=== PATIENT | male | born 1955 | race Caucasian/White ===

== ENCOUNTER 2025-06-18 17:44 | Inpatient (IN) | payer MEDICARE, SELFPAY ==
--- OUTSIDE RECORDS SUMMARY | 2021-10-01 10:25 | XMS_ITS | Continuity of Care Document ---
Author Organization [facility] Address [address] [place] [address] Phone Care Team Providers Care Delinquent Tax Collector Name Role Phone Jeremy Garcia MD Unavailable [...] Diagnoses Date Provider Providers Copied on Encounter [facility], [facility] [address] [place] [address], [facility], tel: [phone] [facility] No Information 2 Radha Luna. [facility] [address], [id number], . tel:[phone] [facility], [facility] [address] [place] [address], [facility], tel: [phone] [facility] No Information 2 Radha Luna. [facility] [address], [id number], . tel:[phone] Referring Provider: Jeremy Ortega, [facility] [address], [address] . tel:[phone] [facility], [facility] [address], [address], [facility] No Information 2 No Information Referring Provider: Jeremy Ortega, [facility] [address], [address] . tel:[phone] [facility], [facility] [address], [address], [facility] No Information 2 No Information Referring Provider: Jeremy Ortega, [facility] [address], [address] . tel:[phone] [facility], [address] [place] [address], [address], [place] tel: [phone] [facility] No Information 2 Radha Luna. [address] [place] [address], [id number], [place]. tel:[phone] Referring Provider: Nirmal Fonseca, [address] [place], [address]. tel:[phone] OFFICE/OUTPA TIENT VISIT, [facility], [address] [place] [address], [address], [place] tel: [phone] [facility] Cataract Evaluation (chief complaint) Age-related nuclear cataract, left eyeOpen angle w/ borderline finding of eye, low riskOther secondary cataract, right eye 1 Radha Luna. [address], [id number], [place]. tel:[phone] Referring Provider: Jeremy Ortega, [address] [place] [address], [address] . tel:[phone] [facility], , [address] [place] [address], [id number] , [place] tel:[phone] [facility] Cataract, Nuclear ScleroticSeconda ry Membrane Apr- 0 5 Drew Carmen. [address] [place], [place], [id number]. tel:[phone] [facility], , [address] [place] [address], [id number] , [place] tel:[phone] [facility] No Information Oct-2 3-201 2 Drew Kermit. [address] [place], [place], [id number]. tel:[phone] [facility], , [address] [place] [address], [id number] , [place] tel:[phone] [facility] No Information Oct-2 3-201 2 Center [facility]. [address], [place], [place], [id number], . tel:[phone] [facility], , [address], [place], [id number] , tel:[phone] [facility] No Information Oct-0 2 Drew Carmen. [address], [id number]. tel:[phone] [facility], , [address] [place] [address], [id number] , [place] tel:[phone] [facility] Cataract, Nuclear Sclerotic Apr-3 0 2 Drew Kermit. [address], [id number]. tel:[phone] [facility], , [facility], [place], [id number] , tel:[phone] [facility] No Information Apr-3 2 Drew Carmen. [address], [place], [place], [id number]. tel:[phone] Family History Family Member Type Diagnosis Age At Onset Problem (finding) No family hist ory of Macular degeneration Problem (finding) No family history of Gl aucoma Father Problem (finding) Diabetes mellitus Problem (finding) No family history of Ca taracts Payers Payer name Insurance type Covered republican ID Authoriza tion(s) [place] [id number] Social History Type Description Quantity Date Captured [...]
[2025-06-18] VITALS (21 sets, daily range): BP systolic 120–172; BP diastolic 85–128; PULSE 69–85; RESP 14–22; TEMP 36.9; O2SAT 93–98
--- NOTE | 2025-06-18 17:45 | CTR_ITS ---
PROCEDURE INFORMATION: Exam: CT Head Without Contrast Exam date and time: 06/18/2025 5:46 PM Age: 70 years old Clinical indication: Stroke-like symptoms; Altered mental status/memory loss; Additional info: Symptoms of acute stroke TECHNIQUE: Imaging protocol: Computed tomography of the head without contrast. Radiation optimization: All CT scans at this facility use at least one of these dose optimization techniques: automated exposure control; mA and/or kV adjustment per patient size (includes targeted exams where dose is matched to clinical indication); or iterative reconstruction. Other technique: STROKE PROTOCOL was implemented. COMPARISON: No relevant prior studies available. RADIATION DOSE METRICS: Total DLP (mGy-cm): 1182.38 FINDINGS: Brain: Sequela of moderate chronic microvascular ischemic changes with periventricular and deep white matter hypoattenuation. Voss-white differentiation is otherwise grossly maintained. Hypoattenuation in the region of the left temporal lobe is favored to be artifactual. No evidence of intra-axial or extra-axial hemorrhage. No mass effect or midline shift. Basilar cisterns are patent. Cerebral ventricles: No hydrocephalus. Paranasal sinuses: The visualized paranasal sinuses are well aerated. Mastoid air cells: The visualized mastoids and middle ears are clear. Bones: Calvarium is intact. No evidence of acute fracture. Soft tissues: No gross soft tissue abnormality. CT/CT head thrombolytic [id number] IMPRESSION: 1. No acute intracranial abnormality. If there is clinical concern for acute-subacute ischemia beyond the window for neuro intervention, consider correlation with MRI. ASSESSMENT: ASPECTS ([place] Stroke Program Early CT Score) is 10.
--- NOTE | 2025-06-18 17:45 | ECG_ITS ---
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 Measurements Intervals Bath Rate: 84 P: 76 [place]: 180 QRS: 16 QRSD: 106 T: 77 QT: 378 QTc: 448 Interpretive Statements SINUS RHYTHM No previous ECG available for comparison Electronically Signed On 06-19-2025 20:24:28 CDT by Gerri Griffith M.D. [email or web address]
--- NOTE | 2025-06-18 17:45 | CTR_ITS ---
PROCEDURE INFORMATION: Exam: CTA Head With Contrast, Arteriography Exam date and time: 06/18/2025 5:50 PM Age: 70 years old Clinical indication: Cognitive deficit; Altered mental status; Additional info: CVA TECHNIQUE: Imaging protocol: Computed tomographic angiography of the head with contrast. Exam focused on the arteries. 3D rendering (Not supervised by radiologist): MIP and/or 3D reconstructed images were created by the technologist. Radiation optimization: All CT scans at this facility use at least one of these dose optimization techniques: automated exposure control; mA and/or kV adjustment per patient size (includes targeted exams where dose is matched to clinical indication); or iterative reconstruction. Contrast material: OMNIPAQUE 350; Contrast volume: 100 ml; Contrast route: INTRAVENOUS (IV); COMPARISON: CT head thrombolytic [id number] 06/18/2025 5:46 PM RADIATION DOSE METRICS: Total DLP (mGy-cm): 530.29 FINDINGS: ANTERIOR CIRCULATION: Right internal carotid artery: Patent. Right middle cerebral artery: Patent. Right anterior cerebral artery: Patent. Left internal carotid artery: Patent. Left middle cerebral artery: Patent. Left anterior cerebral artery: Patent. POSTERIOR CIRCULATION: Right vertebral artery: Patent. Left vertebral artery: Patent. The left vertebral artery terminates as an AICA-PICA trunk. Basilar artery: Patent. Right posterior cerebral artery: Patent. Left posterior cerebral artery: Patent. PROCEDURE INFORMATION: Exam: CTA Neck With Contrast Exam date and time: 06/18/2025 5:50 PM Age: 70 years old Clinical indication: Cognitive deficit; Altered mental status; Additional info: CVA TECHNIQUE: Imaging protocol: Computed tomographic angiography of the neck with contrast. Exam focused on the cervical segments of the vasculature. 3D rendering (Not supervised by radiologist): MIP and/or 3D reconstructed images were created by the technologist. Radiation optimization: All CT scans at this facility use at least one of these dose optimization techniques: automated exposure control; mA and/or kV adjustment per patient size (includes targeted exams where dose is matched to clinical indication); or iterative reconstruction. Contrast material: OMNIPAQUE 350; Contrast volume: 100 ml; Contrast route: INTRAVENOUS (IV); COMPARISON: CT head thrombolytic [id number] 06/18/2025 5:46 PM RADIATION DOSE METRICS: Total DLP (mGy-cm): 530.29 FINDINGS: Right common carotid artery: Patent. No evidence of hemodynamically significant stenosis. Right internal carotid artery: Patent. No evidence of hemodynamically significant stenosis. Right external carotid artery: Patent. Left common carotid artery: Patent. No evidence of hemodynamically significant stenosis. Left internal carotid artery: Patent. No evidence of hemodynamically significant stenosis. Left external carotid artery: Patent. Right vertebral artery: Patent. Left vertebral artery: Patent. Developmentally hypoplastic. Soft tissues: No gross soft tissue abnormality. No evidence of fluid collection or hematoma. Bones/joints: No evidence of acute fracture or subluxation of the cervical spine. Chronic C6 spinous process fracture. Severe foraminal stenosis on the left at C4-C5, C5-C6 and C6-C7. Consider correlation with follow-up MRI to evaluate for neural impingement. CT/CT angio headneck* [id number] IMPRESSION: 1. No evidence of large vessel occlusion or acute thrombosis in the head. IMPRESSION: 1. No evidence of acute thrombosis or hemodynamically significant stenosis in the neck. 2. Severe foraminal stenosis on the left at C4-C5, C5-C6 and C6-C7. Consider correlation with follow-up MRI to evaluate for neural impingement. REFERENCES: NASCET CRITERIA. The degree of stenosis in the cervical segment of the internal carotid artery is based on NASCET criteria. Normal is no stenosis. Mild is less than 50% stenosis. Moderate is 50-69% stenosis. Severe is 70% to 99% stenosis. Total occlusion is no detectable patent lumen.
--- OUTSIDE RECORDS SUMMARY | 2025-06-18 17:52 | XMS_ITS | Encounter Summary ---
Author Organization [facility] Address [address] [place] [address] Care Team Providers Care Channel Lip Wetter Name Role Phone Unavailable Primary Care Provider Unavailabl e Encounter Details Date Type Department Care Team (Latest Contact Info) Description 06/03/2007 Outpatient Historical 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
--- OUTSIDE RECORDS SUMMARY | 2025-06-18 17:52 | XMS_ITS | Encounter Summary ---
Author Organization [facility] Address [address] [place] [address] Care Team Providers Care Tombstone Erector Helper Name Role Phone Unavailable Primary Care Provider Unavailabl e Encounter Details Date Type Department Care Team (Latest Contact Info) Description 05/09/2005 Outpatient Historical [facility] [address] [place] [address] AMBULANCE, [facility] OTHER INJURY OF ABDOMEN (Primary Dx) Social History Tobacco Use Types Packs/Day Years Used Date Smoking Tobacco: Never Assessed Sex and Gender Information Value Date Recorded Sex Assigned at Not on file 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
--- OUTSIDE RECORDS SUMMARY | 2025-06-18 17:52 | XMS_ITS | Encounter Summary ---
Author Organization [facility] Address 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
--- OUTSIDE RECORDS SUMMARY | 2025-06-18 17:52 | XMS_ITS | Encounter Summary ---
Author Organization [facility] Address [address] [place] [address] Care Team Providers Care Orthotic Fitter Name Role Phone Unavailable Primary Care Provider Unavailabl e Encounter Details Date Type Department Care Team (Late st Contact Info) Description 05/09/2005 Emergency [facility] [address] 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 Gender Identity Not on file Sexual Orientation Not on file documented as of this encounter Plan of Treatment Not on file documented as of this encounter Procedures Procedure Name Priority Date/Time Associated Diagnosis Comments CBC WITH DIFFERENTIAL Routine 05/10/2005 12:38 AM CDT ETHANOL LEVEL Routine 05/10/2005 12:38 AM CDT documented in this encounter Results * (ABNORMAL) ETHANOL LEVEL (05/10/2005 12:38 AM CDT) ETHANOL 283(H) <=10 mg/dL INTERFACE SYSTEM 05/10/2005 12:3 8 AM CDT Henry Bearden MD CHEMISTRY ORDERABLES Sparkle gordon Result INTERFACE SYSTEM Refer to clinic/hospital department * (ABNORMAL) CBC WITH DIFFERENTIAL (05/10/2005 12:38 AM CDT) WBC 8.8 4.5 - 11.0 K/ul INTERFACE SYSTEM RBC 5.79 4.60 - 6.20 Mil/ul INTERFACE SYSTEM HEMOGLOBIN 16.4 14.0 - 18.0 g/dL INTERFACE SYSTEM HEMATOCRIT 47.6 41.0 - 53.0 % INTERFACE SYSTEM MCV 82.2(L) 84.0 - 103.0 Fl INTERFACE SYSTEM MCH 28.3 27.0 - 34.0 pg INTERFACE SYSTEM MCHC 34.5 30.0 - 35.0 g/dL INTERFACE SYSTEM RDW 14.6(H) 11.0 - 14.5 % INTERFACE SYSTEM PLATELETS 313 140 - 440 K/ul INTERFACE SYSTEM MPV 9.5 8.9 - 12.8 Fl INTERFACE SYSTEM NEUTROPHILS 46.7 42.2 - 75.2 % INTERFACE SYSTEM LYMPHOCYTES 41.2 24.0 - 44.0 % INTERFACE SYSTEM MONOCYTES 8.1 2.0 - 10.0 % INTERFACE SYSTEM EOSINOPHILS 3.1 0.0 - 7.0 % INTERFACE SYSTEM BASOPHILS 0.9 0.0 - 1.0 % INTERFACE SYSTEM NEUTROPHIL ABSOLUTE 4.1 2.0 - 8.0 K/uL INTERFACE SYSTEM LYMPHOCYTE ABSOLUTE 3.6 1.2 - 4.0 K/ul INTERFACE SYSTEM MONOCYTE ABSOLUTE 0.7(H) 0.1 - 0.6 K/ul INTERFACE SYSTEM EOSINOPHIL ABSOLUTE 0.3 0.0 - 0.7 K/ul INTERFACE SYSTEM BASOPHILS ABSOLUTE 0.1 0.0 - 0.2 K/ul INTERFACE SYSTEM 05/10/2005 12:3 8 AM CDT us Henry Bearden MD HEMATOLOGY ORDERABLES Fin al Result INTERFACE SYSTEM Refer to clinic/hospital department documented in this encounter Visit Diagnoses Diagnosis Sprain of neck- Primary documented in this encounter
--- OUTSIDE RECORDS SUMMARY | 2025-06-18 17:52 | XMS_ITS | Clinical Summary ---
Author Organization [facility] Address [address] 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
--- OUTSIDE RECORDS SUMMARY | 2025-06-18 17:52 | XMS_ITS | Encounter Summary ---
Author Organization [facility] Address [address] [place] [address] Care Team Providers Care Cleaning Associate Name Role Phone Unavailable Primary Care Provider Unavailabl e Encounter Details Date Type Department Care Team (Late st Contact Info) Description 08/03/2007 Emergency [facility] Emergency Department [address] 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
--- OUTSIDE RECORDS SUMMARY | 2025-06-18 17:52 | XMS_ITS | Encounter Summary ---
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 Name Role Phone Unavailable Primary Care Provider Unavailabl e Encounter Details Date Type Department Care Team (Late st Contact Info) Description 08/02/2007 Emergency [facility] Emergency Department [address] [place] [id number] Julius Anderson MD [address] [place], [place] [id number] Obstructive Chronic Bronchitis with Exacerbation (CMS/HCC) (Primary Dx) Social History Tobacco Use Types Packs/Day Years Used Date Smoking Tobacco: Never Assessed Sex and Gender Information Value Date Recorded Sex Assigned at Not on file 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 Gender Identity Not on file Sexual Orientation Not on file documented as of this encounter Plan of Treatment Not on file documented as of this encounter Procedures Procedure Name Priority Date/Time Associated Diagnosis Comments POC BLOOD GAS, LYTES AND H+H Routine 08/02/2007 7:54 PM BOTTLE CARRIER PT AND APTT Routine 08/02/2007 7:54 PM BOTTLE CARRIER CARDIAC ENZYMES Routine 08/02/2007 7:54 PM BOTTLE CARRIER CBC WITH DIFFERENTIAL Routine 08/02/2007 7:54 PM BOTTLE CARRIER BRAIN NATRIURETIC PEPTIDE, BNP OR PROBNP Routine 08/02/2007 7:54 PM BOTTLE CARRIER BASIC METABOLIC PANEL Routine 08/02/2007 7:54 PM BOTTLE CARRIER CTA CHEST W WO CONTRAST Routine 08/02/2007 7:27 PM BOTTLE CARRIER XR CHEST PA OR AP 1 VW Routine 08/02/2007 7:27 PM BOTTLE CARRIER documented in this encounter Results * (ABNORMAL) POC ISTAT EG 7+ (08/02/2007 7:54 PM BOTTLE CARRIER) SPECIMEN TYPE Arterial INTERF BETHANY SYSTEM Comment: Test Performed By [id number] Pulse OX: 99 Hemoglobin calculated from Hematocrit result FIO2 8 INTERFACE SYSTEM PH 7.51(H) 7.35 - 7.45 Unit INTERFACE SYSTEM PH TEMP CORRECT 7.51(H) 7.35 - 7.45 Unit INTERFACE SYSTEM PCO2 POC 22(L) 35 - 45 mmHg INTERFACE SYSTEM PCO2 TEMP CORRECT 22(L) 35 - 45 mmHg INTERFACE SYSTEM PO2 148(H) 80 - 105 mmHg INTERFACE SYSTEM PO2 TEMP CORRECT 148(H) 80 - 105 mmHg INTERFACE SYSTEM HCO3 (CALC) POC 17.5(L) 22.0 - 26.0 mmol/l INTERFACE SYSTEM BASE EXCESS -5(L) -2 - 3 mmol/l INTERFACE SYSTEM HEMOGLOBIN POC 15.6 3 g/dL 13.5 - 18.0 g/dL INTERFACE SYSTEM HEMATOCRIT ABG 46 38 - 51 % INTER FACE SYSTEM O2 SATURATION 100(H) 95 - 98 % INTERF [facility]ANY SYSTEM TCO2 (CALC) POC 18(L) 23 - 27 mmol/l INTERFACE SYSTEM SODIUM 139 138 - 146 mEq/L INTERFACE SYSTEM POTASSIUM 3.6 3.5 - 4.9 mEq/L INTERFACE SYSTEM CALCIUM IONIZED 1.13 1.12 - 1.32 mmol/l INTERFACE SYSTEM 08/02/2007 7:54 PM BOTTLE CARRIER us Physician Sj Ed POINT OF CARE TESTING COM Edited INTERFACE SYSTEM Refer to clinic/hospital department * BRAIN NATRIURETIC PEPTIDE, BNP OR PROBNP (08/02/2007 7:54 PM BOTTLE CARRIER) BRAIN NATRIURETIC PEPTIDE 44 0 - 125 pg/mL INTERFACE SYSTEM 08/02/2007 7:54 PM BOTTLE CARRIER Julius Anderson MD CHEMISTRY ORDERABLES Edited Performing Organization Address [facility] de Phone Number INTERFACE SYSTEM Refer to clinic/hospital department * PT AND APTT (08/02/2007 7:54 PM BOTTLE CARRIER) PROTIME 13.7 13.0 - 15.7 Secs INTERFACE SYSTEM Comment: As of 06 note change in normal range. INR 0.9 INTERFACE SYSTEM Comment: Expected Values for INR: DVT/PE Goal INR 2.5; range 2.0 - 3.0 Valve Replacement Tissue Goal INR 2.5; range 2.0 - 3.0 Mechanical Goal INR 3.0; range 2.5 - 3.5 POST-IN Goal INR 2.5; range 2.0 - 3.0 or Goal 3.0; range 2.5 - 3.5 Atrial Fibrillation Goal INR 2.5; range 2.0 - 3.0 Ischemic Stroke Goal INR 2.5; range 2.0 - 3.0 For additional information see Guidelines for Anticoagulation available from the pharmacy Kori Macias PTT 24.7 21.6 - 35.6 Secs INTERFACE SYSTEM Comment: Therapeutic Range: Hi-level PE/DVT heparin protocol 80.1 -95.0 sec Lo-level PE/DVT heparin protocol 67.1 - 80.0 sec Cardiac Heparin Protocol 67.1 - 85.0 sec Neuro Heparin Protocol 67.1 - 80.0 sec As of 09/03/2006 note change in APTT Normal Range. 08/02/2007 7:54 PM BOTTLE CARRIER Julius Anderson MD HEMATOLOGY ORDERABLES Edited Performing Organization Address [facility] de Phone Number INTERFACE SYSTEM Refer to clinic/hospital department * CARDIAC ENZYMES (08/02/2007 7:54 PM BOTTLE CARRIER) TROPONIN I <0.1 0.0 - 1.3 ng/mL INTERFACE SYSTEM Comment: As of 07 the Troponin Reference Range has changed from 0.0-1.5 ng/ml to 0.0- 1.3 ng/ml due to a change in testing methodology. CKMB 3.4 0.0 - 5.0 ng/mL INTERFACE SYSTEM 08/02/2007 7:54 PM BOTTLE CARRIER us Juilus Anderson MD CHEMISTRY ORDERABLES Edited Performing Organization Address [facility] Phone Number INTERFACE SYSTEM Refer to clinic/hospital department * (ABNORMAL) BASIC METABOLIC PANEL (08/02/2007 7:54 PM BOTTLE CARRIER) GLUCOSE 106 70 - 110 mg/dL INTERFACE SYSTEM BUN 14 9 - 20 mg/dL INTERFACE SYSTEM CREATININE 0.9 0.7 - 1.5 mg/dL INTERFACE SYSTEM SODIUM 141 136 - 145 mEq/L INTERFACE SYSTEM POTASSIUM 3.7 3.5 - 5.0 mEq/L INTERFACE SYSTEM CHLORIDE 108 95 - 110 mEq/L INTERFACE SYSTEM CO2 19(L) 22 - 32 mmol/l INTERFACE SYSTEM CALCIUM 9.4 8.4 - 10.5 mg/dL INTERFACE SYSTEM ANION GAP 18 9 - 20 mEq/L INTERFACE SYSTEM OSMOLALITY, CALCULATED 290 275 - 295 mOsm/Kg INTERFACE SYSTEM 08/02/2007 7:54 PM BOTTLE CARRIER us Julius Anderson MD CHEMISTRY ORDERABLES Edited Performing Organization Address [facility] Phone Number INTERFACE SYSTEM Refer to clinic/hospital department * (ABNORMAL) CBC WITH DIFFERENTIAL (08/02/2007 7:54 PM BOTTLE CARRIER) WBC 12.0(H) 4.8 - 10.8 K/ul INTERFACE SYSTEM RBC 5.38 4.60 - 6.20 Mil/ul INTERFACE SYSTEM HEMOGLOBIN 14.7 14.0 - 18.0 g/dL INTERFACE SYSTEM HEMATOCRIT 43.3 41.0 - 53.0 % INTERFACE SYSTEM MCV 80.5(L) 84.0 - 103.0 Fl INTERFACE SYSTEM MCH 27.3 27.0 - 34.0 pg INTERFACE SYSTEM MCHC 33.9 30.0 - 35.0 g/dL INTERFACE SYSTEM RDW 14.3 11.0 - 14.5 % INTERFACE SYSTEM PLATELETS 294 140 - 440 K/ul INTERFACE SYSTEM MPV 9.5 8.9 - 12.8 Fl INTERFACE SYSTEM NEUTROPHILS 47.7 42.2 - 75.2 % INTERFACE SYSTEM LYMPHOCYTES 41.1 24.0 - 44.0 % INTERFACE SYSTEM MONOCYTES 8.4 2.0 - 10.0 % INTERFA CE SYSTEM EOSINOPHILS 2.0 0.0 - 7.0 % INTERF BETHANY SYSTEM BASOPHILS 0.8 0.0 - 1.0 % INTERFAC E SYSTEM NEUTROPHIL ABSOLUTE 5.7 2.0 - 8.0 K/ul INTERFACE SYSTEM LYMPHOCYTE ABSOLUTE 4.9(H) 1.2 - 4.0 K/ul INTERFACE SYSTEM MONOCYTE ABSOLUTE 1.0(H) 0.1 - 0.6 K/ul INTERFACE SYSTEM EOSINOPHIL ABSOLUTE 0.2 0.0 - 0.7 K/ul INTERFACE SYSTEM BASOPHILS ABSOLUTE 0.1 0.0 - 0.2 K/ul INTERFACE SYSTEM HEM COMMENT Automated Diff Automated Diff INTERFACE SYSTEM 08/02/2007 7:54 PM BOTTLE CARRIER us Julius Anderson MD HEMATOLOGY ORDERABLES Edited INTERFACE SYSTEM Refer to clinic/hospital department * XR CHEST PA OR AP (08/02/2007 7:27 PM BOTTLE CARRIER) Anatomical Region Laterality Modality Chest Other 08/02/2007 7:27 PM BOTTLE CARRIER Narrative 08/02/2007 7:27 PM BOTTLE CARRIER Portable AP upright chest 08/02/2007. 1945 hours. History: Difficulty breathing. The heart is borderline large. The thoracic aorta contains calcification without aneurysmaldilatation. There is linear scarring in the medial right upper lobe. The medial right upper lobealso has a small calcified granuloma. The lung rios are otherwise clear without pneumothorax,pleural fluid, or infiltrate. What appears to be a possible nodule in the mid right lung fieldoverlying the posterior right 5th rib may be part of the patchy probable infiltrate in the inferiorright upper lobe seen on the CTA of the chest which is dictated separately. The bones appearintact. Impression: Linear scarring and small calcified probable granuloma in the medial right upper lobe. What appears to be a possible small nodule overlying the posterior right 5th rib is probably due tothe patchy infiltrate in the inferior right upper lobe seen on the CT scan which is dictatedseparately. There is no soft tissue pulmonary nodule in this area. - Dictated By: Leatha Mcgee M.D. Electronically Signed By: Leatha Mcgee M.D. Date Signed: 08/03/07 Procedure Note 08/19/2009 Portable AP upright chest 08/02/2007. 1945 hours. History: Difficulty breathing. The heart is borderline large. The thoracic aorta contains calcificationwithout aneurysmaldilatation. There is linear scarring in the medial right upper lobe. The medial rightupper lobealso has a small calcified granuloma. The lung rios are otherwise clear withoutpneumothorax,pleural fluid, or infiltrate. What appears to be a possible nodule in the mid right lungfieldoverlying the posterior right 5th rib may be part of the patchy probable infiltrate in theinferiorright upper lobe seen on the CTA of the chest which is dictated separately. The bones appearintact. Impression: Linear scarring and small calcified probable granuloma in the medial rightupper lobe. What appears to be a possible small nodule overlying the posterior [id number] rib is probably due tothe patchy infiltrate in the inferior right upper lobe seen on the CT scanwhich is dictatedseparately. There is no soft tissue pulmonary nodule in this area. - Dictated By: Leatha Mcgee M.D. Electronically Signed By: Leatha Mcgee M.D. Date Signed: 08/03/07 us Julius Anderson MD DIAGNOSTIC IMAGING ORDERABLE S Final Result * CTA CHEST W WO CONTRAST (08/02/2007 7:27 PM BOTTLE CARRIER) Anatomical Region Laterality Modality Chest Other 08/02/2007 7:27 PM BOTTLE CARRIER Narrative 08/02/2007 7:27 PM BOTTLE CARRIER CTA Chest 08/02/2007History: Difficulty breathing. Procedure: A routine CT angiogram for pulmonary embolus was obtained with noncontrast images followedby thin cut images with 100ml of Optiray 350 IV contrast. Findings: 1. The pulmonary arteries are well opacified. There is no pulmonary embolus. 2. There is a calcified probable granuloma in the right upper lobe. There is thick linear scarringextending peripherally from the granuloma. . There are a couple of focal areas of thickening alongthe linear scarring. This is probably also due to scarring. There is no previous scan available. The scarring is either not present or not as prominent on the AP view of the cervical spine05/09/2005.3. There are patchy subtle ground glass densities within the inferior right upper lobe. This isprobably an infiltrate. 4. There is peripheral atelectasis or infiltrate in the posterior lower bilateral lower lobes. It isprobably platelike atelectasis in the horizontal plane. There is minimal other peripheralatelectasis in the posterior lower lobes. 5. There are calcifications in the chest consistent with old granulomatous disease. 6. There is no pneumothorax or pleural fluid. There is no pericardial fluid. The heart is within normallimits in size. The thoracic aorta is normal without aneurysm or dissection. There is nomediastinal or axillary lymphadenopathy. 7. The adrenals and spleen are normal in appearance. There is no identified abnormality of thepartially included liver and pancreas. 8. There are a few cysts within the partially included kidneys on the noncontrast images. The kidneysare not well enough included for adequate evaluation. They were not included on the with contrastimages. 9. There are degenerative changes in the shoulders. There are old right rib fractures with milddeformities in the anterolateral right third through sixth ribs. There are minimal degenerativechanges in the spine. T10 is minimally anteriorly wedged, possibly developmental. Impression: No pulmonary embolus. Old granulomatous disease. Linear probable scarring in the rightupper lobe. Focal thickening within the scarring. No previous scan available. Scar carcinoma isunlikely but cannot be excluded. A follow up CT scan of the chest in 6 months is suggested. Patchyground glass density in the inferior right upper lobe, probably due to subtle infiltrate. Probableplate like atelectasis in the posterior inferior bilateral lower lobes. Cysts within the partiallyincluded kidneys. Because the kidneys were not completely included on this scan and the cysts werenot well delineated because they are only seen on noncontrast images, further evaluation withbilateral renal ultrasound is suggested because a cystic mass cannot be excluded. Degenerativechanges in the shoulders. Old right rib fractures. Minimal degenerative changes in the spine. - Dictated By: Leatha Mcgee M.D. Electronically Signed By: Leatha Mcgee M.D. Date Signed: 08/02/07 Procedure Note 08/19/2009 CTA Chest 08/02/2007History: Difficulty breathing. Procedure: A routine CT angiogram for pulmonary embolus was obtained with noncontrastimages followedby thin cut images with 100ml of Optiray 350 IV contrast. Findings: 1. The pulmonary arteries are well opacified. There is no pulmonaryembolus. 2. There is a calcified probable granuloma in the right upper lobe. Thereis thick linear scarringextending peripherally from the granuloma. . There are a couple of focal areas of thickening alongthe linearscarring. This is probably also due to scarring. There is no previous scan available. The scarring is either not present or not as prominent on the AP view ofthe cervical spine05/09/2005.3. There are patchy subtle ground glass densities within the inferior rightupper lobe. This isprobably an infiltrate. 4. There is peripheral atelectasis or infiltrate in the posterior lowerbilateral lower lobes. It isprobably platelike atelectasis in the horizontal plane. There is minimalother peripheralatelectasis in the posterior lower lobes. 5. There are calcifications in the chest consistent with old granulomatousdisease. 6. There is no pneumothorax or pleural fluid. There is no pericardialfluid. The heart is within normallimits in size. The thoracic aorta is normal without aneurysm ordissection. There is nomediastinal or axillary lymphadenopathy. 7. The adrenals and spleen are normal in appearance. There is noidentified abnormality of thepartially included liver and pancreas. 8. There are a few cysts within the partially included kidneys on thenoncontrast images. The kidneysare not well enough included for adequate evaluation. They were not includedon the with contrastimages. 9. There are degenerative changes in the shoulders. There are old rightrib fractures with milddeformities in the anterolateral right third through sixth ribs. Thereare minimal degenerativechanges in the spine. T10 is minimally anteriorly wedged,possibly developmental. Impression: No pulmonary embolus. Old granulomatous disease. Linear probable scarringin the rightupper lobe. Focal thickening within the scarring. No previous scan available. Scar carcinomaisunlikely but cannot be excluded. A follow up CT scan of the chest in 6 months is suggested.Patchyground glass density in the inferior right upper lobe, probably due to subtle infiltrate.Probableplate like atelectasis in the posterior inferior bilateral lower lobes. Cysts within thepartiallyincluded kidneys. Because the kidneys were not completely included on this scan and the cysts werenot welldelineated because they are only seen on noncontrast images, further evaluation withbilateral renalultrasound is suggested because a cystic mass cannot be excluded. Degenerativechanges in the shoulders. Oldright rib fractures. Minimal degenerative changes in the spine. - Dictated By: Leatha Mcgee M.D. Electronically Signed By: Leatha Mcgee M.D. Date Signed: 08/02/[address] ORDERABLES Final Result documented in this encounter Visit Diagnoses Diagnosis Obstructive chronic bronchitis with exacerbation (CMS/HCC)- Primary Obstructive chronic bronchitis with exacerbation documented in this encounter
--- NOTE | 2025-06-18 18:01 | ED_ITS ---
HPI - Neuro Symptoms/Deficit 2 General: Chief Complaint: Neuro Symptoms/Deficit Stated Complaint: right facial droop; slurred speech Time Seen by Provider: 06/18/25 17:45 History of Present Illness: 70 yo M with Hx of COPD and CHF presents with new left facial droop and slurred speech. Per triage, has chronic left arm pain with limited elevation but equal blintze roller, and baseline bilateral leg weakness. Uses 2 L NC at baseline. On arrival, working hard to breathe; SpO2 noted at 84%. Denies visual field deficits or sensory changes on face. Reports taking ?water pills? (Lasix) but admits poor adherence. ROS notable for dyspnea; denies visual black spots; no facial sensory loss reported. NIH stroke score 2 NIHSS: Level Of Consciousness - 1a: 0 Level Of Consciousness Questions - 1b: Both Correct Level Of Consciousness Commands - 1c: Both Correct Best Gaze - 2: Normal Visual Slade - 3: No Visual Loss Facial Palsy - 4: P artial Paralysis Motor Arm Right - 5: No Drift Motor Arm Left - 5: No Drift Motor Leg Right - 6: No Drift Motor Leg Left - 6: No Drift Limb Ataxia - 7: Absent Sensory - 8: Normal Best Language - 9: No Aphasia D ysarthia - 10: Mild/Moderate Dysarthia Extinction And Inattention - 11: 0 Score: Total Score: 3 Physical Exam 2 Narrative: EXAM NARRATIVE: Gen: Mild respiratory distress. HEENT: Mucous membranes dry. Vision intact; no visual field cuts. Lungs: Severely diminished breath sounds bilaterally with wheezes. Tachypneic at ~30/min. Extremities: 1+ pitting edema of the legs. Neuro: Left facial droop sparing forehead/eyelids; able to close left eye completely. Equal blintze roller strength. Normal sensation in bilateral face, arms, and legs. Strength and sensation equal in bilateral legs. Const: COMMON NORMALS: no acute distress HENMT: COMMON NORMALS: normocephalic and atraumatic HEAD & SCALP: n ormocephalic and atraumatic Eye: COMMON NORMALS: Equal, round and reactive pupils present, EOMs intact bilaterally and no scleral icterus PUPIL: Yes Equal, round and reactive pupils present Cardio: COMMON NORMALS: regular rate, regular rhythm and No murmurs present (Cardio) RATE: regular rate RHYTHM: regular rhythm GI: COMMON NORMALS: Normal to inspection, nondistended, normoactive bowel sounds present, Soft to palpation and non-tender PALPATION: Yes Soft to palpation Skin: COMMON NORMALS: no rashes or lesions noted GENERAL SKIN EXAM: no rashes or lesions noted Course 2 Vital Signs: Vital signs: Vital Signs Pulse Rate 73 06/18/25 20:17 Respiratory Rate 17 06/18/25 20:17 Blood Pressure 142/94 06/18/25 20:17 Pulse Oximetry 97 06/18/25 20:17 Oxygen Delivery Me thod Non-Rebreather 06/18/25 18:33 Oxygen Flow Rate 7 06/18/25 18:33 Fraction of Inspir ed Oxygen 50 06/18/25 18:44 MDM - Neuro Symptoms/Deficit Medical Decision Making 70 yo M with COPD/CHF presents with new left facial droop/dysarthria and significant dyspnea. Baseline bilateral leg weakness and chronic limited left arm elevation. Poor adherence to diuretics reported. SpO2 84% and RR ~30. Mild respiratory distress with bilateral wheezes and markedly diminished breath sounds. Neuro: facial droop sparing forehead, equal manager of procurement, intact sensation. 1+ lower extremity pitting edema. Mucous membranes dry. Non-contrast head CT reviewed with radiology: no acute process appreciated. DDx discussed included COPD exacerbation; provider states patient is at minimum suffering from moderate COPD exacerbation. Stroke evaluation in progress; CT head without acute findings. CHF noted in history; patient not orthopneic per exam. Plans: Breathing treatments initiated. Blood gas shows pCO2 of 112. He will be placed on BiPAP and given Solu-Medrol and DuoNeb. I do suspect COPD exacerbation and he will likely require hospitalization for this given that on his normal 3 L nasal cannula saturating 82% and mild respiratory distress. Oxygen saturation improved on BiPAP and ABGs improving with repeat pCO2 of 93.7 and repeat pH of 7.251 improved from 7.181. I am uncertain of the chronicity of his left-sided facial droop but initial CT scanning does not show evidence of intracranial bleed. He is outside the window for TNKase treatment. He will be admitted to the hospitalist service to the ICU overnight for further observation and care. Respiratory pathogen panel is pending at time of disposition. No obvious pneumonia seen on chest x-ray thus antibiotics are not been initiated EKG: Time?1813?sinus rhythm, rate of 84, no ST segment elevation or depression, no T wave inversions, QTc = 419 Lab Data 06/18/25 18:23 06/18/25 18:[address] 06/18/25 17:45 IMPRESSION: 1. No acute intracranial abnormality. If there is clinical concern for acute-subacute ischemia beyond the window for neuro intervention, consider correlation with MRI. ASSESSMENT: ASPECTS ([place] Stroke Program Early CT Score) is 10. ADDENDUM: 06/18/251810 The findings were verbally communicated by telephone with Dr. Mcgee at 6:10 PM CDT on 06/18/2025. Head/Neck CTA 06/18/25 17:45 IMPRESSION: 1. No evidence of large vessel occlusion or acute thrombosis in the head. IMPRESSION: 1. No evidence of acute thrombosis or hemodynamically significant stenosis in the neck. 2. Severe foraminal stenosis on the left at C4-C5, C5-C6 and C6-C7. Consider correlation with follow-up MRI to evaluate for neural impingement. REFERENCES: NASCET CRITERIA. The degree of stenosis in the cervical segment of the internal carotid artery is based on NASCET criteria. Normal is no stenosis. Mild is less than 50% stenosis. Moderate is 50-69% stenosis. Severe is 70% to 99% stenosis. Total occlusion is no detectable patent lumen. Chest X-Ray 06/18/25 18:17 IMPRESSION: 1. No acute cardiopulmonary abnormality. If persistently symptomatic, consider correlation with CT. Laboratory Results WBC 16.41 10^3/uL (3.29-11.43) H 06/18/25 18:23 RBC 4.82 10^6/uL (3.85-5.65) 06/18/25 18:23 Hgb 11.00 g/dL (11.27-16.99) L 06/18/25 18:23 Hct 40.6 % (37-53) 06/18/25 18:23 MCV 84.2 fl (82-101) 06/18/25 18:23 MCH 22.8 pg (27-33) L 06/18/25 18:23 MCHC 27.1 g/dL (30-55) L 06/18/25 18: RDW 19.4 % (12.1-15.1) H 06/18/25 18:23 Plt Count 307 10^3/cmm (157-399) 06/18/25 18:23 MPV 9.4 fL (7.4-10.4) 06/18/25 18:23 Neut % (Auto) 74.6 % 06/18/25 18:23 Lymph % (Auto) 11.7 % 06/18/25 18:23 [place] % (Auto) 11.1 % 06/18/25 18:23 Eos % (Auto) 1.6 % 06/18/25 18:23 Baso % (Auto) 0.4 % 06/18/25 18:23 Neut # (Auto) 12.24 10^3/uL (1.8-7.7) H 06/18/25 18:23 Lymph # (Auto) 1.9 10^3/uL (0.8-4.8) 06/18/25 18:23 [place] # (Auto) 1.8 10^3/uL (0.2-0.9) H 06/18/25 18:23 Eos # (Auto) 0.3 10^3/uL (0.0-0.8) 06/18/25 18:23 Baso # (Auto) 0.1 10^3/uL (0.0-0.1) 06/18/25 18:23 Nucleated RBC % (auto) 0 % 06/18/25 18: Nucleated RBCs # 0.0 /100WBC 06/18/25 18:23 PT 12.60 SECONDS (12.1-14.9) 06/18/25 18:23 INR 0.88 (0.8-1.2) 06/18/25 18:23 APTT 24.7 SECONDS (23.9-36.7) 06/18/25 18:23 Specimen Type Arterial 06/18/25 18:21 Sample Site Radial, left 06/18/25 18:21 ABG pH 7.18 (7.35-7.45) L* 06/18/25 18:21 ABG pCO2 > 102.0 mmHg (35-45) H* 06/18/25 18:21 ABG pO2 165.0 mmHg (80.0-100.0) H 06/18/25 18:21 ABG PO2/FiO2 Ratio 183 06/18/25 17:54 ABG HCO3 41.8 mmol/L (22-26) H 06/18/25 18:21 ABG Base Excess 9.7 mmol/L (-2.0-2.0) H 06/18/25 18:21 Juno Test Pos 06/18/25 18:21 Hematocrit 36.0 % (42-52) L 06/18/25 18:21 O2 Delivery Device Oxy mask 06/18/25 18:21 O2 Liters/Min 7.0 % 06/18/25 18:21 FiO2 50.0 % 06/18/25 17:54 PEEP 10.0 cmH20 06/18/25 17:54 Client Coordinator ID [place] 06/18/25 18:21 Sodium 143 mmol/L (136-145) 06/18/25 18:23 Potassium 5.4 mmol/L (3.5-5.1) H 06/18/25 18:23 Chloride 98 mmol/L (98-107) 06/18/25 18:23 Carbon Dioxide 38 mmol/L (22-29) H 06/18/25 18:23 Anion Gap 12.4 (5-19) 06/18/25 18:23 BUN 18 mg/dL (8-23) 06/18/25 18:23 Creatinine 0.8 mg/dL (0.7-1.2) 06/18/25 18:23 GFR Calculation 95.6 mL/min (90-130) 06/18/25 18:23 Glucose 128 mg/dL (65-115) H 06/18/25 18:23 Calculated Osmolality 300 mOsm/kg (285-295) H 06/18/25 18:23 Calcium 8.4 mg/dL (8.5-10.5) L 06/18/25 18:23 Total Bilirubin 0.2 mg/dL (0.15-1.2) 06/18/25 18:23 AST 22 U/L (0-40) 06/18/25 18:23 ALT 19 U/L (0-41) 06/18/25 18:23 Alkaline Phosphatase 110 U/L (40-130) 06/18/25 18:23 Troponin T Baseline 23 ng/L (0-15) H 06/18/25 18:23 NT-Pro-B Natriuret Pep 138 pg/mL (0-125) H 06/18/25 18:23 Total Protein 7.6 g/dL (6.6-8.7) 06/18/25 18:23 Albumin 3.9 g/dL (3.5-5.2) 06/18/25 18:23 Globulin 3.7 g/dL (1.3-4.6) 06/18/25 18:23 All radiology interpretation(s) finalized by discharge Critical Care Time 2 Critical Care Time: Attestation: This case had a high probability of a clinically significant, sudden, or life threatening deterioration of this patient's condition which required my full and direct attention, intervention and personal management. I spent 46 minutes at bedside and managing the patient directly to counteract his respiratory failure and possible stroke Discharge Plan Discharge Patient Disposition: Admitted As Inpatient Clinical Impression: Acute hypercapnic respiratory failure, Acute exacerbation of chronic obstructive pulmonary disease, Facial droop Condition: Stable Coding Level of Care Code ED Software Reliability Engineer for Alida Guerra
--- NOTE | 2025-06-18 18:17 | XRR_ITS ---
PROCEDURE INFORMATION: Exam: XR Chest Exam date and time: 06/18/2025 6:22 PM Age: 70 years old Clinical indication: Shortness of breath; Additional info: SOB TECHNIQUE: Imaging protocol: Radiologic exam of the chest. Views: 1 view. COMPARISON: No relevant prior studies available. FINDINGS: Lungs: No focal consolidation. Suspected emphysematous changes. Pleural spaces: No evidence of pneumothorax. No evidence of pleural effusion. Heart/Mediastinum: Cardiomediastinal silhouette is within normal limits. Bones/joints: No evidence of acute osseous abnormality. ORIF of the left clavicle partially visualized. XR/XR chest 1V portable [id number] IMPRESSION: 1. No acute cardiopulmonary abnormality. If persistently symptomatic, consider correlation with CT.
[2025-06-18 18:29] LABS: Hematocrit 40.6 % (37-53); Hemoglobin 11.00 g/dL (11.27-16.99); Mean Corpuscular HGB Conc 27.1 g/dL (30-55); Mean Corpuscular Hemoglobin 22.8 pg (27-33); Mean Corpuscular Volume 84.2 fl (82-101); Nucleated Red Blood Cells % 0 %; Platelet Count 307 10^3/cmm (157-399); Red Blood Count 4.82 10^6/uL (3.85-5.65); White Blood Count 16.41 10^3/uL (3.29-11.43)
[2025-06-18 18:32] LABS: Arterial Blood Gas Hematocrit 36.0 % (42-52); Blood Gas Allen Test Pos; Blood Gas LPM 7.0 %; Blood Gas Operator Identificat WALCI; Blood Gas Sample Site Radial, left; Blood Gas Sample Type Arterial; HCO3 ABG 41.8 mmol/L (22-26); PO2 ABG 165.0 mmHg (80.0-100.0)
[2025-06-18 18:33] LABS: ABG PCO2 > 102.0 mmHg (35-45); ABG PH Result 7.18 (7.35-7.45)
[2025-06-18 18:53] LABS: INR 0.88 (0.8-1.2); Prothrombin Time 12.60 SECONDS (12.1-14.9)
[2025-06-18 18:54] LABS: Partial Thromboplastin Time 24.7 SECONDS (23.9-36.7)
[2025-06-18 19:05] LABS: Alanine Aminotransferase 19 U/L (0-41); Albumin Level 3.9 g/dL (3.5-5.2); Alkaline Phosphatase 110 U/L (40-130); Anion Gap 12.4 (5-19); Aspartate Amino Transferase 22 U/L (0-40); Blood Urea Nitrogen 18 mg/dL (8-23); Calcium 8.4 mg/dL (8.5-10.5); Carbon Dioxide 38 mmol/L (22-29); Chloride 98 mmol/L (98-107); Globulin 3.7 g/dL (1.3-4.6); Glucose 128 mg/dL (65-115); NT Pro B Type Natriuretic Pept 138 pg/mL (0-125); Osmolality Calculated 300 mOsm/kg (285-295); Potassium 5.4 mmol/L (3.5-5.1); Sodium 143 mmol/L (136-145); Total Protein 7.6 g/dL (6.6-8.7)
[2025-06-18 19:19] LABS: Troponin(5th) Baseline 23 ng/L (0-15)
[2025-06-18] MEDS: methylPREDNISolone sod succ 125 mg/2 mL INJ IVP (19:20)
[2025-06-18 20:06] LABS: ABG PH Result 7.25 (7.35-7.45); Arterial Blood Gas Hematocrit 35.1 % (42-52); Blood Gas Allen Test Pos; Blood Gas Operator Identificat gerca; Blood Gas Sample Site Radial, right; Blood Gas Sample Type Arterial; HCO3 ABG 41.2 mmol/L (22-26); PEEP 10.0 cmH20; PO2 ABG 91.6 mmHg (80.0-100.0); PO2 FiO2 Ratio Arterial Blood 183
[2025-06-18 20:11] LABS: ABG PCO2 93.7 mmHg (35-45)
[2025-06-18 20:27] LABS: Troponin 5 2HR 23.84 ng/L (0-15); Troponin 5 2HR Delta 0.84 ABS# (0-10)
[2025-06-18 21:08] LABS: Coronavirus 229E,HKU1,NL63,OC4 Not Detected (NOT DETECT); Parainfluenza Virus Type 1 Not Detected (NOT DETECT); Parainfluenza Virus Type 2 Not Detected (NOT DETECT); Parainfluenza Virus Type 3 Not Detected (NOT DETECT); Parainfluenza Virus Type 4 Not Detected (NOT DETECT); SARS-COV-2 Not Detected (NOT DETECT)
--- NOTE | 2025-06-18 21:27 | P.HP_ITS ---
Providers/Chief Complaint 2 Admitting Physician: Mega Hightower MD Chief Complaint: right facial droop; slurred speech History of Present Illness Pola Fajardo is a 70 year old male currently on BiPAP and difficult to interview. He is able to answer yes and no questions with nods and shakes of his head and mouthing words but I can audibly hear him through the BiPAP settings. Additionally he is somnolent and requires report current arousal. Patient has history of COPD and CHF on 2 L oxygen per nasal cannula at baseline. He has had increased shortness of breath and sats 84% on 2 L at home. He was sent in as code stroke but CT of the head and CTA of the head and neck were negative. Patient was found to have pH 7.181 and pCO2 102 improved to pH 7.25 pCO2 93.7 on BiPAP settings / rate 16 FiO2 50% with pO2 91. Patient reports cough nonproductive, does not smoke does not drink alcohol or use drugs I called his daughter Adriana Fajardo. She is 31 and is a inspector quality assurance at [employer] in April she drove to [place] to retrieve her dad who now lives with her and her roommate. She states she does not know accurately what her dad was doing prior to coming to [place] but she thinks he quit alcohol a month ago. He was drinking possibly whiskey up to 1/5 a day. She has known him to do that but does not really know what he was doing in [place]. He also vapes and requires a new vape apparatus about every 2 weeks. He smokes marijuana couple bowls a day and she thinks he quit smoking cigarettes in recent months. He worked in [employer]. Patient was admitted to [facility] in [facility] day after arrival locally because he had signs of withdrawal. He was in the hospital for a week and discharged with a trilogy machine. [place] had [place] oxygen for dyspnea during their drive. Patient has been reluctant to wear the trilogy machine rationalizing that he only needed it because he got too much oxygen. He has anxiety and air hunger when wearing the mask. This morning daughter noted he was confused lethargic and slept all day he reported that he had been up bathe watch TV and was doing fine but to her evaluation he was lethargic and speech was slurred and he had slept all day. Last night at 10 PM he was okay except for his normal aches and pains this morning he reported fatigue and lethargy. She did not think he had had a stroke beyond the slurred speech. She reports they went to a doctor's appointment on the but other than that he has been at home so no COVID or flu contacts Review of Systems 2 Narrative: Largely unobtainable because the patient is acutely and respiratory failure requiring BiPAP. Daughter states that he has cough and shortness of breath but is at baseline with this. He is on 2 L oxygen and the hose that he uses his long and so he typically does not do any adjustments on the oxygen concentrator Medications/Allergies Allergies Allergy/AdvReac Type Severity Reaction Status Date / Time No Known Allergies Allergy Verified 06/18/25 20:42 PFSH Acute 2 PFSH: Medical History (Updated 06/18/25 @ 21:51 by Mega Hightower MD) Anxiety Medically noncompliant Acute on chronic respiratory failure with hypoxia and hypercapnia Social History (Updated 06/18/25 @ 21:32 by Mega Hightower MD) Smoking and tobacco/nicotine status: former use of tobacco/nicotine Alcohol intake: unknown Substance/Drug Use: unknown Additional social history: Patient denies tobacco alcohol or illicit use currently. He reports he wants full code Vitals/I&O/Wt Last Vital Signs Temp 98.5 F 06/18/25 21:03 Pulse 69 06/18/25 21:17 Resp 17 06/18/25 21:17 BP 143/94 06/18/25 21:15 Pulse Ox 95 06/18/25 21:17 O2 Del Method BiPAP 06/18/25 21:17 O2 Flow Rate 7 06/18/25 18:33 FiO2 35 06/18/25 21:18 Weight last 48 hrs Weight 98.293 kg Physical Exam 2 Narrative: General well-developed well-nourished female on BiPAP comfortable but lethargic. CV regular rate and rhythm Lungs poor air movement but equal bilaterally without crackles Abdomen diminished bowel tones soft nontender Calves no tenderness cords. No edema Radial pulses 2+ Mentation he is able to nod and shake and mouthing answers but he is not audible. The answers that he gave me are consistent with what I obtained from the daughter Data 06/18/25 18:23 06/18/25 18:23 A&P Assessment and plan 1. Acute on chronic respiratory failure with hypoxia and hypercapnia: This appears to be acutely exacerbated possibly from atypical pneumonia which we will cover with azithromycin or viral illness which we are testing for. Patient will be given steroids azithromycin and supportive care with BiPAP. Repeat ABG and 3 hours from the last. Place Jackson catheter due to acute illness and immobility in the ICU 2. Acute exacerbation of chronic obstructive pulmonary disease: As above. Looks like he has chronic CO2 retention and hypoxemia 3. Medically noncompliant: Patient has not been using trilogy machine and will be counseled regarding this further prior to discharge 4. Anxiety: Patient has nicotine addiction which will be treated with patch 14 mg daily. Will try to wean him off the vape as that is not good for his breathing either. Will wean dexamethasone as tolerated due to anxiety and start citalopram for anxiety PDMP PDMP Reviewed: Not Reviewed Attestations 2 Medical Necessity Statement*: Patient mid in the hospital require greater than 2 midnights for acute respiratory failure Coding Level of Care Code Critical Care >/= 30 minutes Critical care time (in minutes): 50 The high probability of a clinically significant, sudden or life threatening deterioration, as referenced in this documentation, required my full and direct attention, intervention and personal management. The critical care time shown is in addition to time spent performing any reported separately billable procedures and includes the following: [x] Data and vital sign review and interpretation [x ] Patient assessment, examination and intervention [x] Medication orders and management [x] Patient/Family updates as able [x] Care Coordination and Documentation. Diagnoses Acute on chronic respiratory failure with hypoxia and hypercapnia J96.21; J96.22 Acute exacerbation of chronic obstructive pulmonary disease J44.1 Medically noncompliant Z91.199 Anxiety F41.9 Time Spent (min) 50
[2025-06-18 22:09] LABS: Glucose Urine UA Negative (Normal); Nitrate Urine Negative (Negative)
[2025-06-18 22:14] LABS: Add Urine Microscopic? YES
[2025-06-18 22:16] LABS: PCP Screen Urine Negative (Negative)
[2025-06-18 22:20] LABS: Specific Gravity, Urine 1.087 (1.005-1.030)
[2025-06-19] VITALS (51 sets, daily range): BP systolic 111–164; BP diastolic 67–102; PULSE 63–99; RESP 15–27; TEMP 36.3–37.1; O2SAT 83–100
[2025-06-19 00:30] LABS: Hematocrit 38.0 % (37-53); Hemoglobin 10.50 g/dL (11.27-16.99); Mean Corpuscular HGB Conc 27.6 g/dL (30-55); Mean Corpuscular Hemoglobin 23.0 pg (27-33); Mean Corpuscular Volume 83.2 fl (82-101); Nucleated Red Blood Cells % 0 %; Platelet Count 286 10^3/cmm (157-399); Red Blood Count 4.57 10^6/uL (3.85-5.65); White Blood Count 12.21 10^3/uL (3.29-11.43)
[2025-06-19 00:47] LABS: Troponin 5 6HR 24.56 ng/L (0-15); Troponin 5 6HR Delta 1.56 ng/L (0-12)
[2025-06-19 01:07] LABS: Anion Gap 14.3 (5-19); Blood Urea Nitrogen 19 mg/dL (8-23); Calcium 8.8 mg/dL (8.5-10.5); Carbon Dioxide 36 mmol/L (22-29); Chloride 98 mmol/L (98-107); Creatinine Clr Calc Pharmacy 101.1111; Glucose 138 mg/dL (65-115); Osmolality Calculated 300 mOsm/kg (285-295); Potassium 5.3 mmol/L (3.5-5.1); Sodium 143 mmol/L (136-145)
[2025-06-19 03:17] LABS: ABG PCO2 64.3 mmHg (35-45); ABG PH Result 7.40 (7.35-7.45); Arterial Blood Gas Hematocrit 32.6 % (42-52); Blood Gas Allen Test Pos; Blood Gas Operator Identificat BD; Blood Gas Sample Site Brachial, right; Blood Gas Sample Type Arterial; HCO3 ABG 39.8 mmol/L (22-26); PO2 ABG 92.8 mmHg (80.0-100.0); PO2 FiO2 Ratio Arterial Blood 265
--- NOTE | 2025-06-19 04:16 | P.PN_ITS ---
Subjective 2 Subjective: 70-year-old male has been on B iPAP since admission and awakened this morning alert oriented conversant. Patient was counseled regarding need to wear trilogy and quit vaping nicotine as well as smoking marijuana. He is very agreeable to making changes. He is appreciative of his daughter caring for him locally having moved here from [place] to stay with her. Patient denies chest pain. He states that he just felt very lethargic morning of admission Vitals/I&O/Wt Last Vital Signs Temp 97.6 F 06/19/25 00:00 Pulse 67 06/19/25 02:59 Resp 17 06/19/25 02:59 BP 111/71 06/19/25 02:30 Pulse Ox 94 06/19/25 02:59 O2 Del Method BiPAP 06/19/25 02:59 O2 Flow Rate 7 06/18/25 18:33 FiO2 35 06/19/25 02:59 06/18/25 06/18/25 06/19/25 14:59 22:59 06:59 Intake Total 240 / 240 250 / 490 Balance 240 / 240 250 / 490 Weight last 48 hrs Weight 98.5 kg Weight 98.293 kg Physical Exam 2 Narrative: General well-developed well-nourished male on nasal cannula O2 3 L/min and comfortable CV regular rate and rhythm Lungs poor air movement but equal bilaterally without crackles he has prolonged expiratory phase on forced exhalation with very poor air movement Abdomen diminished bowel tones soft nontender Calves no tenderness cords. No edema Radial pulses 2+ Mentation he is alert and oriented to person place. I did not check date Urinary Catheter Management: Jackson: Cath Placed During This Visit: yes Urinary Catheter Date of Insertion: 06/18/25 Urinary Catheter Time of Insertion: 21:53 Data 06/19/25 00:13 06/19/25 00:13 A&P Assessment and plan 1. Acute on chronic respiratory failure with hypoxia and hypercapnia: Patient's pH is up to 7.4 with a pCO2 of 64.3 pO2 92.8. Patient will use BiPAP at night while in the hospital and use trilogy at home for sleep. Counseled him regarding the need to stop vaping anything or smoking marijuana. He will start nicotine patch and wean that down. You can eat marijuana if desired as that will not affect his breathing negatively. Patient voices understanding 2. Acute exacerbation of chronic obstructive pulmonary disease: As above. Looks like he has chronic CO2 retention and hypoxemia. Continue azithromycin 3. Medically noncompliant: Patient has not been using trilogy machine and has been counseled and is very receptive. I think he has some anxiety issues at home as well. We started him on citalopram 4. Anxiety: Patient has nicotine addiction which will be treated with patch 14 mg daily. Will try to wean him off the vape as that is not good for his breathing either. Will wean dexamethasone as tolerated due to anxiety and start citalopram for anxiety 5. Hyperkalemia: This did not correct with correction of his acidosis. Will complete 500 cc remaining LR and give 20 mg of furosemide IV. Start 1600-calorie ADA diet. Blood sugar elevated here but likely related to steroids will check A1c PDMP PDMP Reviewed: Not Reviewed Attestations 2 Medical Necessity Statement*: Patient remained in the hospital for 1 more midnight and anticipate discharge home tomorrow. Will change cardiac stepdown Coding Level of Care Code Acute Code for Chg Fwd Diagnoses Acute on chronic respiratory failure with hypoxia and hypercapnia J96.21; J96.22 Acute exacerbation of chronic obstructive pulmonary disease J44.1 Medically noncompliant Z91.199 Anxiety F41.9 Hyperkalemia E87.5 Time Spent (min) 45
[2025-06-19] MEDS: FUROsemide 10 mg/mL SDV 2mL 20 MG IVP (05:09)
--- NOTE | 2025-06-19 05:29 | PC.NURSE ---
Physician Communication Dr. Hightower at bedside. Education provided regarding trilegy use at home, smoking cessation, drinking cessation, and carbon dioxide levels. Patient verbalized understanding. Physician to place orders.
[2025-06-19 05:53] LABS: Estmated Average Glucose 126; Hemoglobin A1C 6.0 % (4.0-6.0)
--- NOTE | 2025-06-19 14:06 | PC.SOCIAL ---
*IMM* Patient received copy of IMM. Dated and initialed and placed in chart.
--- NOTE | 2025-06-19 16:19 | PC.NURSE ---
Report called to [facility]gun[facility], patient taken to [facility], will notify family
--- NOTE | 2025-06-19 16:21 | PC.NURSE ---
Notified Adriana Nolasco of room change
--- NOTE | 2025-06-19 16:34 | PC.NURSE ---
received from icu into room 105 at 1530.report received.pt is alert and oriented x 4.anxious.sr on monitor.sob on min exertion.oriented to room environment.instructed to notify staff for any pain,increased sob,or if has to get up.pt verb understanding of instructions
--- NOTE | 2025-06-19 18:18 | PC.NURSE ---
daughter called re: pt's cell phone.He states he brought it to the hospital and it has been lost.Daughter Adriana states it never went to hospital with him.She has his phone at home
[2025-06-20] VITALS (9 sets, daily range): BP systolic 140–144; BP diastolic 83–92; PULSE 71–92; RESP 18–30; TEMP 36.8–37.1; O2SAT 93–98
--- NOTE | 2025-06-20 14:20 | PM.PN ---
Subjective Subjective: 70-year-old male has been on BiPAP for sleep and tolerating it well patient was counseled regarding need to wear trilogy and quit vaping nicotine and quit smoking marijuana. He is very agreeable to making changes. Vitals/I&O/Wt Last Vital Signs Temp 98.7 F 06/20/25 04:00 Pulse 86 06/20/25 11:20 Resp 18 06/20/25 11:20 BP 144/92 06/20/25 04:00 Pulse Ox 93 06/20/25 11:20 O2 Del Method Nasal Cannula 06/20/25 11:20 O2 Flow Rate 2 06/20/25 11:20 FiO2 32 06/20/25 07:48 06/19/25 06/20/25 06/20/25 22:59 06:59 14:59 Intake Total 660 / 1483.75 0 / 1483.75 Output Total 1675 / 1675 550 / 2225 Balance -1015 / -191.25 -550 / -741.25 Weight last 48 hrs Weight 111.357 kg Weight 102 kg Weight 98.5 kg Weight 98.293 kg Physical Exam Narrative: General well-developed well-nourished male on nasal cannula O2 2 L/min and comfortable CV regular rate and rhythm Lungs prolonged x-ray phase with wheezes Calves no tenderness cords. No edema Radial pulses 2+ Mentation he is alert and oriented to person date and situation Urinary Catheter Management: Jackson: Cath Placed During This Visit: yes Reason for Continuing Indwelling Catheter: Accurate Measurement of Urinary Output in Critically Ill Patients Urinary Catheter Date of Insertion: 06/18/25 Urinary Catheter Time of Insertion: 21:53 Data 06/19/25 00:13 06/19/25 00:13 A&P Assessment and plan 1. Acute on chronic respiratory failure with hypoxia and hypercapnia: Patient's pH is up to 7.4 with a pCO2 of 64.3 pO2 92.8. Patient will use BiPAP at night while in the hospital and use trilogy at home for sleep. Counseled him regarding the need to stop vaping anything or smoking marijuana. He will start nicotine patch and wean that down. You can eat marijuana if desired as that will not affect his breathing negatively. Patient voices understanding I consulted with Dr. Vincenzo Chawla MD the shell freezing machine operator. The patients daughter will bring in his home trilogy machine and Dr. Chawla will consult, make changes to the settings on the machine as needed and follow-up patient in clinic 2. Acute exacerbation of chronic obstructive pulmonary disease: As above. Looks like he has chronic CO2 retention and hypoxemia. Continue azithromycin. Continue Decadron 4 mg twice a day 3. Medically noncompliant: Patient has not been using trilogy machine and has been counseled and is very receptive. I think he has some anxiety issues at home as well. Resume duloxetine and continue home BuSpar 4. Anxiety: Patient has nicotine addiction which will be treated with patch 14 mg daily. Will try to wean him off the vape as that is not good for his breathing either. Continue home duloxetine and BuSpar 5. Hyperkalemia: Patient has received some diuretics and acidosis has been corrected repeat lab in the morning 6. Hypertension: Patient's blood pressure mildly elevated here stop metoprolol start diltiazem low-dose and anticipate diltiazem CD8 120 mg daily on discharge PDMP PDMP Reviewed: Not Reviewed Attestations Medical Necessity Statement*: Patient remained in the hospital overnight to monitor his recovery from COPD exacerbation and consult with shell freezing machine operator Dr. Vincenzo Chawla MD Coding Level of Care Code 10748 Diagnoses Acute on chronic respiratory failure with hypoxia and hypercapnia J96.21; J96.22 Acute exacerbation of chronic obstructive pulmonary disease J44.1 Medically noncompliant Z91.199 Anxiety F41.9 Hyperkalemia E87.5 Hypertension I10 Time Spent (min) 40
[2025-06-20] MEDS: FUROsemide 10 mg/mL SDV 2mL 20 MG IVP (14:53)
[2025-06-20] MEDS: HYDROcodone-acetaminophen 7.5-325 mg Tablet 1 TAB PO (16:45)
--- NOTE | 2025-06-20 17:48 | PM.CONSULT ---
Providers/Reason For Consult Consulting Physician/Specialty*: Pulmonary and critical care medicine Reason for Consult*: Bipap eval and shortness of breath Requesting Physician: Mega Hightower MD Attending Physician: Mega Hightower MD History of Present Illness History of Present Illness Pola Fajardo is a 70 year old male with past medical history of chronic respiratory failure uses 2 L of oxygen at home, severe end-stage COPD, multiple exacerbations, home BiPAP use comes in here to the hospital feeling somnolent and increased shortness of breath. He was found to be hypoxic. Initial CT head and neck were negative for any stroke. Blood gas was found to have a pH of 7.1 pCO2 of 102 which improved after being started on BiPAP. Settings were 22/10 rate of 16 FiO2 of 50%. He was admitted to the hospital diagnosed with atypical pneumonia, started on azithromycin and given steroids as well as BiPAP. He was moved out of the ICU. Currently has blood pressure is elevated he appears very anxious. His daughter is at bedside and has brought in his home unit. Patient continues to smoke cigarettes. Patient was admitted at least 2 times in the last 1 year. Recent hospitalization was at [facility] where he was evaluated for chronic hypercapnic respiratory failure and started on a Trilogy BiPAP machine. He tells me that he does not remember using it very often at home as he should. He also vapes. Review of Systems General: Reports: 10 or more systems reviewed and unremarkable except in HPI and below Medications/Allergies Home Medications ?Medication ?Instructions ?Recorded ?Confirmed ?Last Taken ?Type albuterol 90 mcg-budesonide 80 2 inh inhalation PRN Hypertention 06/19/25 06/19/25 06/18/25 History mcg/actuation HFA aerosol inhaler (Airsupra) buspirone 15 mg tablet 15 mg PO TID 06/19/25 06/19/25 06/18/25 History duloxetine 60 mg capsule,delayed 60 mg PO DAILY 06/19/25 06/19/25 06/18/25 History release furosemide 40 mg tablet 40 mg PO DAILY 06/19/25 06/19/25 06/18/25 History hydrocodone 7.5 mg-acetaminophen 1 tab PO BID PRN chronic pain 06/19/25 06/19/25 Unknown History 325 mg tablet metoprolol succinate 100 mg 100 mg PO DAILY 06/19/25 06/19/25 06/18/25 History tablet,extended release 24 hr pantoprazole 40 mg tablet,delayed 40 mg PO DAILY 06/19/25 06/19/25 06/18/25 History release polyethylene glycol 3350 17 17 g PO DAILY 06/19/25 06/19/25 06/18/25 History gram/dose oral powder Allergies Allergy/AdvReac Type Severity Reaction Status Date / Time No Known Allergies Allergy Verified 06/18/25 20:42 Current Medications Generic Name Dose Route Start Last Admin Trade Name Freq PRN Reason Stop Dose Admin Hydrocodone Bitart/Acetaminophen 1 tab 06/20/25 15:41 06/20/25 16:45 Hydrocodone-Acetaminophen 7.5-325 Mg Tablet PO 1 tab BID PRN Administration chronic pain Albuterol/Ipratropium 3 ml 06/18/25 19:52 06/19/25 02:58 Ipratropium-Albuterol 3 Ml Neb INHALATION 3 ml Q6H PRN Administration SHORTNESS OF BREATH Albuterol/Ipratropium 3 ml 06/19/25 08:00 06/20/25 15:23 Ipratropium-Albuterol 3 Ml Neb INHALATION 3 ml QID.RESPIRATORY ANALIA Administration Azithromycin 500 mg 06/19/25 09:00 06/20/25 09:52 Azithromycin 250 Mg Tablet PO 500 mg DAILY ANALIA Administration Protocol Buspirone HCl 15 mg 06/19/25 23:19 06/20/25 14:53 Buspirone 10 Mg Tablet PO 15 mg TID ANALIA Administration Citalopram Hydrobromide 20 mg 06/19/25 09:00 06/20/25 09:53 Citalopram 20 Mg Tablet PO 20 mg DAILY ANALIA Administration Dexamethasone 4 mg 06/19/25 09:00 06/20/25 16:45 Dexamethasone 4 Mg Tablet PO 4 mg BID ANALIA Administration Diltiazem HCl 30 mg 06/20/25 15:00 06/20/25 14:53 Diltiazem 30 Mg Tablet PO 30 mg TID ANALIA Administration Docusate Sodium 100 mg 06/19/25 09:00 06/20/25 09:53 Docusate Sodium 100 Mg Capsule PO Not Given BID ANALIA Enoxaparin Sodium 40 mg 06/18/25 21:18 06/19/25 21:20 Enoxaparin 40 Mg/0.4 Ml Syringe SUBCUT 40 mg BEDTIME ANALIA Administration Nicotine 1 patch 06/19/25 09:00 06/20/25 09:50 Nicotine 14 Mg Patch TRANSDERMA 1 patch DAILY ANALIA Administration Pantoprazole Sodium 40 mg 06/19/25 09:00 06/20/25 09:[address] 40 Mg Tablet PO 40 mg DAILY ANALIA Administration PFSH Acute PFSH: Medical History (Updated 06/20/25 @ 14:32 by Mega Hightower MD) Hypertension Anxiety Medically noncompliant Acute on chronic respiratory failure with hypoxia and hypercapnia Social History (Updated 06/18/25 @ 21:32 by Mega Hightower MD) Smoking and tobacco/nicotine status: former use of tobacco/nicotine Alcohol intake: unknown Substance/Drug Use: unknown Additional social history: Patient denies tobacco alcohol or illicit use currently. He reports he wants full code Vitals/I&O/Wt Last Vital Signs Temp 98.7 F 06/20/25 04:00 Pulse 88 06/20/25 15:25 Resp 18 06/20/25 15:25 BP 144/92 06/20/25 04:00 Pulse Ox 96 06/20/25 15:25 O2 Del Method Nasal Cannula 06/20/25 15:25 O2 Flow Rate 2 06/20/25 15:25 FiO2 32 06/20/25 07:48 06/20/25 06/20/25 06/20/25 06:59 14:59 22:59 Intake Total 0 / 1483.75 240 / 240 Output Total 550 / 2225 3000 / 3000 Balance -550 / -741.25 240 / 240 -3000 / -2760 Weight last 48 hrs Weight 245 lb 8 oz Weight 224 lb 13.944 oz Weight 217 lb 2.485 oz Weight 216 lb 11.2 oz Physical Exam Narrative: General: Anxious appearing, obese, disheveled HEENT: conj clear, EOMI, PERRL Neck: supple Pulmonary: CTAB. Diminished breath sounds noted bilaterally, some rhonchi heard Cardiovascular: Tachycardic, nl s1s2, Abdomen: soft, nt, nd, no r/g, Extremities: pulses +, no edema Skin: no rash Neurologic: grossly intact Urinary Catheter Management: Jackson: Cath Placed During This Visit: yes Reason for Continuing Indwelling Catheter: Accurate Measurement of Urinary Output in Critically Ill Patients Urinary Catheter Date of Insertion: 06/18/25 Urinary Catheter Time of Insertion: 21:53 Data 06/19/25 00:13 06/19/25 00:13 A&P Assessment and plan 1. Acute hypercapnic respiratory failure: 2. Acute exacerbation of chronic obstructive pulmonary disease: 3. Acute on chronic respiratory failure with hypoxia and hypercapnia: Plan: Impression Acute on chronic respiratory failure-hypoxic and hypercapnic Most likely secondary to smoking. Patient is getting scheduled DuoNebs. I recommend starting him on Brovana and Pulmicort scheduled nebulizers.. He is still wheezing. Reviewed chest x-ray personally explained to the patient. That shows emphysematous changes but no clear evidence of any pneumonia. Medically noncompliant Discussed compliance with patient, recommend starting his home unit inpatient. Discussed case with RT to initiate this today and possibly get an ABG tomorrow if he has any trouble with it. Generalized anxiety disorder Acute COPD exacerbation We will start Brovana Pulmicort and monitor clinically. Continue use of DuoNebs. Continue dexamethasone 4 mg daily Smoker/vaping I counseled patient to stop smoking cigarettes as well as vaping. Continue nicotine patch. Medical decision making level-moderate PDMP PDMP Reviewed: Not Reviewed Coding Level of Care Code Acute Code for Chg Fwd Diagnoses Acute hypercapnic respiratory failure J96.02 Acute exacerbation of chronic obstructive pulmonary disease J44.1 Acute on chronic respiratory failure with hypoxia and hypercapnia J96.21; J96.22
[2025-06-21] VITALS (11 sets, daily range): BP systolic 141–155; BP diastolic 92–98; PULSE 67–105; RESP 13–28; TEMP 36.6–37; O2SAT 90–98
--- NOTE | 2025-06-21 00:43 | PC.NURSE ---
Contacted Dr. Hunt because patient was extremely worked up and in pain, and blood pressures were elevated. When I volted the doctor at 2352 patients first blood pressure was 180/98, and the recheck was 179/103. Called physician at 0030 and she said to go recheck the blood pressure. He was getting a breathing treatment which he was yelling for, and recheck was 153/86, no new orders received.
[2025-06-21] MEDS: HYDROcodone-acetaminophen 7.5-325 mg Tablet 1 TAB PO ×3 (01:49→16:14)
[2025-06-21] MEDS: polyethylene glycol 3350 Pkt 17 gm PO (07:46)
[2025-06-21 09:17] LABS: Anion Gap 17.1 (5-19); Blood Urea Nitrogen 28 mg/dL (8-23); Calcium 8.9 mg/dL (8.5-10.5); Carbon Dioxide 32 mmol/L (22-29); Chloride 96 mmol/L (98-107); Creatinine Clr Calc Pharmacy 95.4515; Glucose 161 mg/dL (65-115); Osmolality Calculated 301 mOsm/kg (285-295); Potassium 4.1 mmol/L (3.5-5.1); Sodium 141 mmol/L (136-145)
[2025-06-21] MEDS: dilTIAZem ER (24HR) 120 mg Capsule PO (09:38)
--- NOTE | 2025-06-21 09:38 | PC.SOCIAL ---
IMM Updated Updated pt on IMM. No questions voiced. Provided pt a copy. Initialed, dated, & timed a copy & placed in chart.
--- NOTE | 2025-06-21 10:56 | PC.OT ---
Pt. sleeping upon HERNANDEZ arrival. Pt. to discharge today. Will attempt therapy at later time.
--- NOTE | 2025-06-21 15:49 | PM.DCS ---
Discharge Providers Date of Admission: 06/18/25 20:16 Date of Discharge: June 21, 2025 Attending Provider at Admission: Mega Hightower MD Attending Provider at Discharge: Mega Hightower MD Diagnoses at Discharge Discharge Diagnosis 1. Acute hypercapnic respiratory failure: Details from hospital stay: Much improved with steroids BiPAP and nebulizers. Patient brought in his home trilogy machine and was evaluated by Dr. Chawla. Last night patient used his home machine and states he slept better than he has in recent past and will continue to use machine at home. Mentation is alert and oriented and pleasant 2. Acute exacerbation of chronic obstructive pulmonary disease: Details from hospital stay: Stop vaping. Continue with BiPAP for sleep and this should be at night but also during the day if sleeping. You can use oxygen 2 L/min at rest and 4 L/min with activity 3. Acute on chronic respiratory failure with hypoxia and hypercapnia: Details from hospital stay: As above need to stop vaping and smoking marijuana. You can eat marijuana if needed 4. Hypertension: Details from hospital stay: Metoprolol was stopped due to severe COPD. I substituted losartan 50 mg for blood pressure and diltiazem CD1 120 mg for rate control and blood pressure 5. Anxiety: Details from hospital stay: Resume duloxetine and BuSpar. Because the patient may not have any of those medications I prescribed those and also 7 Valium 5 mg tablets take half tablet twice a day as needed for anxiety 6. Hematuria: Details from hospital stay: Follow-up with urology Reason for Visit Reason for Visit: right facial droop; slurred speech Brief History: Pola Fajardo is a 70 year old male currently on BiPAP and difficult to interview. He is able to answer yes and no questions with nods and shakes of his head and mouthing words but I can audibly hear him through the BiPAP settings. Additionally he is somnolent and requires report current arousal. Patient has history of COPD and CHF on 2 L oxygen per nasal cannula at baseline. He has had increased shortness of breath and sats 84% on 2 L at home. He was sent in as code stroke but CT of the head and CTA of the head and neck were negative. Patient was found to have pH 7.181 and pCO2 102 improved to pH 7.25 pCO2 93.7 on BiPAP settings 22/10 rate 16 FiO2 50% with pO2 91. Patient reports cough nonproductive, does not smoke does not drink alcohol or use drugs I called his daughter Adriana Fajardo. She is 31 and is a quality internship at [employer] in April she drove to [place] to retrieve her dad who now lives with her and her roommate. She states she does not know accurately what her dad was doing prior to coming to [place] but she thinks he quit alcohol a month ago. He was drinking possibly whiskey up to 1/5 a day. She has known him to do that but does not really know what he was doing in [place]. He also vapes and requires a new vape apparatus about every 2 weeks. He smokes marijuana couple bowls a day and she thinks he quit smoking cigarettes in recent months. He worked in [employer]. Patient was admitted to [facility] in [facility] day after arrival locally because he had signs of withdrawal. He was in the hospital for a week and discharged with a trilogy machine. Patient had been [place]emic [place] requiring oxygen for dyspnea during their drive. Patient has been reluctant to wear the trilogy machine rationalizing that he only needed it because he got too much oxygen. He has anxiety and air hunger when wearing the mask. This morning daughter noted he was confused lethargic and slept all day he reported that he had been up bathe watch TV and was doing fine but to her evaluation he was lethargic and speech was slurred and he had slept all day. Last night at 10 PM he was okay except for his normal aches and pains this morning he reported fatigue and lethargy. She did not think he had had a stroke beyond the slurred speech. She reports they went to a doctor's appointment on the but other than that he has been at home so no COVID or flu contacts Hospital Course Hospital Course Patient was admitted to the ICU and started on BiPAP 19/07. By next morning his pH normalized to 7.40 with pCO2 64.3 and pO2 92.8 on FiO2 35%. He was treated with steroids including Decadron 4 mg daily. His home anxiety medications were resumed. COVID is negative. All of the viral panel was negative patient was noted positive for benzodiazepines, marijuana and opiates. He had been vaping but no longer smoking in the last several months. Additionally patient had not been wearing his trilogy BiPAP at home. We spoke multiple times regarding need for compliance and patient was very appreciative and committed to wearing his trilogy at home for sleep at night or day. Patient was treated with nicotine patch but he states he does not need that and it is stupid to vape and he is going to stop. I encouraged him to wear the nicotine patch here but he still declined. Physical Exam Narrative: General well-developed well-nourished male on nasal cannula O2 2 L/min and comfortable CV regular rate and rhythm Lungs prolonged x-ray phase with wheezes Calves no tenderness cords. No edema Radial pulses 2+ Mentation he is alert and oriented to person date and situation Urinary Catheter Management: Jackson: Cath Placed During This Visit: yes Reason for Continuing Indwelling Catheter: Accurate Measurement of Urinary Output in Critically Ill Patients Urinary Catheter Date of Insertion: 06/18/25 Urinary Catheter Time of Insertion: 21:53 Discharge Data Studies Completed and Pending Completed Studies During Hospitalization Category Date Time Status CT angio headneck* [id number] Stat Cat Scan 06/18/25 17:[address] head thrombolytic [id number] Stat Cat Scan 06/18/25 17:45 Completed CXRP [XR chest 1V portable [id number]] Stat Exams 06/18/25 18:17 Completed Radiology Impressions Head CT 06/18/25 17:45 IMPRESSION: 1. No acute intracranial abnormality. If there is clinical concern for acute-subacute ischemia beyond the window for neuro intervention, consider correlation with MRI. ASSESSMENT: ASPECTS (Precious Stroke Program Early CT Score) is 10. ADDENDUM: 06/18/25 307 The findings were verbally communicated by telephone with Dr. Mcgee at 6:10 PM CDT on 06/18/2025. Head/Neck CTA 06/18/25 17:45 IMPRESSION: 1. No evidence of large vessel occlusion or acute thrombosis in the head. IMPRESSION: 1. No evidence of acute thrombosis or hemodynamically significant stenosis in the neck. 2. Severe foraminal stenosis on the left at C4-C5, C5-C6 and C6-C7. Consider correlation with follow-up MRI to evaluate for neural impingement. REFERENCES: NASCET CRITERIA. The degree of stenosis in the cervical segment of the internal carotid artery is based on NASCET criteria. Normal is no stenosis. Mild is less than 50% stenosis. Moderate is 50-69% stenosis. Severe is 70% to 99% stenosis. Total occlusion is no detectable patent lumen. Chest X-Ray 06/18/25 18:17 IMPRESSION: 1. No acute cardiopulmonary abnormality. If persistently symptomatic, consider correlation with CT. Laboratory Results WBC 12.21 10^3/uL (3.29-11.43) H 06/19/25 00:13 RBC 4.57 10^6/uL (3.85-5.65) 06/19/25 00:13 Hgb 10.50 g/dL (11.27-16.99) L 06/19/25 00:13 Hct 38.0 % (37-53) 06/19/25 00:13 MCV 83.2 fl (82-101) 06/19/25 00:13 MCH 23.0 pg (27-33) L 06/19/25 00:13 MCHC 27.6 g/dL (30-55) L 06/19/25 00:13 RDW 19.3 % (12.1-15.1) H 06/19/25 00:13 Plt Count 286 10^3/cmm (157-399) 06/19/25 00:13 MPV 10.0 fL (7.4-10.4) 06/19/25 00:13 Neut % (Auto) 95.7 % 06/19/25 00:13 Lymph % (Auto) 2.9 % 06/19/25 00:13 [place] % (Auto) 0.7 % 06/19/25 00:13 Eos % (Auto) 0.1 % 06/19/25 00:13 Baso % (Auto) 0.2 % 06/19/25 00:13 Neut # (Auto) 11.69 10^3/uL (1.8-7.7) H 06/19/25 00:13 Lymph # (Auto) 0.4 10^3/uL (0.8-4.8) L 06/19/25 00:13 [place] # (Auto) 0.1 10^3/uL (0.2-0.9) L 06/19/25 00:13 Eos # (Auto) 0.0 10^3/uL (0.0-0.8) 06/19/25 00:13 Baso # (Auto) 0.0 10^3/uL (0.0-0.1) 06/19/25 00:13 Nucleated RBC % (auto) 0 % 06/19/25 00:13 Nucleated RBCs # 0.0 /100WBC 06/19/25 00:13 PT 12.60 SECONDS (12.1-14.9) 06/18/25 18:23 INR 0.88 (0.8-1.2) 06/18/25 18:23 APTT 24.7 SECONDS (23.9-36.7) 06/18/25 18:23 Specimen Type Arterial 06/19/25 03:00 Sample Site Brachial, right 06/19/25 03:00 ABG pH 7.40 (7.35-7.45) 06/19/25 03:00 ABG pCO2 64.3 mmHg (35-45) H* 06/19/25 03:00 ABG pO2 92.8 mmHg (80.0-100.0) 06/19/25 03:00 ABG PO2/FiO2 Ratio 265 06/19/25 03:00 ABG HCO3 39.8 mmol/L (22-26) H 06/19/25 03:00 ABG Base Excess 12.8 mmol/L (-2.0-2.0) H 06/19/25 03:00 Juno Test Pos 06/19/25 03:00 Hematocrit 32.6 % (42-52) L 06/19/25 03:00 O2 Delivery Device Bipap 06/19/25 03:00 O2 Liters/Min 7.0 % 06/18/25 18:21 FiO2 35.0 % 06/19/25 03:00 PEEP 10.0 cmH20 06/18/25 17:54 Lining Vamper ID Bd 06/19/25 03:00 Sodium 141 mmol/L (136-145) 06/21/25 08:48 Potassium 4.1 mmol/L (3.5-5.1) 06/21/25 08:48 Chloride 96 mmol/L (98-107) L 06/21/25 08:48 Carbon Dioxide 32 mmol/L (22-29) H 06/21/25 08:48 Anion Gap 17.1 (5-19) 06/21/25 08:48 BUN 28 mg/dL (8-23) H 06/21/25 08:48 Creatinine 0.9 mg/dL (0.7-1.2) 06/21/25 08:48 GFR Calculation 83.4 mL/min (90-130) L 06/21/25 08:48 Glucose 161 mg/dL (65-115) H 06/21/25 08:48 Estimat Average Glucose 126 06/19/25 00:13 Hemoglobin A1c 6.0 % (4.0-6.0) 06/19/25 00:13 Calculated Osmolality 301 mOsm/kg (285-295) H 06/21/25 08:48 Calcium 8.9 mg/dL (8.5-10.5) 06/21/25 08:48 Total Bilirubin 0.2 mg/dL (0.15-1.2) 06/18/25 18:23 AST 22 U/L (0-40) 06/18/25 18:23 ALT 19 U/L (0-41) 06/18/25 18:23 Alkaline Phosphatase 110 U/L (40-130) 06/18/25 18:23 Troponin T Baseline 23 ng/L (0-15) H 06/18/25 18:23 Troponin T 120 Minute 23.84 ng/L (0-15) H 06/18/25 20:05 Delta Troponin T 0.84 ABS# (0-10) 06/18/25 20:05 Troponin T Hi Sens 6Hr 24.56 ng/L (0-15) H 06/19/25 00:13 Troponin T Hi Sens 6Hr Delta 1.56 ng/L (0-12) 06/19/25 00:13 NT-Pro-B Natriuret Pep 138 pg/mL (0-125) H 06/18/25 18:23 Total Protein 7.6 g/dL (6.6-8.7) 06/18/25 18:23 Albumin 3.9 g/dL (3.5-5.2) 06/18/25 18:23 Globulin 3.7 g/dL (1.3-4.6) 06/18/25 18:23 Urine Color Yellow (Yellow) 06/18/25 21:30 Urine Appearance Clear (CLEAR) 06/18/25 21:30 Urine pH 5.0 (5-7) 06/18/25 21:30 Ur Specific [place] 1.087 (1.005-1.030) H 06/18/25 21:30 Urine Protein 2+ (Negative) A 06/18/25 21: Urine Glucose (UA) Negative (Normal) 06/18/25 21: Urine Ketones Negative (Negative) 06/18/25 21: Urine Blood 2+ (Negative) A 06/18/25 21: Urine Nitrate Negative (Negative) 06/18/25 21: Urine Bilirubin Negative (Negative) 06/18/25 21: Urine Urobilinogen 1.0 mg/dL (Negative) 06/18/25 21: Ur Leukocyte Esterase Negative (Negative) 06/18/25 21: Urine RBC 51-100 /hpf (0-2) H 06/18/25 21:30 Urine WBC 0-5 /hpf (0-5) 06/18/25 21: Ur Squamous Epith Cells 0-5 /hpf (0-5) 06/18/25 21: Amorphous Sediment Not Reportable 06/18/25 21: Urine Bacteria None seen /hpf (NONE) 06/18/25 21: Hyaline Casts 1.21 /lpf 06/18/25 21:30 Urine Opiates Screen Positive ng/mL (Negative) H 06/18/25 21:30 Ur Barbiturates Screen Negative ng/mL (Negative) 06/18/25 21:30 Ur Phencyclidine Scrn Negative ng/mL (Negative) 06/18/25 21:30 Ur Amphetamines Screen Negative ng/mL (Negative) 06/18/25 21:30 U Benzodiazepines Scrn Positive ng/mL (Negative) H 06/18/25 21:30 Urine Cocaine Screen Negative ng/mL (Negative) 06/18/25 21:30 U Marijuana (THC) Screen Positive ng/mL (Negative) H 06/18/25 21:30 Adenovirus (PCR) Not detected (NOT DETECT) 06/18/25 19:07 C. pneumoniae DNA (PCR) Not detected (NOT DETECT) 06/18/25 19:07 Coronavirus 229E (PCR) Not detected (NOT DETECT) 06/18/25 19:07 Human Metapneumovir PCR Not detected (NOT DETECT) 06/18/25 19:07 Influenza A (H1) PCR Not detected (NOT DETECT) 06/18/25 19:07 Influ A (H1/09) PCR Not detected (NOT DETECT) 06/18/25 19:07 Influenza A (H3) PCR Not detected (NOT DETECT) 06/18/25 19:07 Influenza Type A (PCR) Not detected (NOT DETECT) 06/18/25 19:07 Influenza Type B (PCR) Not detected (NOT DETECT) 06/18/25 19:07 M. pneumoniae (PCR) Not detected (NOT DETECT) 06/18/25 19:07 Parainfluenza 1 (PCR) Not detected (NOT DETECT) 06/18/25 19:07 Parainfluenza 2 (PCR) Not detected (NOT DETECT) 06/18/25 19:07 Parainfluenza 3 (PCR) Not detected (NOT DETECT) 06/18/25 19:07 Parainfluenza 4 (PCR) Not detected (NOT DETECT) 06/18/25 19:07 RSV Type A (PCR) Not detected (NOT DETECT) 06/18/25 19:07 RSV Type B (PCR) Not detected (NOT DETECT) 06/18/25 19:07 Entero/Rhino (PCR) Not detected (NOT DETECT) 06/18/25 19:07 SARS-CoV-2 (PCR) Not detected (NOT DETECT) 06/18/25 19:07 Vitals Last Vital Signs Temp 98.6 F 06/21/25 12:00 Pulse 83 06/21/25 12:00 Resp 13 06/21/25 12:00 BP 141/98 06/21/25 12:00 Pulse Ox 94 06/21/25 12:00 O2 Del Method BiPAP 06/21/25 11:36 O2 Flow Rate 2 06/21/25 07:48 FiO2 32 06/20/25 07:48 Discharge Plan Discharge Patient Disposition: Home Condition: Stable Prescriptions: New diazepam [Valium] 5 mg tablet 2.5 mg PO BID PRN (Reason: anxiety) Qty: 14 0RF nicotine 14 mg/24 hr Patch 24 Hour 1 patch transdermal DAILY Qty: 14 0RF azithromycin 250 mg Tablet 250 mg PO DAILY Qty: 5 0RF nicotine 7 mg/24 hr patch 24 hour 1 patch transdermal DAILY Qty: 14 0RF budesonide 0.5 mg/2 mL Suspension For Nebulization 0.5 mg inhalation BID.RESPIRATORY Qty: 60 0RF diltiazem HCl 120 mg Capsule,Extended Release 24hr 120 mg PO DAILY Qty: 30 0RF albuterol sulfate [Ventolin HFA] 90 mcg/actuation HFA aerosol inhaler 2 inh inhalation Q6H PRN (Reason: shortness of breath or wheezing) Qty: 8.5 0RF ipratropium-albuterol 0.5 mg-3 mg(2.5 mg base)/3 mL Solution For Nebulization 3 ml inhalation Q6H PRN (Reason: Shortness Of Breath) Qty: 180 0RF docusate sodium 100 mg Capsule 100 mg PO BID Qty: 60 0RF dexamethasone 4 mg Tablet See Rx Instructions .ROUTE .COMPLEX Qty: 7 0RF Rx Instructions: 4 mg twice a day for 2 days 4 mg once a day for 2 days 2 mg daily for 2 days and stop losartan 50 mg Tablet 50 mg PO DAILY Qty: 30 0RF Continued hydrocodone-acetaminophen 7.5-325 mg tablet 1 tab PO BID PRN (Reason: chronic pain) Qty: 20 0RF duloxetine 60 mg capsule,delayed release(DR/EC) 60 mg PO DAILY Qty: 30 0RF furosemide 40 mg tablet 40 mg PO DAILY Qty: 30 0RF pantoprazole 40 mg tablet,delayed release (DR/EC) 40 mg PO DAILY Qty: 30 0RF buspirone 15 mg tablet 15 mg PO TID Qty: 90 0RF polyethylene glycol 3350 17 gram/dose powder 17 g PO DAILY Qty: 30 0RF Discontinued metoprolol succinate 100 mg tablet extended release 24 hr 100 mg PO DAILY Airsupra 90-80 mcg/actuation HFA aerosol inhaler 2 inh INHALATION PRN Referrals: Vincenzo Chawla MD [Physician, Pulmonology] - 09/01/25 10:50 am Referral Note: This appt is subject to change, pt may be able to get in sooner. The office will call you with any changes Pankaj Moura [Referring, Urology] - 3 weeks Referral Note: Hematuria GLORY GARVEY APRN [Referring, Critical Care / Pulmonology] - 07/05/25 9:30 am Discharge Diet: Cardiac Discharge Activity: Increase activity as tolerated Patient Instructions: Azithromycin (By mouth), Laxative, Stool Softeners (By mouth), Nicotine (Absorbed through the skin), Ipratropium/Albuterol (By breathing), Dexamethasone (By mouth), BiPAP (GEN), Chronic Respiratory Failure (GEN), Acute Respiratory Failure (GEN), Opioid Safety, Patient Portal & Polly Instructions Activity Restrictions/Additional Instructions: Use Trilogy BiPAP whenever you are sleep and especially at nighttime overnight If you do not use the BiPAP you will become drowsy and retain carbon dioxide Oxygen 2 L/min at rest while awake and 4 L/min with activity while awake. Do not go to sleep with oxygen at 4 L or you will retain carbon dioxide I recommend that whenever you sleep you use your BiPAP so that you do not retain carbon oxide and become lethargic or obtunded. If you become lethargic use your BiPAP for 1 to 2 hours and that should clear up. If that does not help then go to the emergency department I recommend you follow-up with Dr. Chawla the effervescent salts compounder It is good that you stop smoking but vaping is also bad for your lungs and nicotine even in the form of nicotine replacement, lozenges or gum still causes vasoconstriction and can lead to cardiovascular disease. I recommend you wear the nicotine patches and wean off nicotine completely over the course of a month Discharge Attestations Time Spent in Discharge Care*: greater than 30 min Time Spent in Smoking Cessation: 3 to 10 minutes Patient was counseled to stop vaping Quality Metrics Clinical Quality Measures [ No reported AMI, CVA or VTE this stay] Coding Level of Care Code 99830 Diagnoses Acute hypercapnic respiratory failure J96.02 Acute exacerbation of chronic obstructive pulmonary disease J44.1 Acute on chronic respiratory failure with hypoxia and hypercapnia J96.21; J96.22 Hypertension I10 Anxiety F41.9 Hematuria R31.9 Time Spent (min) 45
--- NOTE | 2025-06-21 18:11 | P.PN_ITS ---
Subjective 2 Subjective: 70-year-old male has been on B iPAP for sleep and tolerating it well patient was counseled regarding need to wear trilogy and quit vaping nicotine and quit smoking marijuana. He is very agreeable to making changes. 06/21/25: Feels much improved Slept well last night with Triligy machine on and is not as short of breath any longer Vitals/I&O/Wt Last Vital Signs Temp 97.9 F 06/21/25 16:00 Pulse 92 06/21/25 16:05 Resp 28 H 06/21/25 16:00 BP 155/93 06/21/25 16:00 Pulse Ox 90 06/21/25 16:00 O2 Del Method Nasal Cannula 06/21/25 15:57 O2 Flow Rate 2 06/21/25 15:57 FiO2 32 06/20/25 07:48 06/21/25 06/21/25 06/21/25 06:59 14:59 22:59 Intake Total 200 / 800 1020 / 1020 Output Total 550 / 4500 Balance -350 / -3700 1020 / 1020 Weight last 48 hrs Weight 245 lb 9.6 oz Weight 245 lb 8 oz Physical Exam 2 Narrative: Per RN General: Anxious appearing, obese, disheveled HEENT: conj clear, EOMI, PERRL Neck: supple Pulmonary: some rhonchi heard right upper lobe Cardiovascular: Tachycardic, nl s1s2, Urinary Catheter Management: Jackson: Cath Placed During This Visit: yes Reason for Continuing Indwelling Catheter: Accurate Measurement of Urinary Output in Critically Ill Patients Urinary Catheter Date of Insertion: 06/18/25 Urinary Catheter Time of Insertion: 21:53 Data 06/19/25 00:13 06/21/25 08:48 A&P Assessment and plan 1. Acute hypercapnic respiratory failure: 2. Acute exacerbation of chronic obstructive pulmonary disease: 3. Acute on chronic respiratory failure with hypoxia and hypercapnia: Plan: Impression Acute on chronic respiratory failure-hypoxic and hypercapnic Most likely secondary to smoking/Vaping. Medically noncompliant Discussed compliance with patient, started his home unit inpatient. Feels much improved on it Generalized anxiety disorder Acute COPD exacerbation Continue Pulmicort and. Continue use of DuoNebs. Continue dexamethasone 4 mg daily- taper over 5 days Smoker/vaping I counseled patient to stop smoking cigarettes as well as vaping. Continue nicotine patch. Medical decision making level-low PDMP PDMP Reviewed: Not Reviewed Attestations 2 Medical Necessity Statement*: for Trilogy machine and nebs for copd exacerbation Coding Level of Care Code 95634 Diagnoses Acute hypercapnic respiratory failure J96.02 Acute exacerbation of chronic obstructive pulmonary disease J44.1 Acute on chronic respiratory failure with hypoxia and hypercapnia J96.21; J96.22 Comment Via telemedicine
--- NOTE | 2025-06-21 18:41 | PC.NURSE ---
Patient discharge to home. Instruction provided regarding new medication, oxygen use and his home trilogy. Patient and daughter both verbalized complete understanding. Medications received via meds to beds.
== END 2025-06-21 17:45 | disposition home health service (06) | DRG 189 ==
LOC: ER 20:15 → ICU 20:47 → CSU 06-19 16:03
PROVIDERS: Emergency Medicine; Admitting Provider Internal Medicine; Emergency Provider Student in an Organized Health Care Education/Training Program; Visit Provider Internal Medicine
DX: J96.21 Acute and chronic respiratory failure with hypoxia (principal); J44.1 Chronic obstructive pulmonary disease with (acute) exacerbation; J96.22 Acute and chronic respiratory failure with hypercapnia; F17.290 Nicotine dependence, other tobacco product, uncomplicated; F12.90 Cannabis use, unspecified, uncomplicated; F10.10 Alcohol abuse, uncomplicated; E87.6 Hypokalemia; R31.9 Hematuria, unspecified; Z99.81 Dependence on supplemental oxygen
CPT/HCPCS: 36415; 36600; 51702; 70450; 70496; 70498; 71045; 80048; 80053; 80306; 81001; 82803; 83036; 83880; 84484; 85025; 85610; 85730; 87486; 87581; 87633; 93005; 94640; 94660; 96372; 96374; 97110; 97116; 97161; 97167; 97530; 99291; J0456; J1100; J1650; J1938; J2919; J7050; J7120; J7626; J8540; J9999; Q0144

== ENCOUNTER 2025-06-28 21:49 | Inpatient (IN) | payer MEDICARE, SELFPAY ==
--- OUTSIDE RECORDS SUMMARY | 2025-06-28 21:56 | XMS_ITS | Clinical Summary ---
Author Organization [facility] Address [address] 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
--- OUTSIDE RECORDS SUMMARY | 2025-06-28 21:56 | XMS_ITS | Encounter Summary ---
Author Organization [facility] Address [address] [place] [address] Care Team Providers Care Overlock Waistline Joiner Name Role Phone Unavailable Primary Care Provider Unavailabl e Encounter Details Date Type Department Care Team (Latest Contact Info) Description 06/03/2007 Outpatient Historical 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
--- OUTSIDE RECORDS SUMMARY | 2025-06-28 21:56 | XMS_ITS | Encounter Summary ---
Author Organization [facility] Address [address] [place] [address] Care Team Providers Care Human Intelligence Name Role Phone Unavailable Primary Care Provider Unavailabl e Encounter Details Date Type Department Care Team (Latest Contact Info) Description 05/09/2005 Outpatient Historical [facility] [address] [place] [address] AMBULANCE, [facility] OTHER INJURY OF ABDOMEN (Primary Dx) Social History Tobacco Use Types Packs/Day Years Used Date Smoking Tobacco: Never Assessed Sex and Gender Information Value Date Recorded Sex Assigned at Not on file 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
--- OUTSIDE RECORDS SUMMARY | 2025-06-28 21:56 | XMS_ITS | Encounter Summary ---
Author Organization [facility] Address [address] [place] [address] Care Team Providers Care Dairy Equipment Mechanic Name Role Phone Unavailable Primary Care Provider Unavailabl e Encounter Details Date Type Department Care Team (Late st Contact Info) Description 08/03/2007 Emergency [facility] Emergency Department [address] 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
--- OUTSIDE RECORDS SUMMARY | 2025-06-28 21:56 | XMS_ITS | Clinical Summary ---
Author Organization [facility] Address [address] [place] [address] Phone Care Team Providers Care Maintenance Of Way Clerk Name Role Phone Unavailable Primary Care Provider Unavailabl e Encounters Date Type Department Care Team Description 05/09/2025 Travel from Last 3 Months Social History Tobacco Use Types Packs/Day Years Used Date Smoking Tobacco: Never Assessed Sex and Gender Information Value Date Recorded Sex Assigned at Not on file Legal Sex Male 4:34 PM CDT Gender Identity Not on file Sexual Orientation Not on file Plan of Treatment Health Maintenance Due Date Last Done Comments Colonoscopy Every 6 Months 1955 Colorectal Cancer Screening Annual FOBT/FIT Test 06/09 Colorectal Cancer Screening Cologuard 1955 Colorectal Cancer Screening Flex Sigmoidoscopy 955 Annual Depression Screening 1966 Hepatitis C Antibody Screen 1973 Colorectal CA Screen 10 Year Colonoscopy 2000 Colorectal Cancer Screening 2000 Pneumococcal Vaccine Age 50+ (1 of 1 - PCV) 2005 Welcome to Medicare (IPPE) G0402 11/26/2024 Flu Vaccine (#1) 05/29/2025 Influenza Vaccine 05/29/2025 RSV Immunization Pa tients or 60+ Years (1 - 1-dose 75+ series) 2030 Insurance MEDICARE [employer] [id number] [place] [id number]
--- OUTSIDE RECORDS SUMMARY | 2025-06-28 21:56 | XMS_ITS | Encounter Summary ---
Author Organization [facility] Address [address] [place] [address] Care Team Providers Care Kiln Head House Operator Name Role Phone Unavailable Primary Care Provider Unavailabl e Encounter Details Date Type Department Care Team (Late st Contact Info) Description 08/02/2007 Emergency [facility] Department [address] [place] [id number] Julius Anderson MD [address], [place] [id number] Obstructive Chronic Bronchitis with Exacerbation (CMS/HCC) (Primary Dx) Social History Tobacco Use Types Packs/Day Years Used Date Smoking Tobacco: Never Assessed Sex and Gender Information Value Date Recorded Sex Assigned at Not on file Legal Sex Male 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 Gender Identity Not on file Sexual Orientation Not on file documented as of this encounter Plan of Treatment Not on file documented as of this encounter Procedures Procedure Name Priority Date/Time Associated Diagnosis Comments POC BLOOD GAS, LYTES AND H+H Routine 08/02/2007 7:54 PM 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 PT AND APTT Routine 08/02/2007 7:54 PM 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 CARDIAC ENZYMES Routine 08/02/2007 7:54 PM 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 CBC WITH DIFFERENTIAL Routine 08/02/2007 7:54 PM 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 BRAIN NATRIURETIC PEPTIDE, BNP OR PROBNP Routine 08/02/2007 7:54 PM 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 BASIC METABOLIC PANEL Routine 08/02/2007 7:54 PM 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 CTA CHEST W WO CONTRAST Routine 08/02/2007 7:27 PM 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 XR CHEST PA OR AP 1 VW Routine 08/02/2007 7:27 PM 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 documented in this encounter Results * (ABNORMAL) POC ISTAT EG 7+ (08/02/2007 7:54 PM 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) SPECIMEN TYPE Arterial INTERF [place] SYSTEM Comment: Test Performed By [id number] Pulse OX: 99 Hemoglobin calculated from Hematocrit [...] 1.32 mmol/l INTERFACE SYSTEM 08/02/2007 7:54 PM 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 us Physician Sj Ed POINT OF CARE TESTING COM Edited INTERFACE SYSTEM Refer to clinic/hospital department * BRAIN NATRIURETIC PEPTIDE, BNP OR PROBNP (08/02/2007 7:54 PM 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) BRAIN NATRIURETIC PEPTIDE 44 0 - 125 pg/mL INTERFACE SYSTEM 08/02/2007 7:54 PM 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 Julius Anderson MD CHEMISTRY ORDERABLES Edited Performing Organization Address [facility] de Phone Number INTERFACE SYSTEM Refer to clinic/hospital department * PT AND APTT (08/02/2007 7:54 PM 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) PROTIME 13.7 13.0 - 15.7 Secs INTERFACE SYSTEM Comment: As of 06 note change in normal range. INR 0.9 INTERFACE SYSTEM Comment: Expected Values for INR: DVT/PE Goal INR 2.5; range 2.0 - 3.0 Valve Replacement Tissue Goal INR 2.5; range 2.0 - 3.0 Mechanical Goal INR 3.0; range 2.5 - 3.5 POST-NJ Goal INR 2.5; range 2.0 - 3.0 [...] in APTT Normal Range. 08/02/2007 7:54 PM 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 Julius Anderson MD HEMATOLOGY ORDERABLES Edited Performing Organization Address [facility] de Phone Number INTERFACE SYSTEM Refer to clinic/hospital department * CARDIAC ENZYMES (08/02/2007 7:54 PM 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) TROPONIN I <0.1 0.0 - 1.3 ng/mL INTERFACE SYSTEM Comment: As of 07 the Troponin Reference Range has changed from 0.0-1.5 ng/ml to 0.0- 1.3 ng/ml due to a change in testing methodology. CKMB 3.4 0.0 - 5.0 ng/mL INTERFACE SYSTEM 08/02/2007 7:54 PM 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 us Julius Anderson MD CHEMISTRY ORDERABLES Edited Performing Organization Address [facility] Phone Number INTERFACE SYSTEM Refer to clinic/hospital department * (ABNORMAL) BASIC METABOLIC PANEL (08/02/2007 7:54 PM 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) GLUCOSE 106 70 - 110 mg/dL INTERFACE [...] 295 mOsm/Kg INTERFACE SYSTEM 08/02/2007 7:54 PM 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 us Julius Anderson MD CHEMISTRY ORDERABLES Edited Performing Organization Address [facility] Phone Number INTERFACE SYSTEM Refer to clinic/hospital department * (ABNORMAL) CBC WITH DIFFERENTIAL (08/02/2007 7:54 PM 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) WBC 12.0(H) 4.8 - 10.8 K/ul INTERFACE [...] Automated Diff INTERFACE SYSTEM 08/02/2007 7:54 PM 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 us Julius Anderson MD HEMATOLOGY ORDERABLES Edited INTERFACE SYSTEM Refer to clinic/hospital department * XR CHEST PA OR AP (08/02/2007 7:27 PM 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) Anatomical Region Laterality Modality Chest Other 08/02/2007 7:27 PM 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 Narrative 08/02/2007 7:27 PM 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 Portable AP upright chest 08/02/2007. 1945 hours. [...] a possible small nodule overlying the posterior [id number] rib is probably due tothe patchy infiltrate [...] CHEST W WO CONTRAST (08/02/2007 7:27 PM 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) Anatomical Region Laterality Modality Chest Other 08/02/2007 7:27 PM 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 Narrative 08/02/2007 7:27 PM 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 CTA Chest 08/02/2007History: Difficulty breathing. Procedure: A [...] Leatha Mcgee M.D. Date Signed: 08/02/[address] ORDERABLES Final Result documented in this encounter Visit Diagnoses Diagnosis Obstructive chronic bronchitis with exacerbation (CMS/HCC)- Primary Obstructive chronic bronchitis with exacerbation documented in this encounter
--- OUTSIDE RECORDS SUMMARY | 2025-06-28 21:56 | XMS_ITS | Encounter Summary ---
Author Organization [facility] Address [address] 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
--- OUTSIDE RECORDS SUMMARY | 2025-06-28 21:56 | XMS_ITS | Data Portability ---
Author Organization [facility], autoContract Address [address] [facility] [address] [place] [address] Care Team Providers Care Import Coordinator Name Role Phone [facility] OTHER Assessment No assessment recorded. Plan of Treatment Reminders Order Date Submit Date Provider Last Modified By Organization Details Last Modified Time Details Appointments ANY 15 2024 01:00P Jayme RENAE APRN Not available Not available Not available Lab CBC w/ auto diff 2024 025 [facility] [place], [address], [place], [address], 06/08/2025 05:18:50 CMP, serum or plasma 2024 025 [facility] [place], [address], [address], [place], [address], 06/08/2025 06:09:00 [facility]erral [facility] 2024 [facility]25 [facility], [address], [place], [address], 06/15/2025 09:30:14 Procedures None recorded. Surgeries None recorded. Imaging None recorded. Medication Orders Miralax 17 gram/dose oral powder 2024 025 [facility], [address] [place] [address], [id number], 2025 17:48:46 buspirone 15 mg tablet 2024 025 [facility], [address] [place] [address], [id number], 2025 17:48:45 metoprolo l succinate ER 100 mg tablet,ex tended release 24 hr 2024 025 [facility], [address] [place] [address], [id number], 2025 17:48:45 Patient TargetsNo targets recorded. Patient Instructions Encounter Date Encounter Id Patient Instructions Last Modified By Organization Details Last Modified Time 05/11/2025 [id number] Order given to check CBC and CMP Cont current medications [email or web address] Not available 05/22/2025 00:54:07 05/15/2025 [id number] Patient to continue medications and plan of care as currently ordered. Will follow up with patient on routine rounds or sooner if needed. [email or web address] Not available 05/15/2025 18:37:38 05/17/2025 [id number] Patient to continue medications and plan of care as currently ordered. Will follow up with patient on routine rounds or sooner if needed. [email or web address] Not available 05/21/2025 18:33:34 05/26/2025 [id number] Patient to continue medications and plan of care as currently ordered. Follow up with PCP and Telemedicine Visit on 06/05/2025. Hydrocodone 5/325mg every 6 hours PRN Continue supplemental oxygen Continue current medications Not available 05/29/2025 19:11:41 06/07/2025 [id number] learning about anxiety disorders [email or web address] Not available 06/07/2025 12:13:18 hyperkalemia: care instructions [email or web address] Not available 06/07/2025 12:02:38 high blood pressure: care instructions [email or web address] Not available 06/07/2025 12:02:38 learning about high blood pressure [email or web address] Not available 06/07/2025 12:02:38 Will check labs today Will order new oxygen concentrator Refer to F/U in 4 weeks Patient discharged to patient and caregiver to home in stable condition. Follow up instructions given. [email or web address] Not available 06/08/2025 12:53:25 Reason for Referral Home Health Referral for Mus jaci weakness Referring Physician: Glory Renae, Family Medicine, Encounter Date: 06/07/2025 Results Created Date Observation Date Name Description Value Unit Range Abnormal Flag Note LastModifiedBy Organization Detail LastModifiedTime 05/02/2005/02/2025 CHEMI STRY STUDI ES glucose [mass/volume ] in serum or plasma 110 mg/dL 74-106 high Not Available [facility] [address], [place], [address], 05/02/2025 21:13:32 05/02/20 25 05/02/2025 CHEMI STRY STUDI ES urea nitrogen [mass/volume ] in serum or plasma 22 mg/dL 9-20 high Not Available [facility] [address], [place], [address], 05/02/2025 21:13:32 05/02/20 25 05/02/2025 CHEMI STRY STUDI ES creatinine [mass/volume ] in serum or plasma 0.9 mg/dL 0.8-1. 5 Not Available [facility] [address], [place], [address], 05/02/2025 21:13:32 05/02/20 25 05/02/2025 CHEMI STRY STUDI ES sodium [moles/volum e] in serum or plasma 139 mmol/ L 137-14 5 Not Available [facility] [address], [place], [address], 05/02/2025 21:13:32 05/02/20 25 05/02/2025 CHEMI STRY STUDI ES potassium [moles/volum e] in serum or plasma 5.8 mmol/ L 3.5-5. 1 high Not Available [facility] [address], [place], [address], 05/02/2025 21:13:32 05/02/20 25 05/02/2025 CHEMI STRY STUDI ES chloride [moles/volum e] in serum or plasma 98 mmol/ L 98-107 Not Available [facility] [address], [place], [address], 05/02/2025 21:13:32 05/02/20 25 05/02/2025 CHEMI STRY STUDI ES carbon dioxide, total [moles/volum e] in serum or plasma 37 mmol/ L 22-30 high Not Available [facility] [address], [place], [address], 05/02/2025 21:13:32 05/02/20 25 05/02/2025 CHEMI STRY STUDI ES calcium [mass/volume ] in blood 8.8 mg/dL 8.4-10 .2 Not Available [facility] [address], [place], [address], 05/02/2025 21:13:32 05/02/20 25 05/02/2025 CHEMI STRY STUDI ES anion gap in serum or plasma by calculation 4 mEq/L 4-[address] [facility] [address], [place], [address], 05/02/2025 21:13:32 05/02/20 25 05/02/2025 CHEMI STRY STUDI ES urea nitrogen/cre atinine [mass ratio] in blood 24.4 % 12.0-2 0.0 high Not Available [facility] [address], [place], [address], 05/02/2025 21:13:32 05/02/20 25 05/02/2025 CHEMI STRY STUDI ES osmolality of serum or plasma by calculated by sum of electrolytes 282 mOsm/ kg 261-28 0 high Not Available [facility] [address], [place], [address], 05/02/2025 21:13:32 05/02/2005/02/2025 CHEMI STRY STUDI ES glomerular filtration rate [volume rate/area] in serum, plasma or blood by creatinine-b ased formula (CKD-epi)/1. 73 sq M 92 mL 90-120 >=90 Imani l 60-89 Mildl y Decre ased 45-59 Mildl y to Moder ately Decre ased 30-44 Moder ately to Sever jelly Decre ased 15-29 Sever jelly Decre ased <15 Kidne y Failu re Not Available [facility] [address], [place], [address], 05/02/2025 21:13:32 05/02/2005/02/2025 CHEMI STRY STUDI ES creatinine renal clearance/1. 73 sq M.predicted by cockcroft-ga ult formula, bsa formula 85 mL Creat inine clear ance (CrCl ) using Cockc roft- Gault equat ion. This may be used for medic ation adjus tment s per FDA and produ ct manuf actur er label ing. This calcu latio n is not stand ardiz ed to body surfa ce area and is not used for stagi ng CKD. Not Available [facility] [address], [place], [address], 05/02/2025 21:13:32 05/02/2005/02/2025 CHEMI STRY STUDI ES phosphate [mass/volume ] in serum or plasma 4.1 mg/dL 2.5-4. 5 Not Available [facility] [address], [place], [address], 05/02/2025 21:13:32 05/02/2005/02/2025 CHEMI STRY STUDI ES magnesium [mass/volume ] in serum or plasma 2.3 mg/dL 1.6-2. 3 Not Available [facility] [address], [place], [address], 05/02/2025 21:13:32 05/02/20 25 05/02/2025 CHEMI STRY STUDI ES albumin [mass/volume ] in serum or plasma 4.2 g/dL 3.5-5. 0 Not Available [facility] [address], [place], [address], 05/02/2025 21:13:32 05/02/20 25 05/02/2025 D-LAC POE [MOLE S/VOL UME] IN SERUM OR PLASM A D-lactate [moles/volum e] in serum or plasma 0.8 mmol/ L 0.7-2. 0 Not Available [facility] [address], [place], [place], [address], 05/02/2025 21:22:11 05/02/20 25 05/02/2025 GAS PANEL - ARTER IAL BLOOD pH of arterial blood 7.26 nmol/ L 7.35-7 .45 critical low Not Available [facility] [address], [place], [address], 05/02/2025 23:07:26 05/02/20 25 05/02/2025 GAS PANEL - ARTER IAL BLOOD carbon dioxide [partial pressure] in arterial blood 86 mm[hg ] 35-45 critical high Not Available [facility] [address], [place], [address], 05/02/2025 23:07:26 05/02/20 25 05/02/2025 GAS PANEL - ARTER IAL BLOOD oxygen [partial pressure] in arterial blood 230 mm[hg ] 80-100 critical high Not Available [facility] [address], [place], [address], 05/02/2025 23:07:26 05/02/20 25 05/02/2025 GAS PANEL - ARTER IAL BLOOD bicarbonate [moles/volum e] in arterial blood 38.6 mmol/ L 22-26 high Not Available [facility] [address], [place], [address], 05/02/2025 23:07:26 05/02/20 25 05/02/2025 GAS PANEL - ARTER IAL BLOOD base excess in arterial blood by calculation 8.5 mmol/ L -2.2-2 .2 high Not Available [facility] [address], [place], [address], 05/02/2025 23:07:26 05/02/20 25 05/02/2025 GAS PANEL - ARTER IAL BLOOD oxygen saturation in arterial blood 100 % 95-98 high Not Available [facility] [address], [place], [address], 05/02/2025 23:07:26 05/02/20 25 05/02/2025 GAS PANEL - ARTER IAL BLOOD blood gas studies Lt. Rad. Not Available [facility] [address], [place], [address], 05/02/2025 23:07:26 05/02/20 25 05/02/2025 GAS PANEL - ARTER IAL BLOOD gas panel - blood 12, 12, 80% BiPAP Not Available [facility] [address], [place], [address], 05/02/2025 23:07:26 05/02/20 25 05/02/2025 GAS PANEL - ARTER IAL BLOOD arterial patency wrist artery --pre arterial puncture YES + Not Available [facility] [address], [place], [address], 05/02/2025 23:07:26 05/02/20 25 05/02/2025 GAS PANEL - ARTER IAL BLOOD gas panel - blood YES Not Available [facility] [address], [place], [address], 05/02/2025 23:07:26 08/05/20 25 05/02/2025 GAS PANEL - ARTER IAL BLOOD blood gas studies Bravo mccain, ACADEMIC SUPPORT COORDINATOR Docum ent Resul t Deliv missy: Not Available [facility] [address], [place], [address], 05/02/2025 23:07:26 05/02/20 25 05/02/2025 RESP VIRUS PNL XXX PCR virus identified in specimen Not detect ed Not Available [facility] [address], [place], [address], 05/02/2025 23:49:08 05/02/20 25 05/02/2025 RESP VIRUS PNL XXX PCR respiratory pathogens DNA and RNA 12A panel - specimen by MONI with probe detection Not Detect ed When diagn ostic testi ng is negat tangela, the possi bilit y of a false negat tangela resul t shoul d be consi dered in the zoraida xt of a patie nt's recen t expos ures and the prese nce of clini edenilson signs and sympt oms consi stent with COVID -19. The possi bilit y of a false negat tangela resul t shoul d espec ially be consi dered if the patie nt's recen t expos ures or clini edenilson prese ntati on indic ate that COVID -19 is likel y. The imani l refer ence range for any viral patho gen is consi dered Not Detec jarvis . Test resul ts may be affec jarvis by concu rrent antib acter ial or antiv iral thera py or level s of bacte manjit or virus in the sampl e that are below the limit of detec tion for the test or seque nce varia nts of the viral or bacte rial targe ts. A resul t of No Targe ts Detec jarvis on the ePlex RP2 Panel shoul d not be used as the sole basis for diagn osis, treat ment or other patie nt manag ement decis ions. Not Available [facility] [address], [place], [address], 05/02/2025 23:49:08 05/02/20 25 05/02/2025 RESP VIRUS PNL XXX PCR human metapneumovi deanne RNA [presence] in specimen by MONI with probe detection Not detect ed Not Available [facility] [address], [place], [address], 05/02/2025 23:49:08 05/02/20 25 05/02/2025 RESP VIRUS PNL XXX PCR rhinovirus RNA [identifier] in specimen by MONI with probe detection Not detect ed Not Available [facility] [address], [place], [address], 05/02/2025 23:49:08 05/02/20 25 05/02/2025 RESP VIRUS PNL XXX PCR influenza virus A RNA [presence] in specimen by MONI with probe detection Not Detect ed Not Available [facility] [address], [place], [address], 05/02/2025 23:49:08 05/02/20 25 05/02/2025 RESP VIRUS PNL XXX PCR influenza virus A H1 RNA [presence] in specimen by MONI with probe detection Not detect ed Not Available [facility] [address], [place], [address], 05/02/2025 23:49:08 05/02/20 25 05/02/2025 RESP VIRUS PNL XXX PCR influenza virus A H1 2009 pandemic RNA [presence] in specimen by MONI with probe detection Not detect ed Not Available [facility] [address], [place], [address], 05/02/2025 23:49:08 05/02/20 25 05/02/2025 RESP VIRUS PNL XXX PCR influenza virus A H3 RNA [presence] in specimen by MONI with probe detection Not detect ed Not Available [facility] [address], [place], [address], 05/02/2025 23:49:08 05/02/20 25 05/02/2025 RESP VIRUS PNL XXX PCR influenza virus B RNA [presence] in specimen by MONI with probe detection Not Detect ed Not Available [facility] [address], [place], [address], 05/02/2025 23:49:08 05/02/20 25 05/02/2025 RESP VIRUS PNL XXX PCR parainfluenz a virus 1 RNA [presence] in specimen by MONI with probe detection Not detect ed Not Available [facility] [address], [place], [address], 05/02/2025 23:49:08 05/02/20 25 05/02/2025 RESP VIRUS PNL XXX PCR parainfluenz a virus 2 RNA [presence] in specimen by MONI with probe detection Not detect ed Not Available [facility] [address], [place], [address], 05/02/2025 23:49:08 05/02/20 25 05/02/2025 RESP VIRUS PNL XXX PCR parainfluenz a virus 3 RNA [presence] in specimen by MONI with probe detection Not detect ed Not Available [facility] [address], [place], [address], 05/02/2025 23:49:08 05/02/20 25 05/02/2025 RESP VIRUS PNL XXX PCR parainfluenz a virus 4 RNA [presence] in specimen by MONI with probe detection Not detect ed Not Available [facility] [address], [place], [address], 05/02/2025 23:49:08 05/02/20 25 05/02/2025 RESP VIRUS PNL XXX PCR respiratory syncytial virus A RNA [presence] in specimen by MONI with probe detection Not detect ed Not Available [facility] [address], [place], [address], 05/02/2025 23:49:08 05/02/20 25 05/02/2025 RESP VIRUS PNL XXX PCR respiratory syncytial virus B RNA [presence] in specimen by MONI with probe detection Not detect ed Not Available [facility] [address], [place], [address], 05/02/2025 23:49:08 05/02/20 25 05/02/2025 RESP VIRUS PNL XXX PCR chlamydophil a pneumoniae DNA [presence] in sputum or bronchial by probe with amplificatio n Not detect ed Not Available [facility] [address], [place], [address], 05/02/2025 23:49:08 05/02/20 25 05/02/2025 RESP VIRUS PNL XXX PCR mycoplasma pneumoniae DNA [presence] in specimen by MONI with probe detection Not detect ed The imani l refer ence range for any viral patho gen is consi dered Not Detec jarvis . Test resul ts may be affec jarvis by concu rrent antib acter ial or antiv iral thera py or level s of bacte manjit or virus in the sampl e that are below the limit of detec tion for the test or seque nce varia nts of the viral or bacte rial targe ts. A resul t of No Targe ts Detec jarvis on the ePlex RP2 Panel shoul d not be used as the sole basis for diagn osis, treat ment or other patie nt manag ement decis ions. If 4 or more targe ts are detec jarvis, then the patie nt shoul d be recol lecte d and retes jarvis. Not Available [facility] [address], [place], [address], 05/02/2025 23:49:08 05/02/20 25 05/02/2025 METHI CILLI N RESIS TANT STAPH YLOCO CCUS AUREU S (MRSA ) DNA [PRES ENCE] IN SPECI MEN BY MONI WITH PROBE DETEC TION microorganis m identified in specimen by culture MRSA DNA DETECT ED abnormal Not Available [facility] [address], [place], [address], 05/04/2025 20:44:08 05/03/20 25 05/03/2025 GAS PANEL - ARTER IAL BLOOD pH of arterial blood 7.29 nmol/ L 7.35-7 .45 critical low Not Available [facility] [address], [place], [address], 05/03/2025 04:33:27 05/03/20 25 05/03/2025 GAS PANEL - ARTER IAL BLOOD carbon dioxide [partial pressure] in arterial blood 80 mm[hg ] 35-45 critical high Not Available [facility] [address], [place], [address], 05/03/2025 04:33:27 05/03/20 25 05/03/2025 GAS PANEL - ARTER IAL BLOOD oxygen [partial pressure] in arterial blood 63 mm[hg ] 80-100 low Not Available [facility] [address], [place], [address], 05/03/2025 04:33:27 05/03/20 25 05/03/2025 GAS PANEL - ARTER IAL BLOOD bicarbonate [moles/volum e] in arterial blood 38.5 mmol/ L 22-26 high Not Available [facility] [address], [place], [address], 05/03/2025 04:33:27 05/03/20 25 05/03/2025 GAS PANEL - ARTER IAL BLOOD base excess in arterial blood by calculation 9.0 mmol/ L -2.2-2 .2 high Not Available [facility] [address], [place], [address], 05/03/2025 04:33:27 05/03/20 25 05/03/2025 GAS PANEL - ARTER IAL BLOOD oxygen saturation in arterial blood 89 % 95-98 low Not Available [facility] [address], [place], [address], 05/03/2025 04:33:27 05/03/20 25 05/03/2025 GAS PANEL - ARTER IAL BLOOD blood gas studies Lt. Rad. Not Available [facility] [address], [place], [address], 05/03/2025 04:33:27 05/03/20 25 05/03/2025 GAS PANEL - ARTER IAL BLOOD gas panel - blood 2 lpm Nasal Cannu la Not Available [facility] [address], [place], [address], 05/03/2025 04:33:27 05/03/20 25 05/03/2025 GAS PANEL - ARTER IAL BLOOD arterial patency wrist artery --pre arterial puncture YES + Not Available [facility] [address], [place], [address], 05/03/2025 04:33:27 05/03/20 25 05/03/2025 GAS PANEL - ARTER IAL BLOOD gas panel - blood YES Not Available [facility] [address], [place], [address], 05/03/2025 04:33:27 05/03/20 25 05/03/2025 GAS PANEL - ARTER IAL BLOOD blood gas studies Timmot hy, ACADEMIC SUPPORT COORDINATOR Docum ent Resul t Deliv missy: Not Available [facility] [address], [place], [address], 05/03/2025 04:33:27 05/03/20 25 05/03/2025 CBC W AUTO DIFFE RENTI AL PANEL - BLOOD leukocytes [#/volume] in blood by automated count 12.0 10*3/ uL 4.5-11 .0 high 0347, 05/03 Not Available [facility] [address], [place], [address], 05/03/2025 04:51:46 05/03/2005/03/2025 CBC W AUTO DIFFE RENTI AL PANEL - BLOOD erythrocytes [#/volume] in blood by automated count 4.71 10*6/ uL 4.5-6. 00 Not Available [facility] [address], [place], [address], 05/03/2025 04:51:46 05/03/2005/03/2025 CBC W AUTO DIFFE RENTI AL PANEL - BLOOD hemoglobin [mass/volume ] in blood 11.1 g/dL 13.5-1 8.0 low Not Available [facility] [address], [place], [address], 05/03/2025 04:51:46 05/03/2005/03/2025 CBC W AUTO DIFFE RENTI AL PANEL - BLOOD hematocrit [volume fraction] of blood by automated count 39.8 % 42.0-5 4.0 low Not Available [facility] [address], [place], [address], 05/03/2025 04:51:46 05/03/2005/03/2025 CBC W AUTO DIFFE RENTI AL PANEL - BLOOD MCV [entitic mean volume] in red blood cells by automated count 84.5 fL 80-[address] [facility] [address], [place], [address], 05/03/2025 04:51:46 05/03/2005/03/2025 CBC W AUTO DIFFE RENTI AL PANEL - BLOOD MCH [entitic mass] by automated count 23.6 pg 27-32 low Not Available [facility] [address], [place], [address], 05/03/2025 04:51:46 05/03/20 25 05/03/2025 CBC W AUTO DIFFE RENTI AL PANEL - BLOOD MCHC [entitic mass/volume] in red blood cells by automated count 27.9 g/dL 31.0-3 7.0 low Not Available [facility] [address], [place], [address], 05/03/2025 04:51:46 05/03/20 25 05/03/2025 CBC W AUTO DIFFE RENTI AL PANEL - BLOOD erythrocyte [distwidth] in red blood cells by automated count 20.0 % 12-14. 5 high Not Available [facility] [address], [place], [address], 05/03/2025 04:51:46 05/03/20 25 05/03/2025 CBC W AUTO DIFFE RENTI AL PANEL - BLOOD platelets [#/volume] in blood 481 10*3/ uL 150-45 0 high 0347, 05/03 Not Available [facility] [address], [place], [address], 05/03/2025 04:51:46 05/03/20 25 05/03/2025 CBC W AUTO DIFFE RENTI AL PANEL - BLOOD platelet [entitic mean volume] in blood by automated count 11.0 fL 9.1-13 .2 Not Available [facility] [address], [place], [address], 05/03/2025 04:51:46 05/03/20 25 05/03/2025 CBC W AUTO DIFFE RENTI AL PANEL - BLOOD segmented neutrophils/ leukocytes in blood by automated count 92.4 % 40-70 high Not Available [facility] [address], [place], [address], 05/03/2025 04:51:46 05/03/20 25 05/03/2025 CBC W AUTO DIFFE RENTI AL PANEL - BLOOD lymphocytes/ leukocytes in blood by flow cytometry (fc) 5.1 % 20-44 low Not Available [facility] [address], [place], [address], 05/03/2025 04:51:46 05/03/20 25 05/03/2025 CBC W AUTO DIFFE RENTI AL PANEL - BLOOD monocytes/le ukocytes in blood by automated count 1.1 % 2-9 low Not Available [facility] [address], [place], [address], 05/03/2025 04:51:46 05/03/20 25 05/03/2025 CBC W AUTO DIFFE RENTI AL PANEL - BLOOD eosinophils/ leukocytes in blood by automated count 0.0 % 0-4 Not Available [facility] [address], [place], [address], 05/03/2025 04:51:46 05/03/20 25 05/03/2025 CBC W AUTO DIFFE RENTI AL PANEL - BLOOD basophils/le ukocytes in blood by automated count 0.3 % 0-1 Not Available [facility] [address], [place], [address], 05/03/2025 04:51:46 05/03/20 25 05/03/2025 CBC W AUTO DIFFE RENTI AL PANEL - BLOOD neutrophils [#/volume] in blood by automated count 11.13 10*3/ uL 1.8-7. 7 high Not Available [facility] [address], [place], [address], 05/03/2025 04:51:46 05/03/20 25 05/03/2025 CBC W AUTO DIFFE RENTI AL PANEL - BLOOD lymphocytes [#/volume] in blood by automated count 0.61 10*3/ uL 0.9-4. 8 low Not Available [facility] [address], [place], [address], 05/03/2025 04:51:46 05/03/20 25 05/03/2025 CBC W AUTO DIFFE RENTI AL PANEL - BLOOD monocytes [#/volume] in blood by automated count 0.1 10*3/ uL 0-0.8 Not Available [facility] [address], [place], [address], 05/03/2025 04:51:46 05/03/20 25 05/03/2025 CBC W AUTO DIFFE RENTI AL PANEL - BLOOD eosinophils [#/volume] in blood by automated count 0.00 10*3/ uL 0-0.7 Not Available [facility] [address] [address], [place], [address], 05/03/2025 04:51:46 05/03/20 25 05/03/2025 CBC W AUTO DIFFE RENTI AL PANEL - BLOOD basophils [#/volume] in blood by automated count 0.04 10*3/ uL 0-0.2 Not Available [facility] [address], [place], [address], 05/03/2025 04:51:46 05/03/20 25 05/03/2025 CBC W AUTO DIFFE RENTI AL PANEL - BLOOD immature granulocytes [presence] in blood by automated count 1.1 % 0-0.7 high Not Available [facility] [address], [place], [address], 05/03/2025 04:51:46 05/03/20 25 05/03/2025 CBC W AUTO DIFFE RENTI AL PANEL - BLOOD immature granulocytes [#/volume] in blood 0.13 10*3/ uL 0.00-0 .06 high Not Available [facility] [address], [place], [address], 05/03/2025 04:51:46 05/03/20 25 05/03/2025 CBC W AUTO DIFFE RENTI AL PANEL - BLOOD nucleated erythrocytes /leukocytes [ratio] in blood by automated count 0.2 % 0-0 high Not Available [facility] [address], [place], [address], 05/03/2025 04:51:46 05/03/20 25 05/03/2025 CHEMI STRY STUDI ES glucose [mass/volume ] in serum or plasma 139 mg/dL 74-106 high Not Available [facility] [address], [place], [address], 05/03/2025 05:26:51 05/03/20 25 05/03/2025 CHEMI STRY STUDI ES urea nitrogen [mass/volume ] in serum or plasma 28 mg/dL 9-20 high Not Available [facility] [address], [place], [address], 05/03/2025 05:26:51 05/03/20 25 05/03/2025 CHEMI STRY STUDI ES creatinine [mass/volume ] in serum or plasma 1.0 mg/dL 0.8-1. 5 Not Available [facility] [address], [place], [address], 05/03/2025 05:26:51 05/03/20 25 05/03/2025 CHEMI STRY STUDI ES sodium [moles/volum e] in serum or plasma 138 mmol/ L 137-14 5 Not Available [facility] [address], [place], [address], 05/03/2025 05:26:51 05/03/20 25 05/03/2025 CHEMI STRY STUDI ES potassium [moles/volum e] in serum or plasma 6.2 mmol/ L 3.5-5. 1 critical high RESUL TS HILL D TO CAROLYN BY Ángel jones at 0425, 05/03. Not Available [place] [facility] [address], [place], [address], 05/03/2025 05:26:51 05/03/20 25 05/03/2025 CHEMI STRY STUDI ES chloride [moles/volum e] in serum or plasma 97 mmol/ L 98-107 low Not Available [facility] [address], [place], [address], 05/03/2025 05:26:51 05/03/20 25 05/03/2025 CHEMI STRY STUDI ES carbon dioxide, total [moles/volum e] in serum or plasma 35 mmol/ L 22-30 high Not Available [facility] [address], [place], [address], 05/03/2025 05:26:51 05/03/20 25 05/03/2025 CHEMI STRY STUDI ES calcium [mass/volume ] in blood 8.9 mg/dL 8.4-10 .2 Not Available [facility] [address], [place], [address], 05/03/2025 05:26:51 05/03/20 25 05/03/2025 CHEMI STRY STUDI ES anion gap in serum or plasma by calculation 6 mEq/L 4-12 Not Available [facility] [address], [place], [address], 05/03/2025 05:26:51 05/03/20 25 05/03/2025 CHEMI STRY STUDI ES urea nitrogen/cre atinine [mass ratio] in blood 28.0 % 12.0-2 0.0 high Not Available [facility] [address], [place], [address], 05/03/2025 05:26:51 05/03/20 25 05/03/2025 CHEMI STRY STUDI ES osmolality of serum or plasma by calculated by sum of electrolytes 284 mOsm/ kg 261-28 0 high Not Available [facility] [address], [place], [address], 05/03/2025 05:26:51 05/03/2005/03/2025 CHEMI STRY STUDI ES glomerular filtration rate [volume rate/area] in serum, plasma or blood by creatinine-b ased formula (CKD-epi)/1. 73 sq M 81 mL 90-120 >=90 Imani l 60-89 Mildl y Decre ased 45-59 Mildl y to Moder ately Decre ased 30-44 Moder ately to Sever jelly Decre ased 15-29 Sever jelly Decre ased <15 Kidne y Failu re Not Available [facility] [address], [place], [address], 05/03/2025 05:26:51 05/03/2005/03/2025 CHEMI STRY STUDI ES creatinine renal clearance/1. 73 sq M.predicted by cockcroft-ga ult formula, bsa formula 85 mL Creat inine clear ance (CrCl ) using Cockc roft- Gault equat ion. This may be used for medic ation adjus tment s per FDA and produ ct manuf actur er label ing. This calcu latio n is not stand ardiz ed to body surfa ce area and is not used for stagi ng CKD. Not Available [facility] [address], [place], [address], 05/03/2025 05:26:51 05/03/2005/03/2025 CHEMI STRY STUDI ES phosphate [mass/volume ] in serum or plasma 4.8 mg/dL 2.5-4. 5 high Not Available [facility] [address], [place], [address], 05/03/2025 05:26:51 05/03/2005/03/2025 CHEMI STRY STUDI ES magnesium [mass/volume ] in serum or plasma 2.3 mg/dL 1.6-2. 3 Not Available [place] [facility] [address], [place], [address], 05/03/2025 05:26:51 05/03/20 25 05/03/2025 CHEMI STRY STUDI ES albumin [mass/volume ] in serum or plasma 4.3 g/dL 3.5-5. 0 Not Available [facility] [address], [place], [address], 05/03/2025 05:26:51 05/03/20 25 05/03/2025 D-LAC POE [MOLE S/VOL UME] IN SERUM OR PLASM A D-lactate [moles/volum e] in serum or plasma 1.5 mmol/ L 0.7-2. 0 Not Available [facility] [address], [place], [address], 05/03/2025 05:54:16 05/03/20 25 05/03/2025 TROPO LIZETTE I.CAR DIAC [MASS /VOLU ME] IN SERUM OR PLASM A troponin I.cardiac [mass/volume ] in serum or plasma <0.012 NG/mL 0-0.03 4 Not Available [facility] [address], [place], [address], 05/03/2025 06:01:24 05/03/20 25 05/03/2025 CHEMI STRY STUDI ES glucose [mass/volume ] in serum or plasma 139 mg/dL 74-106 high Not Available [facility] [address], [place], [address], 05/03/2025 06:01:24 05/03/20 25 05/03/2025 CHEMI STRY STUDI ES urea nitrogen [mass/volume ] in serum or plasma 28 mg/dL 9-20 high Not Available [facility] [address], [place], [address], 05/03/2025 06:01:24 05/03/20 25 05/03/2025 CHEMI STRY STUDI ES creatinine [mass/volume ] in serum or plasma 1.0 mg/dL 0.8-1. 5 Not Available [facility] [address], [place], [address], 05/03/2025 06:01:24 05/03/20 25 05/03/2025 CHEMI STRY STUDI ES sodium [moles/volum e] in serum or plasma 138 mmol/ L 137-14 5 Not Available [facility] [address], [place], [address], 05/03/2025 06:01:24 05/03/20 25 05/03/2025 CHEMI STRY STUDI ES potassium [moles/volum e] in serum or plasma 6.2 mmol/ L 3.5-5. 1 critical high RESUL TS HILL D TO CAROLYN BY Ángel jones at 0425, 05/03. Not Available [facility] [address], [place], [address], 05/03/2025 06:01:24 05/03/20 25 05/03/2025 CHEMI STRY STUDI ES chloride [moles/volum e] in serum or plasma 97 mmol/ L 98-107 low Not Available [facility] [address], [place], [address], 05/03/2025 06:01:24 05/03/20 25 05/03/2025 CHEMI STRY STUDI ES carbon dioxide, total [moles/volum e] in serum or plasma 35 mmol/ L 22-30 high Not Available [facility] [address], [place], [address], 05/03/2025 06:01:24 05/03/20 25 05/03/2025 CHEMI STRY STUDI ES calcium [mass/volume ] in blood 8.9 mg/dL 8.4-10 .2 Not Available [facility] [address], [place], [address], 05/03/2025 06:01:24 05/03/20 25 05/03/2025 CHEMI STRY STUDI ES anion gap in serum or plasma by calculation 6 mEq/L 4-[address] [facility] [address], [place], [address], 05/03/2025 06:01:24 05/03/20 25 05/03/2025 CHEMI STRY STUDI ES urea nitrogen/cre atinine [mass ratio] in blood 28.0 % 12.0-2 0.0 high Not Available [facility] [address], [place], [address], 05/03/2025 06:01:24 05/03/20 25 05/03/2025 CHEMI STRY STUDI ES osmolality of serum or plasma by calculated by sum of electrolytes 284 mOsm/ kg 261-28 0 high Not Available [facility] [address], [place], [address], 05/03/2025 06:01:24 05/03/20 25 05/03/2025 CHEMI STRY STUDI ES glomerular filtration rate [volume rate/area] in serum, plasma or blood by creatinine-b ased formula (CKD-epi)/1. 73 sq M 81 mL 90-120 >=90 Imani l 60-89 Mildl y Decre ased 45-59 Mildl y to Moder ately Decre ased 30-44 Moder ately to Sever jelly Decre ased 15-29 Sever jelly Decre ased <15 Kidne y Failu re Not Available [facility] [address], [place], [address], 05/03/2025 06:01:24 05/03/20 25 05/03/2025 CHEMI STRY STUDI ES creatinine renal clearance/1. 73 sq M.predicted by cockcroft-ga ult formula, bsa formula 85 mL Creat inine clear ance (CrCl ) using Cockc roft- Gault equat ion. This may be used for medic ation adjus tment s per FDA and produ ct manuf actur er label ing. This calcu latio n is not stand ardiz ed to body surfa ce area and is not used for stagi ng CKD. Not Available [facility] [address], [place], [address], 05/03/2025 06:01:24 05/03/20 25 05/03/2025 CHEMI STRY STUDI ES phosphate [mass/volume ] in serum or plasma 4.8 mg/dL 2.5-4. 5 high Not Available [facility] [address], [place], [address], 05/03/2025 06:01:24 05/03/20 25 05/03/2025 CHEMI STRY STUDI ES magnesium [mass/volume ] in serum or plasma 2.3 mg/dL 1.6-2. 3 Not Available [facility] [address], [place], [address], 05/03/2025 06:01:24 05/03/20 25 05/03/2025 CHEMI STRY STUDI ES albumin [mass/volume ] in serum or plasma 4.3 g/dL 3.5-5. 0 Not Available [facility] [address], [place], [address], 05/03/2025 06:01:24 05/03/20 25 05/03/2025 POTAS SIUM [MOLE S/VOL UME] IN SERUM OR PLASM A potassium [moles/volum e] in serum or plasma 5.0 mmol/ L 3.5-5. 1 Not Available [facility] [address], [place], [address], 05/03/2025 08:13:39 05/03/20 25 05/03/2025 EXTRA YELLO W HOLD TUBE extra yellow hold tube HOLD FOR FUTURE TEST Not Available [facility] [address], [place], [place], [address], 05/03/2025 09:14:29 05/03/20 25 05/03/2025 CORTI MAJOR [MASS /VOLU ME] IN SERUM OR PLASM A --AM PEAK SPECI MEN cortisol [mass/volume ] in serum or plasma --AM peak specimen 4.3 ug/dL 4.46-2 2.7 low Not Available [facility] [address], [place], [place], [address], 05/03/2025 09:58:50 05/03/20 25 05/03/2025 GAS PANEL - ARTER IAL BLOOD pH of arterial blood 7.35 nmol/ L 7.35-7 .45 Not Available [facility] [address], [place], [place], [address], 05/03/2025 10:55:18 05/03/20 25 05/03/2025 GAS PANEL - ARTER IAL BLOOD carbon dioxide [partial pressure] in arterial blood 68 mm[hg ] 35-45 critical high Not Available [facility] [address], [place], [place], [address], 05/03/2025 10:55:18 05/03/20 25 05/03/2025 GAS PANEL - ARTER IAL BLOOD oxygen [partial pressure] in arterial blood 100 mm[hg ] 80-100 Not Available [facility] [address], [place], [place], [address], 05/03/2025 10:55:18 05/03/20 25 05/03/2025 GAS PANEL - ARTER IAL BLOOD bicarbonate [moles/volum e] in arterial blood 37.5 mmol/ L 22-26 high Not Available [facility] [address], [place], [place], [address], 05/03/2025 10:55:18 05/03/20 25 05/03/2025 GAS PANEL - ARTER IAL BLOOD base excess in arterial blood by calculation 9.4 mmol/ L -2.2-2 .2 high Not Available [facility] [address], [place], [address], 05/03/2025 10:55:18 05/03/20 25 05/03/2025 GAS PANEL - ARTER IAL BLOOD oxygen saturation in arterial blood 97 % 95-98 Not Available [facility] [address], [place], [address], 05/03/2025 10:55:18 05/03/20 25 05/03/2025 GAS PANEL - ARTER IAL BLOOD blood gas studies r rad Not Available [facility] [address], [place], [address], 05/03/2025 10:55:18 05/03/20 25 05/03/2025 GAS PANEL - ARTER IAL BLOOD gas panel - blood 45% BiPAP Not Available [facility] [address], [place], [address], 05/03/2025 10:55:18 05/03/20 25 05/03/2025 GAS PANEL - ARTER IAL BLOOD arterial patency wrist artery --pre arterial puncture yes pos Not Available [facility] [address], [place], [address], 05/03/2025 10:55:18 05/03/20 25 05/03/2025 GAS PANEL - ARTER IAL BLOOD gas panel - blood yes AVAPS Vt 500, Min P:14, Max P:30. Not Available [facility] [address], [place], [address], 05/03/2025 10:55:18 05/03/20 25 05/03/2025 GAS PANEL - ARTER IAL BLOOD blood gas studies DOCUME NT IN COMMEN TS Docum ent Resul t Deliv missy: Not Available [facility] [address], [place], [address], 05/03/2025 10:55:18 05/03/20 25 05/03/2025 NATRI URETI C PEPTI DE.B PROHO RMONE N-TER FRANCISCO [MASS /VOLU ME] IN SERUM OR PLASM A natriuretic peptide.B prohormone N-terminal [mass/volume ] in serum or plasma 147.00 pg/mL 0.00-1 25.00 high Not Available [facility] [address] [facility] [address], [place], [address], 05/03/2025 11:18:26 05/03/20 25 05/03/2025 POTAS SIUM [MOLE S/VOL UME] IN SERUM OR PLASM A potassium [moles/volum e] in serum or plasma 5.2 mmol/ L 3.5-5. 1 high Not Available [facility] [address], [place], [address], 05/03/2025 13:53:34 05/03/20 25 05/03/2025 POTAS SIUM [MOLE S/VOL UME] IN SERUM OR PLASM A potassium [moles/volum e] in serum or plasma 5.7 mmol/ L 3.5-5. 1 high Not Available [facility] [address], [place], [address], 05/03/2025 23:47:40 05/04/20 25 05/04/2025 GLUCO SE [MASS /VOLU ME] IN CAPIL BRITTNEY BLOOD BY GLUCO METER glucose [mass/volume ] in capillary blood by glucometer 107 mg/dL 65-110 Not Available [facility] [address], [place], [address], 05/04/2025 02:14:37 05/04/20 25 05/04/2025 CHEMI STRY STUDI ES glucose [mass/volume ] in serum or plasma 160 mg/dL 74-106 high Not Available [facility] [address], [place], [address], 05/04/2025 05:59:29 05/04/20 25 05/04/2025 CHEMI STRY STUDI ES urea nitrogen [mass/volume ] in serum or plasma 39 mg/dL 9-20 high Not Available [facility] [address], [place], [address], 05/04/2025 05:59:29 05/04/2005/04/2025 CHEMI STRY STUDI ES creatinine [mass/volume ] in serum or plasma 1.0 mg/dL 0.8-1. 5 Not Available [place] [facility] [address], [place], [address], 05/04/2025 05:59:29 05/04/20 25 05/04/2025 CHEMI STRY STUDI ES sodium [moles/volum e] in serum or plasma 136 mmol/ L 137-14 5 low Not Available [place] [facility] [address], [place], [address], 05/04/2025 05:59:29 05/04/20 25 05/04/2025 CHEMI STRY STUDI ES potassium [moles/volum e] in serum or plasma 5.4 mmol/ L 3.5-5. 1 high Not Available [facility] [address], [place], [address], 05/04/2025 05:59:29 05/04/2005/04/2025 CHEMI STRY STUDI ES chloride [moles/volum e] in serum or plasma 99 mmol/ L 98-107 Not Available [facility] [address], [place], [address], 05/04/2025 05:59:29 05/04/20 25 05/04/2025 CHEMI STRY STUDI ES carbon dioxide, total [moles/volum e] in serum or plasma 35 mmol/ L 22-30 high Not Available [facility] [address], [place], [address], 05/04/2025 05:59:29 05/04/20 25 05/04/2025 CHEMI STRY STUDI ES calcium [mass/volume ] in blood 8.5 mg/dL 8.4-10 .2 Not Available [facility] [address], [place], [address], 05/04/2025 05:59:29 05/04/20 25 05/04/2025 CHEMI STRY STUDI ES anion gap in serum or plasma by calculation 2 mEq/L 4-12 low Not Available [facility] [address], [place], [address], 05/04/2025 05:59:29 05/04/20 25 05/04/2025 CHEMI STRY STUDI ES urea nitrogen/cre atinine [mass ratio] in blood 39.0 % 12.0-2 0.0 high Not Available [facility] [address], [place], [address], 05/04/2025 05:59:29 05/04/20 25 05/04/2025 CHEMI STRY STUDI ES osmolality of serum or plasma by calculated by sum of electrolytes 285 mOsm/ kg 261-28 0 high Not Available [facility] [address], [place], [address], 05/04/2025 05:59:29 05/04/20 25 05/04/2025 CHEMI STRY STUDI ES glomerular filtration rate [volume rate/area] in serum, plasma or blood by creatinine-b ased formula (CKD-epi)/1. 73 sq M 81 mL 90-120 >=90 Imani l 60-89 Mildl y Decre ased 45-59 Mildl y to Moder ately Decre ased 30-44 Moder ately to Sever jelly Decre ased 15-29 Sever jelly Decre ased <15 Kidne y Failu re Not Available [facility] [address], [place], [address], 05/04/2025 05:59:29 05/04/20 25 05/04/2025 CHEMI STRY STUDI ES creatinine renal clearance/1. 73 sq M.predicted by cockcroft-ga ult formula, bsa formula 84 mL Creat inine clear ance (CrCl ) using Cockc roft- Gault equat ion. This may be used for medic ation adjus tment s per FDA and produ ct manuf actur er label ing. This calcu latio n is not stand ardiz ed to body surfa ce area and is not used for stagi ng CKD. Not Available [facility] [address], [place], [address], 05/04/2025 05:59:29 05/04/20 25 05/04/2025 CHEMI STRY STUDI ES phosphate [mass/volume ] in serum or plasma 2.7 mg/dL 2.5-4. 5 Not Available [facility] [address], [place], [address], 05/04/2025 05:59:29 05/04/20 25 05/04/2025 CHEMI STRY STUDI ES magnesium [mass/volume ] in serum or plasma 2.4 mg/dL 1.6-2. 3 high Not Available [facility] [address], [place], [address], 05/04/2025 05:59:29 05/04/20 25 05/04/2025 CHEMI STRY STUDI ES albumin [mass/volume ] in serum or plasma 3.8 g/dL 3.5-5. 0 Not Available [facility] [address], [place], [address], 05/04/2025 05:59:29 05/04/2005/04/2025 CBC W AUTO DIFFE RENTI AL PANEL - BLOOD leukocytes [#/volume] in blood by automated count 13.1 10*3/ uL 4.5-11 .0 high 0435, 05/04 Not Available [facility] [address], [place], [address], 05/04/2025 06:01:55 05/04/20 25 05/04/2025 CBC W AUTO DIFFE RENTI AL PANEL - BLOOD erythrocytes [#/volume] in blood by automated count 4.19 10*6/ uL 4.5-6. 00 low Not Available [facility] [address], [place], [address], 05/04/2025 06:01:55 05/04/20 25 05/04/2025 CBC W AUTO DIFFE RENTI AL PANEL - BLOOD hemoglobin [mass/volume ] in blood 9.5 g/dL 13.5-1 8.0 low Not Available [facility] [address], [place], [address], 05/04/2025 06:01:55 05/04/20 25 05/04/2025 CBC W AUTO DIFFE RENTI AL PANEL - BLOOD hematocrit [volume fraction] of blood by automated count 34.0 % 42.0-5 4.0 low Not Available [facility] [address], [place], [address], 05/04/2025 06:01:55 05/04/2005/04/2025 CBC W AUTO DIFFE RENTI AL PANEL - BLOOD MCV [entitic mean volume] in red blood cells by automated count 81.1 fL 80-100 delta Not Available [facility] [address], [place], [address], 05/04/2025 06:01:55 05/04/20 25 05/04/2025 CBC W AUTO DIFFE RENTI AL PANEL - BLOOD MCH [entitic mass] by automated count 22.7 pg 27-32 low Not Available [facility] [address], [place], [address], 05/04/2025 06:01:55 05/04/20 25 05/04/2025 CBC W AUTO DIFFE RENTI AL PANEL - BLOOD MCHC [entitic mass/volume] in red blood cells by automated count 27.9 g/dL 31.0-3 7.0 low Not Available [facility] [address], [place], [address], 05/04/2025 06:01:55 05/04/20 25 05/04/2025 CBC W AUTO DIFFE RENTI AL PANEL - BLOOD erythrocyte [distwidth] in red blood cells by automated count 19.9 % 12-14. 5 high Not Available [facility] [address], [place], [address], 05/04/2025 06:01:55 05/04/20 25 05/04/2025 CBC W AUTO DIFFE RENTI AL PANEL - BLOOD platelets [#/volume] in blood 437 10*3/ uL 150-45 0 0435, 05/04 Not Available [facility] [address], [place], [address], 05/04/2025 06:01:55 05/04/20 25 05/04/2025 CBC W AUTO DIFFE RENTI AL PANEL - BLOOD platelet [entitic mean volume] in blood by automated count 10.4 fL 9.1-13 .2 Not Available [facility] [address], [place], [address], 05/04/2025 06:01:55 05/04/20 25 05/04/2025 CBC W AUTO DIFFE RENTI AL PANEL - BLOOD segmented neutrophils/ leukocytes in blood by automated count 88.8 % 40-70 high Not Available [facility] [address], [place], [address], 05/04/2025 06:01:55 05/04/20 25 05/04/2025 CBC W AUTO DIFFE RENTI AL PANEL - BLOOD lymphocytes/ leukocytes in blood by flow cytometry (fc) 6.5 % 20-44 low Not Available [facility] [address], [place], [address], 05/04/2025 06:01:55 05/04/20 25 05/04/2025 CBC W AUTO DIFFE RENTI AL PANEL - BLOOD monocytes/le ukocytes in blood by automated count 3.7 % 2-9 Not Available [facility] [address], [place], [address], 05/04/2025 06:01:55 05/04/20 25 05/04/2025 CBC W AUTO DIFFE RENTI AL PANEL - BLOOD eosinophils/ leukocytes in blood by automated count 0.0 % 0-4 Not Available [facility] [address], [place], [address], 05/04/2025 06:01:55 05/04/20 25 05/04/2025 CBC W AUTO DIFFE RENTI AL PANEL - BLOOD basophils/le ukocytes in blood by automated count 0.2 % 0-1 Not Available [facility] [address], [place], [address], 05/04/2025 06:01:55 05/04/2005/04/2025 CBC W AUTO DIFFE RENTI AL PANEL - BLOOD neutrophils [#/volume] in blood by automated count 11.66 10*3/ uL 1.8-7. 7 high Not Available [place] [facility] [address], [place], [address], 05/04/2025 06:01:55 05/04/20 25 05/04/2025 CBC W AUTO DIFFE RENTI AL PANEL - BLOOD lymphocytes [#/volume] in blood by automated count 0.85 10*3/ uL 0.9-4. 8 low Not Available [facility] [address], [place], [address], 05/04/2025 06:01:55 05/04/2005/04/2025 CBC W AUTO DIFFE RENTI AL PANEL - BLOOD monocytes [#/volume] in blood by automated count 0.5 10*3/ uL 0-0.8 Not Available [facility] [address], [place], [address], 05/04/2025 06:01:55 05/04/2005/04/2025 CBC W AUTO DIFFE RENTI AL PANEL - BLOOD eosinophils [#/volume] in blood by automated count 0.00 10*3/ uL 0-0.7 Not Available [facility] [address], [place], [address], 05/04/2025 06:01:55 05/04/2005/04/2025 CBC W AUTO DIFFE RENTI AL PANEL - BLOOD basophils [#/volume] in blood by automated count 0.03 10*3/ uL 0-0.2 Not Available [facility] [address], [place], [address], 05/04/2025 06:01:55 05/04/2005/04/2025 CBC W AUTO DIFFE RENTI AL PANEL - BLOOD immature granulocytes [presence] in blood by automated count 0.8 % 0-0.7 high Not Available [facility] [address], [place], [address], 05/04/2025 06:01:55 05/04/2005/04/2025 CBC W AUTO DIFFE RENTI AL PANEL - BLOOD immature granulocytes [#/volume] in blood 0.10 10*3/ uL 0.00-0 .06 high Not Available [facility] [address], [place], [address], 05/04/2025 06:01:55 05/04/20 25 05/04/2025 CBC W AUTO DIFFE RENTI AL PANEL - BLOOD nucleated erythrocytes /leukocytes [ratio] in blood by automated count 0.2 % 0-0 high Not Available [facility] [address], [place], [address], 05/04/2025 06:01:55 05/04/2005/04/2025 POTAS SIUM [MOLE S/VOL UME] IN SERUM OR PLASM A potassium [moles/volum e] in serum or plasma 5.4 mmol/ L 3.5-5. 1 high Not Available [facility] [address], [place], [address], 05/04/2025 14:48:16 05/05/20 25 05/05/2025 CBC W AUTO DIFFE RENTI AL PANEL - BLOOD leukocytes [#/volume] in blood by automated count 13.0 10*3/ uL 4.5-11 .0 high 0412, 05/05 Not Available [facility] [address], [place], [address], 05/05/2025 12:07:46 05/05/20 25 05/05/2025 CBC W AUTO DIFFE RENTI AL PANEL - BLOOD erythrocytes [#/volume] in blood by automated count 4.06 10*6/ uL 4.5-6. 00 low Not Available [facility] [address], [place], [address], 05/05/2025 12:07:46 05/05/20 25 05/05/2025 CBC W AUTO DIFFE RENTI AL PANEL - BLOOD hemoglobin [mass/volume ] in blood 9.4 g/dL 13.5-1 8.0 low Not Available [facility] [address], [place], [address], 05/05/2025 12:07:46 05/05/20 25 05/05/2025 CBC W AUTO DIFFE RENTI AL PANEL - BLOOD hematocrit [volume fraction] of blood by automated count 32.7 % 42.0-5 4.0 low Not Available [facility] [address], [place], [address], 05/05/2025 12:07:46 05/05/20 25 05/05/2025 CBC W AUTO DIFFE RENTI AL PANEL - BLOOD MCV [entitic mean volume] in red blood cells by automated count 80.5 fL 80-[address] [facility] [address], [place], [address], 05/05/2025 12:07:46 05/05/20 25 05/05/2025 CBC W AUTO DIFFE RENTI AL PANEL - BLOOD MCH [entitic mass] by automated count 23.2 pg 27-32 low Not Available [facility] [address], [place], [address], 05/05/2025 12:07:46 05/05/20 25 05/05/2025 CBC W AUTO DIFFE RENTI AL PANEL - BLOOD MCHC [entitic mass/volume] in red blood cells by automated count 28.7 g/dL 31.0-3 7.0 low Not Available [facility] [address], [place], [address], 05/05/2025 12:07:46 05/05/20 25 05/05/2025 CBC W AUTO DIFFE RENTI AL PANEL - BLOOD erythrocyte [distwidth] in red blood cells by automated count 19.2 % 12-14. 5 high Not Available [facility] [address], [place], [address], 05/05/2025 12:07:46 05/05/20 25 05/05/2025 CBC W AUTO DIFFE RENTI AL PANEL - BLOOD platelets [#/volume] in blood 433 10*3/ uL 150-45 0 0412, 05/05 Not Available [facility] [address], [place], [address], 05/05/2025 12:07:46 05/05/20 25 05/05/2025 CBC W AUTO DIFFE RENTI AL PANEL - BLOOD platelet [entitic mean volume] in blood by automated count 11.5 fL 9.1-13 .2 Not Available [facility] [address], [place], [address], 05/05/2025 12:07:46 05/05/20 25 05/05/2025 CBC W AUTO DIFFE RENTI AL PANEL - BLOOD segmented neutrophils/ leukocytes in blood by automated count 87.9 % 40-70 high Not Available [facility] [address], [place], [address], 05/05/2025 12:07:46 05/05/20 25 05/05/2025 CBC W AUTO DIFFE RENTI AL PANEL - BLOOD lymphocytes/ leukocytes in blood by flow cytometry (fc) 4.7 % 20-44 low Not Available [facility] [address], [place], [address], 05/05/2025 12:07:46 05/05/20 25 05/05/2025 CBC W AUTO DIFFE RENTI AL PANEL - BLOOD monocytes/le ukocytes in blood by automated count 6.4 % 2-9 Not Available [facility] [address], [place], [address], 05/05/2025 12:07:46 05/05/20 25 05/05/2025 CBC W AUTO DIFFE RENTI AL PANEL - BLOOD eosinophils/ leukocytes in blood by automated count 0.0 % 0-4 Not Available [facility] [address], [place], [address], 05/05/2025 12:07:46 05/05/20 25 05/05/2025 CBC W AUTO DIFFE RENTI AL PANEL - BLOOD basophils/le ukocytes in blood by automated count 0.1 % 0-1 Not Available [facility] [address], [place], [address], 05/05/2025 12:07:46 05/05/20 25 05/05/2025 CBC W AUTO DIFFE RENTI AL PANEL - BLOOD neutrophils [#/volume] in blood by automated count 11.40 10*3/ uL 1.8-7. 7 high Not Available [facility] [address], [place], [address], 05/05/2025 12:07:46 05/05/20 25 05/05/2025 CBC W AUTO DIFFE RENTI AL PANEL - BLOOD lymphocytes [#/volume] in blood by automated count 0.61 10*3/ uL 0.9-4. 8 low Not Available [facility] [address], [place], [address], 05/05/2025 12:07:46 05/05/20 25 05/05/2025 CBC W AUTO DIFFE RENTI AL PANEL - BLOOD monocytes [#/volume] in blood by automated count 0.8 10*3/ uL 0-0.8 Not Available [facility] [address], [place], [address], 05/05/2025 12:07:46 05/05/20 25 05/05/2025 CBC W AUTO DIFFE RENTI AL PANEL - BLOOD eosinophils [#/volume] in blood by automated count 0.00 10*3/ uL 0-0.7 Not Available [facility] [address], [place], [address], 05/05/2025 12:07:46 05/05/20 25 05/05/2025 CBC W AUTO DIFFE RENTI AL PANEL - BLOOD basophils [#/volume] in blood by automated count 0.01 10*3/ uL 0-0.2 Not Available [facility] [address], [place], [address], 05/05/2025 12:07:46 05/05/20 25 05/05/2025 CBC W AUTO DIFFE RENTI AL PANEL - BLOOD immature granulocytes [presence] in blood by automated count 0.9 % 0-0.7 high Not Available [facility] [address], [place], [address], 05/05/2025 12:07:46 05/05/20 25 05/05/2025 CBC W AUTO DIFFE RENTI AL PANEL - BLOOD immature granulocytes [#/volume] in blood 0.12 10*3/ uL 0.00-0 .06 high Not Available [facility] [address], [place], [address], 05/05/2025 12:07:46 05/05/20 25 05/05/2025 CBC W AUTO DIFFE RENTI AL PANEL - BLOOD nucleated erythrocytes /leukocytes [ratio] in blood by automated count 0.2 % 0-0 high Not Available [facility] [address], [place], [address], 05/05/2025 12:07:46 05/05/20 25 05/05/2025 CHEMI STRY STUDI ES glucose [mass/volume ] in serum or plasma 105 mg/dL 74-106 Not Available [facility] [address], [place], [address], 05/05/2025 12:16:57 05/05/20 25 05/05/2025 CHEMI STRY STUDI ES urea nitrogen [mass/volume ] in serum or plasma 30 mg/dL 9-20 high Not Available [facility] [address], [place], [address], 05/05/2025 12:16:57 05/05/20 25 05/05/2025 CHEMI STRY STUDI ES creatinine [mass/volume ] in serum or plasma 1.0 mg/dL 0.8-1. 5 Not Available [facility] [address], [place], [address], 05/05/2025 12:16:57 05/05/20 25 05/05/2025 CHEMI STRY STUDI ES sodium [moles/volum e] in serum or plasma 138 mmol/ L 137-14 5 Not Available [facility] [address], [place], [address], 05/05/2025 12:16:57 05/05/20 25 05/05/2025 CHEMI STRY STUDI ES potassium [moles/volum e] in serum or plasma 5.3 mmol/ L 3.5-5. 1 high Not Available [facility] [address], [place], [address], 05/05/2025 12:16:57 05/05/20 25 05/05/2025 CHEMI STRY STUDI ES chloride [moles/volum e] in serum or plasma 99 mmol/ L 98-107 Not Available [facility] [address], [place], [address], 05/05/2025 12:16:57 05/05/20 25 05/05/2025 CHEMI STRY STUDI ES carbon dioxide, total [moles/volum e] in serum or plasma 34 mmol/ L 22-30 high Not Available [facility] [address], [place], [place], [address], 05/05/2025 12:16:57 05/05/20 25 05/05/2025 CHEMI STRY STUDI ES calcium [mass/volume ] in blood 8.8 mg/dL 8.4-10 .2 Not Available [facility] [address], [place], [address], 05/05/2025 12:16:57 05/05/20 25 05/05/2025 CHEMI STRY STUDI ES anion gap in serum or plasma by calculation 5 mEq/L 4-[address] [facility] [address], [place], [address], 05/05/2025 12:16:57 05/05/20 25 05/05/2025 CHEMI STRY STUDI ES urea nitrogen/cre atinine [mass ratio] in blood 30.0 % 12.0-2 0.0 high Not Available [facility] [address], [place], [address], 05/05/2025 12:16:57 05/05/20 25 05/05/2025 CHEMI STRY STUDI ES osmolality of serum or plasma by calculated by sum of electrolytes 282 mOsm/ kg 261-28 0 high Not Available [facility] [address], [place], [address], 05/05/2025 12:16:57 05/05/20 25 05/05/2025 CHEMI STRY STUDI ES glomerular filtration rate [volume rate/area] in serum, plasma or blood by creatinine-b ased formula (CKD-epi)/1. 73 sq M 81 mL 90-120 >=90 Imani l 60-89 Mildl y Decre ased 45-59 Mildl y to Moder ately Decre ased 30-44 Moder ately to Sever jelly Decre ased 15-29 Sever jelly Decre ased <15 Kidne y Failu re Not Available [facility] [address], [place], [address], 05/05/2025 12:16:57 05/05/20 25 05/05/2025 CHEMI STRY STUDI ES creatinine renal clearance/1. 73 sq M.predicted by cockcroft-ga ult formula, bsa formula 84 mL Creat inine clear ance (CrCl ) using Cockc roft- Gault equat ion. This may be used for medic ation adjus tment s per FDA and produ ct manuf actur er label ing. This calcu latio n is not stand ardiz ed to body surfa ce area and is not used for stagi ng CKD. Not Available [facility] [address], [place], [address], 05/05/2025 12:16:57 05/05/20 25 05/05/2025 CHEMI STRY STUDI ES phosphate [mass/volume ] in serum or plasma 3.2 mg/dL 2.5-4. 5 Not Available [facility] [address], [place], [address], 05/05/2025 12:16:57 05/05/20 25 05/05/2025 CHEMI STRY STUDI ES magnesium [mass/volume ] in serum or plasma 2.6 mg/dL 1.6-2. 3 high Not Available [facility] [address], [place], [address], 05/05/2025 12:16:57 05/05/20 25 05/05/2025 CHEMI STRY STUDI ES albumin [mass/volume ] in serum or plasma 3.9 g/dL 3.5-5. 0 Not Available [facility] [address], [place], [address], 05/05/2025 12:16:57 05/05/20 25 05/05/2025 POTAS SIUM [MOLE S/VOL UME] IN SERUM OR PLASM A potassium [moles/volum e] in serum or plasma 5.0 mmol/ L 3.5-5. 1 Not Available [facility] [address], [place], [address], 05/05/2025 14:13:51 05/05/2005/05/2025 POTAS SIUM [MOLE S/VOL UME] IN SERUM OR PLASM A potassium [moles/volum e] in serum or plasma 5.6 mmol/ L 3.5-5. 1 high Not Available [facility] [address], [place], [address], 05/05/2025 15:13:03 05/06/2005/06/2025 CBC W AUTO DIFFE RENTI AL PANEL - BLOOD leukocytes [#/volume] in blood by automated count 11.9 10*3/ uL 4.5-11 .0 high 0857, 05/06 Not Available [facility] [address], [place], [address], 05/06/2025 09:57:33 05/06/2005/06/2025 CBC W AUTO DIFFE RENTI AL PANEL - BLOOD erythrocytes [#/volume] in blood by automated count 4.42 10*6/ uL 4.5-6. 00 low Not Available [facility] [address], [place], [address], 05/06/2025 09:57:33 05/06/20 25 05/06/2025 CBC W AUTO DIFFE RENTI AL PANEL - BLOOD hemoglobin [mass/volume ] in blood 10.4 g/dL 13.5-1 8.0 low Not Available [facility] [address], [place], [address], 05/06/2025 09:57:33 05/06/20 25 05/06/2025 CBC W AUTO DIFFE RENTI AL PANEL - BLOOD hematocrit [volume fraction] of blood by automated count 36.1 % 42.0-5 4.0 low Not Available [facility] [address], [place], [address], 05/06/2025 09:57:33 05/06/20 25 05/06/2025 CBC W AUTO DIFFE RENTI AL PANEL - BLOOD MCV [entitic mean volume] in red blood cells by automated count 81.7 fL 80-100 Not Available [facility] [address], [place], [address], 05/06/2025 09:57:33 05/06/20 25 05/06/2025 CBC W AUTO DIFFE RENTI AL PANEL - BLOOD MCH [entitic mass] by automated count 23.5 pg 27-32 low Not Available [facility] [address], [place], [address], 05/06/2025 09:57:33 05/06/2005/06/2025 CBC W AUTO DIFFE RENTI AL PANEL - BLOOD MCHC [entitic mass/volume] in red blood cells by automated count 28.8 g/dL 31.0-3 7.0 low Not Available [facility] [address], [place], [address], 05/06/2025 09:57:33 05/06/20 25 05/06/2025 CBC W AUTO DIFFE RENTI AL PANEL - BLOOD erythrocyte [distwidth] in red blood cells by automated count 19.2 % 12-14. 5 high Not Available [facility] [address], [place], [address], 05/06/2025 09:57:33 05/06/2005/06/2025 CBC W AUTO DIFFE RENTI AL PANEL - BLOOD platelets [#/volume] in blood 519 10*3/ uL 150-45 0 high 0857, 05/06 Not Available [facility] [address], [place], [address], 05/06/2025 09:57:33 05/06/20 25 05/06/2025 CBC W AUTO DIFFE RENTI AL PANEL - BLOOD platelet [entitic mean volume] in blood by automated count 9.6 fL 9.1-13 .2 Not Available [facility] [address], [place], [address], 05/06/2025 09:57:33 05/06/20 25 05/06/2025 CBC W AUTO DIFFE RENTI AL PANEL - BLOOD segmented neutrophils/ leukocytes in blood by automated count 67.3 % 40-70 Not Available [facility] [address], [place], [address], 05/06/2025 09:57:33 05/06/20 25 05/06/2025 CBC W AUTO DIFFE RENTI AL PANEL - BLOOD lymphocytes/ leukocytes in blood by flow cytometry (fc) 18.2 % 20-44 low Not Available [facility] [address], [place], [address], 05/06/2025 09:57:33 05/06/20 25 05/06/2025 CBC W AUTO DIFFE RENTI AL PANEL - BLOOD monocytes/le ukocytes in blood by automated count 12.5 % 2-9 high Not Available [facility] [address], [place], [address], 05/06/2025 09:57:33 05/06/20 25 05/06/2025 CBC W AUTO DIFFE RENTI AL PANEL - BLOOD eosinophils/ leukocytes in blood by automated count 0.9 % 0-4 Not Available [facility] [address], [place], [address], 05/06/2025 09:57:33 05/06/20 25 05/06/2025 CBC W AUTO DIFFE RENTI AL PANEL - BLOOD basophils/le ukocytes in blood by automated count 0.3 % 0-1 Not Available [facility] [address], [place], [address], 05/06/2025 09:57:33 05/06/20 25 05/06/2025 CBC W AUTO DIFFE RENTI AL PANEL - BLOOD neutrophils [#/volume] in blood by automated count 8.01 10*3/ uL 1.8-7. 7 high Not Available [facility] [address], [place], [address], 05/06/2025 09:57:33 05/06/2005/06/2025 CBC W AUTO DIFFE RENTI AL PANEL - BLOOD lymphocytes [#/volume] in blood by automated count 2.17 10*3/ uL 0.9-4. 8 Not Available [facility] [address], [place], [address], 05/06/2025 09:57:33 05/06/2005/06/2025 CBC W AUTO DIFFE RENTI AL PANEL - BLOOD monocytes [#/volume] in blood by automated count 1.5 10*3/ uL 0-0.8 high Not Available [facility] [address], [place], [address], 05/06/2025 09:57:33 05/06/2005/06/2025 CBC W AUTO DIFFE RENTI AL PANEL - BLOOD eosinophils [#/volume] in blood by automated count 0.11 10*3/ uL 0-0.7 Not Available [facility] [address], [place], [address], 05/06/2025 09:57:33 05/06/2005/06/2025 CBC W AUTO DIFFE RENTI AL PANEL - BLOOD basophils [#/volume] in blood by automated count 0.03 10*3/ uL 0-0.2 Not Available [facility] [address], [place], [address], 05/06/2025 09:57:33 05/06/2005/06/2025 CBC W AUTO DIFFE RENTI AL PANEL - BLOOD immature granulocytes [presence] in blood by automated count 0.8 % 0-0.7 high Not Available [facility] [address], [place], [address], 05/06/2025 09:57:33 05/06/20 25 05/06/2025 CBC W AUTO DIFFE RENTI AL PANEL - BLOOD immature granulocytes [#/volume] in blood 0.09 10*3/ uL 0.00-0 .06 high Not Available [facility] [address], [place], [address], 05/06/2025 09:57:33 05/06/20 25 05/06/2025 CBC W AUTO DIFFE RENTI AL PANEL - BLOOD nucleated erythrocytes /leukocytes [ratio] in blood by automated count 0.0 % 0-0 Not Available [facility] [address], [place], [address], 05/06/2025 09:57:33 05/06/20 25 05/06/2025 CHEMI STRY STUDI ES glucose [mass/volume ] in serum or plasma 137 mg/dL 74-106 high Not Available [facility] [address], [place], [address], 05/06/2025 10:15:21 05/06/20 25 05/06/2025 CHEMI STRY STUDI ES urea nitrogen [mass/volume ] in serum or plasma 28 mg/dL 9-20 high Not Available [facility] [address], [place], [address], 05/06/2025 10:15:21 05/06/20 25 05/06/2025 CHEMI STRY STUDI ES creatinine [mass/volume ] in serum or plasma 1.0 mg/dL 0.8-1. 5 Not Available [facility] [address], [place], [address], 05/06/2025 10:15:21 05/06/20 25 05/06/2025 CHEMI STRY STUDI ES sodium [moles/volum e] in serum or plasma 137 mmol/ L 137-14 5 Not Available [facility] [address], [place], [address], 05/06/2025 10:15:21 05/06/20 25 05/06/2025 CHEMI STRY STUDI ES potassium [moles/volum e] in serum or plasma 4.5 mmol/ L 3.5-5. 1 Not Available [facility] [address], [place], [address], 05/06/2025 10:15:21 05/06/20 25 05/06/2025 CHEMI STRY STUDI ES chloride [moles/volum e] in serum or plasma 97 mmol/ L 98-107 low Not Available [facility] [address], [place], [address], 05/06/2025 10:15:21 05/06/20 25 05/06/2025 CHEMI STRY STUDI ES carbon dioxide, total [moles/volum e] in serum or plasma 33 mmol/ L 22-30 high Not Available [facility] [address], [place], [address], 05/06/2025 10:15:21 05/06/20 25 05/06/2025 CHEMI STRY STUDI ES calcium [mass/volume ] in blood 8.5 mg/dL 8.4-10 .2 Not Available [facility] [address], [place], [address], 05/06/2025 10:15:21 05/06/20 25 05/06/2025 CHEMI STRY STUDI ES anion gap in serum or plasma by calculation 7 mEq/L 4-[address] [facility] [address], [place], [address], 05/06/2025 10:15:21 05/06/20 25 05/06/2025 CHEMI STRY STUDI ES urea nitrogen/cre atinine [mass ratio] in blood 28.0 % 12.0-2 0.0 high Not Available [facility] [address], [place], [address], 05/06/2025 10:15:21 05/06/2005/06/2025 CHEMI STRY STUDI ES osmolality of serum or plasma by calculated by sum of electrolytes 282 mOsm/ kg 261-28 0 high Not Available [facility] [address], [place], [address], 05/06/2025 10:15:21 05/06/2005/06/2025 CHEMI STRY STUDI ES glomerular filtration rate [volume rate/area] in serum, plasma or blood by creatinine-b ased formula (CKD-epi)/1. 73 sq M 81 mL 90-120 >=90 Imani l 60-89 Mildl y Decre ased 45-59 Mildl y to Moder ately Decre ased 30-44 Moder ately to Sever jelly Decre ased 15-29 Sever jelly Decre ased <15 Kidne y Failu re Not Available [facility] [address], [place], [address], 05/06/2025 10:15:21 05/06/2005/06/2025 CHEMI STRY STUDI ES creatinine renal clearance/1. 73 sq M.predicted by cockcroft-ga ult formula, bsa formula 85 mL Creat inine clear ance (CrCl ) using Cockc roft- Gault equat ion. This may be used for medic ation adjus tment s per FDA and produ ct manuf actur er label ing. This calcu latio n is not stand ardiz ed to body surfa ce area and is not used for stagi ng CKD. Not Available [facility] [address], [place], [address], 05/06/2025 10:15:21 05/06/2005/06/2025 CHEMI STRY STUDI ES phosphate [mass/volume ] in serum or plasma 2.9 mg/dL 2.5-4. 5 Not Available [facility] [address], [place], [address], 05/06/2025 10:15:21 05/06/20 25 05/06/2025 CHEMI STRY STUDI ES magnesium [mass/volume ] in serum or plasma 2.1 mg/dL 1.6-2. 3 Not Available [facility] [address], [place], [address], 05/06/2025 10:15:21 05/06/2005/06/2025 CHEMI STRY STUDI ES albumin [mass/volume ] in serum or plasma 4.0 g/dL 3.5-5. 0 Not Available [facility] [address], [place], [address], 05/06/2025 10:15:21 05/07/20 25 05/07/2025 CBC PANEL - BLOOD BY AUTOM ATED COUNT leukocytes [#/volume] in blood by automated count 11.6 10*3/ uL 4.5-11 .0 high 0726, 05/07 Not Available [facility] [address], [place], [address], 05/07/2025 08:27:32 05/07/2005/07/2025 CBC PANEL - BLOOD BY AUTOM ATED COUNT erythrocytes [#/volume] in blood by automated count 4.02 10*6/ uL 4.5-6. 00 low Not Available [facility] [address], [place], [address], 05/07/2025 08:27:32 05/07/20 25 05/07/2025 CBC PANEL - BLOOD BY AUTOM ATED COUNT hemoglobin [mass/volume ] in blood 9.2 g/dL 13.5-1 8.0 low Not Available [facility] [address], [place], [address], 05/07/2025 08:27:32 05/07/20 25 05/07/2025 CBC PANEL - BLOOD BY AUTOM ATED COUNT hematocrit [volume fraction] of blood by automated count 32.2 % 42.0-5 4.0 low Not Available [facility] [address], [place], [address], 05/07/2025 08:27:32 05/07/20 25 05/07/2025 CBC PANEL - BLOOD BY AUTOM ATED COUNT MCV [entitic mean volume] in red blood cells by automated count 80.1 fL 80-[address] [facility] [address], [place], [address], 05/07/2025 08:27:32 05/07/20 25 05/07/2025 CBC PANEL - BLOOD BY AUTOM ATED COUNT MCH [entitic mass] by automated count 22.9 pg 27-32 low Not Available [facility] [address], [place], [address], 05/07/2025 08:27:32 05/07/20 25 05/07/2025 CBC PANEL - BLOOD BY AUTOM ATED COUNT MCHC [entitic mass/volume] in red blood cells by automated count 28.6 g/dL 31.0-3 7.0 low Not Available [facility] [address], [place], [address], 05/07/2025 08:27:32 05/07/20 25 05/07/2025 CBC PANEL - BLOOD BY AUTOM ATED COUNT erythrocyte [distwidth] in red blood cells by automated count 19.0 % 12-14. 5 high Not Available [facility] [address], [place], [address], 05/07/2025 08:27:32 05/07/20 25 05/07/2025 CBC PANEL - BLOOD BY AUTOM ATED COUNT platelets [#/volume] in blood 442 10*3/ uL 150-45 0 0726, 05/07 Not Available [facility] [address] [address], [place], [address], 05/07/2025 08:27:32 05/07/20 25 05/07/2025 CBC PANEL - BLOOD BY AUTOM ATED COUNT platelet [entitic mean volume] in blood by automated count 10.4 fL 9.1-13 .2 Not Available [facility] [address], [place], [place], [address], 05/07/2025 08:27:32 05/07/20 25 05/07/2025 CHEMI STRY STUDI ES glucose [mass/volume ] in serum or plasma 105 mg/dL 74-[address] [facility] [address], [place], [address], 05/07/2025 08:56:24 05/07/20 25 05/07/2025 CHEMI STRY STUDI ES urea nitrogen [mass/volume ] in serum or plasma 27 mg/dL 9-20 high Not Available [facility] [address], [place], [address], 05/07/2025 08:56:24 05/07/20 25 05/07/2025 CHEMI STRY STUDI ES creatinine [mass/volume ] in serum or plasma 0.9 mg/dL 0.8-1. 5 Not Available [facility] [address], [place], [address], 05/07/2025 08:56:24 05/07/20 25 05/07/2025 CHEMI STRY STUDI ES sodium [moles/volum e] in serum or plasma 137 mmol/ L 137-14 5 Not Available [facility] [address], [place], [address], 05/07/2025 08:56:24 08/10/20 25 05/07/2025 CHEMI STRY STUDI ES potassium [moles/volum e] in serum or plasma 4.2 mmol/ L 3.5-5. 1 Not Available [facility] [address], [place], [address], 05/07/2025 08:56:24 05/07/20 25 05/07/2025 CHEMI STRY STUDI ES chloride [moles/volum e] in serum or plasma 97 mmol/ L 98-107 low Not Available [facility] [address], [place], [address], 05/07/2025 08:56:24 05/07/20 25 05/07/2025 CHEMI STRY STUDI ES carbon dioxide, total [moles/volum e] in serum or plasma 35 mmol/ L 22-30 high Not Available [facility] [address], [place], [address], 05/07/2025 08:56:24 05/07/20 25 05/07/2025 CHEMI STRY STUDI ES calcium [mass/volume ] in blood 8.2 mg/dL 8.4-10 .2 low Not Available [facility] [address], [place], [address], 05/07/2025 08:56:24 05/07/20 25 05/07/2025 CHEMI STRY STUDI ES anion gap in serum or plasma by calculation 5 mEq/L 4-[address] [facility] [address], [place], [address], 05/07/2025 08:56:24 05/07/20 25 05/07/2025 CHEMI STRY STUDI ES urea nitrogen/cre atinine [mass ratio] in blood 30.0 % 12.0-2 0.0 high Not Available [facility] [address], [place], [address], 05/07/2025 08:56:24 05/07/20 25 05/07/2025 CHEMI STRY STUDI ES osmolality of serum or plasma by calculated by sum of electrolytes 279 mOsm/ kg 261-28 0 Not Available [facility] [address], [place], [address], 05/07/2025 08:56:24 05/07/20 25 05/07/2025 CHEMI STRY STUDI ES glomerular filtration rate [volume rate/area] in serum, plasma or blood by creatinine-b ased formula (CKD-epi)/1. 73 sq M 92 mL 90-120 >=90 Imani l 60-89 Mildl y Decre ased 45-59 Mildl y to Moder ately Decre ased 30-44 Moder ately to Sever jelly Decre ased 15-29 Sever jelly Decre ased <15 Kidne y Failu re Not Available [facility] [address], [place], [address], 05/07/2025 08:56:24 05/07/20 25 05/07/2025 CHEMI STRY STUDI ES creatinine renal clearance/1. 73 sq M.predicted by cockcroft-ga ult formula, bsa formula 84 mL Creat inine clear ance (CrCl ) using Cockc roft- Gault equat ion. This may be used for medic ation adjus tment s per FDA and produ ct manuf actur er label ing. This calcu latio n is not stand ardiz ed to body surfa ce area and is not used for stagi ng CKD. Not Available [facility] [address], [place], [address], 05/07/2025 08:56:24 05/07/20 25 05/07/2025 CHEMI STRY STUDI ES phosphate [mass/volume ] in serum or plasma 3.2 mg/dL 2.5-4. 5 Not Available [facility] [address], [place], [address], 05/07/2025 08:56:24 05/07/20 25 05/07/2025 CHEMI STRY STUDI ES magnesium [mass/volume ] in serum or plasma 2.2 mg/dL 1.6-2. 3 Not Available [facility] [address], [place], [address], 05/07/2025 08:56:24 05/07/20 25 05/07/2025 CHEMI STRY STUDI ES albumin [mass/volume ] in serum or plasma 3.4 g/dL 3.5-5. 0 low Not Available [facility] [address], [place], [address], 05/07/2025 08:56:24 05/08/20 25 05/08/2025 CBC W AUTO DIFFE RENTI AL PANEL - BLOOD leukocytes [#/volume] in blood by automated count 11.4 10*3/ uL 4.5-11 .0 high 0728, 05/08 Not Available [facility] [address], [place], [address], 05/08/2025 08:29:02 05/08/20 25 05/08/2025 CBC W AUTO DIFFE RENTI AL PANEL - BLOOD erythrocytes [#/volume] in blood by automated count 3.98 10*6/ uL 4.5-6. 00 low Not Available [facility] [address], [place], [address], 05/08/2025 08:29:02 05/08/20 25 05/08/2025 CBC W AUTO DIFFE RENTI AL PANEL - BLOOD hemoglobin [mass/volume ] in blood 9.2 g/dL 13.5-1 8.0 low Not Available [facility] [address], [place], [address], 05/08/2025 08:29:02 05/08/20 25 05/08/2025 CBC W AUTO DIFFE RENTI AL PANEL - BLOOD hematocrit [volume fraction] of blood by automated count 31.7 % 42.0-5 4.0 low Not Available [facility] [address], [place], [address], 05/08/2025 08:29:02 05/08/20 25 05/08/2025 CBC W AUTO DIFFE RENTI AL PANEL - BLOOD MCV [entitic mean volume] in red blood cells by automated count 79.6 fL 80-100 low Not Available [facility] [address], [place], [address], 05/08/2025 08:29:02 05/08/20 25 05/08/2025 CBC W AUTO DIFFE RENTI AL PANEL - BLOOD MCH [entitic mass] by automated count 23.1 pg 27-32 low Not Available [facility] [address], [place], [address], 05/08/2025 08:29:02 05/08/20 25 05/08/2025 CBC W AUTO DIFFE RENTI AL PANEL - BLOOD MCHC [entitic mass/volume] in red blood cells by automated count 29.0 g/dL 31.0-3 7.0 low Not Available [facility] [address], [place], [address], 05/08/2025 08:29:02 05/08/20 25 05/08/2025 CBC W AUTO DIFFE RENTI AL PANEL - BLOOD erythrocyte [distwidth] in red blood cells by automated count 19.1 % 12-14. 5 high Not Available [facility] [address], [place], [address], 05/08/2025 08:29:02 05/08/20 25 05/08/2025 CBC W AUTO DIFFE RENTI AL PANEL - BLOOD platelets [#/volume] in blood 407 10*3/ uL 150-45 0 0728, 05/08 Not Available [facility] [address], [place], [address], 05/08/2025 08:29:02 05/08/20 25 05/08/2025 CBC W AUTO DIFFE RENTI AL PANEL - BLOOD platelet [entitic mean volume] in blood by automated count 9.5 fL 9.1-13 .2 Not Available [facility] [address], [place], [address], 05/08/2025 08:29:02 05/08/20 25 05/08/2025 CBC W AUTO DIFFE RENTI AL PANEL - BLOOD segmented neutrophils/ leukocytes in blood by automated count 63.8 % 40-70 Not Available [facility] [address], [place], [address], 05/08/2025 08:29:02 05/08/20 25 05/08/2025 CBC W AUTO DIFFE RENTI AL PANEL - BLOOD lymphocytes/ leukocytes in blood by flow cytometry (fc) 20.3 % 20-44 Not Available [facility] [address], [place], [address], 05/08/2025 08:29:02 05/08/20 25 05/08/2025 CBC W AUTO DIFFE RENTI AL PANEL - BLOOD monocytes/le ukocytes in blood by automated count 12.5 % 2-9 high Not Available [facility] [address], [place], [address], 05/08/2025 08:29:02 05/08/20 25 05/08/2025 CBC W AUTO DIFFE RENTI AL PANEL - BLOOD eosinophils/ leukocytes in blood by automated count 2.2 % 0-4 Not Available [facility] [address], [place], [address], 05/08/2025 08:29:02 05/08/20 25 05/08/2025 CBC W AUTO DIFFE RENTI AL PANEL - BLOOD basophils/le ukocytes in blood by automated count 0.3 % 0-1 Not Available [facility] [address], [place], [address], 05/08/2025 08:29:02 05/08/20 25 05/08/2025 CBC W AUTO DIFFE RENTI AL PANEL - BLOOD neutrophils [#/volume] in blood by automated count 7.31 10*3/ uL 1.8-7. 7 Not Available [facility] [address], [place], [address], 05/08/2025 08:29:02 05/08/20 25 05/08/2025 CBC W AUTO DIFFE RENTI AL PANEL - BLOOD lymphocytes [#/volume] in blood by automated count 2.32 10*3/ uL 0.9-4. 8 Not Available [facility] [address], [place], [address], 05/08/2025 08:29:02 05/08/20 25 05/08/2025 CBC W AUTO DIFFE RENTI AL PANEL - BLOOD monocytes [#/volume] in blood by automated count 1.4 10*3/ uL 0-0.8 high Not Available [facility] [address], [place], [address], 05/08/2025 08:29:02 05/08/20 25 05/08/2025 CBC W AUTO DIFFE RENTI AL PANEL - BLOOD eosinophils [#/volume] in blood by automated count 0.25 10*3/ uL 0-0.7 Not Available [facility] [address], [place], [address], 05/08/2025 08:29:02 05/08/20 25 05/08/2025 CBC W AUTO DIFFE RENTI AL PANEL - BLOOD basophils [#/volume] in blood by automated count 0.03 10*3/ uL 0-0.2 Not Available [facility] [address], [place], [address], 05/08/2025 08:29:02 05/08/20 25 05/08/2025 CBC W AUTO DIFFE RENTI AL PANEL - BLOOD immature granulocytes [presence] in blood by automated count 0.9 % 0-0.7 high Not Available [facility] [address], [place], [address], 05/08/2025 08:29:02 05/08/20 25 05/08/2025 CBC W AUTO DIFFE RENTI AL PANEL - BLOOD immature granulocytes [#/volume] in blood 0.10 10*3/ uL 0.00-0 .06 high Not Available [facility] [address], [place], [address], 05/08/2025 08:29:02 05/08/20 25 05/08/2025 CBC W AUTO DIFFE RENTI AL PANEL - BLOOD nucleated erythrocytes /leukocytes [ratio] in blood by automated count 0.0 % 0-0 Not Available [facility] [address], [place], [address], 05/08/2025 08:29:02 05/08/20 25 05/08/2025 CHEMI STRY STUDI ES glucose [mass/volume ] in serum or plasma 89 mg/dL 74-106 Not Available [facility] [address], [place], [address], 05/08/2025 08:54:06 05/08/20 25 05/08/2025 CHEMI STRY STUDI ES urea nitrogen [mass/volume ] in serum or plasma 32 mg/dL 9-20 high Not Available [facility] [address], [place], [address], 05/08/2025 08:54:06 05/08/20 25 05/08/2025 CHEMI STRY STUDI ES creatinine [mass/volume ] in serum or plasma 0.9 mg/dL 0.8-1. 5 Not Available [facility] [address], [place], [address], 05/08/2025 08:54:06 05/08/20 25 05/08/2025 CHEMI STRY STUDI ES sodium [moles/volum e] in serum or plasma 135 mmol/ L 137-14 5 low Not Available [facility] [address], [place], [address], 05/08/2025 08:54:06 05/08/20 25 05/08/2025 CHEMI STRY STUDI ES potassium [moles/volum e] in serum or plasma 4.3 mmol/ L 3.5-5. 1 Not Available [facility] [address], [place], [address], 05/08/2025 08:54:06 05/08/20 25 05/08/2025 CHEMI STRY STUDI ES chloride [moles/volum e] in serum or plasma 97 mmol/ L 98-107 low Not Available [facility] [address], [place], [address], 05/08/2025 08:54:06 05/08/20 25 05/08/2025 CHEMI STRY STUDI ES carbon dioxide, total [moles/volum e] in serum or plasma 35 mmol/ L 22-30 high Not Available [facility] [address], [place], [address], 05/08/2025 08:54:06 05/08/20 25 05/08/2025 CHEMI STRY STUDI ES calcium [mass/volume ] in blood 7.9 mg/dL 8.4-10 .2 low Not Available [facility] [address], [place], [address], 05/08/2025 08:54:06 05/08/20 25 05/08/2025 CHEMI STRY STUDI ES anion gap in serum or plasma by calculation 3 mEq/L 4-12 low Not Available [facility] [address], [place], [address], 05/08/2025 08:54:06 05/08/20 25 05/08/2025 CHEMI STRY STUDI ES urea nitrogen/cre atinine [mass ratio] in blood 35.5 % 12.0-2 0.0 high Not Available [facility] [address], [place], [address], 05/08/2025 08:54:06 05/08/20 25 05/08/2025 CHEMI STRY STUDI ES osmolality of serum or plasma by calculated by sum of electrolytes 277 mOsm/ kg 261-28 0 Not Available [facility] [address], [place], [address], 05/08/2025 08:54:06 05/08/20 25 05/08/2025 CHEMI STRY STUDI ES glomerular filtration rate [volume rate/area] in serum, plasma or blood by creatinine-b ased formula (CKD-epi)/1. 73 sq M 92 mL 90-120 >=90 Imani l 60-89 Mildl y Decre ased 45-59 Mildl y to Moder ately Decre ased 30-44 Moder ately to Sever jelly Decre ased 15-29 Sever jelly Decre ased <15 Kidne y Failu re Not Available [facility] [address], [place], [address], 05/08/2025 08:54:06 05/08/2005/08/2025 CHEMI STRY STUDI ES creatinine renal clearance/1. 73 sq M.predicted by cockcroft-ga ult formula, bsa formula 87 mL Creat inine clear ance (CrCl ) using Cockc roft- Gault equat ion. This may be used for medic ation adjus tment s per FDA and produ ct manuf actur er label ing. This calcu latio n is not stand ardiz ed to body surfa ce area and is not used for stagi ng CKD. Not Available [facility] [address], [place], [address], 05/08/2025 08:54:06 05/08/20 25 05/08/2025 CHEMI STRY STUDI ES phosphate [mass/volume ] in serum or plasma 3.3 mg/dL 2.5-4. 5 Not Available [facility] [address], [place], [address], 05/08/2025 08:54:06 05/08/20 25 05/08/2025 CHEMI STRY STUDI ES magnesium [mass/volume ] in serum or plasma 2.2 mg/dL 1.6-2. 3 Not Available [facility] [address], [place], [address], 05/08/2025 08:54:06 05/08/20 25 05/08/2025 CHEMI STRY STUDI ES albumin [mass/volume ] in serum or plasma 3.4 g/dL 3.5-5. 0 low Not Available [facility] [address], [place], [address], 05/08/2025 08:54:06 05/08/2005/08/2025 URINA LYSIS COMPL ETE PANEL - URINE color of urine by auto YELLOW Not Available [facility] [address], [place], [address], 05/08/2025 12:38:37 05/08/20 25 05/08/2025 URINA LYSIS COMPL ETE PANEL - URINE clarity in urine by refractometr y automated Clear Not Available [facility] [address], [place], [address], 05/08/2025 12:38:37 05/08/20 25 05/08/2025 URINA LYSIS COMPL ETE PANEL - URINE glucose [presence] in urine Negati ve negati ve Not Available [facility] [address], [place], [address], 05/08/2025 12:38:37 05/08/20 25 05/08/2025 URINA LYSIS COMPL ETE PANEL - URINE bilirubin.to jonas [presence] in urine Negati ve negati ve Not Available [facility] [address], [place], [address], 05/08/2025 12:38:37 05/08/20 25 05/08/2025 URINA LYSIS COMPL ETE PANEL - URINE ketones [presence] in urine by automated test strip Negati ve negati ve Not Available [facility] [address], [place], [address], 05/08/2025 12:38:37 05/08/20 25 05/08/2025 URINA LYSIS COMPL ETE PANEL - URINE specific gravity of urine by automated test strip 1.010 1.001- 1.030 Not Available [facility] [address], [place], [address], 05/08/2025 12:38:37 05/08/20 25 05/08/2025 URINA LYSIS COMPL ETE PANEL - URINE erythrocytes [presence] in urine by automated Negati ve negati ve Not Available [facility] [address], [place], [address], 05/08/2025 12:38:37 05/08/20 25 05/08/2025 URINA LYSIS COMPL ETE PANEL - URINE pH of urine by automated test strip 6.5 5.0-8. 5 Not Available [facility] [address], [place], [address], 05/08/2025 12:38:37 05/08/20 25 05/08/2025 URINA LYSIS COMPL ETE PANEL - URINE protein [presence] in urine Negati ve negati ve Not Available [facility] [address], [place], [address], 05/08/2025 12:38:37 05/08/20 25 05/08/2025 URINA LYSIS COMPL ETE PANEL - URINE urobilinogen [mass/volume ] in urine by automated test strip 0.2 0.2-2 mg/dL Not Available [facility] [address], [place], [address], 05/08/2025 12:38:37 05/08/20 25 05/08/2025 URINA LYSIS COMPL ETE PANEL - URINE nitrite [presence] in urine Negati ve negati ve Not Available [facility] [address], [place], [address], 05/08/2025 12:38:37 05/08/20 25 05/08/2025 URINA LYSIS COMPL ETE PANEL - URINE leukocyte esterase [presence] in urine by automated test strip Negati ve negati ve Not Available [facility] [address], [place], [address], 05/08/2025 12:38:37 05/08/20 25 05/08/2025 URINA LYSIS COMPL ETE PANEL - URINE leukocytes [presence] in urine =0-2 [hpf] 0-3 Not Available [facility] [address], [place], [address], 05/08/2025 12:38:37 05/08/20 25 05/08/2025 URINA LYSIS COMPL ETE PANEL - URINE erythrocytes [#/volume] in urine by automated test strip =0-2 [hpf] 0-2 Not Available [facility] [address], [place], [address], 05/08/2025 12:38:37 05/08/20 25 05/08/2025 URINA LYSIS COMPL ETE PANEL - URINE epithelial cells.squamo us [presence] in urine by automated =0-2 [hpf] Not Available [facility] [address] [facility] [facility] [facility], [place], [address], 05/08/2025 12:38:37 06/07/2006/08/2025 CBC WITH DIFFE RENTI AL WBC 11.3 K/uL 4.0-11 .0 high Not Available [facility] [address], [place], [address], 06/08/2025 05:18:50 06/07/20 25 06/08/2025 CBC WITH DIFFE RENTI AL RBC 4.75 M/uL 4.30-5 .70 Not Available [facility] [address], [place], [address], 06/08/2025 05:18:50 06/07/20 25 06/08/2025 CBC WITH DIFFE RENTI AL hemoglobin 11.0 g/dL 13.0-1 7.5 low Not Available [facility] [address], [place], [address], 06/08/2025 05:18:50 06/07/20 25 06/08/2025 CBC WITH DIFFE RENTI AL hematocrit 36.9 % 39.0-5 5.0 low Not Available [facility] [address] [place], [address], 06/08/2025 05:18:50 06/07/20 25 06/08/2025 CBC WITH DIFFE RENTI AL MCV 77.7 fL 78.0-1 02.0 low Not Available [facility] [address], [place], [address], 06/08/2025 05:18:50 06/07/20 25 06/08/2025 CBC WITH DIFFE RENTI AL MCH 23.2 pg 25.0-3 5.0 low Not Available [facility] [address] [place], [address], 06/08/2025 05:18:50 06/07/20 25 06/08/2025 CBC WITH DIFFE RENTI AL MCHC 29.8 g/dL 30.0-3 8.0 low Not Available [facility] [address], [place], [address], 06/08/2025 05:18:50 06/07/20 25 06/08/2025 CBC WITH DIFFE RENTI AL RDW 18.1 % 11.5-1 6.0 high Not Available [facility] [address], [place], [address], 06/08/2025 05:18:50 06/07/20 25 06/08/2025 CBC WITH DIFFE RENTI AL platelet count 281 K/uL 150-45 0 Not Available [facility] [address] [place], [place], [address], 06/08/2025 05:18:50 06/07/20 25 06/08/2025 CBC WITH DIFFE RENTI AL abs neutrophils 7.8 K/uL 1.8-7. 0 high Not Available [facility] [address] [place], [address], 06/08/2025 05:18:50 06/07/20 25 06/08/2025 CBC WITH DIFFE RENTI AL abs lymphocytes 1.9 K/uL 1.0-4. 0 Not Available [facility] [address] [place], [address], 06/08/2025 05:18:50 06/07/20 25 06/08/2025 CBC WITH DIFFE RENTI AL abs monocytes 1.3 K/uL 0.1-1. 1 high Not Available [facility] [address], [place], [address], 06/08/2025 05:18:50 06/07/20 25 06/08/2025 CBC WITH DIFFE RENTI AL abs eosinophils 0.2 K/uL 0.0-0. 5 Not Available [facility] [address] [place], [address], 06/08/2025 05:18:50 06/07/20 25 06/08/2025 CBC WITH DIFFE RENTI AL abs basophils 0.1 K/uL 0.0-0. 3 Not Available [facility] [address] [place], [address], 06/08/2025 05:18:50 06/07/20 25 06/08/2025 CBC WITH DIFFE RENTI AL abs immature grans 0.1 K/uL 0.0-0. 1 Not Available [facility] [address] [place], [address], 06/08/2025 05:18:50 06/07/20 25 06/08/2025 CBC WITH DIFFE RENTI AL neutrophils 69.1 % Not Available [facility] [address] [place], [place], [address], 06/08/2025 05:18:50 06/07/20 25 06/08/2025 CBC WITH DIFFE RENTI AL lymphocytes 16.6 % Not Available [facility] [address] [place], [address], 06/08/2025 05:18:50 06/07/20 25 06/08/2025 CBC WITH DIFFE RENTI AL monocytes 11.4 % Not Available [facility] [address] [place], [address], 06/08/2025 05:18:50 06/07/20 25 06/08/2025 CBC WITH DIFFE RENTI AL eosinophils 1.6 % Not Available [facility] [address] [place], [address], 06/08/2025 05:18:50 06/07/20 25 06/08/2025 CBC WITH DIFFE RENTI AL basophils 0.8 % Not Available [facility] [address] [place], [address], 06/08/2025 05:18:50 06/07/20 25 06/08/2025 CBC WITH DIFFE RENTI AL immature grans 0.5 % Not Available [facility] [address] [place], [address], 06/08/2025 05:18:50 06/07/20 25 06/08/2025 CBC WITH DIFFE RENTI AL nucleated RBCs <1.0 /100_ WBCs <1 Not Available [facility] [address] [place], [address], 06/08/2025 05:18:50 06/07/20 25 06/08/2025 COMP METAB OLIC PANEL sodium 142 mEq/L 135-14 6 Not Available [facility] [address] [place], [address], 06/08/2025 06:09:00 06/07/20 25 06/08/2025 COMP METAB OLIC PANEL potassium 5.0 mEq/L 3.5-5. 4 Not Available [facility] [address] [place], [address], 06/08/2025 06:09:00 06/07/20 25 06/08/2025 COMP METAB OLIC PANEL chloride 99 mEq/L 95-107 Not Available [facility] [address], [place], [address], 06/08/2025 06:09:00 06/07/2006/08/2025 COMP METAB OLIC PANEL carbon dioxide 29 mEq/L 19-31 Not Available [facility] [address] [place], [address], 06/08/2025 06:09:00 06/07/2006/08/2025 COMP METAB OLIC PANEL anion gap 14 mEq/L 7-23 Not Available [facility] [address] [place], [place], [address], 06/08/2025 06:09:00 06/07/2006/08/2025 COMP METAB OLIC PANEL glucose non-fasting 126 mg/dL 70-139 Not Available [facility] [address] [place], [address], 06/08/2025 06:09:00 06/07/2006/08/2025 COMP METAB OLIC PANEL urea nitrogen (BUN) 16 mg/dL 8-23 Not Available [facility] [address] [place], [address], 06/08/2025 06:09:00 06/07/2006/08/2025 COMP METAB OLIC PANEL creatinine 0.82 mg/dL 0.80-1 .40 Not Available [facility] [address] [place], [address], 06/08/2025 06:09:00 06/07/2006/08/2025 COMP METAB OLIC PANEL 2020 CKD-epi eGFR-cr 95 mL/mi n/1.7 3m'2 >59 Not Available [facility] [address] [place], [address], 06/08/2025 06:09:00 06/07/20 25 06/08/2025 COMP METAB OLIC PANEL BUN/creatini ne ratio 20 ratio Not Available [facility] [address] [place], [place], [address], 06/08/2025 06:09:00 06/07/20 25 06/08/2025 COMP METAB OLIC PANEL calcium total 9.1 mg/dL 8.5-10 .5 Not Available [facility] [facility] ([facility]) [address] [place], [address], 06/08/2025 06:09:00 06/07/2006/08/2025 COMP METAB OLIC PANEL protein total 7.2 g/dL 6.1-8. 3 Not Available [facility] [address], [place], [address], 06/08/2025 06:09:00 06/07/20 25 06/08/2025 COMP METAB OLIC PANEL albumin 4.3 g/dL 3.5-5. 2 Not Available [facility] [address] [place], [address], 06/08/2025 06:09:00 06/07/20 25 06/08/2025 COMP METAB OLIC PANEL globulin 2.9 g/dL 1.7-4. 3 Not Available [facility] [address] [place], [address], 06/08/2025 06:09:00 06/07/2006/08/2025 COMP METAB OLIC PANEL A/G ratio 1.5 ratio 0.9-2. 8 Not Available [facility] [address] [place], [address], 06/08/2025 06:09:00 06/07/20 25 06/08/2025 COMP METAB OLIC PANEL bilirubin total 0.3 mg/dL 0.0-1. 2 Not Available [facility] [address] [place], [address], 06/08/2025 06:09:00 06/07/20 25 06/08/2025 COMP METAB OLIC PANEL alkaline phosphatase 108 U/L 40-125 Not Available [facility] [address] [place], [address], 06/08/2025 06:09:00 06/07/2006/08/2025 COMP METAB OLIC PANEL AST (SGOT) 26 U/L 9-50 Not Available [facility] [address] [place], [address], 06/08/2025 06:09:00 06/07/2006/08/2025 COMP METAB OLIC PANEL ALT (SGPT) 21 U/L 5-50 Comme nt for COMP METAB OLIC PANEL Fasti ng statu s not provi ded. If the patie nt faste d the appro priat e gluco se refer ence range is 70-99 mg/dL . Not Available [facility] [address] [place], [address], 06/08/2025 06:09:00 06/09/2006/10/2025 IRON AND TIBC iron 58 ug/dL 59-158 low Not Available [facility] [address] [facility] [place], [address], 06/10/2025 12:45:59 06/09/20 25 06/10/2025 IRON AND TIBC total iron binding 438 ug/dL 250-40 0 high Not Available [facility] [address] [facility] [place], [address], 06/10/2025 12:45:59 06/09/20 25 06/10/2025 IRON AND TIBC % saturation 13 % 20-50 low Not Available [facility] [address] [place], [address], 06/10/2025 12:45:59 06/09/20 25 06/10/2025 PATRICA TIN ferritin 22 NG/mL 30-400 low Not Available [facility] [address] [place], [address], 06/10/2025 12:46:00 05/02/20 25 05/02/2025 XR, chest No observ ation record ed. [address], [place], [address], 05/03/2025 08:55:42 05/05/20 25 05/04/2025 US, echoc ardio gram No observ ation record ed. [facility] [address] [place], [address], 05/07/2025 21:49:40 05/09/20 25 05/09/2025 XR, suresh ble No observ ation record ed. [facility] [address] [place], [address], 05/10/2025 08:46:58 Result Notes None recorded. 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 6654312024814 7 Active 2024 GLORY RENAE APRN [address], [place], [address] , [place] [facility] 23:19:47 Chronic pain syndrome 591299958 Active 2024 GLORY RENAE APRN [address], [place], [address] , [place] [facility] 5 23:20:02 Generalize d osteoarthr itis 739357377 Active 2024 GLORY RENAE APRN [address], [place], [address] , [place] [facility] 5 23:20:02 Muscle weakness 12280733 Active 2024 GLORY RENAE APRN [address], [place], [address] , [place] [facility] 5 23:20:19 Essential hypertensi on 76781959 Active 2024 GLORY RENAE APRN [address], [place], [address] , [place] [facility] 5 23:23:57 Severe chronic obstructiv e pulmonary disease 793780223 Active 2024 GLORY RENAE APRN [address], [place], [address] , [place] [facility] 5 23:23:59 Chronic pulmonary edema 49003519 Active 2024 TANYA FLETCHER APRN [address], [place], [address] , [place] [facility] 5 13:49:05 Anxiety disorder 823219897 Active 2024 TANYA FLETCHER APRN [address], [place], [address] , [place] [facility] 19:05:24 Problem Notes Documentation Provider Name and Address Organization Details Recorded Time [address] [address] [phone] Advance Care Planning Patient: RENUKA GREEN Completed: 05/03/25 1320 of Admission:05/02/25Discharg e date 05/09/25 MR #: [id number] /AGE/SEX:1955/69/ M Room/Bed: 3002-A Location: [place] [facility] CC: Joel Vela DO; Dafne Sen; Glory Renae APRN Report Number: [id number] Date/Time of Documentation Date: 05/03/25 Time In:: 13:20 Time Out:: 13:50 Face to Face time:: 30 minutes Total time spent counseling/coordinating:: 30 minutes Consulting Physician: Dr. Vela Pt Location at Time of Consult: Room 355 Patient/Family/POA/Surroga te agreeable to ACP discussion:: Yes Does the patient have an advanced directive on file?: Yes (Established POA today and POLST on medical record) Outcomes/services: Advance Directive Education provided, Advance Directive Obtained (Obtained new POA this visit and existing POLST attached to medical record (from [place])), Code status clarified (Confirmed DNR code status), Goals of care clarified and Health care agent ident (Patient appoints his daughter Adriana as his healthcare decision maker in the event he is unable to make his own decisions) Summary of Discussion:: Discussed goals of care- when stable, discharge to IPR/SNF for aggressive therapy in an attempt to return at or near baseline functional status, then transition to LTC Code status- DNR Healthcare decision maker- Patient appoints his daughter Adriana as his healthcare decision maker in the event he is unable to make his own decisions General Discussion:: Per physician documentation: Mr Green is a 69/M with 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 Patient is on Bipap during my encounter, he is AO x 2 . History provided by his daughter via the phone. Her daughter reports that patient has had progressively worsening cough, sob and wheezing for the last couple of days. Earlier today he became increasingly lethargic and she could not wake him up and called EMS. She reports he uses 2l oxygen all the time but no trilogy or bipap. Daughter reports he is non compliant with his inhalers, denies recent sick contacts or cold like symptoms. Patient recently stopped smoking but vapes She reports no fevers, chills, nausea, vomiting or pain on urination. His daughter not certain of all his medical conditions except for COPD, HTN and prediabetes. Patient moved from [place] to [place] this week because he can no longer take care of himself with plans to move to [facility]. ED course, tachypneic, BP stable. Labs remarkable ABG with respiratory acidosis 7.23/93/91, wbc 14, K 6, r 0.8, UA positive. CXR with bilateral interstitial edema. Palliative care consulted for goals of care purposes. Rapport established this visit. Palliative Care consulted for goals of care and Advance Care Planning Purposes. A goals of care discussion was conducted at bedside, involving the patient. He is alert and oriented and agreeable to GOC conversation. He states just moved to [facility] this week to live closer to his daughters, as he is no longer able to take care of himself with his declining health status. He has 2 daughters, Adriana and Liset. HE states they have been planning for him to go to [facility] for TLC when he became ill and required hospitalization. He states he feels he is sicker than he realized. Discussed current plan of care and treatment goals in the future. Patient states he has the desire to get better and wants to regain his strength. He established the following GOC on his own behalf: when stable, discharge to IPR/SNF for aggressive therapy in an attempt to return at or near baseline functional status, then then transition to LTC. Team updated. Education provided on the importance and benefit of an Advance Directive. The patient was informed that an Advance Directive is a legal document that allows them to plan and make their own end-of life wishes known in the event that they are unable to communicate their wishes and preferences. Instructed patient that life-sustaining treatments are specific medical procedures that support the body and keep a person alive when the body is not able to function on its own. Discussion provided that they may want to accept life-sustaining treatments if they will help to restore normal functions and improve health. However, if there is a serious life-limiting condition the decision may be made to not prolong life with life-sustaining treatment. Advance Care Planning education provided. Formal documents are on file. Patient appoints his daughter Adriana as his healthcare decision maker in the event he is unable to make his own decisions. Formal POA documents established this visit. Discussed code status at length. Patient verified he wants to experience a natural and does not want to be resuscitated. DNR confirmed. Current PPS is 40%. This indicates extensive disease and extremely poor functional status. Patient is likely to need/benefit from hospice in the near future. FICA Assessment: Patient denies any adventism or spiritual needs or concerns at this time. Early Years Teacher services available to patient and family as needed. Total Time Spent: 60 minutes Face to Face Time Spent: 30 minutes Time Spent in Counseling/Coordinating Care: 30 minutes Recommendations: 1. Consider IPR or SNF referral at ok for strengthening and to improve functional status 2. Monitor Depression, Dyspnea, pain, anxiety, appetite and sleep/fatigue in order to maintain symptom management/control 3. Frequent skin assessment to prevent skin breakdown- turn/ reposition and keep clean and dry 4. Offer emotional support, empathetic listening and education during hospitalization- including family's needs 5. Contact Palliative Care for any patient needs, including support- I left business card with my phone # for patient or family to call if needed Palliative Care Evaluation: Complete Discussed this case with: Dr. Vela and team Visit Palliative Care Visit: Initial Condition: POOR Prognosis: Partial recovery Life expectancy: 3-6 months Code Status: Do Not Resuscitate Advance Directives: Yes PPS at the time of assessment: 40 Daily assist needs: All Decision making capacity: Full End of Report Dictated by: Dafne Sen 05/03/[address] Officer: Dafne Sen05/08/25 0902 05/10/25 0852 05/23/25 1620 Not Available [facility] 05/23/2025 17:21:[address] [address] [phone] Advance Care Planning Patient: RENUKA GREEN Completed: 05/03/25 1320 of Admission:05/02/25Discharg e date 05/09/25 MR #: [id number] /AGE/SEX:1955/69/ M Room/Bed: 3002-A Location: [place] [address] CC: Joel Vela DO; Dafne Sen; Glory Renae APRN Report Number: [id number] REPORT ADDENDUM Supervision Supervising Provider statement: I personally saw examined patient Attestation Attestation: I have saw and examined Mr. Green on 05/05/25 and agree with documentation and plan of care. Short term goals have been?established. The patient and family wish to continue current treatment with plans for rehab. The patient and family confirm resuscitation status DNR. They decline for all life saving measures to be taken including CPR and mechanical ventilation. The patient and family understand disease process and prognosis with COPD. I discussed the?importance of advance care planning and establishing manager intermediate goals for care. Total time spent on education and clarifying goals for care was [address] Collections Officer: Joel Vela DO 05/23/251621 Addendum Signed By: 05/23/25162105/23/251621 Date/Time of Documentation Date: 05/03/25 Time In:: 13:20 Time Out:: 13:50 Face to Face time:: 30 minutes Total time spent counseling/coordinating:: 30 minutes Consulting Physician: Dr. Vela Pt Location at Time of Consult: Room 355 Patient/Family/POA/Surroga te agreeable to ACP discussion:: Yes Does the patient have an advanced directive on file?: Yes (Established POA today and POLST on medical record) Outcomes/services: Advance Directive Education provided, Advance Directive Obtained (Obtained new POA this visit and existing POLST attached to medical record (from [place])), Code status clarified (Confirmed DNR code status), Goals of care clarified and Health care agent ident (Patient appoints his daughter Adriana as his healthcare decision maker in the event he is unable to make his own decisions) Summary of Discussion:: Discussed goals of care- when stable, discharge to IPR/SNF for aggressive therapy in an attempt to return at or near baseline functional status, then transition to LTC Code status- DNR Healthcare decision maker- Patient appoints his daughter Adriana as his healthcare decision maker in the event he is unable to make his own decisions General Discussion:: Per physician documentation: Mr Green is a 69/M with 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 Patient is on Bipap during my encounter, he is AO x 2 . History provided by his daughter via the phone. Her daughter reports that patient has had progressively worsening cough, sob and wheezing for the last couple of days. Earlier today he became increasingly lethargic and she could not wake him up and called EMS. She reports he uses 2l oxygen all the time but no trilogy or bipap. Daughter reports he is non compliant with his inhalers, denies recent sick contacts or cold like symptoms. Patient recently stopped smoking but vapes She reports no fevers, chills, nausea, vomiting or pain on urination. His daughter not certain of all his medical conditions except for COPD, HTN and prediabetes. Patient moved from [place] to [place] this week because he can no longer take care of himself with plans to move to [facility] LTC. ED course, tachypneic, BP stable. Labs remarkable ABG with respiratory acidosis 7.23/93/91, wbc 14, K 6, r 0.8, UA positive. CXR with bilateral interstitial edema. Palliative care consulted for goals of care purposes. Rapport established this visit. Palliative Care consulted for goals of care and Advance Care Planning Purposes. A goals of care discussion was conducted at bedside, involving the patient. He is alert and oriented and agreeable to GOC conversation. He states just moved to [place] from [place] this week to live closer to his daughters, as he is no longer able to take care of himself with his declining health status. He has 2 daughters, Adriana and Liset. HE states they have been planning for him to go to [facility] for [facility] when he became ill and required hospitalization. He states he feels he is sicker than he realized. Discussed current plan of care and treatment goals in the future. Patient states he has the desire to get better and wants to regain his strength. He established the following GOC on his own behalf: when stable, discharge to IPR/SNF for aggressive therapy in an attempt to return at or near baseline functional status, then then transition to LTC. Team updated. Education provided on the importance and benefit of an Advance Directive. The patient was informed that an Advance Directive is a legal document that allows them to plan and make their own end-of life wishes known in the event that they are unable to communicate their wishes and preferences. Instructed patient that life-sustaining treatments are specific medical procedures that support the body and keep a person alive when the body is not able to function on its own. Discussion provided that they may want to accept life-sustaining treatments if they will help to restore normal functions and improve health. However, if there is a serious life-limiting condition the decision may be made to not prolong life with life-sustaining treatment. Advance Care Planning education provided. Formal documents are on file. Patient appoints his daughter Adriana as his healthcare decision maker in the event he is unable to make his own decisions. Formal POA documents established this visit. Discussed code status at length. Patient verified he wants to experience a natural and does not want to be resuscitated. DNR confirmed. Current PPS is 40%. This indicates extensive disease and extremely poor functional status. Patient is likely to need/benefit from hospice in the near future. FICA Assessment: Patient denies any adventism or spiritual needs or concerns at this time. Early Years Teacher services available to patient and family as needed. Total Time Spent: 60 minutes Face to Face Time Spent: 30 minutes Time Spent in Counseling/Coordinating Care: 30 minutes Recommendations: 1. Consider IPR or SNF referral at ok for strengthening and to improve functional status 2. Monitor Depression, Dyspnea, pain, anxiety, appetite and sleep/fatigue in order to maintain symptom management/control 3. Frequent skin assessment to prevent skin breakdown- turn/ reposition and keep clean and dry 4. Offer emotional support, empathetic listening and education during hospitalization- including family's needs 5. Contact Palliative Care for any patient needs, including support- I left [employer] card with my phone # for patient or family to call if needed Palliative Care Evaluation: Complete Discussed this case with: Dr. Vela and team Visit Palliative Care Visit: Initial Condition: POOR Prognosis: Partial recovery Life expectancy: 3-6 months Code Status: Do Not Resuscitate Advance Directives: Yes PPS at the time of assessment: 40 Daily assist needs: All Decision making capacity: Full End of Report Dictated by: Dafne Sen 05/03/[address] Collections Officer: Dafne Sen05/08/25 0902 05/10/25 0852 05/23/25 1620 Not Available [facility] 05/23/2025 17:23:42 Medical Equipment None Reported. Allergies No known drug allergies Medications Name Sig Start Date Stop Date Status Note LastModified by Organization Details LastModified Time losartan 50 mg tablet TAKE ONE TABLET BY MOUTH DAILY active Not Available Not Available No t Available furosemide 40 mg tablet TAKE ONE TABLET BY MOUTH DAILY active Not Available Not Available No t Available nicotine 14 mg/24 hr daily transdermal patch USE ONE PATCH TRANSDERM ALLY DAILY active Not Available Not Available No t Available ipratropium 0.5 mg-albutero l 3 mg (2.5 mg base)/3 mL nebulizatio n soln INHALE ONE vial EVERY 6 HOURS NEEDED for SHORTNESS OF BREATH active Not Available Not Available No t Available azithromyci n 250 mg tablet TAKE ONE TABLET BY MOUTH DAILY active Not Available Not Available No t Available hydrocodone 5 mg-acetamin ophen 325 mg tablet Take 1 tablet every day by oral route, for Ekit Replaceme nt. 06/07 completed Not Available Not Available Not Available metoprolol succinate ER 100 mg tablet,exte nded release 24 hr TAKE 1 TABLET BY MOUTH EVERY DAY active Not Available Not Available No t Available hydrocodone 10 mg-acetamin ophen 325 mg tablet Take 1 tablet every day by oral route, for EKIT REPLACEME NT. 06/07 completed Not Available Not Available Not Available hydrocodone 7.5 mg-acetamin ophen 325 mg tablet TAKE ONE TABLET BY MOUTH TWICE DAILY NEEDED active Not Available Not Available No t Available pantoprazol e 40 mg tablet,salty yed release TAKE ONE TABLET BY MOUTH DAILY active Not Available Not Available No t Available dexamethaso ne 4 mg tablet TAKE ONE TABLET BY MOUTH TWICE DAILY for TWO DAYS; THEN ONE TABLET DAILY for TWO DAYS; THEN TAKE 1/2 TABLET BY MOUTH DAILY for TWO DAYS THEN STOP active Not Available Not Available No t Available docusate sodium 100 mg capsule TAKE ONE CAPSULE BY MOUTH TWICE DAILY active Not Available Not Available No t Available budesonide 0.5 mg/2 mL suspension for nebulizatio n INHALE ONE vial TWICE DAILY. For respirato ry USE ONLY active Not Available Not Available No t Available diltiazem CD 120 mg capsule,ext ended release 24 hr TAKE ONE CAPSULE BY MOUTH DAILY active Not Available Not Available No t Available polyethylen e glycol 3350 17 gram/dose oral powder DISSOLVE 17grams in liquid AND drink EVERY DAY active Not Available Not Available No t Available albuterol sulfate HFA 90 mcg/actuati on aerosol inhaler INHALE TWO puffs EVERY 6 HOURS NEEDED FOR SHORTNESS OF BREATH or wheezing active Not Available Not Available No t Available diazepam 5 mg tablet TAKE 1/2 TABLET BY MOUTH TWICE DAILY NEEDED FOR ANXIETY active Not Available Not Available No t Available nicotine 7 mg/24 hr daily transdermal patch USE ONE PATCH TRANSDERM ALLY DAILY active Not Available Not Available No t Available buspirone 15 mg tablet TAKE ONE TABLET BY MOUTH THREE TIMES DAILY active Not Available Not Available No t Available duloxetine 60 mg capsule,del ayed release TAKE ONE CAPSULE BY MOUTH DAILY active Not Available Not Available No t Available Airsupra 90 mcg-80 mcg/actuati on HFA aerosol inhaler INHALE TWO PUFFS BY MOUTH NEEDED active Not Available Not Available No t Available buspirone 15 mg capsule Take 1 capsule twice a day by oral route. active Not Available Not Available No t Available Vitals Date Recorded Body height Body temperature Heart rate Respiratory rate Oxygen saturation Oxygen saturation in Arterial blood by Pulse oximetry Systolic And Diastolic Provider Name and Address Organization Details Last Updated DateTime 5 182.88 cm 98 [degF] 66 /min 20 /min 95 % 95 % 144/92 mm[Hg] TANYA FLETCHER APRN [address], [place], [address], [facility] 5 15:56:44 Date Recorded Body height Body mass index (BMI) Body weight Provider Name and Address Organization Details Last Updated DateTime 05/17/2025 182.88 cm 29.1 kg/m2 65864.92 g TANYA FLETCHER APRN [address], [place], [address], [facility] 05/29/2025 17:37:36 Date Recorded Body height Body mass index (BMI) Body weight Body temperature Heart rate Respiratory rate Oxygen saturation Oxygen saturation in Arterial blood by Pulse oximetry Inhaled oxygen flow rate Systolic And Diastolic Provider Name and Address Organization Details Last Updated DateTime 5 182.88 cm 29.9 kg/m2 53641.4 g 97.9 [degF] 79 /min 20 /min 95 % 95 % 2 L/min 164/80 mm[Hg] TANYA FLETCHER APRN [address], [place], [address], [facility] 5 19:02:17 Date Recorded Systolic And Diastolic Provider Name and Address Organization Details Last Updated DateTime 06/07/2025 164/90 mm[Hg] GLORY STUCKER, BIOLOGIST AIDE [address], [place], [address], [facility] 06/07/2025 12:13:26 Date Recorded Body height Body mass index (BMI) Body weight Body temperature Heart rate Respiratory rate Oxygen saturation Oxygen saturation in Arterial blood by Pulse oximetry Inhaled oxygen flow rate Oxygen saturation Oxygen saturation in Arterial blood by Pulse oximetry Inhaled oxygen flow rate Provider Name and Address Organization Details Last Updated DateTime 182.88 cm 29.2 kg/m2 25464.4 6 g 97.4 [degF] 79 /min 19 /min 88 % 88 % 2 L/min 97 % 97 % 3 L/min Bettina [facility] 11:31:36 Date Recorded Systolic And Diastolic Provider Name and Address Organization Details Last Updated DateTime 06/07/2025 200/120 mm[Hg] Bettina [facility] 06/07/2025 11:30:11 Social History Question Answer Notes LastModified by Organizat ion Details LastModified Time Tobacco Smoking Status Current Some Day Smoker GLORY RENAE, BIOLOGIST AIDE [address], [place], [address], [facility] 05/16/2025 23:21:16 What Was The Date Of Your Most Recent Tobacco Screening? 05/10/2025 Information not available 05/16/2025 Has Tobacco Cessation Counseling Been Provided? Yes Information not available 05/16/2025 On What Date Was Tobacco Cessation Counseling Provided? 05/10/2025 Information not available 05/16/2025 Sex: Unknown Functional Status Question Answer Note LastModified by Organization D etails LastModified Time Do you or have you ever used any other forms of tobacco or nicotine? No Information not available 05/16/2025 Do you or have you ever used any nicotine-free cigarettes, vape, or chewing tobacco? Yes Information not available 05/16/2025 Mental Status None recorded. Family History Nothing Reported. Medical History No medical history recorded. Past Encounters Encounter ID Performer Location Encounter Start Date Encounter Closed Date Diagnosis/Indication Diagnosis SNOMED-CT Code Diagnosis ICD10 Code Diagnosis IMO Codes Diagnosis Note [id number] [facility] [place] [address] [place] [address] 05/11/2025 23:46:35 05/25/2025 10:30:45 Generalized osteoarthritis 694576519 M15.9 1453 Muscle weakness 17678660 M62.81 18962 Severe chr onic obstructive pulmonary disease 579743187 J44.9 954189 Advance care planning 71 2388645 Z71.89 [id number] Pt wants to discuss DNR with daughters prior to signing any forms. Currently wishes to remain full code until he can discuss with family [id number] [facility] [place] [address] [place] [address] 05/11/2025 23:47:51 05/17/2025 12:35:05 Acute on chronic hypoxemic and hypercapnic respiratory failure 6252110874 5107 J96.21 J96.22 20646207 Chronic pain syndrome 37 5154919 G89.4 01979 Generalize d osteoarthritis 660475168 M15.9 1453 Muscle weakness 89689504 M62.81 06814 Severe chr onic obstructive pulmonary disease 174554509 J44.9 952686 Essential hypertension 89977890 I10 12158 [id number] [facility] [place] [address] [place] [address] 05/15/2025 15:52:06 05/30/2025 16:17:47 Severe chronic obstructive pulmonary disease 889516929 J44.9 614789 Continue Oxygen 3.5 L NCSymbicor t Inhalation Aerosol 160-4.5 MCG/ACT BIDAlbuter ol Sulfate HFA Inhalation Aerosol Solution 108 (90 Base) MCG/ACT 2 puff Q6H PRNIpratro pium-Albut laney Inhalation Solution 0.5-2.5 (3) MG/3ML, TIDContinu e Albuterol inhaler Essential hypertension 43315754 I10 54727 Metoprolol Succinate Oral Capsule ER 24 Hour Sprinkle 100 MG QDay Chronic pu lmonary edema 32487688 J81.1 3162 Furosemide Oral Tablet 20 MG (Furosemid e) PO QDay Chronic pain syndrome 37 5385000 G89.4 30352 HYDROcodon e-Acetamin ophen Oral Tablet 7.5-325 MG (Hydrocodo ne-Acetami nophen) 1 tab Q8H [id number] [facility] [place] [address] [place] [address] 05/18/2025 09:39:43 05/30/2025 16:19:08 Severe chronic obstructive pulmonary disease 054362267 J44.9 327153 Continue Oxygen 2 L NCSymbicor t Inhalation Aerosol 160-4.5 MCG/ACT BIDAlbuter ol Sulfate HFA Inhalation Aerosol Solution 108 (90 Base) MCG/ACT 2 puff Q6H PRNIpratro pium-Albut laney Inhalation Solution 0.5-2.5 (3) MG/3ML, TIDContinu e Albuterol inhaler Essential hypertension 79074058 I10 70601 Metoprolol Succinate Oral Capsule ER 24 Hour Sprinkle 100 MG QDay Chronic pain syndrome 37 4426213 G89.4 66825 HYDROcodon e-Acetamin ophen Oral Tablet 7.5-325 MG (Hydrocodo ne-Acetami nophen) 1 tab Q8H Muscle weakness 11148888 M62.81 52263 Continue PT/OT [id number] D[facility] [address] [place] [address] 05/26/2025 17:14:12 06/06/2025 11:59:27 Essential hypertension 05165750 I10 39692 Metoprolol Succinate Oral Capsule ER 24 Hour Sprinkle 100 MG QDay Generalize d osteoarthritis 995420257 M15.9 1453 No current medication . Chronic pain syndrome 37 4801991 G89.4 30504 HYDROcodon e-Acetamin ophen Oral Tablet 7.5-325 MG (Hydrocodo ne-Acetami nophen) 1 tab Q8H Acute on c hronic hypoxemic and hypercapnic respiratory failure 3550942403 5107 J96.21 J96.22 85366126 No current medication Severe chr onic obstructive pulmonary disease 580809550 J44.9 729886 Continue Oxygen 2 L NCAlbutero l Sulfate HFA Inhalation Aerosol Solution 108 (90 Base) MCG/ACT 2 puff Q6H PRNIpratro pium-Albut laney Inhalation Solution 0.5-2.5 (3) MG/3ML,Sym bicort Inhalation Aerosol 160-4.5 MCG/ACT (Budesonid e-Formoter ol Fumarate Dihydrate) 2 inhalation BID Chronic pu lmonary edema 05970806 J81.1 3162 Furosemide Oral Tablet 20 MG (Furosemid e) PO QDay Anxiety disorder 7094019 06 F41.9 20544275 BusPIRone HCl Oral Tablet 15 MG 1 tab PO QDay [id number] GLORY RENAE APRN [facility] [facility] [address] [place] [address] 06/07/2025 11:12:16 2025 12:10:36 Acute on chronic hypoxemic and hypercapnic respiratory failure 3320858852 5107 J96.21 J96.22 68315796 Severe chr onic obstructive pulmonary disease 048645702 J44.9 360410 Essential hypertension 57648901 I10 85316 Muscle weakness 65751955 M62.81 57388 Chronic constipation 236 479086 K59.09 756009 start miralax Hyperkalemia 31431277 E8 7.5 9805 Chronic pu lmonary edema 08644203 J81.1 3162 Anxiety disorder F41.9 79050858 Increase buspirone Health Concerns Section Related Observation LastModified by Organization Detai ls LastModified Time None Recorded Concern Status LastModified by Organization Details LastModified Time None Recorded Advance Directives Directive None Recorded Payers Insurance Date Sequence Insurance Name Policy Number Policy Mcclure Covered Member ID Mcclure Member ID Guarantor Name 06/28/2025 1 [facility] (MEDICARE REPLACEMENT/A DVANTAGE - PPO) Renuka Green [id number] Renuka Green Notes Date Note Type Note Provider Name and Address Organization Details Recorded Time 05/11/2025 text/html Todays visit is medically necessary to assess pain medication and discuss advance care planning. GLORY RENAE APRN [address], [place], [address], [place] - [facility] 05/22/2025 00:54:28 05/15/2025 text/html Today's visit is medically necessary for a correction visit to review current acute and chronic comorbidities, perform medication reconciliation, review imaging and lab results, and ensure coordination of care is maintained. Mr. Grene is a 69 year old male with endstage COPD currently on 3.5 L NC following discharge from the hospital with acute hypercapnic respiratory failure requiring BiPap. Today he reports increased pain, denies taking prn pain medication as prescribed. He is requesting more pain medication and an inhaler to use. Previous non compliant with inhaler use, inhaler available for schedule use with nursing staff. His VSS, no pneumonia on chest X-ray from admission. Elder reported he wanted to speak with his daughter before completing ACP. QUYNH RECINOS [address], [place], [address], [facility] [facility] 05/30/2025 14:09:27 05/17/2025 text/html Today's visit is medically necessary for a correction visit to review current acute and chronic comorbidities, perform medication reconciliation, review imaging and lab results, and ensure coordination of care is maintained. Mr. Green is a 69 year old male with endstage COPD currently on 2L NC with acute hypercapnic respiratory failure requiring BiPap. Today he reports increased pain, denies taking prn pain medication as prescribed. Continue working with resident on appropriate medication use. QUYNH RECINOS [address], [place], [address], [facility] 05/30/2025 14:06:57 05/26/2025 text/html ROS as noted in the HPI Mr. Green has progressed well in therapy. Anticipated date of discharge is Wednesday, May 28, 2025. Spoke with patient today for discharge planning and coordination of care. Resident lives at home with his daughter. He verbalizes confidence that he will be able to care for himself at home with his daughter's help. Pt. is capable of performing ADL's independently and can ambulate with the assistance of a walker. He verbalizes he has all the necessary equipment at home. Discharge medications reviewed and discussed with resident. All routine medications refilled for 30 days. Scheduled medications refilled for 7 day supply. Follow-up appointment scheduled with PCP. Advised the patient to keep follow-up appointment with PCP. If any change of condition or concerns, contact PCP's office or call the custodial for assistance. Discussed fall proofing home. Advised to check for any loose rugs, toys or other fall hazards and remove from home. Advised to wear non-skid socks or shoes with rubber sole when ambulating in home. Advised to ensure clear, well-lit walkway from bedroom to bathroom. Advised to get medical alert necklace. The patient verbalizes agreement and understanding to the discharge instructions and plan. Total time spent with resident and coordination of care <30 min. Time spent meeting with patient [id number], completing discharge paperwork. reviewing and renewing prescriptions, ensuring coordination of follow-up appointments and home health services , and providing discharge instructions to patient <30 min. QUNYH RECINOS [address], [place], [address], [facility] [facility] 05/31/2025 16:12:57 06/07/2025 text/html Patient is here today for a hernia and constipation and would like an order of oxygen. His tank is almost out. Patient daughter will call later with medications. Daughter concerned with patient getting bedsores. GLORY RENAE, BIOLOGIST AIDE [address], [place], [address], [place] [facility] 06/08/2025 12:53:55
--- OUTSIDE RECORDS SUMMARY | 2025-06-28 21:56 | XMS_ITS | Encounter Summary ---
Author Organization [facility] Address [address] [place] [address] Care Team Providers Care Loss Prevention Officer Name Role Phone Unavailable Primary Care Provider Unavailabl e Encounter Details Date Type Department Care Team (Late st Contact Info) Description 05/09/2005 Emergency [facility] Emergency Department [address] 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
[2025-06-28 22:00] VITALS: BP 156/94; PULSE 95; RESP 22; TEMP 37.5; O2SAT 98
--- NOTE | 2025-06-28 22:02 | XRR_ITS ---
PROCEDURE INFORMATION: Exam: XR Chest Exam date and time: 06/28/2025 10:10 PM Age: 70 years old Clinical indication: Shortness of breath; Additional info: Possible sepsis TECHNIQUE: Imaging protocol: Radiologic exam of the chest. Views: 1 view. COMPARISON: CR (CHEST, ) 06/18/2025 6:22 PM FINDINGS: Lungs: Left basilar airspace opacity which may represent airspace disease or atelectasis. Questioned nodular airspace opacity in the costophrenic angle of the left lung base. Pleural spaces: Unremarkable. No pleural effusion. No pneumothorax. Heart/Mediastinum: The heart is enlarged. Bones/joints: Postoperative changes from open reduction and internal fixation of the left clavicle. Subtle lucency in the medial aspect of the surgical plate, not clearly characterized in the prior examination. Severe bilateral shoulder osteoarthritis is present. XR/XR chest 1V portable [id number] IMPRESSION: 1. Left basilar airspace opacities which may represent atelectasis and/or airspace disease. Questioned nodular opacity in the left lateral lower lobe. Consider CT chest without contrast for further characterization. 2. Indeterminate lucency in the medial clavicle fixation plate. Recommend dedicated clavicular radiographs to exclude hardware failure. 3. Cardiomegaly.
[2025-06-28 22:03] VITALS: BP 156/94; PULSE 95; RESP 18; O2SAT 98
--- NOTE | 2025-06-28 22:20 | ECG_ITS ---
[facility] Date: 2025-06-28 Pat Name: Pola Fajardo Department: Room: Gender: Male Giver: : 1955 Requested By: Gabe Jose Order Number: [id number] Kohli MD: Ronnie Vera M.D. Measurements Intervals [place] Rate: 94 P: 0 TN: 0 QRS: 72 QRSD: 89 T: 82 QT: 346 QTc: 433 Interpretive Statements SUPRAVENTRICULAR RHYTHM MODERATE ST DEPRESSION [0.05+ mV ST DEPRESSION] Compared to ECG 06/18/2025 18:14:11 Supraventricular rhythm now present ST (T wave) deviation now present Sinus rhythm no longer present Electronically Signed On 06-29-2025 08:51:12 CDT by Ronnie Vera M.D. [id number]
[2025-06-28 22:21] LABS: Hematocrit 41.1 % (37-53); Hemoglobin 11.30 g/dL (11.27-16.99); Mean Corpuscular HGB Conc 27.5 g/dL (30-55); Mean Corpuscular Hemoglobin 23.3 pg (27-33); Mean Corpuscular Volume 84.7 fl (82-101); Nucleated Red Blood Cells % 0 %; Platelet Count 407 10^3/cmm (157-399); Red Blood Count 4.85 10^6/uL (3.85-5.65); White Blood Count 20.40 10^3/uL (3.29-11.43)
[2025-06-28 22:40] VITALS: PULSE 93; RESP 22; O2SAT 98
[2025-06-28 22:40] LABS: Lactic Sepsis W/Reflex 0.8 mmol/L (0.5-2.2); Troponin(5th) Baseline 23 ng/L (0-15)
[2025-06-28 22:46] LABS: Glucose Urine UA Negative (Normal); Nitrate Urine Negative (Negative); Specific Gravity, Urine 1.013 (1.005-1.030)
[2025-06-28 22:48] LABS: ABG PH Result 7.20 (7.35-7.45); Blood Gas Allen Test Pos; Blood Gas Sample Type Arterial; Ionized Calcium Level - ABG 1.2 mmol/L (1.1-1.4); Potassium Level - ABG 4.5 mmol/L (3.5-5.0); Sodium Level - ABG 147.0 mmol/L (131-143)
[2025-06-28 22:49] LABS: Arterial Blood Gas Hematocrit 35.5 % (42-52); Blood Gas LPM 4.0 %; Blood Gas Sample Site Brachial, right; Carboxyhemoglobin 1.2 %THgb (0.4-20.1); Glucose Level-ABG 158.0 mg/dL (70-115); HCO3 ABG 40.5 mmol/L (22-26); Methemoglobin 0.3 % (0.4-1.5); Oxygen Saturation ABG 98.7; PO2 ABG 137.0 mmHg (80.0-100.0)
[2025-06-28 22:55] LABS: Alanine Aminotransferase 19 U/L (0-41); Albumin Level 4.2 g/dL (3.5-5.2); Alkaline Phosphatase 98 U/L (40-130); Anion Gap 10.9 (5-19); Aspartate Amino Transferase 18 U/L (0-40); Blood Urea Nitrogen 22 mg/dL (8-23); Calcium 8.8 mg/dL (8.5-10.5); Carbon Dioxide 38 mmol/L (22-29); Chloride 99 mmol/L (98-107); Creatinine Clr Calc Pharmacy 101.9589; Globulin 2.8 g/dL (1.3-4.6); Glucose 140 mg/dL (65-115); Magnesium 2.4 mg/dL (1.7-2.3); NT Pro B Type Natriuretic Pept 78 pg/mL (0-125); Osmolality Calculated 302 mOsm/kg (285-295); Potassium 4.9 mmol/L (3.5-5.1); Sodium 143 mmol/L (136-145); Total Protein 7.0 g/dL (6.6-8.7)
[2025-06-28 23:03] VITALS: BP 166/91; PULSE 95; PULSE 96; RESP 18; O2SAT 97; O2SAT 98
[2025-06-28 23:03] LABS: Add Urine Microscopic? YES; UA Manual Slide Review YES
[2025-06-28 23:05] LABS: ABG PCO2 > 102.0 mmHg (35-45); Alveolar-Arterial Oxygen Gradi 0.0 mmHg (5-10)
--- NOTE | 2025-06-28 23:07 | CTR_ITS ---
PROCEDURE INFORMATION: Exam: CT Chest Without Contrast; Diagnostic Exam date and time: 06/28/2025 11:19 PM Age: 70 years old Clinical indication: Abnormal findings; Abnormal radiologic exam of lung or chest; Additional info: Pnuemonia likely on XR, further characterizaiton TECHNIQUE: Imaging protocol: Diagnostic computed tomography of the chest without contrast. Radiation optimization: All CT scans at this facility use at least one of these dose optimization techniques: automated exposure control; mA and/or kV adjustment per patient size (includes targeted exams where dose is matched to clinical indication); or iterative reconstruction. COMPARISON: CR (CHEST, ) 06/28/2025 10:10 PM RADIATION DOSE METRICS: Total DLP (mGy-cm): 751.11 FINDINGS: Lungs: Right lower lobe bronchial wall thickening, distal mucoid impaction, and peripheral bronchovascular ground-glass opacity. Previous left lower lobe radiographic findings were artifactual. Notable 8 mm right lower lobe nodule (series 4, image 49). Pleural spaces: Unremarkable. No pneumothorax. No pleural effusion. Heart: Unremarkable. No cardiomegaly. No pericardial effusion. Coronary arteries: Mild coronary atherosclerosis is present. Lymph nodes: Unremarkable. No enlarged lymph nodes. Vasculature: Mild atherosclerotic changes of the thoracic aorta and its major branch vessels is noted. Kidneys: 4.2 cm hyperattenuating left exophytic renal cystic lesion, favored to represent a proteinaceous/hemorrhagic cyst. Bones/joints: Multiple ossific free bodies are noted in the left shoulder capsule.Severe bilateral shoulder osteoarthritis is present. Status post open reduction and internal fixation of the left clavicle. No evidence of hardware failure. Chronic appearing L2 and L3 superior endplate deformities. Soft tissues: Unremarkable. CT/CT chest wo con [id number] IMPRESSION: 1. Findings consistent with right lower lobe bronchitis/small airways disease. Radiographic findings of the left lower lobe opacities were artifactual. 2. Status post ORIF of the left clavicle. Hardware appears intact without evidence of failure/loosening. Previously noted radiographic findings were likely artifactual. 3. Isolated pulmonary nodule as above. For both low risk and high risk patients, consider CT Chest at 3 months is recommended, PET/CT, or biopsy. (Reference: Rossi) however, given concurrent infectious/inflammatory sequela, findings are favored to be infectious in nature. Favor follow-up CT. 4. Exophytic left renal lesions, favored to represent proteinaceous/hemorrhagic cyst. Recommend follow-up renal sonogram for further characterization. COMMENTS: Consistent with the [employer]'s Incidental Findings Committee white paper (J Am Heidy Radiol 2018): Any incidental renal lesion less than 1 cm or classified as too small to characterize, or any incidental cystic renal lesion characterized as simple-appearing, is likely benign. No follow-up imaging is recommended for these lesions per consensus recommendations based on imaging criteria. REFERENCES: Rossi Alford, et al. Guidelines for Management of Incidental Pulmonary Nodules Detected on CT Images: From the Fleischner Society 2017. Radiology. 2017;284(1):228-243.
[2025-06-28 23:30] VITALS: BP 92/63; PULSE 90; RESP 18; O2SAT 98
[2025-06-28] MEDS: cefepime 1,000 mg SDV 1000 MG IVP (23:38)
[2025-06-29] VITALS (86 sets, daily range): BP systolic 93–150; BP diastolic 62–103; PULSE 79–102; RESP 15–31; TEMP 36.7–36.9; O2SAT 88–100
[2025-06-29 00:10] LABS: ABG PCO2 85.3 mmHg (35-45); ABG PH Result 7.28 (7.35-7.45); Arterial Blood Gas Hematocrit 32.9 % (42-52); Blood Gas Allen Test Pos; Blood Gas Sample Site Radial, right; Blood Gas Sample Type Arterial; HCO3 ABG 40.4 mmol/L (22-26); PEEP 8.0 cmH20; PO2 ABG 69.0 mmHg (80.0-100.0); PO2 FiO2 Ratio Arterial Blood 197
--- NOTE | 2025-06-29 00:29 | W.ED.SOB ---
HPI - SOB/Dyspnea General: Chief Complaint: Shortness of Breath/Dyspnea Stated Complaint: ams Time Seen by Provider: 06/28/25 21:52 History of Present Illness: HPI Narrative: 70 yo M with history of COPD, CHF, and alcohol use presents via EMS for shortness of breath ongoing all day. Recently admitted on the for acute exacerbation of COPD and discharged on the . Family reports intermittent altered mentation throughout the day, alternating between being fine and confused. Patient uses CPAP and reportedly was on it most of the day at home. Recent UTI noted; provider comments suggest concern for urinary source. On arrival, patient is unable to provide history, somnolent with garbled speech, and in moderate respiratory distress. Denies/ROS: [Unclear]. No home interventions beyond CPAP reported. Related Data Previous Rx's ?Medication ?Instructions ?Recorded azithromycin 250 mg tablet 250 mg PO DAILY #5 tabs 06/20/25 dexamethasone 4 mg tablet See Rx Instructions .Route 06/20/25 .COMPLEX #7 tabs docusate sodium 100 mg capsule 100 mg PO BID #60 caps 06/20/25 ipratropium 0.5 mg-albuterol 3 mg 3 ml inhalation Q6H PRN Shortness 06/20/25 (2.5 mg base)/3 mL nebulization Of Breath #180 mL soln nicotine 14 mg/24 hr daily 1 patch transdermal DAILY #14 ea 06/20/25 transdermal patch nicotine 7 mg/24 hr daily 1 patch transdermal DAILY #14 ea 06/20/25 transdermal patch albuterol sulfate 90 mcg/actuation 2 inh inhalation Q6H PRN shortness 06/21/25 aerosol inhaler (Ventolin HFA) of breath or wheezing #8.5 grams budesonide 0.5 mg/2 mL suspension 0.5 mg (2 mL) inhalation 06/21/25 for nebulization BID.RESPIRATORY #60 mL buspirone 15 mg tablet 15 mg PO TID #90 tabs 06/21/25 diazepam 5 mg tablet (Valium) 2.5 mg (1/2 x 5 mg) PO BID PRN 06/21/25 anxiety #14 tabs diltiazem HCl 120 mg 120 mg PO DAILY #30 caps 06/21/25 capsule,extended release 24 hr duloxetine 60 mg capsule,delayed 60 mg PO DAILY #30 caps 06/21/25 release furosemide 40 mg tablet 40 mg PO DAILY #30 tabs 06/21/25 hydrocodone 7.5 mg-acetaminophen 1 tab PO BID PRN chronic pain #20 06/21/25 325 mg tablet tabs losartan 50 mg tablet 50 mg PO DAILY #30 tabs 06/21/25 pantoprazole 40 mg tablet,delayed 40 mg PO DAILY #30 tabs 06/21/25 release polyethylene glycol 3350 17 17 g PO DAILY #30 grams 06/21/25 gram/dose oral powder Allergies Allergy/AdvReac Type Severity Reaction Status Date / Time No Known Allergies Allergy Verified 06/18/25 20:42 [facility] ED PFSH: Medical History (Updated 06/29/25 @ 00:25 by Gabe Mcgee MD) Hypertension Anxiety Medically noncompliant Acute on chronic respiratory failure with hypoxia and hypercapnia Social History (Updated 06/18/25 @ 21:32 by Mega Hightower MD) Smoking and tobacco/nicotine status: former use of tobacco/nicotine Alcohol intake: unknown Substance/Drug Use: unknown Additional social history: Patient denies tobacco alcohol or illicit use currently. He reports he wants full code Physical Exam Narrative: EXAM NARRATIVE: Somnolent, unable to give history, moderate respiratory distress. Lungs: Tachypneic with significant accessory muscle use. Extremities: 1+ edema in feet and legs. Neuro: Garbled speech; altered mentation reported by family; somnolent. Const: COMMON NORMALS: no acute distress and alert HENMT: COMMON NORMALS: normocephalic and atraumatic HEAD & SCALP: normocephalic and atraumatic Eye: COMMON NORMALS: Equal, round and reactive pupils present, EOMs intact bilaterally and no scleral icterus PUPIL: Yes Equal, round and reactive pupils present Cardio: COMMON NORMALS: regular rate, regular rhythm and No murmurs present (Cardio) RATE: regular rate RHYTHM: regular rhythm GI: COMMON NORMALS: Normal to inspection, nondistended, normoactive bowel sounds present, Soft to palpation and non-tender PALPATION: Yes Soft to palpation Neuro: SENSORIUM/ORIENTATION: Yes alert Skin: COMMON NORMALS: no rashes or lesions noted GENERAL SKIN EXAM: no rashes or lesions noted Course Vital Signs: Vital signs: Vital Signs Temperature 99.5 F 06/28/25 22:00 Pulse Rate 93 06/29/25 00:03 Respiratory Rate 18 06/29/25 00:03 Blood Pressure 94/72 06/29/25 00:03 Pulse Oximetry 97 06/29/25 00:03 Oxygen Delivery Me thod BiPAP 06/29/25 00:03 Oxygen Flow Rate 4 06/28/25 22:40 Fraction of Inspir ed Oxygen 35 06/28/25 23:03 MDM - SOB/Dyspnea Medical Decision Making 70 yo M with history of COPD, CHF, EtOH use presents via EMS with shortness of breath all day, recent COPD admission (discharged ), family-reported intermittent confusion, and recent UTI. Patient is somnolent with garbled speech. PE: moderate respiratory distress, tachypneic with accessory muscle use, 1+ lower extremity edema. EKG: Time?2220?sinus rhythm, rate of 94, no ST segment elevation or depression, no T wave inversions, wandering baseline in leads V1 and V2 due to motion artifact but no worrisome findings in adjacent leads. QTc = 397 Differential diagnosis includes COPD exacerbation, CHF exacerbation with volume overload (appears fluid overloaded), and sepsis possibly from UTI. Altered mental status likely multifactorial from hypoxia, infection, or hypercapnia. Initial blood gas shows pCO2 greater than 140 was placed on BiPAP. After 1 hour of therapy, pCO2 is dropped to 85 showing improvement. Chest x-ray showed possible pneumonia and CT noncontrast was used to clarify and does not show obvious pneumonia but in the setting of 20,000 white blood cell count elevation he will be started on antibiotics. Patient will be admitted to the intensive care unit for further observation and care.. Lab Data 06/28/25 22:12 06/28/25 22:12 Labs/Radiology: Radiology Impressions Chest X-Ray 06/28/25 22:02 IMPRESSION: 1. Left basilar airspace opacities which may represent atelectasis and/or airspace disease. Questioned nodular opacity in the left lateral lower lobe. Consider CT chest without contrast for further characterization. 2. Indeterminate lucency in the medial clavicle fixation plate. Recommend dedicated clavicular radiographs to exclude hardware failure. 3. Cardiomegaly. Chest CT 06/28/25 23:07 IMPRESSION: 1. Findings consistent with right lower lobe bronchitis/small airways disease. Radiographic findings of the left lower lobe opacities were artifactual. 2. Status post ORIF of the left clavicle. Hardware appears intact without evidence of failure/loosening. Previously noted radiographic findings were likely artifactual. 3. Isolated pulmonary nodule as above. For both low risk and high risk patients, consider CT Chest at 3 months is recommended, PET/CT, or biopsy. (Reference: Rossi) however, given concurrent infectious/inflammatory sequela, findings are favored to be infectious in nature. Favor follow-up CT. 4. Exophytic left renal lesions, favored to represent proteinaceous/hemorrhagic cyst. Recommend follow-up renal sonogram for further characterization. COMMENTS: Consistent with the [employer]'s Incidental Findings Committee white paper (J Am Heidy Radiol 2018): Any incidental renal lesion less than 1 cm or classified as too small to characterize, or any incidental cystic renal lesion characterized as simple-appearing, is likely benign. No follow-up imaging is recommended for these lesions per consensus recommendations based on imaging criteria. REFERENCES: Rossi Alford, et al. Guidelines for Management of Incidental Pulmonary Nodules Detected on CT Images: From the Fleischner Society 2017. Radiology. 2017;284(1):228-243. Laboratory Results WBC 20.40 10^3/uL (3.29-11.43) H 06/28/25 22:12 RBC 4.85 10^6/uL (3.85-5.65) 06/28/25 22:12 Hgb 11.30 g/dL (11.27-16.99) 06/28/25 22:12 Hct 41.1 % (37-53) 06/28/25 22:12 MCV 84.7 fl (82-101) 06/28/25 22:12 MCH 23.3 pg (27-33) L 06/28/25 22:12 MCHC 27.5 g/dL (30-55) L 06/28/25 22:12 RDW 20.1 % (12.1-15.1) H 06/28/25 22:12 Plt Count 407 10^3/cmm (157-399) H 06/28/25 22:12 MPV 9.5 fL (7.4-10.4) 06/28/25 22:12 Neut % (Auto) 76.2 % 06/28/25 22:12 Lymph % (Auto) 9.8 % 06/28/25 22:12 Pratt % (Auto) 9.9 % 06/28/25 22:12 Eos % (Auto) 2.9 % 06/28/25 22:12 Baso % (Auto) 0.2 % 06/28/25 22:12 Neut # (Auto) 15.55 10^3/uL (1.8-7.7) H 06/28/25 22:12 Lymph # (Auto) 2.0 10^3/uL (0.8-4.8) 06/28/25 22:12 Pratt # (Auto) 2.0 10^3/uL (0.2-0.9) H 06/28/25 22:12 Eos # (Auto) 0.6 10^3/uL (0.0-0.8) 06/28/25 22:12 Baso # (Auto) 0.0 10^3/uL (0.0-0.1) 06/28/25 22:12 Nucleated RBC % (auto) 0 % 06/28/25 22:12 Nucleated RBCs # 0.0 /100WBC 06/28/25 22:12 Specimen Type Arterial 06/28/25 23:58 Sample Site Radial, right 06/28/25 23:58 ABG pH 7.28 (7.35-7.45) L 06/28/25 23:58 ABG pCO2 85.3 mmHg (35-45) H* 06/28/25 23:58 ABG pO2 69.0 mmHg (80.0-100.0) L 06/28/25 23:58 ABG PO2/FiO2 Ratio 197 06/28/25 23:58 ABG HCO3 40.4 mmol/L (22-26) H 06/28/25 23:58 ABG O2 Saturation 98.7 06/28/25 20:37 ABG Base Excess 11.0 mmol/L (-2.0-2.0) H 06/28/25 23:58 Juno Test Pos 06/28/25 23:58 A-a O2 Gradient 0.0 mmHg (5-10) L 06/28/25 20:37 Hematocrit 32.9 % (42-52) L 06/28/25 23:58 Hgb O2 Saturation 97.3 % (95-100) 06/28/25 20:37 Carboxyhemoglobin 1.2 %THgb (0.4-20.1) 06/28/25 20:37 Methemoglobin 0.3 % (0.4-1.5) L 06/28/25 20:37 Total Hemoglobin 11.6 g/dL (14-18) L 06/28/25 20:37 Sodium 147.0 mmol/L (131-143) H 06/28/25 20:37 Potassium 4.5 mmol/L (3.5-5.0) 06/28/25 20:37 Glucose 158.0 mg/dL (70-115) H 06/28/25 20:37 Ionized Calcium 1.2 mmol/L (1.1-1.4) 06/28/25 20:37 O2 Delivery Device Bipap 06/28/25 23:58 O2 Liters/Min 4.0 % 06/28/25 20:37 FiO2 35.0 % 06/28/25 23:58 PEEP 8.0 cmH20 06/28/25 23:58 Home Theater Specialist ID [email or web address] 06/28/25 23:58 Sodium 143 mmol/L (136-145) 06/28/25 22:12 Potassium 4.9 mmol/L (3.5-5.1) 06/28/25 22:12 Chloride 99 mmol/L (98-107) 06/28/25 22:12 Carbon Dioxide 38 mmol/L (22-29) H 06/28/25 22:12 Anion Gap 10.9 (5-19) 06/28/25 22:12 BUN 22 mg/dL (8-23) 06/28/25 22:12 Creatinine 0.8 mg/dL (0.7-1.2) 06/28/25 22:12 GFR Calculation 95.6 mL/min (90-130) 06/28/25 22:12 Glucose 140 mg/dL (65-115) H 06/28/25 22:12 Calculated Osmolality 302 mOsm/kg (285-295) H 06/28/25 22:12 Lactic Acid 0.8 mmol/L (0.5-2.2) 06/28/25 22:12 Calcium 8.8 mg/dL (8.5-10.5) 06/28/25 22:12 Phosphorus 3.2 mg/dL (2.5-4.5) 06/28/25 22:12 Magnesium 2.4 mg/dL (1.7-2.3) H 06/28/25 22:12 Total Bilirubin 0.2 mg/dL (0.15-1.2) 06/28/25 22:12 AST 18 U/L (0-40) 06/28/25 22:12 ALT 19 U/L (0-41) 06/28/25 22:12 Alkaline Phosphatase 98 U/L (40-130) 06/28/25 22:12 Troponin T Baseline 23 ng/L (0-15) H 06/28/25 22:12 NT-Pro-B Natriuret Pep 78 pg/mL (0-125) 06/28/25 22:12 Total Protein 7.0 g/dL (6.6-8.7) 06/28/25 22:12 Albumin 4.2 g/dL (3.5-5.2) 06/28/25 22: Globulin 2.8 g/dL (1.3-4.6) 06/28/25 22:12 Urine Color Yellow (Yellow) 06/28/25: Urine Appearance Clear (CLEAR) 06/28/25: Urine pH 5.5 (5-7) 06/28/25 22:30 Ur Specific [place] 1.013 (1.005-1.030) 06/28/25: Urine Protein Trace (Negative) A 06/28/25: Urine Glucose (UA) Negative (Normal) 06/28/25: Urine Ketones Negative (Negative) 06/28/25: Urine Blood Negative (Negative) 06/28/25: Urine Nitrate Negative (Negative) 06/28/25: Urine Bilirubin Negative (Negative) 06/28/25: Urine Urobilinogen 1.0 mg/dL (Negative) 06/28/25 22:30 Ur Leukocyte Esterase Negative (Negative) 06/28/25: Urine RBC None /hpf (0-2) 06/28/25: Urine WBC 0-4 /hpf (0-5) H 06/28/25 22:30 Ur Squamous Epith Cells 0-4 /hpf (0-5) H 06/28/25 22:30 Amorphous Sediment Not Reportable 06/28/25: Urine Bacteria 1+ /hpf (NONE) H 06/28/25 22:30 All radiology interpretation(s) finalized by discharge Discharge Plan Discharge Patient Disposition: Admitted As Inpatient Clinical Impression: Acute hypercapnic respiratory failure Condition: Stable Coding Level of Care Code ED Foreign Exchange Dealer for Alida Guerra
[2025-06-29] MEDS: FUROsemide 10 mg/mL SDV 4mL 40 MG IVP ×2 (01:19→05:52)
[2025-06-29] MEDS: methylPREDNISolone sod succ 125 mg/2 mL INJ 60 MG IVP (01:21)
--- NOTE | 2025-06-29 01:40 | P.HP_ITS ---
Providers/Chief Complaint 2 Admitting Physician: Vicky Ward MD Chief Complaint: ams History of Present Illness As per the previous retrospective notes, patient is a poor historian and no collateral history can be obtained, no family member around to provide further history: Pola Fajardo is a 70 year old male seen in the ER on BiPAP poor historian and only answers with some gestures or simple yes or no words. As per the previous notes the patient has history of advanced COPD and CHF with oxygen dependency Reported to have altered mentation as per the family endorsement to the ER physician. The patient has been confused on and off. He was admitted recently and was found to have acute hypoxemic/hypercapnic respiratory failure. He also required CPAP at home and has been compliant to it. Not sure from the patient since he is not providing adequate history/poor historian. The patient was seen in the ER alert however orientation cannot be assessed due to patient being poor historian, lying comfortably nodding yes or no and some gestures. He was found to have hypercapnia reaching above 100 and after BiPAP it improved to 80s. Currently doing well. He was also found to have marked leukocytosis. He has been recently discharged on 06/21/2025 on steroids which could be the reason however on the top could also be COPD exacerbation due to possible underlying infection to be ruled out.Patient has chest x-ray that showed left basilar airspace opacities likely atelectasis. For full report refer to the imaging studies CT chest without contrast was also done and reported to have right lower lobe bronchitis or small airway disease, left lower lobe lobe opacities likely were artifacts on chest x- ray. And reported to have likely concurrent infectious/inflammatory sequela on CT chest Review of Systems 2 General: Reports: ROS unobtainable due to mental status Medications/Allergies Home Medications ?Medication ?Instructions ?Recorded ?Confirmed ?Last Taken ?Type azithromycin 250 mg tablet 250 mg PO DAILY #5 tabs Unknown Rx dexamethasone 4 mg tablet See Rx Instructions .Route 0 06/20/25 Unknown Rx .COMPLEX #7 tabs docusate sodium 100 mg capsule 100 mg PO BID #60 caps 06/20/25 Unknown Rx ipratropium 0.5 mg-albuterol 3 mg 3 ml inhalation Q6H PRN Shortness 06/20/25 Unknown Rx (2.5 mg base)/3 mL nebulization Of Breath #180 mL soln nicotine 14 mg/24 hr daily 1 patch transdermal DAILY # 14 ea 06/20/25 Unknown Rx transdermal patch nicotine 7 mg/24 hr daily 1 patch transdermal DAILY #1 4 ea 06/20/25 Unknown Rx transdermal patch albuterol sulfate 90 mcg/actuation 2 inh inhalation Q6 H PRN shortness 06/21/25 Unknown Rx aerosol inhaler (Ventolin HFA) of breath or wheezing # 8.5 grams budesonide 0.5 mg/2 mL suspension 0.5 mg (2 mL) inhala tion 06/21/25 Unknown Rx for nebulization BID.RESPIRATORY #60 mL buspirone 15 mg tablet 15 mg PO TID #90 tabs Unknown Rx diazepam 5 mg tablet (Valium) 2.5 mg (1/2 x 5 mg) PO B ID PRN 06/21/25 Unknown Rx anxiety #14 tabs diltiazem HCl 120 mg 120 mg PO DAILY #30 caps Unknown Rx capsule,extended release 24 hr duloxetine 60 mg capsule,delayed 60 mg PO DAILY #30 ca ps 06/21/25 Unknown Rx release furosemide 40 mg tablet 40 mg PO DAILY #30 tabs 05/30 01/20 Unknown Rx hydrocodone 7.5 mg-acetaminophen 1 tab PO BID PRN marine chronometer 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 luis pain #20 06/21/25 Unknown Rx 325 mg tablet tabs losartan 50 mg tablet 50 mg PO DAILY #30 tabs 05/30 01/20 Unknown Rx pantoprazole 40 mg tablet,delayed 40 mg PO DAILY #30 t abs 06/21/25 Unknown Rx release polyethylene glycol 3350 17 17 g PO DAILY #30 grams Unknown Rx gram/dose oral powder Allergies Allergy/AdvReac Type Severity Reaction Status Date / Time No Known Allergies Allergy Verified 06/18/25 20:42 PFSH Acute 2 PFSH: Medical History (Updated 06/29/25 @ 01:55 by Vicky Ward MD) Hypertension Anxiety Medically noncompliant Acute on chronic respiratory failure with hypoxia and hypercapnia Social History (Updated 06/18/25 @ 21:32 by Mega Hightower MD) Smoking and tobacco/nicotine status: former use of tobacco/nicotine Alcohol intake: unknown Substance/Drug Use: unknown Additional social history: Patient denies tobacco alcohol or illicit use currently. He reports he wants full code Vitals/I&O/Wt Last Vital Signs Temp 99.5 F 06/28/25 22:00 Pulse 82 06/29/25 01:00 Resp 16 06/29/25 00:30 BP 118/78 06/29/25 01:00 Pulse Ox 97 06/29/25 01:00 O2 Del Method BiPAP 06/29/25 00:03 O2 Flow Rate 4 06/28/25 22:40 FiO2 35 06/28/25 23:03 Weight last 48 hrs Weight 100.244 kg Physical Exam 2 Narrative: Limited exam due to patient uncooperative behavior General: Alert lying on lateral side with BiPAP able to communicate with some gesture and nodding of yes and no. Not in respiratory distress and no tachypnea observed. Cardio: normal rate rhythm, cannot comment on murmurs or gallop rhythms since the patient was lying on the lateral position and exam was limited, Respiratory: Equal air entry on both sides auscultation from the back revealed diffuse mild to moderate wheezes on both sides with some coarse crackles likely due to secretions but no other stridor or reduced air entry GI: Abdomen soft, nontender, nondistended, normoactive bowel sounds present all 4 quadrants, Neuro: Grossly unremarkable, alert however orientation or mentation cannot be assessed since the patient did not not engage during history Extremities: Adequate palpable pulses, bilateral pitting edema up to mid shins Skin: Patient having some mottling of his arms which could be chronic since he has adequate MAP and less likely to be related to-poor perfusion. Data 06/28/25 22:12 06/28/25 22:12 Micro: Microbiology 06/28/25 22:32 Blood Culture - Preliminary Blood SPECIMEN COLLECTED 06/28/25 22:12 Blood Culture - Preliminary Blood SPECIMEN COLLECTED A&P Assessment and plan 1. Acute on chronic respiratory failure with hypoxia and hypercapnia: Patient reported by the family to be altered however patient was alert and no altered mentation was significant on examination it could be related to his hypercapnic respiratory failure at presentation, however when I saw the patient on BiPAP with improvement in his pCO2, the patient was alert but did not engage during history taking. Based on the patient leukocytosis and possible infectious process on CT scan, to continue on BiPAP for pCO2 washout. 40 mg oral prednisone daily for 5 days DuoNebs as scheduled Levofloxacin 750 mg daily 40 mg IV Lasix daily Echo Stat blood cultures and sputum cultures to send and to follow-up Oxygen therapy as per protocol VBG in the morning to assess for pCO2 Neurochecks every shift Adequate intake and output monitoring 2. Medically noncompliant: Adequate counseling for medication compliance to be provided pr manager consult considering patient recurrent admissions and further addressing of his social determinates if needed. 3. Hypertension: Medication reconciliation before initiating antihypertensives Blood pressure is in the normal range Continue to monitor 4. Anxiety: Patient on antianxiety medications, home medications she was given buspirone, need reconciliation before initiating. 5. Nicotine dependence: Nicotine patch 21 mg Adequate smoking cessation/abstinence counseling provided Every day to reinforce and emphasized on importance of smoking cessation and healthy lifestyle. PDMP PDMP Reviewed: Not Reviewed Attestations 2 Medical Necessity Statement*: Pola Fajardo's hospital stay will require greater than 2 midnights for management of acute hypoxemic/hypercapnic respiratory failure Time Spent in Patient Care: 16 - 35 minutes (>than 50% of time sp ent in counselling and/or direct pt care on unit) . Critical Care Time: The high probability of a clinically significant, sudden or life threatening deterioration, as referenced in this documentation, required my full and direct attention, intervention and personal management. The critical care time shown is in addition to time spent performing any reported separately billable procedures and includes the following: [x] Data and vital sign review and interpretation [x ] Patient assessment, examination and intervention [x] Medication orders and management [x] Patient/Family updates as able [x] Care Coordination and Documentation. Critical Care Time (min): 35 Other Attestations: Patient condition has been discussed at length with the patient/family, I have independently reviewed the chart labs imaging/diagnostics/EKG. the goals of care and code status with the patient/family/NOK/legal field representative/health education, and documented accordingly. The patient/family has been informed about the current condition and further plan of care. Agreed with the plan of care and understood without any language barrier. Every effort was made to ensure accuracy of administrative services director. Any obvious errors or omissions should be clarified with the author of the document. Coding Level of Care Code Critical Care >/= 30 minutes Diagnoses Acute on chronic respiratory failure with hypoxia and hypercapnia J96.21; J96.22 Medically noncompliant Z91.199 Hypertension I10 Anxiety F41.9 Nicotine dependence F17.200
--- NOTE | 2025-06-29 02:06 | PC.RESP ---
patient transferred to ICU with RT and RN, patient remains on bipap at this time. [id number].
[2025-06-29] MEDS: levofloxacin-dextrose 5 % 750 MG/150 ML PREMIX 100 MG IV (02:31)
[2025-06-29 03:42] LABS: Hematocrit 39.4 % (37-53); Hemoglobin 10.60 g/dL (11.27-16.99); Mean Corpuscular HGB Conc 26.9 g/dL (30-55); Mean Corpuscular Hemoglobin 23.1 pg (27-33); Mean Corpuscular Volume 85.8 fl (82-101); Nucleated Red Blood Cells % 0 %; Platelet Count 385 10^3/cmm (157-399); Red Blood Count 4.59 10^6/uL (3.85-5.65); White Blood Count 15.73 10^3/uL (3.29-11.43)
[2025-06-29 03:52] LABS: Base Excess VBG 13.4 mmol/L (-3.0-3.0); Blood Gas Operator Identificat JDB; Blood Gas Sample Site Not specified; Blood Gas Sample Type Venous; Blood Gas Tidal Volume 0.50; HCO3 VBG 43.3 mmol/L (24-28); PEEP 8.0 cmH20; PO2 VBG 34.1 mmHg (25-40); Venous Blood Gas Hematocrit 33.1 % (42-52); pH VBG 7.28 (7.32-7.42)
[2025-06-29 03:56] LABS: PCO2 VBG 91.5 mmHg (41-51)
[2025-06-29 04:16] LABS: Alanine Aminotransferase 16 U/L (0-41); Albumin Level 3.7 g/dL (3.5-5.2); Alkaline Phosphatase 86 U/L (40-130); Anion Gap 9.8 (5-19); Aspartate Amino Transferase 15 U/L (0-40); Blood Urea Nitrogen 21 mg/dL (8-23); Calcium 8.5 mg/dL (8.5-10.5); Carbon Dioxide 40 mmol/L (22-29); Chloride 101 mmol/L (98-107); Creatinine Clr Calc Pharmacy 81.6554; Globulin 3.1 g/dL (1.3-4.6); Glucose 130 mg/dL (65-115); Osmolality Calculated 307 mOsm/kg (285-295); Potassium 4.8 mmol/L (3.5-5.1); Sodium 146 mmol/L (136-145); Total Protein 6.8 g/dL (6.6-8.7)
[2025-06-29 04:17] LABS: Magnesium 2.4 mg/dL (1.7-2.3)
[2025-06-29] MEDS: pantoprazole 40 mg SDV IVP (04:22)
[2025-06-29 06:20] LABS: ABG PH Result 7.36 (7.35-7.45); Arterial Blood Gas Hematocrit 34.8 % (42-52); Blood Gas Sample Site Brachial, right; Blood Gas Sample Type Arterial; Carboxyhemoglobin 1.2 %THgb (0.4-20.1); Glucose Level-ABG 143.0 mg/dL (70-115); HCO3 ABG 42.0 mmol/L (22-26); Ionized Calcium Level - ABG 1.1 mmol/L (1.1-1.4); Methemoglobin 1.2 % (0.4-1.5); Oxygen Saturation ABG 95.2; PO2 ABG 69.5 mmHg (80.0-100.0); Potassium Level - ABG 5.0 mmol/L (3.5-5.0); Sodium Level - ABG 144.0 mmol/L (131-143)
[2025-06-29 06:21] LABS: Alveolar-Arterial Oxygen Gradi 12.0 mmHg (5-10); Blood Gas Operator Identificat JDB; Blood Gas Tidal Volume 0.50; PEEP 8.0 cmH20; PO2 FiO2 Ratio Arterial Blood 198
[2025-06-29 06:23] LABS: ABG PCO2 74.2 mmHg (35-45)
--- NOTE | 2025-06-29 14:58 | PC.NURSE ---
up in room today less short of breath wearing bipap most of day up on side of bed for breakfast and lunch , noted increase urine output per porter doctor here this am with no new orders at this time
--- NOTE | 2025-06-29 18:19 | PM.MISC ---
Miscellaneous Note Purpose of Documentation: Patient seen and evaluated on the same day of admission on follow-up patient restful on BiPAP coming in with hypoxic hypercapnic respiratory failure no radiographic sign of pneumonia. Note: Patient is hemodynamically stable in ICU will anticipate that patient will be transferred to stepdown unit in another day for care. It must be looked into for the patient BiPAP alcohol to make sure it is working well this is a concern on rounds
[2025-06-30] VITALS (29 sets, daily range): BP systolic 117–150; BP diastolic 66–100; PULSE 83–106; RESP 14–26; TEMP 36.3–36.9; O2SAT 89–99
[2025-06-30] MEDS: levofloxacin-dextrose 5 % 750 MG/150 ML PREMIX 100 MG IV (02:31)
[2025-06-30] MEDS: pantoprazole 40 mg SDV IVP (04:43)
[2025-06-30] MEDS: FUROsemide 10 mg/mL SDV 4mL 40 MG IVP (06:33)
--- NOTE | 2025-06-30 11:36 | PC.NURSE ---
Ambulation: Patient wlked in today. About 25 feet, took a brief rest, and walked another 25 feet. Patient states that his activity level/capability is comparable to his home baseline, and he feels like he can safely go home.
--- NOTE | 2025-06-30 11:41 | PC.SOCIAL ---
IMM Update pg 2 of IMM Updated and reviewed w/ patient. Copy provided and copy dated, initialed and placed in chart.
--- NOTE | 2025-06-30 15:08 | PC.OT ---
OT TREATMENT HELD TODAY DUE TO SCHEDULED PATIENT D/C TODAY
--- NOTE | 2025-06-30 18:11 | PC.NURSE ---
patient discharged. Bilateral IVs removed, porter cather was removed and patient has been able to void since. Educated patient and his daughter natalie who is at bedside about new medications, discontinued medications, upcoming appointments, and CPAP. Medications have been provided via meds to bed. Nurse assisted patient out to vehicle via wheelchair. accompanied by daughter and a friend.
--- NOTE | 2025-06-30 18:40 | PM.DCS ---
Discharge Providers Date of Admission: 06/29/25 00:25 Date of Discharge: July 19, 2025 Attending Provider at Admission: Vicky Ward MD Attending Provider at Discharge: Zuleima Kwan MD Diagnoses at Discharge Discharge Diagnosis 1. Acute on chronic respiratory failure with hypoxia and hypercapnia: 2. Medically noncompliant: 3. Hypertension, unspecified type: 4. Anxiety: 5. Nicotine dependence: Reason for Visit Reason for Visit: ams Brief History: As per the previous retrospective notes, patient is a poor historian and no collateral history can be obtained, no family member around to provide further history: Pola Fajardo is a 70 year old male seen in the ER on BiPAP poor historian and only answers with some gestures or simple yes or no words. As per the previous notes the patient has history of advanced COPD and CHF with oxygen dependency Reported to have altered mentation as per the family endorsement to the ER physician. The patient has been confused on and off. He was admitted recently and was found to have acute hypoxemic/hypercapnic respiratory failure. He also required CPAP at home and has been compliant to it. Not sure from the patient since he is not providing adequate history/poor historian. The patient was seen in the ER alert however orientation cannot be assessed due to patient being poor historian, lying comfortably nodding yes or no and some gestures. He was found to have hypercapnia reaching above 100 and after BiPAP it improved to 80s. Currently doing well. He was also found to have marked leukocytosis. He has been recently discharged on 06/21/2025 on steroids which could be the reason however on the top could also be COPD exacerbation due to possible underlying infection to be ruled out.Patient has chest x-ray that showed left basilar airspace opacities likely atelectasis. For full report refer to the imaging studies CT chest without contrast was also done and reported to have right lower lobe bronchitis or small airway disease, left lower lobe lobe opacities likely were artifacts on chest x-ray. And reported to have likely concurrent infectious/inflammatory sequela on CT chest Hospital Course Hospital Course He was treated for COPD exacerbation with steroids, nebulization. He responded wel to the treatment. Home trelegy machine was set by [employer]. He is being dced in hemodynamically stable condition. Physical Exam Narrative: Limited exam due to patient uncooperative behavior General: Alert lying on lateral side with BiPAP able to communicate with some gesture and nodding of yes and no. Not in respiratory distress and no tachypnea observed. Cardio: normal rate rhythm, cannot comment on murmurs or gallop rhythms since the patient was lying on the lateral position and exam was limited, Respiratory: Equal air entry on both sides auscultation from the back revealed diffuse mild to moderate wheezes on both sides with some coarse crackles likely due to secretions but no other stridor or reduced air entry GI: Abdomen soft, nontender, nondistended, normoactive bowel sounds present all 4 quadrants, Neuro: Grossly unremarkable, alert however orientation or mentation cannot be assessed since the patient did not not engage during history Extremities: Adequate palpable pulses, bilateral pitting edema up to mid shins Skin: Patient having some mottling of his arms which could be chronic since he has adequate MAP and less likely to be related to-poor perfusion. Discharge Data Studies Completed and Pending Completed Studies During Hospitalization Category Date Time Status CT chest wo con [id number] Stat Cat Scan 06/28/25 23:07 Completed XR chest 1V portable [id number] Stat Exams 06/28/25 22:02 Completed Radiology Impressions Chest X-Ray 06/28/25 22:02 IMPRESSION: 1. Left basilar airspace opacities which may represent atelectasis and/or airspace disease. Questioned nodular opacity in the left lateral lower lobe. Consider CT chest without contrast for further characterization. 2. Indeterminate lucency in the medial clavicle fixation plate. Recommend dedicated clavicular radiographs to exclude hardware failure. 3. Cardiomegaly. Chest CT 06/28/25 23:07 IMPRESSION: 1. Findings consistent with right lower lobe bronchitis/small airways disease. Radiographic findings of the left lower lobe opacities were artifactual. 2. Status post ORIF of the left clavicle. Hardware appears intact without evidence of failure/loosening. Previously noted radiographic findings were likely artifactual. 3. Isolated pulmonary nodule as above. For both low risk and high risk patients, consider CT Chest at 3 months is recommended, PET/CT, or biopsy. (Reference: Rossi) however, given concurrent infectious/inflammatory sequela, findings are favored to be infectious in nature. Favor follow-up CT. 4. Exophytic left renal lesions, favored to represent proteinaceous/hemorrhagic cyst. Recommend follow-up renal sonogram for further characterization. COMMENTS: Consistent with the [employer]'s Incidental Findings Committee white paper (J Am Heidy Radiol 2018): Any incidental renal lesion less than 1 cm or classified as too small to characterize, or any incidental cystic renal lesion characterized as simple-appearing, is likely benign. No follow-up imaging is recommended for these lesions per consensus recommendations based on imaging criteria. REFERENCES: Rossi Alford et al. Guidelines for Management of Incidental Pulmonary Nodules Detected on CT Images: From the [employer] Society 2017. Radiology. 2017;284(1):228-243. Laboratory Results WBC 15.73 10^3/uL (3.29-11.43) H 06/29/25 03:06 RBC 4.59 10^6/uL (3.85-5.65) 06/29/25 03:06 Hgb 10.60 g/dL (11.27-16.99) L 06/29/25 03:06 Hct 39.4 % (37-53) 06/29/25 03:06 MCV 85.8 fl (82-101) 06/29/25 03:06 MCH 23.1 pg (27-33) L 06/29/25 03:06 MCHC 26.9 g/dL (30-55) L 06/29/25 03:06 RDW 19.9 % (12.1-15.1) H 06/29/25 03:06 Plt Count 385 10^3/cmm (157-399) 06/29/25 03:06 MPV 9.7 fL (7.4-10.4) 06/29/25 03:06 Neut % (Auto) 86.2 % 06/29/25 03:06 Lymph % (Auto) 4.7 % 06/29/25 03:06 [place] % (Auto) 5.2 % 06/29/25 03:06 Eos % (Auto) 2.9 % 06/29/25 03:06 Baso % (Auto) 0.2 % 06/29/25 03:06 Neut # (Auto) 13.56 10^3/uL (1.8-7.7) H 06/29/25 03:06 Lymph # (Auto) 0.7 10^3/uL (0.8-4.8) L 06/29/25 03:06 [place] # (Auto) 0.8 10^3/uL (0.2-0.9) 06/29/25 03:06 Eos # (Auto) 0.5 10^3/uL (0.0-0.8) 06/29/25 03:06 Baso # (Auto) 0.0 10^3/uL (0.0-0.1) 06/29/25 03:06 Nucleated RBC % (auto) 0 % 06/29/25 03:06 Nucleated RBCs # 0.0 /100WBC 06/29/25 03:06 Specimen Type Arterial 06/29/25 06:06 Sample Site Brachial, right 06/29/25 06:06 ABG pH 7.36 (7.35-7.45) 06/29/25 06:06 ABG pCO2 74.2 mmHg (35-45) H* 06/29/25 06:06 ABG pO2 69.5 mmHg (80.0-100.0) L 06/29/25 06:06 ABG PO2/FiO2 Ratio 198 06/29/25 06:06 ABG HCO3 42.0 mmol/L (22-26) H 06/29/25 06:06 ABG O2 Saturation 95.2 06/29/25 06:06 ABG Base Excess 13.7 mmol/L (-2.0-2.0) H 06/29/25 06:06 [place] Test N/a 06/29/25 06:06 VBG pH 7.28 (7.32-7.42) L 06/29/25 03:16 VBG pCO2 91.5 mmHg (41-51) H* 06/29/25 03:16 VBG pO2 34.1 mmHg (25-40) 06/29/25 03:16 VBG HCO3 43.3 mmol/L (24-28) H 06/29/25 03:16 VBG Base Excess 13.4 mmol/L (-3.0-3.0) H 06/29/25 03:16 VBG Hematocrit 33.1 % (42-52) L 06/29/25 03:16 A-a O2 Gradient 12.0 mmHg (5-10) H 06/29/25 06:06 Hematocrit 34.8 % (42-52) L 06/29/25 06:06 Hgb O2 Saturation 92.9 % (95-100) L 06/29/25 06:06 Carboxyhemoglobin 1.2 %THgb (0.4-20.1) 06/29/25 06:06 Methemoglobin 1.2 % (0.4-1.5) 06/29/25 06:06 Total Hemoglobin 11.4 g/dL (14-18) L 06/29/25 06:06 Sodium 144.0 mmol/L (131-143) H 06/29/25 06:06 Potassium 5.0 mmol/L (3.5-5.0) 06/29/25 06:06 Glucose 143.0 mg/dL (70-115) H 06/29/25 06:06 Ionized Calcium 1.1 mmol/L (1.1-1.4) 06/29/25 06:06 O2 Delivery Device Bipap 06/29/25 06:06 O2 Liters/Min 4.0 % 06/28/25 20:37 FiO2 35.0 % 06/29/25 06:06 Tidal Volume 0.50 06/29/25 06:06 PEEP 8.0 cmH20 06/29/25 06:06 Toggle Press Folder And Feeder ID [id number] 06/29/25 06:06 Sodium 146 mmol/L (136-145) H 06/29/25 03:06 Potassium 4.8 mmol/L (3.5-5.1) 06/29/25 03:06 Chloride 101 mmol/L (98-107) 06/29/25 03:06 Carbon Dioxide 40 mmol/L (22-29) H 06/29/25 03:06 Anion Gap 9.8 (5-19) 06/29/25 03:06 BUN 21 mg/dL (8-23) 06/29/25 03:06 Creatinine 1.0 mg/dL (0.7-1.2) 06/29/25 03:06 GFR Calculation 73.9 mL/min (90-130) L 06/29/25 03:06 Glucose 130 mg/dL (65-115) H 06/29/25 03:06 Calculated Osmolality 307 mOsm/kg (285-295) H 06/29/25 03:06 Lactic Acid 0.8 mmol/L (0.5-2.2) 06/28/25 22:12 Calcium 8.5 mg/dL (8.5-10.5) 06/29/25 03:06 Phosphorus 3.2 mg/dL (2.5-4.5) 06/28/25 22:12 Magnesium 2.4 mg/dL (1.7-2.3) H 06/29/25 03:06 Total Bilirubin 0.2 mg/dL (0.15-1.2) 06/29/25 03:06 AST 15 U/L (0-40) 06/29/25 03:06 ALT 16 U/L (0-41) 06/29/25 03:06 Alkaline Phosphatase 86 U/L (40-130) 06/29/25 03:06 Troponin T Baseline 23 ng/L (0-15) H 06/28/25 22:12 NT-Pro-B Natriuret Pep 78 pg/mL (0-125) 06/28/25 22:12 Total Protein 6.8 g/dL (6.6-8.7) 06/29/25 03:06 Albumin 3.7 g/dL (3.5-5.2) 06/29/25 03:06 Globulin 3.1 g/dL (1.3-4.6) 06/29/25 03:06 Urine Color Yellow (Yellow) 06/28/25 22:30 Urine Appearance Clear (CLEAR) 06/28/25 22: Urine pH 5.5 (5-7) 06/28/25 22:30 Ur Specific [place] 1.013 (1.005-1.030) 06/28/25 22:30 Urine Protein Trace (Negative) A 06/28/25 22:30 Urine Glucose (UA) Negative (Normal) 06/28/25 22:30 Urine Ketones Negative (Negative) 06/28/25 22: Urine Blood Negative (Negative) 06/28/25 22:30 Urine Nitrate Negative (Negative) 06/28/25 22:30 Urine Bilirubin Negative (Negative) 06/28/25: Urine Urobilinogen 1.0 mg/dL (Negative) 06/28/25 22:30 Ur Leukocyte Esterase Negative (Negative) 06/28/25 22:30 Urine RBC None /hpf (0-2) 06/28/25 22:30 Urine WBC 0-4 /hpf (0-5) H 06/28/25 22:30 Ur Squamous Epith Cells 0-4 /hpf (0-5) H 06/28/25 22:30 Amorphous Sediment Not Reportable 06/28/25 22:30 Urine Bacteria 1+ /hpf (NONE) H 06/28/25 22:30 Vitals Last Vital Signs Temp 98.3 F 06/30/25 16:22 Pulse 94 06/30/25 16:22 Resp 20 H 06/30/25 16:22 BP 127/100 06/30/25 16:22 Pulse Ox 92 06/30/25 16:22 O2 Del Method BiPAP 06/30/25 15:07 O2 Flow Rate 3 06/30/25 15:07 FiO2 35 06/30/25 03:02 Discharge Plan Discharge Patient Disposition: Home Condition: Stable Prescriptions: Continued nicotine 14 mg/24 hr Patch 24 Hour 1 patch transdermal DAILY Qty: 14 0RF ipratropium-albuterol 0.5 mg-3 mg(2.5 mg base)/3 mL Solution For Nebulization 3 ml inhalation Q6H PRN (Reason: Shortness Of Breath) Qty: 180 0RF docusate sodium 100 mg Capsule 100 mg PO BID Qty: 60 0RF nicotine 7 mg/24 hr patch 24 hour 1 patch transdermal DAILY Qty: 14 0RF losartan 50 mg Tablet 50 mg PO DAILY Qty: 30 0RF budesonide 0.5 mg/2 mL Suspension For Nebulization 0.5 mg inhalation BID.RESPIRATORY Qty: 60 0RF diltiazem HCl 120 mg Capsule,Extended Release 24hr 120 mg PO DAILY Qty: 30 0RF diazepam [Valium] 5 mg tablet 2.5 mg PO BID PRN (Reason: anxiety) Qty: 14 0RF furosemide 40 mg tablet 40 mg PO DAILY Qty: 30 0RF hydrocodone-acetaminophen 7.5-325 mg tablet 1 tab PO BID PRN (Reason: chronic pain) Qty: 20 0RF pantoprazole 40 mg tablet,delayed release (DR/EC) 40 mg PO DAILY Qty: 30 0RF polyethylene glycol 3350 17 gram/dose powder 17 g PO DAILY Qty: 30 0RF buspirone 15 mg tablet 15 mg PO TID Qty: 90 0RF duloxetine 60 mg capsule,delayed release(DR/EC) 60 mg PO DAILY Qty: 30 0RF albuterol sulfate [Ventolin HFA] 90 mcg/actuation HFA aerosol inhaler 2 inh inhalation Q6H PRN (Reason: shortness of breath or wheezing) Qty: 8.5 0RF Discontinued dexamethasone 4 mg Tablet See Rx Instructions .ROUTE .COMPLEX Qty: 7 0RF Rx Instructions: 4 mg twice a day for 2 days 4 mg once a day for 2 days 2 mg daily for 2 days and stop No Action (DME) Nebulizer 0 .ROUTE .MEDSUPPLY (DME) Trilegy Machine 0 .Route .MEDSUPPLY nicotine (polacrilex) 4 mg gum 4 mg buccal Q2H Qty: 40 4RF tiotropium bromide [Spiriva with HandiHaler] 18 mcg capsule, w/inhalation device 1 cap inhalation DAILY Qty: 60 11RF Rx Instructions: puncture 1 cap using device; one dose = 2 inhalations formoterol fumarate 20 mcg/2 mL solution for nebulization 2 ml inhalation Q12H Qty: 120 6RF prednisone 10 mg tablets,dose pack See Rx Instructions .ROUTE .COMPLEX Qty: 48 0RF Rx Instructions: take 6 tabs x 2 days, then 5 tabs x 2 days, 4 tabs x 2 days, 3 tabs x 2 days, 2 tabs x 2 days, then 1 tab x 2 days Discharge Order = DC NOW: Discharge Order (Routine); Ordered 06/30/25 Ordered By: Zuleima Kwan Referrals: Vincenzo Chawla MD [Physician, Pulmonology] - 2 weeks Referral Note: Thursday, July 10, 2025 at 10:45 a.m. Patient Instructions: Prednisone (By mouth) (Prednisone Intensol, Prednicot, Deltasone, Naldo), Opioid Safety, Patient Portal & Polly Instructions Discharge Attestations Time Spent in Discharge Care*: less than 30 min Quality Metrics Clinical Quality Measures [ No reported AMI, CVA or VTE this stay] Coding Level of Care Code Acute Code for Chg Fwd Diagnoses Acute on chronic respiratory failure with hypoxia and hypercapnia J96.21; J96.22 Medically noncompliant Z91.199 Hypertension, unspecified type I10 Hypertension type: unspecified Anxiety F41.9 Nicotine dependence F17.200
== END 2025-06-30 18:13 | disposition home or self-care (01) | DRG 189 ==
LOC: ER 06-29 00:23 → ICU 06-29 00:53
PROVIDERS: Admitting Provider Student in an Organized Health Care Education/Training Program; Emergency Provider Student in an Organized Health Care Education/Training Program; Visit Provider Student in an Organized Health Care Education/Training Program
DX: J96.21 Acute and chronic respiratory failure with hypoxia (principal); J44.1 Chronic obstructive pulmonary disease with (acute) exacerbation; J96.22 Acute and chronic respiratory failure with hypercapnia; Z91.199 Patient's noncompliance with other medical treatment and regimen due to unspecified reason; F41.9 Anxiety disorder, unspecified; Z87.891 Personal history of nicotine dependence; Z99.81 Dependence on supplemental oxygen; I50.9 Heart failure, unspecified; I11.0 Hypertensive heart disease with heart failure; F10.90 Alcohol use, unspecified, uncomplicated; Z87.440 Personal history of urinary (tract) infections
CPT/HCPCS: 36415; 36416; 36600; 51702; 71045; 71250; 80051; 80053; 80061; 80202; 80306; 81001; 82330; 82607; 82746; 82803; 82805; 82962; 83540; 83550; 83605; 83735; 83880; 84100; 84145; 84443; 84484; 85025; 86403; 87040; 87070; 87077; 87186; 87205; 87486; 87581; 87633; 87637; 93005; 93306; 94640; 94660; 96365; 96367; 96372; 96375; 97167; 99285; 99291; J0692; J1644; J1650; J1815; J1938; J1956; J2470; J2543; J2919; J3372; J3373; J7512; J7626; J9999

== ENCOUNTER 2025-07-03 03:05 | Inpatient (IN) | payer MEDICARE, SELFPAY ==
[2025-07-03] VITALS (93 sets, daily range): BP systolic 120–176; BP diastolic 71–99; PULSE 74–97; RESP 14–26; TEMP 36–36.8; O2SAT 88–99; BMI 31.5
--- NOTE | 2025-07-03 03:15 | XRR_ITS ---
PROCEDURE INFORMATION: Exam: XR Chest Exam date and time: 07/03/2025 3:15 AM Age: 70 years old Clinical indication: Shortness of breath; Prior surgery; Surgery date: 6+ months; Surgery type: Clavicle fixation; C/O SOB. Recent hospitilization with bronchitis. TECHNIQUE: Imaging protocol: Radiologic exam of the chest. Views: 1 view. COMPARISON: CT chest con [id number] 06/28/2025 11:19 PM FINDINGS: Lungs: There is mild left basilar scarring versus atelectasis. Otherwise the lungs are clear. Pleural spaces: Unremarkable. No pleural effusion. No pneumothorax. Heart/Mediastinum: Unremarkable. No cardiomegaly. Bones/joints: Unremarkable. XR/XR chest 1V portable [id number] IMPRESSION: No acute findings.
[2025-07-03 03:23] LABS: Hematocrit 39.1 % (37-53); Hemoglobin 10.50 g/dL (11.27-16.99); Mean Corpuscular HGB Conc 26.9 g/dL (30-55); Mean Corpuscular Hemoglobin 23.2 pg (27-33); Mean Corpuscular Volume 86.3 fl (82-101); Nucleated Red Blood Cells % 0 %; Platelet Count 418 10^3/cmm (157-399); Red Blood Count 4.53 10^6/uL (3.85-5.65); White Blood Count 22.18 10^3/uL (3.29-11.43)
[2025-07-03 03:34] LABS: ABG PH Result 7.20 (7.35-7.45); Arterial Blood Gas Hematocrit 33.4 % (42-52); Blood Gas Allen Test Pos; Blood Gas LPM 3.0 %; Blood Gas Operator Identificat BD; Blood Gas Sample Site Brachial, right; Blood Gas Sample Type Arterial; Carboxyhemoglobin 1.2 %THgb (0.4-20.1); HCO3 ABG 42.8 mmol/L (22-26); Methemoglobin 0.5 % (0.4-1.5); PO2 ABG 87.2 mmHg (80.0-100.0); PO2 FiO2 Ratio Arterial Blood 272
--- OUTSIDE RECORDS SUMMARY | 2025-07-03 03:38 | XMS_ITS | Clinical Summary ---
Author Organization [facility] Address [address] Rodriguezn: [place] [address] Care Team Providers Care Art Librarian Name Role Phone Unavailable Primary Care Provider Unavailabl e Social History Tobacco Use Types Packs/Day Years Used Date Smoking Tobacco: Never Assessed Sex and Gender Information Value Date Recorded Sex Assigned at Not on file Legal Sex Male 5:35 AM [employer] Gender Identity Not on file Sexual Orientation [...]
[2025-07-03 03:39] LABS: ABG PCO2 > 102.0 mmHg (35-45)
--- OUTSIDE RECORDS SUMMARY | 2025-07-03 03:39 | XMS_ITS | Data Portability ---
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 Plan of Treatment Reminders Order Date Submit Date Provider Last Modified By Organization Details Last Modified Time Details Appointments None recorded. Lab CBC w/ auto diff 2024 025 [facility], [address], [address], [place], [address], 5 05:18:50 CMP, serum or plasma 2024 025 [facility], [address], [address], [place], [address], 5 06:09:00 Referral home health referral 2024 025 [facility], [address], [place], [address], 5 09:30:14 Procedures None recorded. Surgeries None recorded. Imaging None recorded. Medication Orders Miralax 17 gram/dose oral powder 2024 025 [facility], [address] [place] [address], [id number], 17:48:46 buspirone 15 mg tablet 2024 025 [facility], [address] [place] [address], [id number], 17:48:45 metoprolol succinate ER 100 mg tablet,ext ended release 24 hr 2024 025 [facility], [address] [place] [address], [address], 17:48:45 Patient TargetsNo targets recorded. Patient Instructions Encounter Date Encounter Id Patient Instructions Last Modified By Organization Details Last Modified Time 05/11/2025 [id number] Order given to check CBC and CMP Cont current medications [email or web address] Not available 05/22/2025 00:54:07 05/15/2025 [id number] Patient to continue medications and plan of care as currently ordered. Will follow up with patient on routine rounds or sooner if needed. [email or web address] Not available 05/15/2025 18:37:38 05/17/2025 [id number] Patient to continue medications and plan of care as currently ordered. Will follow up with patient on routine rounds or sooner if needed. [email or web address] Not available 05/21/2025 18:33:34 05/26/2025 [id number] Patient to continue medications and plan of care as currently ordered. Follow up with PCP and Telemedicine Visit on 06/05/2025. Hydrocodone 5/325mg every 6 hours PRN Continue supplemental oxygen Continue current medications Not available 05/29/2025 19:11:41 06/07/2025 [id number] learning about anxiety disorders [email or web address] Not available [...] plasma 110 mg/dL 74-106 high Not Available [facility] [address], [place], [address], 05/02/2025 21:13:32 05/02/20 25 05/02/2025 CHEMI STRY STUDI ES urea nitrogen [mass/volume ] in serum or plasma 22 mg/dL 9-20 high Not Available [facility] [address], [place], [address], 05/02/2025 21:13:32 05/02/20 25 05/02/2025 CHEMI STRY STUDI ES creatinine [mass/volume ] in serum or plasma 0.9 mg/dL 0.8-1. 5 Not Available [place] [facility] [address], [place], [address], 05/02/2025 21:13:32 05/02/20 25 05/02/2025 CHEMI STRY STUDI ES sodium [moles/volum e] in serum or plasma 139 mmol/ L 137-14 5 Not Available [place] [facility] [address], [place], [address], 05/02/2025 21:13:32 05/02/20 25 05/02/2025 CHEMI STRY STUDI ES potassium [moles/volum e] in serum or plasma 5.8 mmol/ L 3.5-5. 1 high Not Available [place] [facility] [address], [place], [address], 05/02/2025 21:13:32 05/02/20 25 05/02/2025 CHEMI STRY STUDI ES chloride [moles/volum e] in serum or plasma 98 mmol/ L 98-107 Not Available [facility] [address], [place], [address], 05/02/2025 21:13:32 05/02/20 25 05/02/2025 CHEMI STRY STUDI ES carbon dioxide, total [moles/volum e] in serum or plasma 37 mmol/ L 22-30 high Not Available [facility] [address], [place], [address], 05/02/2025 21:13:32 05/02/20 25 05/02/2025 CHEMI STRY STUDI ES calcium [mass/volume ] in blood 8.8 mg/dL 8.4-10 .2 Not Available [facility] [address], [place], [address], 05/02/2025 21:13:32 05/02/20 25 05/02/2025 CHEMI STRY STUDI ES anion gap in serum or plasma by calculation 4 mEq/L 4-12 Not Available [facility] [address], [place], [address], 05/02/2025 21:13:32 05/02/20 25 05/02/2025 CHEMI STRY STUDI ES urea nitrogen/cre atinine [mass ratio] in blood 24.4 % 12.0-2 0.0 high Not Available [facility] [address], [place], [address], 05/02/2025 21:13:32 05/02/20 25 05/02/2025 CHEMI STRY STUDI ES osmolality of serum or plasma by calculated by sum of electrolytes 282 mOsm/ kg 261-28 0 high Not Available [facility] [address], [place], [address], 05/02/2025 21:13:32 05/02/20 25 05/02/2025 CHEMI STRY STUDI ES glomerular filtration rate [volume rate/area] in serum, plasma or blood by creatinine-b ased formula (CKD-epi)/1. 73 sq M 92 mL 90-120 >=90 Imani l 60-89 Mildl y Decre ased 45-59 Mildl y to Moder ately Decre ased 30-44 Moder ately to Sever jelly Decre ased 15-29 Sever jelly Decre ased <15 Kidne y Failu re Not Available [facility] [address], [place], [address], 05/02/2025 21:13:32 05/02/2005/02/2025 CHEMI STRY STUDI ES [...] used for stagi ng CKD. Not Available [facility] [address], [place], [address], 05/02/2025 21:13:32 05/02/20 25 05/02/2025 CHEMI STRY STUDI ES phosphate [mass/volume ] in serum or plasma 4.1 mg/dL 2.5-4. 5 Not Available [facility] [address], [place], [address], 05/02/2025 21:13:32 05/02/2005/02/2025 CHEMI STRY STUDI ES magnesium [mass/volume ] in serum or plasma 2.3 mg/dL 1.6-2. 3 Not Available [facility] [address], [place], [address], 05/02/2025 21:13:32 05/02/20 25 05/02/2025 CHEMI STRY STUDI ES albumin [mass/volume ] in serum or plasma 4.2 g/dL 3.5-5. 0 Not Available [facility] [address], [place], [address], 05/02/2025 21:13:32 05/02/20 25 05/02/2025 D-LAC POE [MOLE S/VOL UME] IN SERUM OR PLASM A D-lactate [moles/volum e] in serum or plasma 0.8 mmol/ L 0.7-2. 0 Not Available [facility] [address], [place], [place], [address], 05/02/2025 21:22:11 05/02/20 25 05/02/2025 GAS PANEL - ARTER IAL BLOOD pH of arterial blood 7.26 nmol/ L 7.35-7 .45 critical low Not Available [facility] [address], [place], [address], 05/02/2025 23:07:26 05/02/20 25 05/02/2025 GAS PANEL - ARTER IAL BLOOD carbon dioxide [partial pressure] in arterial blood 86 mm[hg ] 35-45 critical high Not Available [facility] [address], [place], [address], 05/02/2025 23:07:26 05/02/20 25 05/02/2025 GAS PANEL - ARTER IAL BLOOD oxygen [partial pressure] in arterial blood 230 mm[hg ] 80-100 critical high Not Available [facility] [address], [place], [address], 05/02/2025 23:07:26 05/02/20 25 05/02/2025 GAS PANEL - ARTER IAL BLOOD bicarbonate [moles/volum e] in arterial blood 38.6 mmol/ L 22-26 high Not Available [facility] [address], [place], [address], 05/02/2025 23:07:26 05/02/20 25 05/02/2025 GAS PANEL - ARTER IAL BLOOD base excess in arterial blood by calculation 8.5 mmol/ L -2.2-2 .2 high Not Available [facility] [address], [place], [address], 05/02/2025 23:07:26 05/02/20 25 05/02/2025 GAS PANEL - ARTER IAL BLOOD oxygen saturation in arterial blood 100 % 95-98 high Not Available [facility] [address], [place], [address], 05/02/2025 23:07:26 05/02/20 25 05/02/2025 GAS PANEL - ARTER IAL BLOOD blood gas studies Lt. Rad. Not Available [facility] [address], [place], [address], 05/02/2025 23:07:26 05/02/20 25 05/02/2025 GAS PANEL - ARTER IAL BLOOD gas panel - blood 12, 09/01, 80% BiPAP Not Available [facility] [address], [place], [address], 05/02/2025 23:07:26 05/02/20 25 05/02/2025 GAS PANEL - ARTER IAL BLOOD arterial patency wrist artery --pre arterial puncture YES + Not Available [facility] [address], [place], [address], 05/02/2025 23:07:26 05/02/20 25 05/02/2025 GAS PANEL - ARTER IAL BLOOD gas panel - blood YES Not Available [facility] [address], [place], [address], 05/02/2025 23:07:26 05/02/20 25 05/02/2025 GAS PANEL - ARTER IAL BLOOD blood gas studies Timmot hy, MARKETING EFFECTIVENESS MANAGER Docum ent Resul t Deliv missy: Not Available [facility] [address], [place], [address], 05/02/2025 23:07:26 05/02/20 25 05/02/2025 RESP VIRUS PNL XXX PCR virus identified in specimen Not detect ed Not Available [facility] [address], [place], [address], 05/02/2025 23:49:08 05/02/20 25 05/02/2025 RESP VIRUS PNL XXX PCR respiratory pathogens DNA and RNA 12A panel - specimen by MONI with probe detection Not Detect ed When diagn ostic testi ng is negat tagnela, the possi bilit y of a false [...] nt manag ement decis ions. Not Available [facility] [address], [place], [address], 05/02/2025 23:49:08 05/02/20 25 05/02/2025 RESP VIRUS PNL XXX PCR human metapneumovi deanne RNA [presence] in specimen by MONI with probe detection Not detect ed Not Available [facility] [address], [place], [address], 05/02/2025 23:49:08 05/02/20 25 05/02/2025 RESP VIRUS PNL XXX PCR rhinovirus RNA [identifier] in specimen by MONI with probe detection Not detect ed Not Available [facility] [address], [place], [address], 05/02/2025 23:49:08 05/02/20 25 05/02/2025 RESP VIRUS PNL XXX PCR influenza virus A RNA [presence] in specimen by MONI with probe detection Not Detect ed Not Available [facility] [address], [place], [address], 05/02/2025 23:49:08 05/02/20 25 05/02/2025 RESP VIRUS PNL XXX PCR influenza virus A H1 RNA [presence] in specimen by MONI with probe detection Not detect ed Not Available [facility] [address], [place], [address], 05/02/2025 23:49:08 05/02/20 25 05/02/2025 RESP VIRUS PNL XXX PCR influenza virus A H1 2009 pandemic RNA [presence] in specimen by MONI with probe detection Not detect ed Not Available [facility] [address], [place], [address], 05/02/2025 23:49:08 05/02/20 25 05/02/2025 RESP VIRUS PNL XXX PCR influenza virus A H3 RNA [presence] in specimen by MONI with probe detection Not detect ed Not Available [facility] [address], [place], [address], 05/02/2025 23:49:08 05/02/20 25 05/02/2025 RESP VIRUS PNL XXX PCR influenza virus B RNA [presence] in specimen by MONI with probe detection Not Detect ed Not Available [facility] [address], [place], [address], 05/02/2025 23:49:08 05/02/20 25 05/02/2025 RESP VIRUS PNL XXX PCR parainfluenz a virus 1 RNA [presence] in specimen by MONI with probe detection Not detect ed Not Available [facility] [address], [place], [address], 05/02/2025 23:49:08 05/02/20 25 05/02/2025 RESP VIRUS PNL XXX PCR parainfluenz a virus 2 RNA [presence] in specimen by MONI with probe detection Not detect ed Not Available [facility] [address], [place], [address], 05/02/2025 23:49:08 05/02/20 25 05/02/2025 RESP VIRUS PNL XXX PCR parainfluenz a virus 3 RNA [presence] in specimen by MONI with probe detection Not detect ed Not Available [facility] [address], [place], [address], 05/02/2025 23:49:08 05/02/20 25 05/02/2025 RESP VIRUS PNL XXX PCR parainfluenz a virus 4 RNA [presence] in specimen by MONI with probe detection Not detect ed Not Available [facility] [address], [place], [address], 05/02/2025 23:49:08 05/02/20 25 05/02/2025 RESP VIRUS PNL XXX PCR respiratory syncytial virus A RNA [presence] in specimen by MONI with probe detection Not detect ed Not Available [facility] [address], [place], [address], 05/02/2025 23:49:08 05/02/20 25 05/02/2025 RESP VIRUS PNL XXX PCR respiratory syncytial virus B RNA [presence] in specimen by MONI with probe detection Not detect ed Not Available [facility] [address], [place], [address], 05/02/2025 23:49:08 05/02/20 25 05/02/2025 RESP VIRUS PNL XXX PCR chlamydophil a pneumoniae DNA [presence] in sputum or bronchial by probe with amplificatio n Not detect ed Not Available [facility] [address], [place], [address], 05/02/2025 23:49:08 05/02/20 25 05/02/2025 RESP VIRUS [...] lecte d and retes jarvis. Not Available [facility] [address], [place], [address], 05/02/2025 23:49:08 05/02/20 25 05/02/2025 METHI CILLI N RESIS TANT STAPH YLOCO CCUS AUREU S (MRSA ) DNA [PRES ENCE] IN SPECI MEN BY MONI WITH PROBE DETEC TION microorganis m identified in specimen by culture MRSA DNA DETECT ED abnormal Not Available [facility] [address], [place], [address], 05/04/2025 20:44:08 05/03/20 25 05/03/2025 GAS PANEL - ARTER IAL BLOOD pH of arterial blood 7.29 nmol/ L 7.35-7 .45 critical low Not Available [facility] [address], [place], [address], 05/03/2025 04:33:27 05/03/20 25 05/03/2025 GAS PANEL - ARTER IAL BLOOD carbon dioxide [partial pressure] in arterial blood 80 mm[hg ] 35-45 critical high Not Available [facility] [address], [place], [address], 05/03/2025 04:33:27 05/03/20 25 05/03/2025 GAS PANEL - ARTER IAL BLOOD oxygen [partial pressure] in arterial blood 63 mm[hg ] 80-100 low Not Available [facility] [address], [place], [address], 05/03/2025 04:33:27 05/03/20 25 05/03/2025 GAS PANEL - ARTER IAL BLOOD bicarbonate [moles/volum e] in arterial blood 38.5 mmol/ L 22-26 high Not Available [facility] [address], [place], [address], 05/03/2025 04:33:27 05/03/20 25 05/03/2025 GAS PANEL - ARTER IAL BLOOD base excess in arterial blood by calculation 9.0 mmol/ L -2.2-2 .2 high Not Available [facility] [address], [place], [address], 05/03/2025 04:33:27 05/03/20 25 05/03/2025 GAS PANEL - ARTER IAL BLOOD oxygen saturation in arterial blood 89 % 95-98 low Not Available [facility] [address], [place], [address], 05/03/2025 04:33:27 05/03/20 25 05/03/2025 GAS PANEL - ARTER IAL BLOOD blood gas studies Lt. Rad. Not Available [facility] [address], [place], [address], 05/03/2025 04:33:27 05/03/20 25 05/03/2025 GAS PANEL - ARTER IAL BLOOD gas panel - blood 2 lpm Nasal Cannu la Not Available [facility] [address], [place], [address], 05/03/2025 04:33:27 05/03/20 25 05/03/2025 GAS PANEL - ARTER IAL BLOOD arterial patency wrist artery --pre arterial puncture YES + Not Available [facility] [address], [place], [address], 05/03/2025 04:33:27 05/03/20 25 05/03/2025 GAS PANEL - ARTER IAL BLOOD gas panel - blood YES Not Available [facility] [address], [place], [address], 05/03/2025 04:33:27 05/03/2005/03/2025 GAS PANEL - ARTER IAL BLOOD blood gas studies Timmot hy, MARKETING EFFECTIVENESS MANAGER Docum ent Resul t [place]is missy: Not Available [place] [facility] [address], [place], [address], 05/03/2025 04:33:27 05/03/2005/03/2025 CBC W AUTO DIFFE PSARKLETI AL PANEL - BLOOD leukocytes [#/volume] in blood by automated count 12.0 10*3/ uL 4.5-11 .0 high 0347, 05/03 Not Available [facility] [address], [place], [address], 05/03/2025 04:51:46 05/03/2005/03/2025 CBC W AUTO DIFFE RENTI AL PANEL - BLOOD erythrocytes [#/volume] in blood by automated count 4.71 10*6/ uL 4.5-6. 00 Not Available [facility] [address], [place], [address], 05/03/2025 04:51:46 05/03/2005/03/2025 CBC W AUTO DIFFE RENTI AL PANEL - BLOOD hemoglobin [mass/volume ] in blood 11.1 g/dL 13.5-1 8.0 low Not Available [facility] [address], [place], [address], 05/03/2025 04:51:46 05/03/2005/03/2025 CBC W AUTO DIFFE RENTI AL PANEL - BLOOD hematocrit [volume fraction] of blood by automated count 39.8 % 42.0-5 4.0 low Not Available [facility] [address], [place], [address], 05/03/2025 04:51:46 05/03/2005/03/2025 CBC W AUTO DIFFE RENTI AL PANEL - BLOOD MCV [entitic mean volume] in red blood cells by automated count 84.5 fL 80-100 Not Available [facility] [address], [place], [address], 05/03/2025 04:51:46 05/03/2005/03/2025 CBC W AUTO DIFFE RENTI AL PANEL - BLOOD MCH [entitic mass] by automated count 23.6 pg 27-32 low Not Available [facility] [address], [place], [address], 05/03/2025 04:51:46 05/03/20 25 05/03/2025 CBC W AUTO DIFFE RENTI AL PANEL - BLOOD MCHC [entitic mass/volume] in red blood cells by automated count 27.9 g/dL 31.0-3 7.0 low Not Available [place] [facility] [address], [place], [address], 05/03/2025 04:51:46 05/03/20 25 05/03/2025 CBC W AUTO DIFFE RENTI AL PANEL - BLOOD erythrocyte [distwidth] in red blood cells by automated count 20.0 % 12-14. 5 high Not Available [place] [facility] [address], [place], [address], 05/03/2025 04:51:46 05/03/20 25 05/03/2025 CBC W AUTO DIFFE RENTI AL PANEL - BLOOD platelets [#/volume] in blood 481 10*3/ uL 150-45 0 high 0347, 05/03 Not Available [place] [facility] [address], [place], [address], 05/03/2025 04:51:46 05/03/20 25 05/03/2025 CBC W AUTO DIFFE RENTI AL PANEL - BLOOD platelet [entitic mean volume] in blood by automated count 11.0 fL 9.1-13 .2 Not Available [place] [facility] [address], [place], [address], 05/03/2025 04:51:46 05/03/20 25 05/03/2025 CBC W AUTO DIFFE RENTI AL PANEL - BLOOD segmented neutrophils/ leukocytes in blood by automated count 92.4 % 40-70 high Not Available [facility] [address], [place], [address], 05/03/2025 04:51:46 05/03/20 25 05/03/2025 CBC W AUTO DIFFE RENTI AL PANEL - BLOOD lymphocytes/ leukocytes in blood by flow cytometry (fc) 5.1 % 20-44 low Not Available [place] [address], [place], [address], 05/03/2025 04:51:46 05/03/20 25 05/03/2025 CBC W AUTO DIFFE RENTI AL PANEL - BLOOD monocytes/le ukocytes in blood by automated count 1.1 % 2-9 low Not Available [facility] [address], [place], [address], 05/03/2025 04:51:46 05/03/20 25 05/03/2025 CBC W AUTO DIFFE RENTI AL PANEL - BLOOD eosinophils/ leukocytes in blood by automated count 0.0 % 0-4 Not Available [facility] [address], [place], [address], 05/03/2025 04:51:46 05/03/20 25 05/03/2025 CBC W AUTO DIFFE RENTI AL PANEL - BLOOD basophils/le ukocytes in blood by automated count 0.3 % 0-1 Not Available [facility] [address], [place], [address], 05/03/2025 04:51:46 05/03/20 25 05/03/2025 CBC W AUTO DIFFE RENTI AL PANEL - BLOOD neutrophils [#/volume] in blood by automated count 11.13 10*3/ uL 1.8-7. 7 high Not Available [place] [facility] [address], [place], [address], 05/03/2025 04:51:46 05/03/20 25 05/03/2025 CBC W AUTO DIFFE RENTI AL PANEL - BLOOD lymphocytes [#/volume] in blood by automated count 0.61 10*3/ uL 0.9-4. 8 low Not Available [place] [facility] [address], [place], [address], 05/03/2025 04:51:46 05/03/20 25 05/03/2025 CBC W AUTO DIFFE RENTI AL PANEL - BLOOD monocytes [#/volume] in blood by automated count 0.1 10*3/ uL 0-0.8 Not Available [facility] [address], [place], [address], 05/03/2025 04:51:46 05/03/20 25 05/03/2025 CBC W AUTO DIFFE RENTI AL PANEL - BLOOD eosinophils [#/volume] in blood by automated count 0.00 10*3/ uL 0-0.7 Not Available [facility] [address], [place], [address], 05/03/2025 04:51:46 05/03/20 25 05/03/2025 CBC W AUTO DIFFE RENTI AL PANEL - BLOOD basophils [#/volume] in blood by automated count 0.04 10*3/ uL 0-0.2 Not Available [facility] [address], [place], [address], 05/03/2025 04:51:46 05/03/20 25 05/03/2025 CBC W AUTO DIFFE RENTI AL PANEL - BLOOD immature granulocytes [presence] in blood by automated count 1.1 % 0-0.7 high Not Available [facility] [address], [place], [address], 05/03/2025 04:51:46 05/03/20 25 05/03/2025 CBC W AUTO DIFFE RENTI AL PANEL - BLOOD immature granulocytes [#/volume] in blood 0.13 10*3/ uL 0.00-0 .06 high Not Available [facility] [address], [place], [address], 05/03/2025 04:51:46 05/03/20 25 05/03/2025 CBC W AUTO DIFFE RENTI AL PANEL - BLOOD nucleated erythrocytes /leukocytes [ratio] in blood by automated count 0.2 % 0-0 high Not Available [facility] [address], [place], [address], 05/03/2025 04:51:46 05/03/20 25 05/03/2025 CHEMI STRY STUDI ES glucose [mass/volume ] in serum or plasma 139 mg/dL 74-106 high Not Available [facility] [address], [place], [address], 05/03/2025 05:26:51 05/03/20 25 05/03/2025 CHEMI STRY STUDI ES urea nitrogen [mass/volume ] in serum or plasma 28 mg/dL 9-20 high Not Available [facility] [address], [place], [address], 05/03/2025 05:26:51 05/03/20 25 05/03/2025 CHEMI STRY STUDI ES creatinine [mass/volume ] in serum or plasma 1.0 mg/dL 0.8-1. 5 Not Available [place] [facility] [address], [place], [address], 05/03/2025 05:26:51 05/03/20 25 05/03/2025 CHEMI STRY STUDI ES sodium [moles/volum e] in serum or plasma 138 mmol/ L 137-14 5 Not Available [place] [facility] [address], [place], [address], 05/03/2025 05:26:51 05/03/20 25 05/03/2025 CHEMI STRY STUDI ES potassium [moles/volum e] in serum or plasma 6.2 mmol/ L 3.5-5. 1 critical high RESUL TS HILL D TO CAROLYN BY Ángel jones at 0425, 05/03. Not Available [place] [facility] [address], [place], [address], 05/03/2025 05:26:51 05/03/20 25 05/03/2025 CHEMI STRY STUDI ES chloride [moles/volum e] in serum or plasma 97 mmol/ L 98-107 low Not Available [facility] [address], [place], [address], 05/03/2025 05:26:51 05/03/20 25 05/03/2025 CHEMI STRY STUDI ES carbon dioxide, total [moles/volum e] in serum or plasma 35 mmol/ L 22-30 high Not Available [facility] [address], [place], [address], 05/03/2025 05:26:51 05/03/20 25 05/03/2025 CHEMI STRY STUDI ES calcium [mass/volume ] in blood 8.9 mg/dL 8.4-10 .2 Not Available [facility] [address], [place], [address], 05/03/2025 05:26:51 05/03/20 25 05/03/2025 CHEMI STRY STUDI ES anion gap in serum or plasma by calculation 6 mEq/L 4-12 Not Available [facility] [address], [place], [address], 05/03/2025 05:26:51 05/03/20 25 05/03/2025 CHEMI STRY STUDI ES urea nitrogen/cre atinine [mass ratio] in blood 28.0 % 12.0-2 0.0 high Not Available [facility] [address], [place], [address], 05/03/2025 05:26:51 05/03/20 25 05/03/2025 CHEMI STRY STUDI ES osmolality of serum or plasma by calculated by sum of electrolytes 284 mOsm/ kg 261-28 0 high Not Available [facility] [address], [place], [address], 05/03/2025 05:26:51 05/03/2005/03/2025 CHEMI STRY STUDI ES [...] <15 Kidne y Failu re Not Available [facility] [address], [place], [address], 05/03/2025 05:26:51 05/03/2005/03/2025 CHEMI STRY STUDI ES [...] used for stagi ng CKD. Not Available [facility] [address], [place], [address], 05/03/2025 05:26:51 05/03/2005/03/2025 CHEMI STRY STUDI ES phosphate [mass/volume ] in serum or plasma 4.8 mg/dL 2.5-4. 5 high Not Available [facility] [address], [place], [address], 05/03/2025 05:26:51 05/03/2005/03/2025 CHEMI STRY STUDI ES magnesium [mass/volume ] in serum or plasma 2.3 mg/dL 1.6-2. 3 Not Available [facility] [address], [place], [address], 05/03/2025 05:26:51 05/03/20 25 05/03/2025 CHEMI STRY STUDI ES albumin [mass/volume ] in serum or plasma 4.3 g/dL 3.5-5. 0 Not Available [facility] [address], [place], [address], 05/03/2025 05:26:51 05/03/20 25 05/03/2025 D-LAC POE [MOLE S/VOL UME] IN SERUM OR PLASM A D-lactate [moles/volum e] in serum or plasma 1.5 mmol/ L 0.7-2. 0 Not Available [facility] [address], [place], [address], 05/03/2025 05:54:16 05/03/20 25 05/03/2025 TROPO LIZETTE I.CAR DIAC [MASS /VOLU ME] IN SERUM OR PLASM A troponin I.cardiac [mass/volume ] in serum or plasma <0.012 NG/mL 0-0.03 4 Not Available [facility] [address], [place], [address], 05/03/2025 06:01:24 05/03/20 25 05/03/2025 CHEMI STRY STUDI ES glucose [mass/volume ] in serum or plasma 139 mg/dL 74-106 high Not Available [facility] [address], [place], [address], 05/03/2025 06:01:24 05/03/20 25 05/03/2025 CHEMI STRY STUDI ES urea nitrogen [mass/volume ] in serum or plasma 28 mg/dL 9-20 high Not Available [facility] [address], [place], [address], 05/03/2025 06:01:24 05/03/20 25 05/03/2025 CHEMI STRY STUDI ES creatinine [mass/volume ] in serum or plasma 1.0 mg/dL 0.8-1. 5 Not Available [facility] [address], [place], [address], 05/03/2025 06:01:24 05/03/20 25 05/03/2025 CHEMI STRY STUDI ES sodium [moles/volum e] in serum or plasma 138 mmol/ L 137-14 5 Not Available [facility] [address], [place], [address], 05/03/2025 06:01:24 05/03/20 25 05/03/2025 CHEMI STRY STUDI ES potassium [moles/volum e] in serum or plasma 6.2 mmol/ L 3.5-5. 1 critical high RESUL TS HILL D TO CAROLYN BY Ángel jones at 0425, 05/03. Not Available [facility] [address], [place], [address], 05/03/2025 06:01:24 05/03/20 25 05/03/2025 CHEMI STRY STUDI ES chloride [moles/volum e] in serum or plasma 97 mmol/ L 98-107 low Not Available [facility] [address], [place], [address], 05/03/2025 06:01:24 05/03/20 25 05/03/2025 CHEMI STRY STUDI ES carbon dioxide, total [moles/volum e] in serum or plasma 35 mmol/ L 22-30 high Not Available [facility] [address], [place], [address], 05/03/2025 06:01:24 05/03/20 25 05/03/2025 CHEMI STRY STUDI ES calcium [mass/volume ] in blood 8.9 mg/dL 8.4-10 .2 Not Available [facility] [address], [place], [address], 05/03/2025 06:01:24 05/03/20 25 05/03/2025 CHEMI STRY STUDI ES anion gap in serum or plasma by calculation 6 mEq/L 4-12 Not Available [facility] [address], [place], [address], 05/03/2025 06:01:24 05/03/20 25 05/03/2025 CHEMI STRY STUDI ES urea nitrogen/cre atinine [mass ratio] in blood 28.0 % 12.0-2 0.0 high Not Available [facility] [address], [place], [address], 05/03/2025 06:01:24 05/03/20 25 05/03/2025 CHEMI STRY STUDI ES osmolality of serum or plasma by calculated by sum of electrolytes 284 mOsm/ kg 261-28 0 high Not Available [facility] [address], [place], [address], 05/03/2025 06:01:24 05/03/20 25 05/03/2025 CHEMI STRY [...] <15 Kidne y Failu re Not Available [facility] [address], [place], [address], 05/03/2025 06:01:24 05/03/20 25 05/03/2025 CHEMI STRY [...] used for stagi ng CKD. Not Available [facility] [address], [place], [address], 05/03/2025 06:01:24 05/03/20 25 05/03/2025 CHEMI STRY STUDI ES phosphate [mass/volume ] in serum or plasma 4.8 mg/dL 2.5-4. 5 high Not Available [facility] [address], [place], [address], 05/03/2025 06:01:24 05/03/20 25 05/03/2025 CHEMI STRY STUDI ES magnesium [mass/volume ] in serum or plasma 2.3 mg/dL 1.6-2. 3 Not Available [facility] [address], [place], [address], 05/03/2025 06:01:24 05/03/20 25 05/03/2025 CHEMI STRY STUDI ES albumin [mass/volume ] in serum or plasma 4.3 g/dL 3.5-5. 0 Not Available [facility] [address], [place], [address], 05/03/2025 06:01:24 05/03/20 25 05/03/2025 POTAS SIUM [MOLE S/VOL UME] IN SERUM OR PLASM A potassium [moles/volum e] in serum or plasma 5.0 mmol/ L 3.5-5. 1 Not Available [facility] [address], [place], [address], 05/03/2025 08:13:39 05/03/20 25 05/03/2025 EXTRA YELLO W HOLD TUBE extra yellow hold tube HOLD FOR FUTURE TEST Not Available [facility] [address], [place], [place], [address], 05/03/2025 09:14:29 05/03/2005/03/2025 CORTI MAJOR [MASS /VOLU ME] IN SERUM OR PLASM A --AM PEAK SPECI MEN cortisol [mass/volume ] in serum or plasma --AM peak specimen 4.3 ug/dL 4.46-2 2.7 low Not Available [facility] [address], [place], [address], 05/03/2025 09:58:50 05/03/2005/03/2025 GAS PANEL - ARTER IAL BLOOD pH of arterial blood 7.35 nmol/ L 7.35-7 .45 Not Available [facility] [address], [place], [place], [address], 05/03/2025 10:55:18 05/03/20 25 05/03/2025 GAS PANEL - ARTER IAL BLOOD carbon dioxide [partial pressure] in arterial blood 68 mm[hg ] 35-45 critical high Not Available [facility] [address], [place], [place], [address], 05/03/2025 10:55:18 05/03/20 25 05/03/2025 GAS PANEL - ARTER IAL BLOOD oxygen [partial pressure] in arterial blood 100 mm[hg ] 80-100 Not Available [facility] [address], [place], [address], 05/03/2025 10:55:18 05/03/20 25 05/03/2025 GAS PANEL - ARTER IAL BLOOD bicarbonate [moles/volum e] in arterial blood 37.5 mmol/ L 22-26 high Not Available [facility] [address], [place], [place], [address], 05/03/2025 10:55:18 05/03/20 25 05/03/2025 GAS PANEL - ARTER IAL BLOOD base excess in arterial blood by calculation 9.4 mmol/ L -2.2-2 .2 high Not Available [facility] [address], [place], [address], 05/03/2025 10:55:18 05/03/20 25 05/03/2025 GAS PANEL - ARTER IAL BLOOD oxygen saturation in arterial blood 97 % 95-98 Not Available [facility] [address], [place], [address], 05/03/2025 10:55:18 05/03/20 25 05/03/2025 GAS PANEL - ARTER IAL BLOOD blood gas studies r rad Not Available [facility] [address], [place], [address], 05/03/2025 10:55:18 05/03/2005/03/2025 GAS PANEL - ARTER IAL BLOOD gas panel - blood 45% BiPAP Not Available [facility] [address], [place], [address], 05/03/2025 10:55:18 05/03/20 25 05/03/2025 GAS PANEL - ARTER IAL BLOOD arterial patency wrist artery --pre arterial puncture yes pos Not Available [facility] [address], [place], [address], 05/03/2025 10:55:18 05/03/2005/03/2025 GAS PANEL - ARTER IAL BLOOD gas panel - blood yes AVAPS Vt 500, Min P:14, Max P:30. Not Available [facility] [address], [place], [address], 05/03/2025 10:55:18 05/03/20 25 05/03/2025 GAS PANEL - ARTER IAL BLOOD blood gas studies DOCUME NT IN COMMEN TS Docum ent Resul t Deliv missy: Not Available [facility] [address], [place], [address], 05/03/2025 10:55:18 05/03/20 25 05/03/2025 NATRI URETI C PEPTI DE.B PROHO RMONE N-TER FRANCISCO [MASS /VOLU ME] IN SERUM OR PLASM A natriuretic peptide.B prohormone N-terminal [mass/volume ] in serum or plasma 147.00 pg/mL 0.00-1 25.00 high Not Available [facility] [address] [facility], [place], [address], 05/03/2025 11:18:26 05/03/20 25 05/03/2025 POTAS SIUM [MOLE S/VOL UME] IN SERUM OR PLASM A potassium [moles/volum e] in serum or plasma 5.2 mmol/ L 3.5-5. 1 high Not Available [facility] [address], [place], [address], 05/03/2025 13:53:34 05/03/20 25 05/03/2025 POTAS SIUM [MOLE S/VOL UME] IN SERUM OR PLASM A potassium [moles/volum e] in serum or plasma 5.7 mmol/ L 3.5-5. 1 high Not Available [facility] [address] [facility], [place], [address], 05/03/2025 23:47:40 05/04/20 25 05/04/2025 GLUCO SE [MASS /VOLU ME] IN CAPIL BRITTNEY BLOOD BY GLUCO METER glucose [mass/volume ] in capillary blood by glucometer 107 mg/dL 65-110 Not Available [facility] [address], [place], [address], 05/04/2025 02:14:37 05/04/20 25 05/04/2025 CHEMI STRY STUDI ES glucose [mass/volume ] in serum or plasma 160 mg/dL 74-106 high Not Available [facility] [address], [place], [address], 05/04/2025 05:59:29 05/04/20 25 05/04/2025 CHEMI STRY STUDI ES urea nitrogen [mass/volume ] in serum or plasma 39 mg/dL 9-20 high Not Available [facility] [address], [place], [address], 05/04/2025 05:59:29 05/04/20 25 05/04/2025 CHEMI STRY STUDI ES creatinine [mass/volume ] in serum or plasma 1.0 mg/dL 0.8-1. 5 Not Available [facility] [address], [place], [address], 05/04/2025 05:59:29 05/04/20 25 05/04/2025 CHEMI STRY STUDI ES sodium [moles/volum e] in serum or plasma 136 mmol/ L 137-14 5 low Not Available [facility] [address], [place], [address], 05/04/2025 05:59:29 05/04/20 25 05/04/2025 CHEMI STRY STUDI ES potassium [moles/volum e] in serum or plasma 5.4 mmol/ L 3.5-5. 1 high Not Available [facility] [address], [place], [address], 05/04/2025 05:59:29 05/04/20 25 05/04/2025 CHEMI STRY STUDI ES chloride [moles/volum e] in serum or plasma 99 mmol/ L 98-107 Not Available [facility] [address], [place], [address], 05/04/2025 05:59:29 05/04/20 25 05/04/2025 CHEMI STRY STUDI ES carbon dioxide, total [moles/volum e] in serum or plasma 35 mmol/ L 22-30 high Not Available [facility] [address], [place], [address], 05/04/2025 05:59:29 05/04/20 25 05/04/2025 CHEMI STRY STUDI ES calcium [mass/volume ] in blood 8.5 mg/dL 8.4-10 .2 Not Available [facility] [address], [place], [address], 05/04/2025 05:59:29 05/04/20 25 05/04/2025 CHEMI STRY STUDI ES anion gap in serum or plasma by calculation 2 mEq/L 4-12 low Not Available [facility] [address], [place], [address], 05/04/2025 05:59:29 05/04/20 25 05/04/2025 CHEMI STRY STUDI ES urea nitrogen/cre atinine [mass ratio] in blood 39.0 % 12.0-2 0.0 high Not Available [facility] [address], [place], [address], 05/04/2025 05:59:29 05/04/20 25 05/04/2025 CHEMI STRY STUDI ES osmolality of serum or plasma by calculated by sum of electrolytes 285 mOsm/ kg 261-28 0 high Not Available [facility] [address], [place], [address], 05/04/2025 05:59:29 05/04/20 25 05/04/2025 CHEMI STRY [...] <15 Kidne y Failu re Not Available [facility] [address], [place], [address], 05/04/2025 05:59:29 05/04/20 25 05/04/2025 CHEMI STRY [...] used for stagi ng CKD. Not Available [facility] [address], [place], [address], 05/04/2025 05:59:29 05/04/2005/04/2025 CHEMI STRY STUDI ES phosphate [mass/volume ] in serum or plasma 2.7 mg/dL 2.5-4. 5 Not Available [facility] [address], [place], [address], 05/04/2025 05:59:29 05/04/2005/04/2025 CHEMI STRY STUDI ES magnesium [mass/volume ] in serum or plasma 2.4 mg/dL 1.6-2. 3 high Not Available [facility] [address], [place], [address], 05/04/2025 05:59:29 05/04/2005/04/2025 CHEMI STRY STUDI ES albumin [mass/volume ] in serum or plasma 3.8 g/dL 3.5-5. 0 Not Available [facility] [address], [place], [address], 05/04/2025 05:59:29 05/04/20 25 05/04/2025 CBC W AUTO DIFFE RENTI AL PANEL - BLOOD leukocytes [#/volume] in blood by automated count 13.1 10*3/ uL 4.5-11 .0 high 0435, 05/04 Not Available [facility] [address], [place], [address], 05/04/2025 06:01:55 05/04/20 25 05/04/2025 CBC W AUTO DIFFE RENTI AL PANEL - BLOOD erythrocytes [#/volume] in blood by automated count 4.19 10*6/ uL 4.5-6. 00 low Not Available [facility] [address], [place], [address], 05/04/2025 06:01:55 05/04/20 25 05/04/2025 CBC W AUTO DIFFE RENTI AL PANEL - BLOOD hemoglobin [mass/volume ] in blood 9.5 g/dL 13.5-1 8.0 low Not Available [facility] [address], [place], [address], 05/04/2025 06:01:55 05/04/20 25 05/04/2025 CBC W AUTO DIFFE RENTI AL PANEL - BLOOD hematocrit [volume fraction] of blood by automated count 34.0 % 42.0-5 4.0 low Not Available [facility] [address], [place], [address], 05/04/2025 06:01:55 05/04/20 25 05/04/2025 CBC W AUTO DIFFE RENTI AL PANEL - BLOOD MCV [entitic mean volume] in red blood cells by automated count 81.1 fL 80-100 delta Not Available [facility] [address], [place], [address], 05/04/2025 06:01:55 05/04/20 25 05/04/2025 CBC W AUTO DIFFE RENTI AL PANEL - BLOOD MCH [entitic mass] by automated count 22.7 pg 27-32 low Not Available [facility] [address], [place], [address], 05/04/2025 06:01:55 05/04/20 25 05/04/2025 CBC W AUTO DIFFE RENTI AL PANEL - BLOOD MCHC [entitic mass/volume] in red blood cells by automated count 27.9 g/dL 31.0-3 7.0 low Not Available [facility] [address], [place], [address], 05/04/2025 06:01:55 05/04/20 25 05/04/2025 CBC W AUTO DIFFE RENTI AL PANEL - BLOOD erythrocyte [distwidth] in red blood cells by automated count 19.9 % 12-14. 5 high Not Available [facility] [address], [place], [address], 05/04/2025 06:01:55 05/04/20 25 05/04/2025 CBC W AUTO DIFFE RENTI AL PANEL - BLOOD platelets [#/volume] in blood 437 10*3/ uL 150-45 0 0435, 05/04 Not Available [facility] [address], [place], [address], 05/04/2025 06:01:55 05/04/20 25 05/04/2025 CBC W AUTO DIFFE RENTI AL PANEL - BLOOD platelet [entitic mean volume] in blood by automated count 10.4 fL 9.1-13 .2 Not Available [facility] [address], [place], [address], 05/04/2025 06:01:55 05/04/20 25 05/04/2025 CBC W AUTO DIFFE RENTI AL PANEL - BLOOD segmented neutrophils/ leukocytes in blood by automated count 88.8 % 40-70 high Not Available [facility] [address], [place], [address], 05/04/2025 06:01:55 05/04/20 25 05/04/2025 CBC W AUTO DIFFE RENTI AL PANEL - BLOOD lymphocytes/ leukocytes in blood by flow cytometry (fc) 6.5 % 20-44 low Not Available [facility] [address], [place], [address], 05/04/2025 06:01:55 05/04/20 25 05/04/2025 CBC W AUTO DIFFE RENTI AL PANEL - BLOOD monocytes/le ukocytes in blood by automated count 3.7 % 2-9 Not Available [facility] [address], [place], [address], 05/04/2025 06:01:55 05/04/20 25 05/04/2025 CBC W AUTO DIFFE RENTI AL PANEL - BLOOD eosinophils/ leukocytes in blood by automated count 0.0 % 0-4 Not Available [facility] [address], [place], [address], 05/04/2025 06:01:55 05/04/20 25 05/04/2025 CBC W AUTO DIFFE RENTI AL PANEL - BLOOD basophils/le ukocytes in blood by automated count 0.2 % 0-1 Not Available [facility] [address], [place], [address], 05/04/2025 06:01:55 05/04/2005/04/2025 CBC W AUTO DIFFE RENTI AL PANEL - BLOOD neutrophils [#/volume] in blood by automated count 11.66 10*3/ uL 1.8-7. 7 high Not Available [facility] [address], [place], [address], 05/04/2025 06:01:55 05/04/20 25 05/04/2025 CBC W AUTO DIFFE RENTI AL PANEL - BLOOD lymphocytes [#/volume] in blood by automated count 0.85 10*3/ uL 0.9-4. 8 low Not Available [facility] [address], [place], [address], 05/04/2025 06:01:55 05/04/2005/04/2025 CBC W AUTO DIFFE RENTI AL PANEL - BLOOD monocytes [#/volume] in blood by automated count 0.5 10*3/ uL 0-0.8 Not Available [facility] [address], [place], [address], 05/04/2025 06:01:55 05/04/2005/04/2025 CBC W AUTO DIFFE RENTI AL PANEL - BLOOD eosinophils [#/volume] in blood by automated count 0.00 10*3/ uL 0-0.7 Not Available [facility] [address], [place], [address], 05/04/2025 06:01:55 05/04/20 25 05/04/2025 CBC W AUTO DIFFE RENTI AL PANEL - BLOOD basophils [#/volume] in blood by automated count 0.03 10*3/ uL 0-0.2 Not Available [facility] [address], [place], [address], 05/04/2025 06:01:55 05/04/2005/04/2025 CBC W AUTO DIFFE RENTI AL PANEL - BLOOD immature granulocytes [presence] in blood by automated count 0.8 % 0-0.7 high Not Available [facility] [address], [place], [address], 05/04/2025 06:01:55 05/04/2005/04/2025 CBC W AUTO DIFFE RENTI AL PANEL - BLOOD immature granulocytes [#/volume] in blood 0.10 10*3/ uL 0.00-0 .06 high Not Available [facility] [address], [place], [address], 05/04/2025 06:01:55 05/04/2005/04/2025 CBC W AUTO DIFFE RENTI AL PANEL - BLOOD nucleated erythrocytes /leukocytes [ratio] in blood by automated count 0.2 % 0-0 high Not Available [facility] [address], [place], [address], 05/04/2025 06:01:55 05/04/20 25 05/04/2025 POTAS SIUM [MOLE S/VOL UME] IN SERUM OR PLASM A potassium [moles/volum e] in serum or plasma 5.4 mmol/ L 3.5-5. 1 high Not Available [facility] [address], [place], [address], 05/04/2025 14:48:16 05/05/20 25 05/05/2025 CBC W AUTO DIFFE RENTI AL PANEL - BLOOD leukocytes [#/volume] in blood by automated count 13.0 10*3/ uL 4.5-11 .0 high 0412, 05/05 Not Available [facility] [address], [place], [address], 05/05/2025 12:07:46 05/05/20 25 05/05/2025 CBC W AUTO DIFFE RENTI AL PANEL - BLOOD erythrocytes [#/volume] in blood by automated count 4.06 10*6/ uL 4.5-6. 00 low Not Available [facility] [address], [place], [address], 05/05/2025 12:07:46 05/05/20 25 05/05/2025 CBC W AUTO DIFFE RENTI AL PANEL - BLOOD hemoglobin [mass/volume ] in blood 9.4 g/dL 13.5-1 8.0 low Not Available [facility] [address], [place], [address], 05/05/2025 12:07:46 05/05/20 25 05/05/2025 CBC W AUTO DIFFE RENTI AL PANEL - BLOOD hematocrit [volume fraction] of blood by automated count 32.7 % 42.0-5 4.0 low Not Available [facility] [address], [place], [address], 05/05/2025 12:07:46 05/05/20 25 05/05/2025 CBC W AUTO DIFFE RENTI AL PANEL - BLOOD MCV [entitic mean volume] in red blood cells by automated count 80.5 fL 80-100 Not Available [facility] [address], [place], [address], 05/05/2025 12:07:46 05/05/20 25 05/05/2025 CBC W AUTO DIFFE RENTI AL PANEL - BLOOD MCH [entitic mass] by automated count 23.2 pg 27-32 low Not Available [facility] [address], [place], [address], 05/05/2025 12:07:46 05/05/20 25 05/05/2025 CBC W AUTO DIFFE RENTI AL PANEL - BLOOD MCHC [entitic mass/volume] in red blood cells by automated count 28.7 g/dL 31.0-3 7.0 low Not Available [facility] [address], [place], [address], 05/05/2025 12:07:46 05/05/20 25 05/05/2025 CBC W AUTO DIFFE RENTI AL PANEL - BLOOD erythrocyte [distwidth] in red blood cells by automated count 19.2 % 12-14. 5 high Not Available [facility] [address], [place], [address], 05/05/2025 12:07:46 05/05/20 25 05/05/2025 CBC W AUTO DIFFE RENTI AL PANEL - BLOOD platelets [#/volume] in blood 433 10*3/ uL 150-45 0 0412, 05/05 Not Available [place] [facility] [address], [place], [address], 05/05/2025 12:07:46 05/05/20 25 05/05/2025 CBC W AUTO DIFFE RENTI AL PANEL - BLOOD platelet [entitic mean volume] in blood by automated count 11.5 fL 9.1-13 .2 Not Available [facility] [place] [facility] [address], [place], [address], 05/05/2025 12:07:46 05/05/20 25 05/05/2025 CBC W AUTO DIFFE RENTI AL PANEL - BLOOD segmented neutrophils/ leukocytes in blood by automated count 87.9 % 40-70 high Not Available [facility] [address], [place], [address], 05/05/2025 12:07:46 05/05/20 25 05/05/2025 CBC W AUTO DIFFE RENTI AL PANEL - BLOOD lymphocytes/ leukocytes in blood by flow cytometry (fc) 4.7 % 20-44 low Not Available [facility] [address], [place], [address], 05/05/2025 12:07:46 05/05/20 25 05/05/2025 CBC W AUTO DIFFE RENTI AL PANEL - BLOOD monocytes/le ukocytes in blood by automated count 6.4 % 2-9 Not Available [facility] [address], [place], [address], 05/05/2025 12:07:46 05/05/20 25 05/05/2025 CBC W AUTO DIFFE RENTI AL PANEL - BLOOD eosinophils/ leukocytes in blood by automated count 0.0 % 0-4 Not Available [facility] [address], [place], [address], 05/05/2025 12:07:46 05/05/20 25 05/05/2025 CBC W AUTO DIFFE RENTI AL PANEL - BLOOD basophils/le ukocytes in blood by automated count 0.1 % 0-1 Not Available [facility] [address], [place], [address], 05/05/2025 12:07:46 05/05/20 25 05/05/2025 CBC W AUTO DIFFE RENTI AL PANEL - BLOOD neutrophils [#/volume] in blood by automated count 11.40 10*3/ uL 1.8-7. 7 high Not Available [facility] [address], [place], [address], 05/05/2025 12:07:46 05/05/20 25 05/05/2025 CBC W AUTO DIFFE RENTI AL PANEL - BLOOD lymphocytes [#/volume] in blood by automated count 0.61 10*3/ uL 0.9-4. 8 low Not Available [facility] [address], [place], [address], 05/05/2025 12:07:46 05/05/20 25 05/05/2025 CBC W AUTO DIFFE RENTI AL PANEL - BLOOD monocytes [#/volume] in blood by automated count 0.8 10*3/ uL 0-0.8 Not Available [facility] [address], [place], [address], 05/05/2025 12:07:46 05/05/20 25 05/05/2025 CBC W AUTO DIFFE RENTI AL PANEL - BLOOD eosinophils [#/volume] in blood by automated count 0.00 10*3/ uL 0-0.7 Not Available [facility] [address], [place], [address], 05/05/2025 12:07:46 05/05/20 25 05/05/2025 CBC W AUTO DIFFE RENTI AL PANEL - BLOOD basophils [#/volume] in blood by automated count 0.01 10*3/ uL 0-0.2 Not Available [place] [facility] [address], [place], [address], 05/05/2025 12:07:46 05/05/20 25 05/05/2025 CBC W AUTO DIFFE RENTI AL PANEL - BLOOD immature granulocytes [presence] in blood by automated count 0.9 % 0-0.7 high Not Available [facility] [address], [place], [address], 05/05/2025 12:07:46 05/05/20 25 05/05/2025 CBC W AUTO DIFFE RENTI AL PANEL - BLOOD immature granulocytes [#/volume] in blood 0.12 10*3/ uL 0.00-0 .06 high Not Available [place] [facility] [address], [place], [address], 05/05/2025 12:07:46 05/05/20 25 05/05/2025 CBC W AUTO DIFFE RENTI AL PANEL - BLOOD nucleated erythrocytes /leukocytes [ratio] in blood by automated count 0.2 % 0-0 high Not Available [facility] [address], [place], [address], 05/05/2025 12:07:46 05/05/20 25 05/05/2025 CHEMI STRY STUDI ES glucose [mass/volume ] in serum or plasma 105 mg/dL 74-106 Not Available [facility] [address], [place], [address], 05/05/2025 12:16:57 05/05/20 25 05/05/2025 CHEMI STRY STUDI ES urea nitrogen [mass/volume ] in serum or plasma 30 mg/dL 9-20 high Not Available [facility] [address], [place], [address], 05/05/2025 12:16:57 05/05/20 25 05/05/2025 CHEMI STRY STUDI ES creatinine [mass/volume ] in serum or plasma 1.0 mg/dL 0.8-1. 5 Not Available [facility] [address], [place], [address], 05/05/2025 12:16:57 05/05/20 25 05/05/2025 CHEMI STRY STUDI ES sodium [moles/volum e] in serum or plasma 138 mmol/ L 137-14 5 Not Available [facility] [address], [place], [address], 05/05/2025 12:16:57 05/05/20 25 05/05/2025 CHEMI STRY STUDI ES potassium [moles/volum e] in serum or plasma 5.3 mmol/ L 3.5-5. 1 high Not Available [facility] [address], [place], [place], [address], 05/05/2025 12:16:57 05/05/20 25 05/05/2025 CHEMI STRY STUDI ES chloride [moles/volum e] in serum or plasma 99 mmol/ L 98-107 Not Available [facility] [address], [place], [address], 05/05/2025 12:16:57 05/05/20 25 05/05/2025 CHEMI STRY STUDI ES carbon dioxide, total [moles/volum e] in serum or plasma 34 mmol/ L 22-30 high Not Available [facility] [address], [place], [place], [address], 05/05/2025 12:16:57 05/05/20 25 05/05/2025 CHEMI STRY STUDI ES calcium [mass/volume ] in blood 8.8 mg/dL 8.4-10 .2 Not Available [facility] [address], [place], [place], [address], 05/05/2025 12:16:57 05/05/20 25 05/05/2025 CHEMI STRY STUDI ES anion gap in serum or plasma by calculation 5 mEq/L 4-12 Not Available [facility] [address], [place], [address], 05/05/2025 12:16:57 05/05/20 25 05/05/2025 CHEMI STRY STUDI ES urea nitrogen/cre atinine [mass ratio] in blood 30.0 % 12.0-2 0.0 high Not Available [facility] [address], [place], [address], 05/05/2025 12:16:57 05/05/20 25 05/05/2025 CHEMI STRY STUDI ES osmolality of serum or plasma by calculated by sum of electrolytes 282 mOsm/ kg 261-28 0 high Not Available [facility] [address], [place], [address], 05/05/2025 12:16:57 05/05/20 25 05/05/2025 CHEMI STRY [...] <15 Kidne y Failu re Not Available [facility] [address], [place], [address], 05/05/2025 12:16:57 05/05/20 25 05/05/2025 CHEMI STRY [...] used for stagi ng CKD. Not Available [facility] [address], [place], [address], 05/05/2025 12:16:57 05/05/20 25 05/05/2025 CHEMI STRY STUDI ES phosphate [mass/volume ] in serum or plasma 3.2 mg/dL 2.5-4. 5 Not Available [facility] [address], [place], [address], 05/05/2025 12:16:57 05/05/20 25 05/05/2025 CHEMI STRY STUDI ES magnesium [mass/volume ] in serum or plasma 2.6 mg/dL 1.6-2. 3 high Not Available [facility] [address], [place], [address], 05/05/2025 12:16:57 05/05/20 25 05/05/2025 CHEMI STRY STUDI ES albumin [mass/volume ] in serum or plasma 3.9 g/dL 3.5-5. 0 Not Available [facility] [address], [place], [address], 05/05/2025 12:16:57 05/05/20 25 05/05/2025 POTAS SIUM [MOLE S/VOL UME] IN SERUM OR PLASM A potassium [moles/volum e] in serum or plasma 5.0 mmol/ L 3.5-5. 1 Not Available [facility] [address], [place], [address], 05/05/2025 14:13:51 05/05/20 25 05/05/2025 POTAS SIUM [MOLE S/VOL UME] IN SERUM OR PLASM A potassium [moles/volum e] in serum or plasma 5.6 mmol/ L 3.5-5. 1 high Not Available [facility] [address], [place], [address], 05/05/2025 15:13:03 05/06/20 25 05/06/2025 CBC W AUTO DIFFE RENTI AL PANEL - BLOOD leukocytes [#/volume] in blood by automated count 11.9 10*3/ uL 4.5-11 .0 high 0857, 05/06 Not Available [facility] [address], [place], [address], 05/06/2025 09:57:33 05/06/2005/06/2025 CBC W AUTO DIFFE RENTI AL PANEL - BLOOD erythrocytes [#/volume] in blood by automated count 4.42 10*6/ uL 4.5-6. 00 low Not Available [facility] [address], [place], [address], 05/06/2025 09:57:33 05/06/20 25 05/06/2025 CBC W AUTO DIFFE RENTI AL PANEL - BLOOD hemoglobin [mass/volume ] in blood 10.4 g/dL 13.5-1 8.0 low Not Available [facility] [address], [place], [address], 05/06/2025 09:57:33 05/06/20 25 05/06/2025 CBC W AUTO DIFFE RENTI AL PANEL - BLOOD hematocrit [volume fraction] of blood by automated count 36.1 % 42.0-5 4.0 low Not Available [facility] [address], [place], [address], 05/06/2025 09:57:33 05/06/20 25 05/06/2025 CBC W AUTO DIFFE RENTI AL PANEL - BLOOD MCV [entitic mean volume] in red blood cells by automated count 81.7 fL 80-100 Not Available [facility] [address], [place], [address], 05/06/2025 09:57:33 05/06/20 25 05/06/2025 CBC W AUTO DIFFE RENTI AL PANEL - BLOOD MCH [entitic mass] by automated count 23.5 pg 27-32 low Not Available [facility] [address], [place], [address], 05/06/2025 09:57:33 05/06/20 25 05/06/2025 CBC W AUTO DIFFE RENTI AL PANEL - BLOOD MCHC [entitic mass/volume] in red blood cells by automated count 28.8 g/dL 31.0-3 7.0 low Not Available [facility] [address], [place], [address], 05/06/2025 09:57:33 05/06/20 25 05/06/2025 CBC W AUTO DIFFE RENTI AL PANEL - BLOOD erythrocyte [distwidth] in red blood cells by automated count 19.2 % 12-14. 5 high Not Available [facility] [address], [place], [address], 05/06/2025 09:57:33 05/06/20 25 05/06/2025 CBC W AUTO DIFFE RENTI AL PANEL - BLOOD platelets [#/volume] in blood 519 10*3/ uL 150-45 0 high 0857, 05/06 Not Available [facility] [address], [place], [address], 05/06/2025 09:57:33 05/06/20 25 05/06/2025 CBC W AUTO DIFFE RENTI AL PANEL - BLOOD platelet [entitic mean volume] in blood by automated count 9.6 fL 9.1-13 .2 Not Available [facility] [address], [place], [address], 05/06/2025 09:57:33 05/06/20 25 05/06/2025 CBC W AUTO DIFFE RENTI AL PANEL - BLOOD segmented neutrophils/ leukocytes in blood by automated count 67.3 % 40-70 Not Available [facility] [address], [place], [address], 05/06/2025 09:57:33 05/06/20 25 05/06/2025 CBC W AUTO DIFFE RENTI AL PANEL - BLOOD lymphocytes/ leukocytes in blood by flow cytometry (fc) 18.2 % 20-44 low Not Available [facility] [address], [place], [address], 05/06/2025 09:57:33 05/06/20 25 05/06/2025 CBC W AUTO DIFFE RENTI AL PANEL - BLOOD monocytes/le ukocytes in blood by automated count 12.5 % 2-9 high Not Available [facility] [address], [place], [address], 05/06/2025 09:57:33 05/06/20 25 05/06/2025 CBC W AUTO DIFFE RENTI AL PANEL - BLOOD eosinophils/ leukocytes in blood by automated count 0.9 % 0-4 Not Available [facility] [address], [place], [address], 05/06/2025 09:57:33 05/06/20 25 05/06/2025 CBC W AUTO DIFFE RENTI AL PANEL - BLOOD basophils/le ukocytes in blood by automated count 0.3 % 0-1 Not Available [facility] [address], [place], [address], 05/06/2025 09:57:33 05/06/20 25 05/06/2025 CBC W AUTO DIFFE RENTI AL PANEL - BLOOD neutrophils [#/volume] in blood by automated count 8.01 10*3/ uL 1.8-7. 7 high Not Available [place] [facility] [address], [place], [address], 05/06/2025 09:57:33 05/06/2005/06/2025 CBC W AUTO DIFFE RENTI AL PANEL - BLOOD lymphocytes [#/volume] in blood by automated count 2.17 10*3/ uL 0.9-4. 8 Not Available [facility] [address], [place], [address], 05/06/2025 09:57:33 05/06/20 25 05/06/2025 CBC W AUTO DIFFE RENTI AL PANEL - BLOOD monocytes [#/volume] in blood by automated count 1.5 10*3/ uL 0-0.8 high Not Available [facility] [address], [place], [address], 05/06/2025 09:57:33 05/06/2005/06/2025 CBC W AUTO DIFFE RENTI AL PANEL - BLOOD eosinophils [#/volume] in blood by automated count 0.11 10*3/ uL 0-0.7 Not Available [facility] [address], [place], [address], 05/06/2025 09:57:33 05/06/20 25 05/06/2025 CBC W AUTO DIFFE RENTI AL PANEL - BLOOD basophils [#/volume] in blood by automated count 0.03 10*3/ uL 0-0.2 Not Available [facility] [address], [place], [address], 05/06/2025 09:57:33 05/06/2005/06/2025 CBC W AUTO DIFFE RENTI AL PANEL - BLOOD immature granulocytes [presence] in blood by automated count 0.8 % 0-0.7 high Not Available [facility] [address], [place], [address], 05/06/2025 09:57:33 05/06/20 25 05/06/2025 CBC W AUTO DIFFE RENTI AL PANEL - BLOOD immature granulocytes [#/volume] in blood 0.09 10*3/ uL 0.00-0 .06 high Not Available [place] [facility] [address], [place], [address], 05/06/2025 09:57:33 05/06/2005/06/2025 CBC W AUTO DIFFE RENTI AL PANEL - BLOOD nucleated erythrocytes /leukocytes [ratio] in blood by automated count 0.0 % 0-0 Not Available [facility] [address], [place], [address], 05/06/2025 09:57:33 05/06/2005/06/2025 CHEMI STRY STUDI ES glucose [mass/volume ] in serum or plasma 137 mg/dL 74-106 high Not Available [facility] [address], [place], [address], 05/06/2025 10:15:21 05/06/20 25 05/06/2025 CHEMI STRY STUDI ES urea nitrogen [mass/volume ] in serum or plasma 28 mg/dL 9-20 high Not Available [facility] [address], [place], [address], 05/06/2025 10:15:21 05/06/20 25 05/06/2025 CHEMI STRY STUDI ES creatinine [mass/volume ] in serum or plasma 1.0 mg/dL 0.8-1. 5 Not Available [place] [facility] [address], [place], [address], 05/06/2025 10:15:21 05/06/20 25 05/06/2025 CHEMI STRY STUDI ES sodium [moles/volum e] in serum or plasma 137 mmol/ L 137-14 5 Not Available [place] [facility] [address], [place], [address], 05/06/2025 10:15:21 05/06/20 25 05/06/2025 CHEMI STRY STUDI ES potassium [moles/volum e] in serum or plasma 4.5 mmol/ L 3.5-5. 1 Not Available [place] [facility] [address], [place], [address], 05/06/2025 10:15:21 05/06/20 25 05/06/2025 CHEMI STRY STUDI ES chloride [moles/volum e] in serum or plasma 97 mmol/ L 98-107 low Not Available [place] [facility] [address], [place], [address], 05/06/2025 10:15:21 05/06/20 25 05/06/2025 CHEMI STRY STUDI ES carbon dioxide, total [moles/volum e] in serum or plasma 33 mmol/ L 22-30 high Not Available [place] [facility] [address], [place], [address], 05/06/2025 10:15:21 05/06/20 25 05/06/2025 CHEMI STRY STUDI ES calcium [mass/volume ] in blood 8.5 mg/dL 8.4-10 .2 Not Available [place] [facility] [address], [place], [address], 05/06/2025 10:15:21 05/06/20 25 05/06/2025 CHEMI STRY STUDI ES anion gap in serum or plasma by calculation 7 mEq/L 4-12 Not Available [facility] [address], [place], [address], 05/06/2025 10:15:21 05/06/20 25 05/06/2025 CHEMI STRY STUDI ES urea nitrogen/cre atinine [mass ratio] in blood 28.0 % 12.0-2 0.0 high Not Available [facility] [address], [place], [address], 05/06/2025 10:15:21 05/06/2005/06/2025 CHEMI STRY STUDI ES osmolality of serum or plasma by calculated by sum of electrolytes 282 mOsm/ kg 261-28 0 high Not Available [facility] [address], [place], [address], 05/06/2025 10:15:21 05/06/2005/06/2025 CHEMI STRY STUDI ES [...] <15 Kidne y Failu re Not Available [facility] [address], [place], [address], 05/06/2025 10:15:21 05/06/2005/06/2025 CHEMI STRY STUDI ES [...] used for stagi ng CKD. Not Available [facility] [address], [place], [address], 05/06/2025 10:15:21 05/06/20 25 05/06/2025 CHEMI STRY STUDI ES phosphate [mass/volume ] in serum or plasma 2.9 mg/dL 2.5-4. 5 Not Available [facility] [address], [place], [address], 05/06/2025 10:15:21 05/06/20 25 05/06/2025 CHEMI STRY STUDI ES magnesium [mass/volume ] in serum or plasma 2.1 mg/dL 1.6-2. 3 Not Available [facility] [address], [place], [address], 05/06/2025 10:15:21 05/06/20 25 05/06/2025 CHEMI STRY STUDI ES albumin [mass/volume ] in serum or plasma 4.0 g/dL 3.5-5. 0 Not Available [facility] [address], [place], [address], 05/06/2025 10:15:21 05/07/20 25 05/07/2025 CBC PANEL - BLOOD BY AUTOM ATED COUNT leukocytes [#/volume] in blood by automated count 11.6 10*3/ uL 4.5-11 .0 high 0726, 05/07 Not Available [facility] [address], [place], [address], 05/07/2025 08:27:32 05/07/20 25 05/07/2025 CBC PANEL - BLOOD BY AUTOM ATED COUNT erythrocytes [#/volume] in blood by automated count 4.02 10*6/ uL 4.5-6. 00 low Not Available [facility] [address], [place], [address], 05/07/2025 08:27:32 05/07/20 25 05/07/2025 CBC PANEL - BLOOD BY AUTOM ATED COUNT hemoglobin [mass/volume ] in blood 9.2 g/dL 13.5-1 8.0 low Not Available [facility] [address], [place], [address], 05/07/2025 08:27:32 05/07/20 25 05/07/2025 CBC PANEL - BLOOD BY AUTOM ATED COUNT hematocrit [volume fraction] of blood by automated count 32.2 % 42.0-5 4.0 low Not Available [facility] [address], [place], [address], 05/07/2025 08:27:32 05/07/20 25 05/07/2025 CBC PANEL - BLOOD BY AUTOM ATED COUNT MCV [entitic mean volume] in red blood cells by automated count 80.1 fL 80-100 Not Available [facility] [address], [place], [address], 05/07/2025 08:27:32 05/07/20 25 05/07/2025 CBC PANEL - BLOOD BY AUTOM ATED COUNT MCH [entitic mass] by automated count 22.9 pg 27-32 low Not Available [facility] [address], [place], [address], 05/07/2025 08:27:32 05/07/20 25 05/07/2025 CBC PANEL - BLOOD BY AUTOM ATED COUNT MCHC [entitic mass/volume] in red blood cells by automated count 28.6 g/dL 31.0-3 7.0 low Not Available [facility] [address], [place], [address], 05/07/2025 08:27:32 05/07/20 25 05/07/2025 CBC PANEL - BLOOD BY AUTOM ATED COUNT erythrocyte [distwidth] in red blood cells by automated count 19.0 % 12-14. 5 high Not Available [facility] [address], [place], [address], 05/07/2025 08:27:32 05/07/20 25 05/07/2025 CBC PANEL - BLOOD BY AUTOM ATED COUNT platelets [#/volume] in blood 442 10*3/ uL 150-45 0 0726, 05/07 Not Available [place] [facility] [address], [place], [address], 05/07/2025 08:27:32 05/07/20 25 05/07/2025 CBC PANEL - BLOOD BY AUTOM ATED COUNT platelet [entitic mean volume] in blood by automated count 10.4 fL 9.1-13 .2 Not Available [place] [facility] [address], [place], [address], 05/07/2025 08:27:32 05/07/20 25 05/07/2025 CHEMI STRY STUDI ES glucose [mass/volume ] in serum or plasma 105 mg/dL 74-106 Not Available [facility] [address], [place], [address], 05/07/2025 08:56:24 05/07/20 25 05/07/2025 CHEMI STRY STUDI ES urea nitrogen [mass/volume ] in serum or plasma 27 mg/dL 9-20 high Not Available [facility] [address], [place], [address], 05/07/2025 08:56:24 05/07/20 25 05/07/2025 CHEMI STRY STUDI ES creatinine [mass/volume ] in serum or plasma 0.9 mg/dL 0.8-1. 5 Not Available [place] [facility] [address], [place], [address], 05/07/2025 08:56:24 05/07/20 25 05/07/2025 CHEMI STRY STUDI ES sodium [moles/volum e] in serum or plasma 137 mmol/ L 137-14 5 Not Available [place] [facility] [address], [place], [address], 05/07/2025 08:56:24 05/07/20 25 05/07/2025 CHEMI STRY STUDI ES potassium [moles/volum e] in serum or plasma 4.2 mmol/ L 3.5-5. 1 Not Available [facility] [address], [place], [address], 05/07/2025 08:56:24 05/07/20 25 05/07/2025 CHEMI STRY STUDI ES chloride [moles/volum e] in serum or plasma 97 mmol/ L 98-107 low Not Available [facility] [address], [place], [address], 05/07/2025 08:56:24 05/07/20 25 05/07/2025 CHEMI STRY STUDI ES carbon dioxide, total [moles/volum e] in serum or plasma 35 mmol/ L 22-30 high Not Available [facility] [address], [place], [address], 05/07/2025 08:56:24 05/07/20 25 05/07/2025 CHEMI STRY STUDI ES calcium [mass/volume ] in blood 8.2 mg/dL 8.4-10 .2 low Not Available [facility] [address], [place], [address], 05/07/2025 08:56:24 05/07/20 25 05/07/2025 CHEMI STRY STUDI ES anion gap in serum or plasma by calculation 5 mEq/L 4-12 Not Available [facility] [address], [place], [address], 05/07/2025 08:56:24 05/07/20 25 05/07/2025 CHEMI STRY STUDI ES urea nitrogen/cre atinine [mass ratio] in blood 30.0 % 12.0-2 0.0 high Not Available [facility] [address], [place], [address], 05/07/2025 08:56:24 05/07/20 25 05/07/2025 CHEMI STRY STUDI ES osmolality of serum or plasma by calculated by sum of electrolytes 279 mOsm/ kg 261-28 0 Not Available [facility] [address], [place], [address], 05/07/2025 08:56:24 05/07/20 25 05/07/2025 CHEMI STRY [...] <15 Kidne y Failu re Not Available [facility] [address], [place], [address], 05/07/2025 08:56:24 05/07/20 25 05/07/2025 CHEMI STRY [...] used for stagi ng CKD. Not Available [facility] [address], [place], [address], 05/07/2025 08:56:24 05/07/2005/07/2025 CHEMI STRY STUDI ES phosphate [mass/volume ] in serum or plasma 3.2 mg/dL 2.5-4. 5 Not Available [facility] [address], [place], [address], 05/07/2025 08:56:24 05/07/20 25 05/07/2025 CHEMI STRY STUDI ES magnesium [mass/volume ] in serum or plasma 2.2 mg/dL 1.6-2. 3 Not Available [facility] [address], [place], [address], 05/07/2025 08:56:24 05/07/20 25 05/07/2025 CHEMI STRY STUDI ES albumin [mass/volume ] in serum or plasma 3.4 g/dL 3.5-5. 0 low Not Available [facility] [address], [place], [address], 05/07/2025 08:56:24 05/08/20 25 05/08/2025 CBC W AUTO DIFFE RENTI AL PANEL - BLOOD leukocytes [#/volume] in blood by automated count 11.4 10*3/ uL 4.5-11 .0 high 0728, 05/08 Not Available [facility] [address], [place], [address], 05/08/2025 08:29:02 05/08/20 25 05/08/2025 CBC W AUTO DIFFE RENTI AL PANEL - BLOOD erythrocytes [#/volume] in blood by automated count 3.98 10*6/ uL 4.5-6. 00 low Not Available [facility] [address], [place], [address], 05/08/2025 08:29:02 05/08/20 25 05/08/2025 CBC W AUTO DIFFE RENTI AL PANEL - BLOOD hemoglobin [mass/volume ] in blood 9.2 g/dL 13.5-1 8.0 low Not Available [facility] [address], [place], [address], 05/08/2025 08:29:02 05/08/20 25 05/08/2025 CBC W AUTO DIFFE RENTI AL PANEL - BLOOD hematocrit [volume fraction] of blood by automated count 31.7 % 42.0-5 4.0 low Not Available [facility] [address], [place], [address], 05/08/2025 08:29:02 05/08/20 25 05/08/2025 CBC W AUTO DIFFE RENTI AL PANEL - BLOOD MCV [entitic mean volume] in red blood cells by automated count 79.6 fL 80-100 low Not Available [facility] [address], [place], [address], 05/08/2025 08:29:02 05/08/20 25 05/08/2025 CBC W AUTO DIFFE RENTI AL PANEL - BLOOD MCH [entitic mass] by automated count 23.1 pg 27-32 low Not Available [facility] [address], [place], [address], 05/08/2025 08:29:02 05/08/20 25 05/08/2025 CBC W AUTO DIFFE RENTI AL PANEL - BLOOD MCHC [entitic mass/volume] in red blood cells by automated count 29.0 g/dL 31.0-3 7.0 low Not Available [facility] [address], [place], [address], 05/08/2025 08:29:02 05/08/20 25 05/08/2025 CBC W AUTO DIFFE RENTI AL PANEL - BLOOD erythrocyte [distwidth] in red blood cells by automated count 19.1 % 12-14. 5 high Not Available [facility] [address], [place], [address], 05/08/2025 08:29:02 05/08/20 25 05/08/2025 CBC W AUTO DIFFE RENTI AL PANEL - BLOOD platelets [#/volume] in blood 407 10*3/ uL 150-45 0 0728, 05/08 Not Available [facility] [address], [place], [address], 05/08/2025 08:29:02 05/08/20 25 05/08/2025 CBC W AUTO DIFFE RENTI AL PANEL - BLOOD platelet [entitic mean volume] in blood by automated count 9.5 fL 9.1-13 .2 Not Available [facility] [address], [place], [address], 05/08/2025 08:29:02 05/08/20 25 05/08/2025 CBC W AUTO DIFFE RENTI AL PANEL - BLOOD segmented neutrophils/ leukocytes in blood by automated count 63.8 % 40-70 Not Available [facility] [address], [place], [address], 05/08/2025 08:29:02 05/08/20 25 05/08/2025 CBC W AUTO DIFFE RENTI AL PANEL - BLOOD lymphocytes/ leukocytes in blood by flow cytometry (fc) 20.3 % 20-44 Not Available [facility] [address], [place], [address], 05/08/2025 08:29:02 05/08/20 25 05/08/2025 CBC W AUTO DIFFE RENTI AL PANEL - BLOOD monocytes/le ukocytes in blood by automated count 12.5 % 2-9 high Not Available [facility] [address], [place], [address], 05/08/2025 08:29:02 05/08/20 25 05/08/2025 CBC W AUTO DIFFE RENTI AL PANEL - BLOOD eosinophils/ leukocytes in blood by automated count 2.2 % 0-4 Not Available [facility] [address], [place], [address], 05/08/2025 08:29:02 05/08/20 25 05/08/2025 CBC W AUTO DIFFE RENTI AL PANEL - BLOOD basophils/le ukocytes in blood by automated count 0.3 % 0-1 Not Available [facility] [address], [place], [address], 05/08/2025 08:29:02 05/08/20 25 05/08/2025 CBC W AUTO DIFFE RENTI AL PANEL - BLOOD neutrophils [#/volume] in blood by automated count 7.31 10*3/ uL 1.8-7. 7 Not Available [facility] [address], [place], [address], 05/08/2025 08:29:02 05/08/20 25 05/08/2025 CBC W AUTO DIFFE RENTI AL PANEL - BLOOD lymphocytes [#/volume] in blood by automated count 2.32 10*3/ uL 0.9-4. 8 Not Available [facility] [address], [place], [address], 05/08/2025 08:29:02 05/08/20 25 05/08/2025 CBC W AUTO DIFFE RENTI AL PANEL - BLOOD monocytes [#/volume] in blood by automated count 1.4 10*3/ uL 0-0.8 high Not Available [facility] [address], [place], [address], 05/08/2025 08:29:02 05/08/20 25 05/08/2025 CBC W AUTO DIFFE RENTI AL PANEL - BLOOD eosinophils [#/volume] in blood by automated count 0.25 10*3/ uL 0-0.7 Not Available [facility] [address], [place], [address], 05/08/2025 08:29:02 05/08/20 25 05/08/2025 CBC W AUTO DIFFE RENTI AL PANEL - BLOOD basophils [#/volume] in blood by automated count 0.03 10*3/ uL 0-0.2 Not Available [facility] [address], [place], [address], 05/08/2025 08:29:02 05/08/20 25 05/08/2025 CBC W AUTO DIFFE RENTI AL PANEL - BLOOD immature granulocytes [presence] in blood by automated count 0.9 % 0-0.7 high Not Available [facility] [address], [place], [address], 05/08/2025 08:29:02 05/08/20 25 05/08/2025 CBC W AUTO DIFFE RENTI AL PANEL - BLOOD immature granulocytes [#/volume] in blood 0.10 10*3/ uL 0.00-0 .06 high Not Available [facility] [address], [place], [address], 05/08/2025 08:29:02 05/08/20 25 05/08/2025 CBC W AUTO DIFFE RENTI AL PANEL - BLOOD nucleated erythrocytes /leukocytes [ratio] in blood by automated count 0.0 % 0-0 Not Available [facility] [address], [place], [address], 05/08/2025 08:29:02 05/08/20 25 05/08/2025 CHEMI STRY STUDI ES glucose [mass/volume ] in serum or plasma 89 mg/dL 74-106 Not Available [facility] [address], [place], [address], 05/08/2025 08:54:06 05/08/20 25 05/08/2025 CHEMI STRY STUDI ES urea nitrogen [mass/volume ] in serum or plasma 32 mg/dL 9-20 high Not Available [facility] [address], [place], [address], 05/08/2025 08:54:06 05/08/20 25 05/08/2025 CHEMI STRY STUDI ES creatinine [mass/volume ] in serum or plasma 0.9 mg/dL 0.8-1. 5 Not Available [facility] [place] [facility] [address], [place], [address], 05/08/2025 08:54:06 05/08/20 25 05/08/2025 CHEMI STRY STUDI ES sodium [moles/volum e] in serum or plasma 135 mmol/ L 137-14 5 low Not Available [facility] [address], [place], [address], 05/08/2025 08:54:06 05/08/20 25 05/08/2025 CHEMI STRY STUDI ES potassium [moles/volum e] in serum or plasma 4.3 mmol/ L 3.5-5. 1 Not Available [facility] [address], [place], [address], 05/08/2025 08:54:06 05/08/20 25 05/08/2025 CHEMI STRY STUDI ES chloride [moles/volum e] in serum or plasma 97 mmol/ L 98-107 low Not Available [facility] [address], [place], [address], 05/08/2025 08:54:06 05/08/20 25 05/08/2025 CHEMI STRY STUDI ES carbon dioxide, total [moles/volum e] in serum or plasma 35 mmol/ L 22-30 high Not Available [facility] [address], [place], [address], 05/08/2025 08:54:06 05/08/20 25 05/08/2025 CHEMI STRY STUDI ES calcium [mass/volume ] in blood 7.9 mg/dL 8.4-10 .2 low Not Available [facility] [address], [place], [address], 05/08/2025 08:54:06 05/08/20 25 05/08/2025 CHEMI STRY STUDI ES anion gap in serum or plasma by calculation 3 mEq/L 4-12 low Not Available [facility] [address], [place], [address], 05/08/2025 08:54:06 05/08/20 25 05/08/2025 CHEMI STRY STUDI ES urea nitrogen/cre atinine [mass ratio] in blood 35.5 % 12.0-2 0.0 high Not Available [facility] [address], [place], [address], 05/08/2025 08:54:06 05/08/20 25 05/08/2025 CHEMI STRY STUDI ES osmolality of serum or plasma by calculated by sum of electrolytes 277 mOsm/ kg 261-28 0 Not Available [facility] [address], [place], [address], 05/08/2025 08:54:06 05/08/20 25 05/08/2025 CHEMI STRY [...] <15 Kidne y Failu re Not Available [facility] [address], [place], [address], 05/08/2025 08:54:06 05/08/20 25 05/08/2025 CHEMI STRY STUDI ES creatinine renal clearance/1. [...] used for stagi ng CKD. Not Available [facility] [address], [place], [address], 05/08/2025 08:54:06 05/08/20 25 05/08/2025 CHEMI STRY STUDI ES phosphate [mass/volume ] in serum or plasma 3.3 mg/dL 2.5-4. 5 Not Available [facility] [address], [place], [address], 05/08/2025 08:54:06 05/08/20 25 05/08/2025 CHEMI STRY STUDI ES magnesium [mass/volume ] in serum or plasma 2.2 mg/dL 1.6-2. 3 Not Available [facility] [address], [place], [address], 05/08/2025 08:54:06 05/08/20 25 05/08/2025 CHEMI STRY STUDI ES albumin [mass/volume ] in serum or plasma 3.4 g/dL 3.5-5. 0 low Not Available [facility] [address], [place], [address], 05/08/2025 08:54:06 05/08/20 25 05/08/2025 URINA LYSIS COMPL ETE PANEL - URINE color of urine by auto YELLOW Not Available [facility] [address], [place], [address], 05/08/2025 12:38:37 05/08/20 25 05/08/2025 URINA LYSIS COMPL ETE PANEL - URINE clarity in urine by refractometr y automated Clear Not Available [facility] [address], [place], [address], 05/08/2025 12:38:37 05/08/20 25 05/08/2025 URINA LYSIS COMPL ETE PANEL - URINE glucose [presence] in urine Negati ve negati ve Not Available [facility] [address], [place], [address], 05/08/2025 12:38:37 05/08/20 25 05/08/2025 URINA LYSIS COMPL ETE PANEL - URINE bilirubin.to jonas [presence] in urine Negati ve negati ve Not Available [facility] [address], [place], [address], 05/08/2025 12:38:37 05/08/20 25 05/08/2025 URINA LYSIS COMPL ETE PANEL - URINE ketones [presence] in urine by automated test strip Negati ve negati ve Not Available [facility] [address], [place], [address], 05/08/2025 12:38:37 05/08/20 25 05/08/2025 URINA LYSIS COMPL ETE PANEL - URINE specific gravity of urine by automated test strip 1.010 1.001- 1.030 Not Available [facility] [address], [place], [address], 05/08/2025 12:38:37 05/08/20 25 05/08/2025 URINA LYSIS COMPL ETE PANEL - URINE erythrocytes [presence] in urine by automated Negati ve negati ve Not Available [facility] [address], [place], [address], 05/08/2025 12:38:37 05/08/20 25 05/08/2025 URINA LYSIS COMPL ETE PANEL - URINE pH of urine by automated test strip 6.5 5.0-8. 5 Not Available [facility] [address], [place], [address], 05/08/2025 12:38:37 05/08/20 25 05/08/2025 URINA LYSIS COMPL ETE PANEL - URINE protein [presence] in urine Negati ve negati ve Not Available [facility] [address], [place], [address], 05/08/2025 12:38:37 05/08/20 25 05/08/2025 URINA LYSIS COMPL ETE PANEL - URINE urobilinogen [mass/volume ] in urine by automated test strip 0.2 0.2-2 mg/dL Not Available [facility] [address], [place], [address], 05/08/2025 12:38:37 05/08/20 25 05/08/2025 URINA LYSIS COMPL ETE PANEL - URINE nitrite [presence] in urine Negati ve negati ve Not Available [facility] [address], [place], [address], 05/08/2025 12:38:37 05/08/20 25 05/08/2025 URINA LYSIS COMPL ETE PANEL - URINE leukocyte esterase [presence] in urine by automated test strip Negati ve negati ve Not Available [facility] [address], [place], [address], 05/08/2025 12:38:37 05/08/20 25 05/08/2025 URINA LYSIS COMPL ETE PANEL - URINE leukocytes [presence] in urine =0-2 [hpf] 0-3 Not Available [facility] [address], [place], [address], 05/08/2025 12:38:37 05/08/20 25 05/08/2025 URINA LYSIS COMPL ETE PANEL - URINE erythrocytes [#/volume] in urine by automated test strip =0-2 [hpf] 0-2 Not Available [facility] [address], [place], [address], 05/08/2025 12:38:37 05/08/20 25 05/08/2025 URINA LYSIS COMPL ETE PANEL - URINE epithelial cells.squamo us [presence] in urine by automated =0-2 [hpf] Not Available [facility] [address] [facility] [address], [place], [address], 05/08/2025 12:38:37 06/07/20 25 06/08/2025 CBC WITH DIFFE RENTI AL WBC 11.3 K/uL 4.0-11 .0 high Not Available [facility] [address] [place], [address], 06/08/2025 05:18:50 06/07/20 25 06/08/2025 CBC WITH DIFFE RENTI AL RBC 4.75 M/uL 4.30-5 .70 Not Available [facility] [address] [place], [address], 06/08/2025 05:18:50 06/07/20 25 06/08/2025 CBC WITH DIFFE RENTI AL hemoglobin 11.0 g/dL 13.0-1 7.5 low Not Available [facility] [address] [facility] [place], [address], 06/08/2025 05:18:50 06/07/20 25 06/08/2025 CBC WITH DIFFE RENTI AL hematocrit 36.9 % 39.0-5 5.0 low Not Available [facility] [address] [facility] [place], [address], 06/08/2025 05:18:50 06/07/20 25 06/08/2025 CBC WITH DIFFE RENTI AL MCV 77.7 fL 78.0-1 02.0 low Not Available [facility] [address] [place], [address], 06/08/2025 05:18:50 06/07/20 25 06/08/2025 CBC WITH DIFFE RENTI AL MCH 23.2 pg 25.0-3 5.0 low Not Available [facility] [address], [place], [address], 06/08/2025 05:18:50 06/07/20 25 06/08/2025 CBC WITH DIFFE RENTI AL MCHC 29.8 g/dL 30.0-3 8.0 low Not Available [facility] [address], [place], [address], 06/08/2025 05:18:50 06/07/20 25 06/08/2025 CBC WITH DIFFE RENTI AL RDW 18.1 % 11.5-1 6.0 high Not Available [facility] [address], [place], [address], 06/08/2025 05:18:50 06/07/20 25 06/08/2025 CBC WITH DIFFE RENTI AL platelet count 281 K/uL 150-45 0 Not Available [facility] [address], [place], [address], 06/08/2025 05:18:50 06/07/20 25 06/08/2025 CBC WITH DIFFE RENTI AL abs neutrophils 7.8 K/uL 1.8-7. 0 high Not Available [facility] [address], [place], [address], 06/08/2025 05:18:50 06/07/2006/08/2025 CBC WITH DIFFE RENTI AL abs lymphocytes 1.9 K/uL 1.0-4. 0 Not Available [facility] [address] [place], [place], [address], 06/08/2025 05:18:50 06/07/20 25 06/08/2025 CBC WITH DIFFE RENTI AL abs monocytes 1.3 K/uL 0.1-1. 1 high Not Available [facility] [address] [place], [address], 06/08/2025 05:18:50 06/07/20 25 06/08/2025 CBC WITH DIFFE RENTI AL abs eosinophils 0.2 K/uL 0.0-0. 5 Not Available [facility] [address] [place], [address], 06/08/2025 05:18:50 06/07/20 25 06/08/2025 CBC WITH DIFFE RENTI AL abs basophils 0.1 K/uL 0.0-0. 3 Not Available [facility] [address] [place], [address], 06/08/2025 05:18:50 06/07/20 25 06/08/2025 CBC WITH DIFFE RENTI AL abs immature grans 0.1 K/uL 0.0-0. 1 Not Available [facility] [address] [place], [address], 06/08/2025 05:18:50 06/07/20 25 06/08/2025 CBC WITH DIFFE RENTI AL neutrophils 69.1 % Not Available [facility] [address] [place], [address], 06/08/2025 05:18:50 06/07/20 25 06/08/2025 CBC WITH DIFFE RENTI AL lymphocytes 16.6 % Not Available [facility] [address] [place], [address], 06/08/2025 05:18:50 06/07/20 25 06/08/2025 CBC WITH DIFFE RENTI AL monocytes 11.4 % Not Available [facility] [address] [place], [address], 06/08/2025 05:18:50 06/07/20 25 06/08/2025 CBC WITH DIFFE RENTI AL eosinophils 1.6 % Not Available [facility] [address], [place], [address], 06/08/2025 05:18:50 06/07/20 25 06/08/2025 CBC WITH DIFFE RENTI AL basophils 0.8 % Not Available [facility] [address], [place], [address], 06/08/2025 05:18:50 06/07/20 25 06/08/2025 CBC WITH DIFFE RENTI AL immature grans 0.5 % Not Available [facility] [address], [place], [address], 06/08/2025 05:18:50 06/07/2006/08/2025 CBC WITH DIFFE RENTI AL nucleated RBCs <1.0 /100_ WBCs <1 Not Available [facility] [address] [place], [address], 06/08/2025 05:18:50 06/07/2006/08/2025 COMP METAB OLIC PANEL sodium 142 mEq/L 135-14 6 Not Available [facility] [address] [place], [address], 06/08/2025 06:09:00 06/07/2006/08/2025 COMP METAB OLIC PANEL potassium 5.0 mEq/L 3.5-5. 4 Not Available [facility] [address] [place], [address], 06/08/2025 06:09:00 06/07/2006/08/2025 COMP METAB OLIC PANEL chloride 99 mEq/L 95-107 Not Available [facility] [address] [place], [address], 06/08/2025 06:09:00 06/07/2006/08/2025 COMP METAB OLIC PANEL carbon dioxide 29 mEq/L 19-31 Not Available [facility] [address], [place], [address], 06/08/2025 06:09:00 06/07/2006/08/2025 COMP METAB OLIC PANEL anion gap 14 mEq/L 7-23 Not Available [facility] [address] [place], [address], 06/08/2025 06:09:00 06/07/2006/08/2025 COMP METAB OLIC PANEL glucose non-fasting 126 mg/dL 70-139 Not Available [facility] [address] [place], [address], 06/08/2025 06:09:00 06/07/2006/08/2025 COMP METAB OLIC PANEL urea nitrogen (BUN) 16 mg/dL 8-23 Not Available [facility] [address], [place], [address], 06/08/2025 06:09:00 06/07/2006/08/2025 COMP METAB OLIC PANEL creatinine 0.82 mg/dL 0.80-1 .40 Not Available [facility] [address], [place], [address], 06/08/2025 06:09:00 06/07/2006/08/2025 COMP METAB OLIC PANEL 2020 CKD-epi eGFR-cr 95 mL/mi n/1.7 3m'2 >59 Not Available [facility] [address] [place], [address], 06/08/2025 06:09:00 06/07/20 25 06/08/2025 COMP METAB OLIC PANEL BUN/creatini ne ratio 20 ratio Not Available [facility] [address], [place], [address], 06/08/2025 06:09:00 06/07/20 25 06/08/2025 COMP METAB OLIC PANEL calcium total 9.1 mg/dL 8.5-10 .5 Not Available [facility] [address], [place], [address], 06/08/2025 06:09:00 06/07/20 25 06/08/2025 COMP METAB OLIC PANEL protein total 7.2 g/dL 6.1-8. 3 Not Available [facility] [address] [place], [address], 06/08/2025 06:09:00 06/07/20 25 06/08/2025 COMP METAB OLIC PANEL albumin 4.3 g/dL 3.5-5. 2 Not Available [facility] [address] [place], [address], 06/08/2025 06:09:00 06/07/20 25 06/08/2025 COMP METAB OLIC PANEL globulin 2.9 g/dL 1.7-4. 3 Not Available [facility] [address] [place], [address], 06/08/2025 06:09:00 06/07/20 25 06/08/2025 COMP METAB OLIC PANEL A/G ratio 1.5 ratio 0.9-2. 8 Not Available [facility] [address] [place], [address], 06/08/2025 06:09:00 06/07/20 25 06/08/2025 COMP METAB OLIC PANEL bilirubin total 0.3 mg/dL 0.0-1. 2 Not Available [facility] [address] [place], [address], 06/08/2025 06:09:00 06/07/20 25 06/08/2025 COMP METAB OLIC PANEL alkaline phosphatase 108 U/L 40-125 Not Available [facility] [address], [place], [address], 06/08/2025 06:09:00 06/07/2006/08/2025 COMP METAB OLIC PANEL AST (SGOT) 26 U/L 9-50 Not Available [facility] [address], [place], [address], 06/08/2025 06:09:00 06/07/2006/08/2025 COMP METAB OLIC PANEL ALT (SGPT) 21 U/L 5-50 Comme nt for COMP METAB OLIC PANEL Fasti ng statu s not provi ded. If the patie nt faste d the appro priat e gluco se refer ence range is 70-99 mg/dL . Not Available [facility] [address] [place], [address], 06/08/2025 06:09:00 06/09/20 25 06/10/2025 IRON AND TIBC iron 58 ug/dL 59-158 low Not Available [facility] [address] [place], [address], 06/10/2025 12:45:59 06/09/2006/10/2025 IRON AND TIBC total iron binding 438 ug/dL 250-40 0 high Not Available [facility] [address] [place], [address], 06/10/2025 12:45:59 06/09/20 25 06/10/2025 IRON AND TIBC % saturation 13 % 20-50 low Not Available [facility] [address] [place], [address], 06/10/2025 12:45:59 06/09/20 25 06/10/2025 PATRICA TIN ferritin 22 NG/mL 30-400 low Not Available [facility] [address], [place], [address], 06/10/2025 12:46:00 05/02/20 25 05/02/2025 XR, chest No observ ation record ed. [address] [place], [place], [address], 05/03/2025 08:55:42 05/05/2005/04/2025 [place], [facility] ardio gram No observ ation record ed. [facility] [address] [place], [address], 05/07/2025 21:49:40 05/09/20 25 05/09/2025 XR, suresh ble No observ ation record ed. [facility] [address] [place], [address], 05/10/2025 08:46:58 Result Notes None recorded. 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 9544371084005 7 Active 2024 GLORY RENAE APRN [address], [place], [address] , [place] [facility] 5 23:19:47 Chronic pain syndrome 084020671 Active 2024 GLORY RENAE APRN [address], [place], [address] , [place] [facility] 5 23:20:02 Generalize d osteoarthr itis 793598558 Active 2024 GLORY RENAE APRN [address], [place], [address] , [place] [facility] 5 23:20:02 Muscle weakness 44712713 Active 2024 GLORY RENAE APRN [address], [place], [address] , [place] [facility] 5 23:20:19 Essential hypertensi on 91095179 Active 2024 GLORY RENAE APRN [address], [place], [address] , [place] [facility] 5 23:23:57 Severe chronic obstructiv e pulmonary disease 885316378 Active 2024 GLORY RENAE APRN [address], [place], [address] , [place] [facility] 5 23:23:59 Chronic pulmonary edema 16875241 Active 2024 TANYA FLETCHER APRN [address], [place], [address] , [facility] 5 13:49:05 Anxiety disorder 172647518 Active 2024 TANYA FLETCHER APRN [address], [place], [address] , [facility] 19:05:24 Problem Notes Documentation Provider Name and Address Organization Details Recorded Time [address] [address] [phone] Advance Care Planning Patient: RENUKA GREEN Completed: 05/03/25 1320 of Admission:05/02/25Discharg e date 05/09/25 MR #: [id number] /AGE/SEX:1955/69/ M Room/Bed: 3002-A Location: [place] [address] CC: Joel Vela DO; Dafne Sen; Glory Renae APRN Report Number: [id number] Date/Time of Documentation Date: 05/03/25 Time In:: [...] existing POLST attached to medical record (from [place])), Code status clarified (Confirmed DNR code status), [...] all the time at baseline [place] [facility] [place] with acute hypercapnic respiratory failure requiring Bipap. [...] COPD, HTN and prediabetes. Patient moved from [place] to [place] this week because he can no longer take care of himself with plans to move to [facility]. ED course, tachypneic, BP stable. [...] GOC conversation. He states just moved to [place] from [place] this week to live closer to his daughters, as he is no longer able to take care of himself with his declining health status. He has 2 daughters, Adriana and Liset. HE states they have been planning for him to go to [facility] for TLC when he became ill and [...] near future. FICA Assessment: Patient denies any mandaeism or spiritual needs or concerns at this time. Violin Maker Hand services available to patient and family as needed. Total Time Spent: 60 minutes Face to Face Time Spent: 30 minutes Time Spent in Counseling/Coordinating Care: 30 minutes Recommendations: 1. Consider IPR or SNF referral [place] for strengthening and to improve functional status [...] Report Dictated by: Dafne Sen 05/03/25 1320 Trouble Shooter: Dafne Sen05/08/25 0902 05/10/25 0852 05/23/25 1620 Not Available [facility] 05/23/2025 17:21:[address] [address] [phone] Advance Care Planning Patient: RENUKA GREEN Completed: 05/03/25 1320 of Admission:05/02/25Discharg e date 05/09/25 MR #: [id number] /AGE/SEX:1955/69/ M Room/Bed: 3002-A Location: [place] [address] CC: Joel Vela DO; Dafne Sen; Glory Renae APRN Report Number: [id number] REPORT ADDENDUM Supervision Supervising Provider statement: I [...] the?importance of advance care planning and establishing shelter goals for care. Total time spent on education and clarifying goals for care was 27 minutes. Addendum Trouble Shooter: Joel Vela DO 05/23/251621 Addendum Signed By: 05/23/25 16205/[id number]/251621 Date/Time of Documentation Date: 05/03/25 Time In:: [...] existing POLST attached to medical record (from [place])), Code status clarified (Confirmed DNR code status), [...] all the time at baseline transferred from [facility] with acute hypercapnic respiratory failure requiring Bipap. [...] COPD, HTN and prediabetes. Patient moved from [place] to [place] this week because he can no longer take care of himself with plans to move to [facility] [place] by [facility]. ED course, tachypneic, BP stable. Labs [...] is alert and oriented and agreeable to [facility] conversation. He states just moved to [place] from [place] this week to live closer to his daughters, as he is no longer able to take care of himself with his declining health status. He has 2 daughters, Adriana and Liset. HE states they have been planning for him to go to [facility] for TLC when he became ill and [...] near future. FICA Assessment: Patient denies any mandaeism or spiritual needs or concerns at this time. Violin Maker Hand services available to patient and family as needed. Total Time Spent: 60 minutes Face to Face Time Spent: 30 minutes Time Spent in Counseling/Coordinating Care: 30 minutes Recommendations: 1. Consider IPR or SNF referral at [place] for strengthening and to improve functional status 2. Monitor Depression, Dyspnea, pain, anxiety, appetite and sleep/fatigue in order to maintain symptom management/control 3. Frequent skin assessment to prevent skin breakdown- turn/ reposition and keep clean and dry 4. Offer emotional support, empathetic listening and education during hospitalization- including family's needs 5. Contact Palliative Care for any patient needs, including support- I left [employer] card with my phone # for patient [...] Report Dictated by: Dafne Sen 05/03/25 1320 Trouble Shooter: Dafne Sen05/08/25 0902 05/10/25 0852 05/23/25 1620 Not Available [facility] 05/23/2025 17:23:42 Medical Equipment None Reported. Allergies [...] by oral route, for Ekit Replaceme nt. 2024 active Not Available Not Available Not Avai lable prednisone 20 mg tablet take 2 tablets BY MOUTH DAILY FOR 5 DAYS active Not Available Not Available No t Available metoprolol succinate ER 100 mg tablet,exte [...] Organization Details Last Updated DateTime 182.88 cm 98 [degF] 66 /min 20 /min 95 % 95 % 144/92 mm[Hg] TANYA FLETCHER APRN [address], [place], [address], FAHAD [facility] 15:56:44 Date Recorded Body height Body mass index (BMI) Body weight Provider Name and Address Organization Details Last Updated DateTime 05/17/2025 182.88 cm 29.1 kg/m2 94645.92 g TANYA FLETCHER APRN [address], [place], [address], FAHAD [facility] 05/29/2025 17:37:36 Date Recorded Body height Body mass index (BMI) Body weight Body temperature Heart rate Respiratory rate Oxygen saturation Oxygen saturation in Arterial blood by Pulse oximetry Inhaled oxygen flow rate Systolic And Diastolic Provider Name and Address Organization Details Last Updated DateTime 182.88 cm 29.9 kg/m2 26170.4 g 97.9 [degF] 79 /min 20 /min 95 % 95 % 2 L/min 164/80 mm[Hg] TANYA FLETCHER APRN [address], [place], [address], FAHAD [facility] 19:02:17 Date Recorded Systolic And Diastolic Provider Name and Address Organization Details Last Updated DateTime 06/07/2025 164/90 mm[Hg] GLORY STUCKER, RN CRITICAL CARE [address], [place], [address], FAHAD [facility] 06/07/2025 12:13:26 Date Recorded Body height Body mass index (BMI) Body weight Body temperature Heart rate Respiratory rate Oxygen saturation Oxygen saturation in Arterial blood by Pulse oximetry Inhaled oxygen flow rate Oxygen saturation Oxygen saturation in Arterial blood by Pulse oximetry Inhaled oxygen flow rate Provider Name and Address Organization Details Last Updated DateTime 182.88 cm 29.2 kg/m2 99418.4 6 g 97.4 [degF] 79 /min 19 /min 88 % 88 % 2 L/min 97 % 97 % 3 L/min Bettina [facility] 11:31:36 Date Recorded Systolic And Diastolic Provider Name and Address Organization Details Last Updated DateTime 06/07/2025 200/120 mm[Hg] Bettina [facility] 06/07/2025 11:30:11 Social History Question Answer Notes LastModified by Organizat ion Details LastModified Time Tobacco Smoking Status Current Some Day Smoker GLORY RENAE, RN CRITICAL CARE [address], [place], [address], FAHAD [facility] 05/16/2025 23:21:16 What Was The Date Of [...] ICD10 Code Diagnosis IMO Codes Diagnosis Note [id number] DK JAVIER [facility] [address] [place] [address] 05/11/2025 23:46:35 05/25/2025 10:30:45 Generalized osteoarthritis 537438388 M15.9 1453 Muscle weakness 89246057 M62.81 25045 Severe chr onic obstructive pulmonary disease 650930648 J44.9 416190 Advance care planning 71 8704171 Z71.89 [id number] Pt wants to discuss DNR with daughters prior to signing any forms. Currently wishes to remain full code until he can discuss with family [id number] DK [facility] [address] [place] [address] 05/11/2025 23:47:51 05/17/2025 12:35:05 Acute on chronic hypoxemic and hypercapnic respiratory failure 3050594954 5107 J96.21 J96.22 24131215 Chronic pain syndrome 37 9834717 G89.4 13011 Generalize d osteoarthritis 835264085 M15.9 1453 Muscle weakness 40533019 M62.81 48272 Severe chr onic obstructive pulmonary disease 814129544 J44.9 913753 Essential hypertension 96228818 I10 [id number] [place] [address] 05/15/2025 15:52:06 05/30/2025 16:17:47 Severe chronic obstructive pulmonary disease 633559585 J44.9 236948 Continue Oxygen 3.5 L NCSymbicor t Inhalation Aerosol 160-4.5 MCG/ACT BIDAlbuter ol Sulfate HFA Inhalation Aerosol Solution 108 (90 Base) MCG/ACT 2 puff Q6H PRNIpratro pium-Albut laney Inhalation Solution 0.5-2.5 (3) MG/3ML, TIDContinu e Albuterol inhaler Essential hypertension 54842880 I10 01900 Metoprolol Succinate Oral Capsule ER 24 Hour Sprinkle 100 MG QDay Chronic pu lmonary edema 12351355 J81.1 3162 Furosemide Oral Tablet 20 MG (Furosemid e) PO QDay Chronic pain syndrome 37 1705066 G89.4 80642 HYDROcodon e-Acetamin ophen Oral Tablet 7.5-325 MG (Hydrocodo ne-Acetami nophen) 1 tab Q8H [id number] DK OLIVERA CT [address] [place] [address] 05/18/2025 09:39:43 05/30/2025 16:19:08 Severe chronic obstructive pulmonary disease 317279516 J44.9 403829 Continue Oxygen 2 L NCSymbicor t Inhalation Aerosol 160-4.5 MCG/ACT BIDAlbuter ol Sulfate HFA Inhalation Aerosol Solution 108 (90 Base) MCG/ACT 2 puff Q6H PRNIpratro pium-Albut laney Inhalation Solution 0.5-2.5 (3) MG/3ML, TIDContinu e Albuterol inhaler Essential hypertension 20967370 I10 16959 Metoprolol Succinate Oral Capsule ER 24 Hour Sprinkle 100 MG QDay Chronic pain syndrome 37 7437619 G89.4 14907 HYDROcodon e-Acetamin ophen Oral Tablet 7.5-325 MG (Hydrocodo ne-Acetami nophen) 1 tab Q8H Muscle weakness 82612553 M62.81 02930 Continue PT/OT [id number] DK OLIVER[address] [place] [address] 05/26/2025 17:14:12 06/06/2025 11:59:27 Essential hypertension 58408296 I10 09065 Metoprolol Succinate Oral Capsule ER 24 Hour Sprinkle 100 MG QDay Generalize d osteoarthritis 917194805 M15.9 1453 No current medication . Chronic pain syndrome 37 6702955 G89.4 84724 HYDROcodon e-Acetamin ophen Oral Tablet 7.5-325 MG (Hydrocodo ne-Acetami nophen) 1 tab Q8H Acute on c hronic hypoxemic and hypercapnic respiratory failure 9733755854 5107 J96.21 J96.22 57897486 No current medication Severe chr onic obstructive pulmonary disease 374505104 J44.9 427498 Continue Oxygen 2 L NCAlbutero l Sulfate HFA Inhalation Aerosol Solution 108 (90 Base) MCG/ACT 2 puff Q6H PRNIpratro pium-Albut laney Inhalation Solution 0.5-2.5 (3) MG/3ML,Sym bicort Inhalation Aerosol 160-4.5 MCG/ACT (Budesonid e-Formoter ol Fumarate Dihydrate) 2 inhalation BID Chronic pu lmonary edema 04363653 J81.1 3162 Furosemide Oral Tablet 20 MG (Furosemid e) PO QDay Anxiety disorder 7470565 06 F41.9 61437266 BusPIRone HCl Oral Tablet 15 MG 1 tab PO QDay [id number] GLORY RENAE APRN [facility] [address] [place] [address] 06/07/2025 11:12:16 2025 12:10:36 Acute on chronic hypoxemic and hypercapnic respiratory failure 7760961490 5107 J96.21 J96.22 03603824 Severe chr onic obstructive pulmonary disease 069869814 J44.9 583727 Essential hypertension 60102427 I10 91061 Muscle weakness 29205180 M62.81 40701 Chronic constipation 236 145613 K59.09 475683 start miralax Hyperkalemia 38766991 E8 7.5 9805 Chronic pu lmonary edema 47597938 J81.1 3162 Anxiety disorder 6359338 06 F41.9 22522875 Increase buspirone Health Concerns Section Related Observation LastModified by Organization Detai ls LastModified Time None Recorded Concern Status LastModified by Organization Details LastModified Time None Recorded Advance Directives Directive None Recorded Payers Insurance Date Sequence Insurance Name Policy Number Policy Mcclure Covered Member ID Mcclure Member ID Guarantor Name 06/28/2025 1 [facility] (MEDICARE REPLACEMENT/A DVANTAGE - PPO) Renuka Green [id number] Renuka Green Notes Date Note Type Note Provider Name and Address Organization Details Recorded Time 05/11/2025 text/html Todays visit is medically necessary to assess pain medication and discuss advance care planning. GLORY RENAE APRN [address], [place], [address], [place] - Jose F [facility] 05/22/2025 00:54:28 05/15/2025 text/html Today's visit is medically necessary for a mcfp visit to review current acute and chronic [...] QUYNH RECINOS [address], [place], [address], FAHAD [facility] 05/30/2025 14:09:27 05/17/2025 text/html Today's visit is medically necessary for a mcfp visit to review current acute and chronic [...] QUYNH RECINOS [address], [place], [address], [facility]AD [facility] 05/30/2025 14:06:57 05/26/2025 text/html ROS as noted [...] concerns, contact PCP's office or call the longterm for assistance. Discussed fall proofing home. Advised [...] <30 min. Time spent meeting with patient [id number], completing discharge paperwork. reviewing and renewing prescriptions, ensuring coordination of follow-up appointments and home health services , and providing discharge instructions to patient <30 min. QUYNH RECINOS [address], [place], [address], [facility]AD [facility] 05/31/2025 16:12:57 06/07/2025 text/html Patient is here today for a hernia and constipation and would like an order of oxygen. His tank is almost out. Patient daughter will call later with medications. Daughter concerned with patient getting bedsores. GLORY RENAE APRN [address], [place], [address], [facility] 06/08/2025 12:53:55
--- OUTSIDE RECORDS SUMMARY | 2025-07-03 03:39 | XMS_ITS | Encounter Summary ---
Author Organization [facility] Address [address] [place] [address] Care Team Providers Care Jewel Bearing Facer Name Role Phone Unavailable Primary Care Provider Unavailabl e Encounter Details Date Type Department Care Team (Late st Contact Info) Description 08/02/2007 Emergency [facility] Emergency Department [address] [place] [phone] Julius Anderson MD [address] [place], [place] [id number] Obstructive Chronic Bronchitis with Exacerbation (CMS/HCC) (Primary Dx) Social History Tobacco Use Types Packs/Day Years Used Date Smoking Tobacco: Never Assessed Sex and Gender Information Value Date Recorded Sex Assigned at Not on file Legal Sex Male 5:35 AM CLINICAL INFORMATICS PHYSICIAN Gender Identity Not on file Sexual Orientation Not on file documented as of this encounter Plan of Treatment Not on file documented as of this encounter Procedures Procedure Name Priority Date/Time Associated Diagnosis Comments POC BLOOD GAS, LYTES AND H+H Routine 08/02/2007 7:54 PM CLINICAL INFORMATICS PHYSICIAN PT AND APTT Routine 08/02/2007 7:54 PM CLINICAL INFORMATICS PHYSICIAN CARDIAC ENZYMES Routine 08/02/2007 7:54 PM CLINICAL INFORMATICS PHYSICIAN CBC WITH DIFFERENTIAL Routine 08/02/2007 7:54 PM CLINICAL INFORMATICS PHYSICIAN BRAIN NATRIURETIC PEPTIDE, BNP OR PROBNP Routine 08/02/2007 7:54 PM CLINICAL INFORMATICS PHYSICIAN BASIC METABOLIC PANEL Routine 08/02/2007 7:54 PM CLINICAL INFORMATICS PHYSICIAN CTA CHEST W WO CONTRAST Routine 08/02/2007 7:27 PM CLINICAL INFORMATICS PHYSICIAN XR CHEST PA OR AP 1 VW Routine 08/02/2007 7:27 PM CLINICAL INFORMATICS PHYSICIAN documented in this encounter Results * (ABNORMAL) POC ISTAT EG 7+ (08/02/2007 7:54 PM CLINICAL INFORMATICS PHYSICIAN) SPECIMEN TYPE Arterial INTERF BETHANY SYSTEM Comment: Test Performed By [id number] Pulse OX: 99 Hemoglobin calculated from Hematocrit [...] 1.32 mmol/l INTERFACE SYSTEM 08/02/2007 7:54 PM CLINICAL INFORMATICS PHYSICIAN us Physician Sj Ed POINT OF CARE TESTING COM Edited INTERFACE SYSTEM Refer to clinic/hospital department * BRAIN NATRIURETIC PEPTIDE, BNP OR PROBNP (08/02/2007 7:54 PM CLINICAL INFORMATICS PHYSICIAN) BRAIN NATRIURETIC PEPTIDE 44 0 - 125 pg/mL INTERFACE SYSTEM 08/02/2007 7:54 PM CLINICAL INFORMATICS PHYSICIAN Julius Anderson MD CHEMISTRY ORDERABLES Edited Performing Organization Address [facility] de Phone Number INTERFACE SYSTEM Refer to clinic/hospital department * PT AND APTT (08/02/2007 7:54 PM CLINICAL INFORMATICS PHYSICIAN) PROTIME 13.7 13.0 - 15.7 Secs INTERFACE SYSTEM Comment: As of 06 note change in normal range. INR 0.9 INTERFACE SYSTEM Comment: Expected Values for INR: DVT/PE Goal INR 2.5; range 2.0 - 3.0 Valve Replacement Tissue Goal INR 2.5; range 2.0 - 3.0 Mechanical Goal INR 3.0; range 2.5 - 3.5 POST-FL Goal INR 2.5; range 2.0 - 3.0 [...] in APTT Normal Range. 08/02/2007 7:54 PM CLINICAL INFORMATICS PHYSICIAN Julius Anderson MD HEMATOLOGY ORDERABLES Edited Performing Organization Address [facility] de Phone Number INTERFACE SYSTEM Refer to clinic/hospital department * CARDIAC ENZYMES (08/02/2007 7:54 PM CLINICAL INFORMATICS PHYSICIAN) TROPONIN I <0.1 0.0 - 1.3 ng/mL INTERFACE SYSTEM Comment: As of 07 the Troponin Reference Range has changed from 0.0-1.5 ng/ml to 0.0- 1.3 ng/ml due to a change in testing methodology. CKMB 3.4 0.0 - 5.0 ng/mL INTERFACE SYSTEM 08/02/2007 7:54 PM CLINICAL INFORMATICS PHYSICIAN us Julius Anderson MD CHEMISTRY ORDERABLES Edited Performing Organization Address [facility] Phone Number INTERFACE SYSTEM Refer to clinic/hospital department * (ABNORMAL) BASIC METABOLIC PANEL (08/02/2007 7:54 PM CLINICAL INFORMATICS PHYSICIAN) GLUCOSE 106 70 - 110 mg/dL INTERFACE [...] 295 mOsm/Kg INTERFACE SYSTEM 08/02/2007 7:54 PM CLINICAL INFORMATICS PHYSICIAN us Julius Anderson MD CHEMISTRY ORDERABLES Edited Performing Organization Address [facility] Phone Number INTERFACE SYSTEM Refer to clinic/hospital department * (ABNORMAL) CBC WITH DIFFERENTIAL (08/02/2007 7:54 PM CLINICAL INFORMATICS PHYSICIAN) WBC 12.0(H) 4.8 - 10.8 K/ul INTERFACE [...] Automated Diff INTERFACE SYSTEM 08/02/2007 7:54 PM CLINICAL INFORMATICS PHYSICIAN us Julius Anderson MD HEMATOLOGY ORDERABLES Edited INTERFACE SYSTEM Refer to clinic/hospital department * XR CHEST PA OR AP (08/02/2007 7:27 PM CLINICAL INFORMATICS PHYSICIAN) Anatomical Region Laterality Modality Chest Other 08/02/2007 7:27 PM CLINICAL INFORMATICS PHYSICIAN Narrative 08/02/2007 7:27 PM CLINICAL INFORMATICS PHYSICIAN Portable AP upright chest 08/02/2007. 1945 hours. [...] a possible small nodule overlying the posterior [id number] rib is probably due tothe patchy infiltrate [...] CHEST W WO CONTRAST (08/02/2007 7:27 PM CLINICAL INFORMATICS PHYSICIAN) Anatomical Region Laterality Modality Chest Other 08/02/2007 7:27 PM CLINICAL INFORMATICS PHYSICIAN Narrative 08/02/2007 7:27 PM CLINICAL INFORMATICS PHYSICIAN CTA Chest 08/02/2007History: Difficulty breathing. Procedure: A [...] By: Leatha Mcgee M.D. Electronically Signed By: Leahta Mcgee M.D. Date Signed: 08/02/[address] ORDERABLES Final Result documented in this encounter Visit Diagnoses Diagnosis Obstructive chronic bronchitis with exacerbation (CMS/HCC)- Primary Obstructive chronic bronchitis with exacerbation documented in this encounter
--- OUTSIDE RECORDS SUMMARY | 2025-07-03 03:39 | XMS_ITS | Clinical Summary ---
Author Organization [facility] Address [address] [place] [address] Phone Care Team Providers Care Stretch Box Tender Name Role Phone Unavailable Primary Care Provider [...] - 1-dose 75+ series) 2030 Insurance MEDICARE [employer] [id number] [place] [id number]
--- OUTSIDE RECORDS SUMMARY | 2025-07-03 03:39 | XMS_ITS | Encounter Summary ---
Author Organization [facility] Address [address] 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
--- OUTSIDE RECORDS SUMMARY | 2025-07-03 03:39 | XMS_ITS | Encounter Summary ---
Author Organization [facility] Address [address] [place] [address] Care Team Providers Care Principal Account Clerk Name Role Phone Unavailable Primary Care Provider Unavailabl e Encounter Details Date Type Department Care Team (Late st Contact Info) Description 05/09/2005 Emergency [facility] Emergency Department [address] 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
--- OUTSIDE RECORDS SUMMARY | 2025-07-03 03:39 | XMS_ITS | Encounter Summary ---
Author Organization [facility] Address [address] [place] [address] Care Team Providers Care Siphoner Name Role Phone Unavailable Primary Care Provider Unavailabl e Encounter Details Date Type Department Care Team (Latest Contact Info) Description 06/03/2007 Outpatient Historical 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
--- OUTSIDE RECORDS SUMMARY | 2025-07-03 03:39 | XMS_ITS | Encounter Summary ---
Author Organization [facility] Address [address] [place] [address] Care Team Providers Care Awning Craftsperson Name Role Phone Unavailable Primary Care Provider Unavailabl e Encounter Details Date Type Department Care Team (Latest Contact Info) Description 05/09/2005 Outpatient Historical [facility] [address] [place] [address] AMBULANCE, [facility] OTHER INJURY OF ABDOMEN (Primary Dx) Social History Tobacco Use Types Packs/Day Years Used Date Smoking Tobacco: Never Assessed Sex and Gender Information Value Date Recorded Sex Assigned at Not on file 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
--- OUTSIDE RECORDS SUMMARY | 2025-07-03 03:39 | XMS_ITS | Encounter Summary ---
Author Organization [facility] Address [address] [place] [address] Care Team Providers Care Manager File Name Role Phone Unavailable Primary Care Provider Unavailabl e Encounter Details Date Type Department Care Team (Late st Contact Info) Description 08/03/2007 Emergency [facility] Emergency Department [address] 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
[2025-07-03 03:44] LABS: Lactic Sepsis W/Reflex 1.1 mmol/L (0.5-2.2)
[2025-07-03 03:54] LABS: Alanine Aminotransferase 18 U/L (0-41); Albumin Level 4.1 g/dL (3.5-5.2); Alkaline Phosphatase 94 U/L (40-130); Anion Gap 9.3 (5-19); Aspartate Amino Transferase 22 U/L (0-40); Blood Urea Nitrogen 24 mg/dL (8-23); Calcium 8.4 mg/dL (8.5-10.5); Chloride 99 mmol/L (98-107); Creatinine Clr Calc Pharmacy 101.7382; Globulin 3.3 g/dL (1.3-4.6); Glucose 160 mg/dL (65-115); Osmolality Calculated 305 mOsm/kg (285-295); Potassium 5.3 mmol/L (3.5-5.1); Sodium 144 mmol/L (136-145); Total Protein 7.4 g/dL (6.6-8.7)
[2025-07-03 03:59] LABS: Carbon Dioxide 41 mmol/L (22-29)
[2025-07-03 04:04] LABS: Respiratory Syncytial Virus Ce NEGATIVE (Negative); SARS-CoV-2 PCR NEGATIVE (Negative)
--- NOTE | 2025-07-03 04:33 | ED_ITS ---
HPI - SOB/Dyspnea 2 General: Chief Complaint: Shortness of Breath/Dyspnea Stated Complaint: SOB Time Seen by Provider: 07/03/25 03:14 History of Present Illness: HPI Narrative: 70-year-old patient is a poor historian. He presents from home short of breath. He was in respiratory distress on EMS arrival. He was given multiple breathing treatments and route. He was also given Solu-Medrol and route. He denies any chest pain. He can answer simple questions. He says he has been coughing. Minimal sputum. He denies fever. He does have oxygen at home. He comes in on 8 L OxyMask Related Data Previous Rx's ?Medication ?Instructions ?Recorded azithromycin 250 mg tablet 250 mg PO DAILY #5 tabs docusate sodium 100 mg capsule 100 mg PO BID #60 caps 06/20/25 ipratropium 0.5 mg-albuterol 3 mg 3 ml inhalation Q6H PRN Shortness 06/20/25 (2.5 mg base)/3 mL nebulization Of Breath #180 mL soln nicotine 14 mg/24 hr daily 1 patch transdermal DAILY # 14 ea 06/20/25 transdermal patch nicotine 7 mg/24 hr daily 1 patch transdermal DAILY #1 4 ea 06/20/25 transdermal patch albuterol sulfate 90 mcg/actuation 2 inh inhalation Q6 H PRN shortness 06/21/25 aerosol inhaler (Ventolin HFA) of breath or wheezing # 8.5 grams budesonide 0.5 mg/2 mL suspension 0.5 mg (2 mL) inhala tion 06/21/25 for nebulization BID.RESPIRATORY #60 mL buspirone 15 mg tablet 15 mg PO TID #90 tabs diazepam 5 mg tablet (Valium) 2.5 mg (1/2 x 5 mg) PO B ID PRN 06/21/25 anxiety #14 tabs diltiazem HCl 120 mg 120 mg PO DAILY #30 caps capsule,extended release 24 hr duloxetine 60 mg capsule,delayed 60 mg PO DAILY #30 ca ps 06/21/25 release furosemide 40 mg tablet 40 mg PO DAILY #30 tabs 05/30 01/20 hydrocodone 7.5 mg-acetaminophen 1 tab PO BID PRN events and promotions assistant luis pain #20 09/24/25 325 mg tablet tabs losartan 50 mg tablet 50 mg PO DAILY #30 tabs 05/30 01/20 pantoprazole 40 mg tablet,delayed 40 mg PO DAILY #30 t abs 06/21/25 release polyethylene glycol 3350 17 17 g PO DAILY #30 grams gram/dose oral powder prednisone 20 mg tablet 40 mg (2 x 20 mg) PO DAILY 5 days 06/30/25 #5 tabs Allergies Allergy/AdvReac Type Severity Reaction Status Date / Time No Known Allergies Allergy Verified 07/03/25 03:14 PFSH ED 2 PFSH: Medical History (Updated 07/03/25 @ 04:34 by Cesar Fajardo DO) Hypertension Anxiety Medically noncompliant Acute on chronic respiratory failure with hypoxia and hypercapnia Social History Smoking and tobacco/nicotine status: former use of tobacco/nicotine Alcohol intake: unknown Substance/Drug Use: unknown Additional social history: Patient denies tobacco alcohol or illicit use currently. He reports he wants full code Physical Exam 2 Const: GENERAL APPEARANCE: cooperative, in distress, lethargic, ill appearing and frail appearing ORIENTATION/CONSCIOUSNESS: Yes lethargic HENMT: COMMON NORMALS: normocephalic, atraumatic and Normal external nose present HEAD & SCALP: normocephalic and atraumatic FACE & SINUS: normal facial exam and face symmetric NOSE: Normal external nose present Eye: COMMON NORMALS: Equal, round and reactive pupils present and EOMs intact bilaterally PUPIL: Yes Equal, round and reactive pupils present Neck/C-Spine: GENERAL: Yes trachea midline Chest: CHEST: Yes Symmetrical chest wall rise Resp: EFFORT & INSPECTION: Yes tachypneic and Yes labored AUSCULTATION: r honchi and wheezes Cardio: COMMON NORMALS: regular rate and regular rhythm RATE: regular rate RHYTHM: regular rhythm GI: COMMON NORMALS: non-tender INSPECTION: Yes abdominal distension Extremity: COMMON NORMALS: no pedal edema Neuro: PATRIA COMA SCALE: document GCS findings [place] coma scale eye opening: Spontaneous Patria coma scale verbal response: Confused Patria coma scale motor response: Obey commands Patria coma scale total score: 14 S ENSORIUM/ORIENTATION: Yes lethargic SENSORY EXAM: Yes extremities (intact) Psych: COMMON NORMALS: speech normal SPEECH: Yes normal speech Skin: COMMON NORMALS: no rashes or lesions noted GENERAL SKIN EXAM: no rashes or lesions noted Course 2 Vital Signs: Vital signs: Vital Signs Temperature 97.8 F 07/03/25 03:06 Pulse Rate 86 07/03/25 04:39 Respiratory Rate 16 07/03/25 04:39 Blood Pressure 136/83 07/03/25 04:39 Pulse Oximetry 94 07/03/25 04:39 Oxygen Delivery Me thod BiPAP 07/03/25 04:39 Oxygen Flow Rate 8 07/03/25 03:06 Fraction of Inspir ed Oxygen 40 07/03/25 03:55 MDM - SOB/Dyspnea Medical Decision Making Patient is in respiratory distress on EMS arrival. He is somewhat improved here. He still lethargic. He does answer questions. His ABG shows a pH of 7.2 with a pCO2 greater than 102. He is placed on BiPAP. He improved on BiPAP alone on his previous admission last week. His white blood cell count is 22. His hemoglobin is 10.5. Potassium is 5.3 with a creatinine of 0.8. His swabs are negative for COVID flu and RSV. His lactic acid is only 1.1. He will be admitted for hypercarbic hypoxic respiratory failure. He is on BiPAP as above. He will need ICU monitoring. Hospitalist is aware and will see the patient. Antibiotic coverage is given after blood cultures. The patient is nontachycardic, normotensive, and lactic acid is negative, so bolus for severe sepsis not necessary, especially with a history of CHF. Lab Data 07/03/25 03:15 07/03/25 03:15 Labs/Radiology: Radiology Impressions Chest X-Ray 07/03/25 03:15 IMPRESSION: No acute findings. Laboratory Results WBC 22.18 10^3/uL (3.29-11.43) H 07/03/25 03:15 RBC 4.53 10^6/uL (3.85-5.65) 07/03/25 03:15 Hgb 10.50 g/dL (11.27-16.99) L 07/03/25 03:15 Hct 39.1 % (37-53) 07/03/25 03:15 MCV 86.3 fl (82-101) 07/03/25 03:15 MCH 23.2 pg (27-33) L 07/03/25 03:15 MCHC 26.9 g/dL (30-55) L 07/03/25 03:15 RDW 19.9 % (12.1-15.1) H 07/03/25 03:15 Plt Count 418 10^3/cmm (157-399) H 07/03/25 03:15 MPV 9.8 fL (7.4-10.4) 07/03/25 03:15 Neut % (Auto) 80.3 % 07/03/25 03:15 Lymph % (Auto) 9.5 % 07/03/25 03:15 [place] % (Auto) 7.5 % 07/03/25 03:15 Eos % (Auto) 1.2 % 07/03/25 03:15 Baso % (Auto) 0.2 % 07/03/25 03:15 Neut # (Auto) 17.80 10^3/uL (1.8-7.7) H 07/03/25 03:15 Lymph # (Auto) 2.1 10^3/uL (0.8-4.8) 07/03/25 03:15 [place] # (Auto) 1.7 10^3/uL (0.2-0.9) H 07/03/25 03:15 Eos # (Auto) 0.3 10^3/uL (0.0-0.8) 07/03/25 03:15 Baso # (Auto) 0.0 10^3/uL (0.0-0.1) 07/03/25 03:15 Nucleated RBC % (auto) 0 % 07/03/25 03:15 Nucleated RBCs # 0.0 /100WBC 07/03/25 03:15 Specimen Type Arterial 07/03/25 03:26 Sample Site Brachial, right 07/03/25 03:26 ABG pH 7.20 (7.35-7.45) L 07/03/25 03:26 ABG pCO2 > 102.0 mmHg (35-45) H* 07/03/25 03:26 ABG pO2 87.2 mmHg (80.0-100.0) 07/03/25 03:26 ABG PO2/FiO2 Ratio 272 07/03/25 03:26 ABG HCO3 42.8 mmol/L (22-26) H 07/03/25 03:26 ABG Base Excess 11.3 mmol/L (-2.0-2.0) H 07/03/25 03:26 Juno Test Pos 07/03/25 03:26 Hematocrit 33.4 % (42-52) L 07/03/25 03:26 Hgb O2 Saturation 94.7 % (95-100) L 07/03/25 03:26 Carboxyhemoglobin 1.2 %THgb (0.4-20.1) 07/03/25 03:26 Methemoglobin 0.5 % (0.4-1.5) 07/03/25 03:26 Total Hemoglobin 10.9 g/dL (14-18) L 07/03/25 03:26 O2 Delivery Device Nc 07/03/25 03:26 O2 Liters/Min 3.0 % 07/03/25 03:26 FiO2 32.0 % 07/03/25 03:26 Sales Department Supervisor ID Bd 07/03/25 03:26 Sodium 144 mmol/L (136-145) 07/03/25 03:15 Potassium 5.3 mmol/L (3.5-5.1) H 07/03/25 03:15 Chloride 99 mmol/L (98-107) 07/03/25 03:15 Carbon Dioxide 41 mmol/L (22-29) H 07/03/25 03:15 Anion Gap 9.3 (5-19) 07/03/25 03:15 BUN 24 mg/dL (8-23) H 07/03/25 03:15 Creatinine 0.8 mg/dL (0.7-1.2) 07/03/25 03:15 GFR Calculation 95.6 mL/min (90-130) 07/03/25 03:15 Glucose 160 mg/dL (65-115) H 07/03/25 03:15 Calculated Osmolality 305 mOsm/kg (285-295) H 07/03/25 03:15 Lactic Acid 1.1 mmol/L (0.5-2.2) 07/03/25 03:15 Calcium 8.4 mg/dL (8.5-10.5) L 07/03/25 03:15 Total Bilirubin 0.2 mg/dL (0.15-1.2) 07/03/25 03:15 AST 22 U/L (0-40) 07/03/25 03:15 ALT 18 U/L (0-41) 07/03/25 03:15 Alkaline Phosphatase 94 U/L (40-130) 07/03/25 03:15 Total Protein 7.4 g/dL (6.6-8.7) 07/03/25 03:15 Albumin 4.1 g/dL (3.5-5.2) 07/03/25 03:15 Globulin 3.3 g/dL (1.3-4.6) 07/03/25 03:15 Influenza A (PCR) Negative (Negative) 07/03/25 03:17 Influenza Type B (PCR) Negative (Negative) 07/03/25 03:17 RSV (PCR) Negative (Negative) 07/03/25 03:17 SARS-CoV-2 (PCR) Negative (Negative) 07/03/25 03:17 All radiology interpretation(s) finalized by discharge Critical Care Time 2 Critical Care Time: Critical Care Time: Yes Total Critical Care Time: 35 Attestation: This case had a high probability of a clinically significant, sudden, or life threatening deterioration of this patient's condition which required my full and direct attention, intervention and personal management. Time is independent of any procedures performed Discharge Plan Discharge Patient Disposition: Admitted As Inpatient Clinical Impression: Acute on chronic respiratory failure with hypoxia and hypercapnia Condition: Serious Coding Level of Care Code ED Recovery Coach for Alida Guerra
[2025-07-03 05:04] LABS: NT Pro B Type Natriuretic Pept 155 pg/mL (0-125)
--- NOTE | 2025-07-03 05:14 | CTR_ITS ---
PROCEDURE INFORMATION: Exam: CT Chest Without Contrast; Diagnostic Exam date and time: 07/03/2025 5:19 AM Age: 70 years old Clinical indication: Abnormal findings; Abnormal diagnostic tests; Abnormal wbc and abnormal ekg; Shortness of breath; Prior surgery; Surgery date: 6+ months; Surgery type: Clavicle fixation; SOB with leukocytosis and hypercapnia; Additional info: Severe SOB and marked leukocytosis TECHNIQUE: Imaging protocol: Diagnostic computed tomography of the chest without contrast. Radiation optimization: All CT scans at this facility use at least one of these dose optimization techniques: automated exposure control; mA and/or kV adjustment per patient size (includes targeted exams where dose is matched to clinical indication); or iterative reconstruction. COMPARISON: CT chest con [id number] 06/28/2025 11:19 PM RADIATION DOSE METRICS: Total DLP (mGy-cm): 1004.44 FINDINGS: Lungs: There appears to be mildly increased subsegmental right lower lobe and left lower lobe atelectasis. There is stable right upper lobe scarring. Pleural spaces: Unremarkable. No pneumothorax. No pleural effusion. Heart: Unremarkable. No cardiomegaly. No pericardial effusion. Coronary arteries: Mild coronary artery calcifications are identified. Lymph nodes: Unremarkable. No enlarged lymph nodes. Vasculature: Unremarkable. No aortic aneurysm. Bones/joints: Multiple old bilateral rib fractures are identified. Soft tissues: Unremarkable. CT/CT chest con [id number] IMPRESSION: Mildly increased subsegmental right lower lobe and left lower lobe atelectasis.
--- NOTE | 2025-07-03 05:15 | PM.HP ---
Providers/Chief Complaint Admitting Physician: Vicky Ward MD Primary Care Provider: GLORY GARVEY APRN Chief Complaint: SOB History of Present Illness As per the previous notes and the patient, patient is a poor historian and unable to provide adequate history. He is alert however goes back to sleep on BiPAP. Only nods yes and no. Of note he has recent recurrent admissions and also seen by the speech pathologist assistant as well Therefore the history is based on the previous retrospective notes more or less, no family member or collateral history provided at bedside. Pola Fajardo is a 70 year old male with past medical history of hypertension, hypercapnic respiratory failure and previous admissions, nicotine dependency,. Came from home with severe shortness of breath He was in respiratory distress on EMS arrival. He was given multiple breathing treatments and route. He was also given Solu-Medrol and route. He denies any chest pain. He can answer simple questions. He says he has been coughing. Minimal sputum. He denies fever. He does have oxygen at home. He comes in on 8 L OxyMask. Review of Systems General: Reports: ROS unobtainable due to mental status Medications/Allergies Home Medications ?Medication ?Instructions ?Recorded ?Confirmed ?Last Taken ?Type azithromycin 250 mg tablet 250 mg PO DAILY #5 tabs 06/20/25 06/29/25 Unknown Rx docusate sodium 100 mg capsule 100 mg PO BID #60 caps 06/20/25 06/29/25 Unknown Rx ipratropium 0.5 mg-albuterol 3 mg 3 ml inhalation Q6H PRN Shortness 06/20/25 06/29/25 Unknown Rx (2.5 mg base)/3 mL nebulization Of Breath #180 mL soln nicotine 14 mg/24 hr daily 1 patch transdermal DAILY #14 ea 06/20/25 06/29/25 Unknown Rx transdermal patch nicotine 7 mg/24 hr daily 1 patch transdermal DAILY #14 ea 06/20/25 06/29/25 Unknown Rx transdermal patch albuterol sulfate 90 mcg/actuation 2 inh inhalation Q6H PRN shortness 06/21/25 06/29/25 Unknown Rx aerosol inhaler (Ventolin HFA) of breath or wheezing #8.5 grams budesonide 0.5 mg/2 mL suspension 0.5 mg (2 mL) inhalation 06/21/25 06/29/25 Unknown Rx for nebulization BID.RESPIRATORY #60 mL buspirone 15 mg tablet 15 mg PO TID #90 tabs 06/21/25 06/29/25 Unknown Rx diazepam 5 mg tablet (Valium) 2.5 mg (1/2 x 5 mg) PO BID PRN 06/21/25 06/29/25 Unknown Rx anxiety #14 tabs diltiazem HCl 120 mg 120 mg PO DAILY #30 caps 06/21/25 06/29/25 Unknown Rx capsule,extended release 24 hr duloxetine 60 mg capsule,delayed 60 mg PO DAILY #30 caps 06/21/25 06/29/25 Unknown Rx release furosemide 40 mg tablet 40 mg PO DAILY #30 tabs 06/21/25 06/29/25 Unknown Rx hydrocodone 7.5 mg-acetaminophen 1 tab PO BID PRN chronic pain #20 06/21/25 06/29/25 Unknown Rx 325 mg tablet tabs losartan 50 mg tablet 50 mg PO DAILY #30 tabs 06/21/25 06/29/25 Unknown Rx pantoprazole 40 mg tablet,delayed 40 mg PO DAILY #30 tabs 06/21/25 06/29/25 Unknown Rx release polyethylene glycol 3350 17 17 g PO DAILY #30 grams 06/21/25 06/29/25 Unknown Rx gram/dose oral powder prednisone 20 mg tablet 40 mg (2 x 20 mg) PO DAILY 5 days 06/30/25 Unknown Rx #5 tabs Allergies Allergy/AdvReac Type Severity Reaction Status Date / Time No Known Allergies Allergy Verified 07/03/25 03:14 PFSH Acute PFSH: Medical History (Updated 07/03/25 @ 07:07 by Vicky Ward MD) Hypertension, unspecified type Anxiety Medically noncompliant Acute on chronic respiratory failure with hypoxia and hypercapnia Social History Smoking and tobacco/nicotine status: former use of tobacco/nicotine Alcohol intake: unknown Substance/Drug Use: unknown Additional social history: Patient denies tobacco alcohol or illicit use currently. He reports he wants full code Vitals/I&O/Wt Last Vital Signs Temp 97.8 F 07/03/25 03:06 Pulse 83 07/03/25 05:10 Resp 14 07/03/25 05:10 BP 144/87 07/03/25 05:10 Pulse Ox 95 07/03/25 05:10 O2 Del Method BiPAP 07/03/25 04:39 O2 Flow Rate 8 07/03/25 03:06 FiO2 40 07/03/25 03:55 07/02/25 07/02/25 07/03/25 14:59 22:59 06:59 Intake Total 0 / 0 Balance 0 / 0 Weight last 48 hrs Weight 99.79 kg Physical Exam Narrative: General: Alert however unable to assess orientation, on NIV. He prefers to just nod heads and gives some few answers and goes back to sleep. HEENT: Normocephalic, atraumatic, grossly unremarkable exam Cardio: normal rate rhythm, normal S1-S2 however unable to see JVD since the patient is on BiPAP, and unable to comment on murmurs due to conductive signs from the NIV Respiratory: normal vascular breathing, mild wheezes on lateral chest examination however no crackles can be appreciated limited exams due to thick chest wall GI: Abdomen soft, nontender, nondistended, normoactive bowel sounds present all 4 quadrants, Neuro: Gross neurological examination was unremarkable, patient is alert and notes and gives some answers in short sentences does not appear to be in distress. Orientation cannot be assessed. Extremities: Adequate palpable pulses, mild trace pedal edema Data 07/03/25 03:15 07/03/25 03:15 Micro: Microbiology 07/03/25 05:02 Blood Culture - Preliminary Blood SPECIMEN COLLECTED 07/03/25 05:01 Blood Culture - Preliminary Blood SPECIMEN COLLECTED A&P Assessment and plan 1. Acute on chronic respiratory failure with hypoxia and hypercapnia: - Patient has been recently admitted due to acute on chronic respiratory failure with hypercapnia and hypoxemia -Continue on NIV since the patient improved last time as well. -Sent for blood cultures based on patient's leukocytosis of 22,000, and to start him on levofloxacin 750 mg daily (orders of Zosyn and vancomycin were placed in the ER) - Solu-Medrol 60 mg daily - Continue pulse ox monitoring - Telemetry monitoring - Try to obtain history from the collateral or family member in the morning and also to discuss the goals of care since the patient has recurrent admissions and with this advanced hypercapnic respiratory failure, it is important to discuss further future goals of life/care - Low threshold for intubation - Repeat ABG after 2 hours of NIV 2. Hypertension, unspecified type: - Patient has losartan 50 mg daily, diltiazem 120 mg daily however need medication reconciliation to initiate and as per the vitals 3. Medically noncompliant: - To educate and counseling specialist on medication/treatment compliance 4. Encounter for screening involving social determinants of health (SDoH): - Patient need case management involvement since the patient has recurrent admissions for acute hypoxemic/hypercapnic respiratory failure and requiring ICU admissions - Need to discuss goals of care and to involve family members next of kin and his discussion - Need medication reconciliation for further management of his rest of the comorbid conditions PDMP PDMP Reviewed: Not Reviewed Attestations Medical Necessity Statement*: Pola Fajardo's hospital stay will require greater than 2 midnights for your acute or chronic hypercapnic/hypoxemic respiratory failure Time Spent in Patient Care: 16 - 35 minutes (>than 50% of time spent in counselling and/or direct pt care on unit). Critical Care Time: The high probability of a clinically significant, sudden or life threatening deterioration, as referenced in this documentation, required my full and direct attention, intervention and personal management. The critical care time shown is in addition to time spent performing any reported separately billable procedures and includes the following: [x] Data and vital sign review and interpretation [x] Patient assessment, examination and intervention [x] Medication orders and management [x] Patient/Family updates as able [x] Care Coordination and Documentation. Critical Care Time (min): 35 Other Attestations: Patient condition has been discussed at length with the patient/family, I have independently reviewed the chart labs imaging/diagnostics/EKG. the goals of care and code status with the patient/family/NOK/legal in home sales representative, and documented accordingly. The patient/family has been informed about the current condition and further plan of care. Agreed with the plan of care and understood without any language barrier. Every effort was made to ensure accuracy of wireless field technician. Any obvious errors or omissions should be clarified with the author of the document. Coding Level of Care Code Critical Care >/= 30 minutes Diagnoses Acute on chronic respiratory failure with hypoxia and hypercapnia J96.21; J96.22 Hypertension, unspecified type I10 Hypertension type: unspecified Medically noncompliant Z91.199 Encounter for screening involving social determinants of health (SDoH) Z13.9
[2025-07-03] MEDS: piperacillin-tazobactam 4.5 GM in sodium chloride 0.9% (plus) 50 ML IV (06:09)
[2025-07-03] MEDS: pantoprazole 40 mg SDV IVP (06:10)
[2025-07-03] MEDS: heparin 5,000 unit/mL INJ 1 mL 5000 UNIT SUBCUT ×2 (06:10→17:56)
[2025-07-03] MEDS: methylPREDNISolone sod succ 125 mg/2 mL INJ 60 MG IVP (07:46)
[2025-07-03] MEDS: levofloxacin-dextrose 5 % 750 MG/150 ML PREMIX 100 MG IV (08:07)
[2025-07-03 08:27] LABS: ABG PH Result 7.24 (7.35-7.45); Alveolar-Arterial Oxygen Gradi 11.1 mmHg (5-10); Arterial Blood Gas Hematocrit 31.7 % (42-52); Blood Gas Allen Test Pos; Blood Gas Operator Identificat GD; Blood Gas Sample Site Radial, right; Blood Gas Sample Type Arterial; Carboxyhemoglobin 1.2 %THgb (0.4-20.1); Glucose Level-ABG 168.0 mg/dL (70-115); HCO3 ABG 42.6 mmol/L (22-26); Ionized Calcium Level - ABG 1.2 mmol/L (1.1-1.4); Methemoglobin 0.4 % (0.4-1.5); Oxygen Saturation ABG 96.2; PO2 ABG 83.8 mmHg (80.0-100.0); PO2 FiO2 Ratio Arterial Blood 209; Potassium Level - ABG 5.1 mmol/L (3.5-5.0); Sodium Level - ABG 143.0 mmol/L (131-143)
[2025-07-03 08:30] LABS: ABG PCO2 99.0 mmHg (35-45)
--- NOTE | 2025-07-03 08:34 | USCV_ITS ---
Scotty Pola Age: 70 Gender: M : 1955 Exam Date: 07/03/2025 09:52 Ordering Phys: Seferino Riggs MD Technologist: CHAD Exam Location: [facility] Indication: Resp Failure BP: 123 / 86 HR: 82 Rhythm: Sinus Technical Quality: Adequate MEASUREMENTS (Male / Female) Normal Values 2D ECHO LV Diastolic Diameter PLAX 5.7 cm 4.2 - 5.9 / 3.9 - 5.3 cm IVS Diastolic Thickness 1.2 cm 0.6 - 1.0 / 0.6 - 0.9 cm IVS Systolic Thickness 1.8 cm LVPW Diastolic Thickness 1.8 cm 0.6 - 1.0 / 0.6 - 0.9 cm LVPW Systolic Thickness 1.6 cm LVOT Diameter 2.1 cm LV Ejection Fraction 2D Teich 58.7 % LV Ejection Fraction MOD 4C 64.7 % LV Ejection Fraction MOD 2C 65.7 % LV Ejection Fraction 2C AL 67.5 % LA Diameter 3.8 cm RA Systolic Volume 4C AL 86.1 ml RA Systolic Volume 4C MOD 78.6 ml LA Sys Volume AL 64.7 cm cubed LA Sys Volume Index AL 28.8 cm cubed/m squared Aorta at Sinotubular Diameter 3.5 cm IVC Diameter 2.2 cm M-MODE LA Ao Ratio MM 1.4 AV Cusp Separation MM 1.8 cm DOPPLER AV Peak Velocity 138.0 cm/s LVOT Peak Velocity 121.0 cm/s AV Area Cont Eq vti 4.3 cm squared AV Area Cont Eq pk 2.9 cm squared MV Peak Velocity 69.0 cm/s MV Area PHT 3.2 cm squared Mitral E to A Ratio 0.8 TR Peak Velocity 111.0 cm/s TR Peak Gradient 4.9 mmHg TV Peak E Velocity 50.0 cm/s PV Peak Velocity 124.0 cm/s FINDINGS Left Ventricle Normal left ventricular size and systolic function, EF 67%.mild left ventricular hypertrophy. .No regional wall motion abnormalities. Grade I/IV diastolic dysfunction (abnormal relaxation filling pattern), normal to mildly elevated filling pressures. Right Ventricle Mildly dilated right ventricle with normal ejection fraction Right Atrium Normal right atrial size. Left Atrium Normal left atrial size. IA Septum Appears to be intact Mitral Valve No gross abnormalities noted Aortic Valve Minimally thickened Tricuspid Valve No gross abnormalities noted Pulmonic Valve Pulmonic valve not well visualized. Pericardium No pericardial effusion. Aorta Normal aortic annulus size. IVC Inferior vena cava not visualized. CONCLUSIONS Normal left ventricular size and systolic function, EF 67%.mild left ventricular hypertrophy. .No regional wall motion abnormalities. Grade I/IV diastolic dysfunction (abnormal relaxation filling pattern), normal to mildly elevated filling pressures. Mildly dilated right ventricle with normal ejection fraction. Minimally thickened aortic valve There is no pericardial effusion. There are no intracardiac masses. No similar previous studies are available for comparison Dr Gerri Griffith MD [facility] (Electronically Signed) Final Date: 03 July 2025 22:52 S
[2025-07-03] MEDS: FUROsemide 10 mg/mL SDV 4mL 40 MG IVP (08:56)
[2025-07-03 09:07] LABS: PCP Screen Urine Negative (Negative)
[2025-07-03 09:35] LABS: Add Urine Microscopic? YES; Glucose Urine UA Norm (Normal); Nitrate Urine Negative (Negative); Specific Gravity, Urine 1.010 (1.005-1.030); UA Manual Slide Review YES; UA Slide Review UA Slide Review Perf
[2025-07-03 09:36] LABS: Procalcitonin 0.09 ng/mL (0-0.5); Thyroid Stimulating Hormone 3.98 uIU/mL (0.27-4.20); Vitamin B12 642 pg/mL (232-1245)
[2025-07-03 09:47] LABS: Iron 24 ug/dL (59-158); Total Iron Binding Capacity 398 mcg/dl; Unsaturated Iron Binding 374 ug/dL (112-347)
[2025-07-03 11:02] LABS: Coronavirus 229E,HKU1,NL63,OC4 Not Detected (NOT DETECT); Parainfluenza Virus Type 1 Not Detected (NOT DETECT); Parainfluenza Virus Type 2 Not Detected (NOT DETECT); Parainfluenza Virus Type 3 Not Detected (NOT DETECT); Parainfluenza Virus Type 4 Not Detected (NOT DETECT); SARS-COV-2 Not Detected (NOT DETECT)
[2025-07-03 11:22] LABS: MRSA PCR OZH (swab) MRSA Detected (Negative)
[2025-07-03] MEDS: methylPREDNISolone sod succ 40 mg/mL INJ IVP ×2 (13:55→18:01)
--- NOTE | 2025-07-03 15:08 | PHA.VACGOAL ---
Vancomycin Goal - Goal Vancomycin Goal:: 15-20 mg/L Vancomycin Indication:: Pneumonia - Therapy Day of therpy:: Day []of [] . Actual body weight (kg): 220 lb - Data Labs: WBC 22.18 10^3/uL (3.29-11.43) H 07/03/25 03:15 RBC 4.53 10^6/uL (3.85-5.65) 07/03/25 03:15 Hgb 10.50 g/dL (11.27-16.99) L 07/03/25 03:15 Hct 39.1 % (37-53) 07/03/25 03:15 MCV 86.3 fl (82-101) 07/03/25 03:15 MCH 23.2 pg (27-33) L 07/03/25 03:15 MCHC 26.9 g/dL (30-55) L 07/03/25 03:15 RDW 19.9 % (12.1-15.1) H 07/03/25 03:15 Sodium 144 mmol/L (136-145) 07/03/25 03:15 Potassium 5.3 mmol/L (3.5-5.1) H 07/03/25 03:15 Chloride 99 mmol/L (98-107) 07/03/25 03:15 Carbon Dioxide 41 mmol/L (22-29) H 07/03/25 03:15 Anion Gap 9.3 (5-19) 07/03/25 03:15 BUN 24 mg/dL (8-23) H 07/03/25 03:15 Creatinine 0.8 mg/dL (0.7-1.2) 07/03/25 03:15 GFR Calculation 95.6 mL/min (90-130) 07/03/25 03:15 Treatment plan:: new consult Regimen:: 2000 MG Q12H
--- NOTE | 2025-07-03 18:31 | PC.NURSE ---
Shift SUmmary: Mental status: Much improved since this morning. Initially would only grimace to painful stimuli. Is now awake, and alert. Up in a chair eating dinner. Oriented to person, place, time, and situation. Fluid restriction order of 1500mL Home CPAP is at bedside, but no orders to use it at this time. Physician wants to keep him on hospital bipap at this time. MRSA + in the nares.
[2025-07-03] MEDS: HYDROcodone-acetaminophen 5-325 mg Tablet 1 TAB PO (19:37)
[2025-07-04] VITALS (79 sets, daily range): BP systolic 113–171; BP diastolic 64–112; PULSE 75–96; RESP 13–26; TEMP 36.2–36.8; O2SAT 88–100
[2025-07-04] MEDS: methylPREDNISolone sod succ 40 mg/mL INJ IVP ×4 (01:48→20:22)
[2025-07-04] MEDS: HYDROcodone-acetaminophen 5-325 mg Tablet 1 TAB PO (01:55)
[2025-07-04] MEDS: heparin 5,000 unit/mL INJ 1 mL 5000 UNIT SUBCUT ×2 (04:46→17:01)
[2025-07-04] MEDS: pantoprazole 40 mg SDV IVP (04:46)
[2025-07-04] MEDS: levofloxacin-dextrose 5 % 750 MG/150 ML PREMIX 100 MG IV (04:46)
[2025-07-04 04:49] LABS: Hematocrit 32.1 % (37-53); Hemoglobin 9.10 g/dL (11.27-16.99); Mean Corpuscular HGB Conc 28.3 g/dL (30-55); Mean Corpuscular Hemoglobin 23.6 pg (27-33); Mean Corpuscular Volume 83.2 fl (82-101); Nucleated Red Blood Cells % 0.1 %; Platelet Count 362 10^3/cmm (157-399); Red Blood Count 3.86 10^6/uL (3.85-5.65); White Blood Count 18.79 10^3/uL (3.29-11.43)
[2025-07-04 04:57] LABS: Alanine Aminotransferase 15 U/L (0-41); Albumin Level 3.5 g/dL (3.5-5.2); Alkaline Phosphatase 77 U/L (40-130); Anion Gap 10.8 (5-19); Aspartate Amino Transferase 13 U/L (0-40); Blood Urea Nitrogen 31 mg/dL (8-23); Calcium 8.5 mg/dL (8.5-10.5); Carbon Dioxide 37 mmol/L (22-29); Chloride 93 mmol/L (98-107); Creatinine Clr Calc Pharmacy 101.7382; Globulin 2.7 g/dL (1.3-4.6); Glucose 207 mg/dL (65-115); Osmolality Calculated 295 mOsm/kg (285-295); Potassium 4.8 mmol/L (3.5-5.1); Sodium 136 mmol/L (136-145); Total Protein 6.2 g/dL (6.6-8.7)
[2025-07-04 05:01] LABS: Cholesterol 170 mg/dL (0-200); HDL Cholesterol 69 mg/dL (60-100); Magnesium 2.1 mg/dL (1.7-2.3); Triglycerides 57 mg/dL (0-150); VLDL Cholestrol Calculation 11 mg/dL (0-30)
--- NOTE | 2025-07-04 11:58 | P.PN_ITS ---
Vitals/I&O/Wt Last Vital Signs Temp 98.2 F 07/04/25 07:53 Pulse 81 07/04/25 10:45 Resp 18 07/04/25 10:45 BP 125/82 07/04/25 10:45 Pulse Ox 91 07/04/25 10:45 O2 Del Method BiPAP 07/04/25 10:45 O2 Flow Rate 2 07/04/25 08:45 FiO2 40 07/04/25 10:45 07/03/25 07/04/25 07/04/25 22:59 06:59 14:59 Intake Total 1900 / 2300 550 / 2850 480 / 480 Output Total 625 / 2025 1250 / 3275 Balance 1275 / 275 -700 / -425 480 / 480 Weight last 48 hrs Weight 102.965 kg Weight 102.965 kg Weight 99.79 kg Weight 99.79 kg Weight 99.79 kg Weight 99.79 kg Physical Exam 2 Narrative: General: AO x 3, on BiPAP, no acute distress, sitting up in recliner. HEENT: Normocephalic, atraumatic, grossly unremarkable exam Cardio: normal rate rhythm, normal S1-S2, no murmur or gallop Respiratory: normal vascular breathing, mild wheezes on lateral chest examination however no crackles can be appreciated limited exams due to thick chest wall GI: Abdomen soft, nontender, nondistended, normoactive bowel sounds present all 4 quadrants, Neuro: Gross neurological examination was unremarkable, patient is alert and notes and gives some answers in short sentences does not appear to be in distress. Orientation cannot be assessed. Extremities: Adequate palpable pulses, mild trace pedal edema Urinary Catheter Management: Jackson: Cath Placed During This Visit: yes Reason for Continuing Indwelling Catheter: Accurate Measurement of Urinary Output in Critically Ill Patients Urinary Catheter Date of Insertion: 07/03/25 Urinary Catheter Time of Insertion: 09:00 Data 07/04/25 04:28 07/04/25 04:28 Micro: Microbiology 07/03/25 14:00 Gram Stain - Final Sputum - Expectorated Sputum Sputum Culture - Preliminary 07/03/25 05:02 Blood Culture - Preliminary Blood NEGATIVE TO DATE 07/03/25 05:01 Blood Culture - Preliminary Blood NEGATIVE TO DATE 07/03/25 08:45 Bacterial Antigens - Final Urine Kidney A&P Assessment and plan 1. Acute on chronic respiratory failure with hypoxia and hypercapnia: - Patient has been recently admitted due to acute on chronic respiratory failure with hypercapnia and hypoxemia -Continue on NIV since the patient improved last time as well. -Sent for blood cultures based on patient's leukocytosis of 22,000, and to start him on levofloxacin 750 mg daily (orders of Zosyn and vancomycin were placed in the ER) - Solu-Medrol 60 mg daily - Continue pulse ox monitoring - Telemetry monitoring - Try to obtain history from the collateral or family member in the morning and also to discuss the goals of care since the patient has recurrent admissions and with this advanced hypercapnic respiratory failure, it is important to discuss further future goals of life/care - Low threshold for intubation - Repeat ABG after 2 hours of NIV 2. Hypertension, unspecified type: - Patient has losartan 50 mg daily, diltiazem 120 mg daily however need medication reconciliation to initiate and as per the vitals 3. Medically noncompliant: - To educate and vp & general counsel on medication/treatment compliance 4. Encounter for screening involving social determinants of health (SDoH): - Patient need case management involvement since the patient has recurrent admissions for acute hypoxemic/hypercapnic respiratory failure and requiring ICU admissions - Need to discuss goals of care and to involve family members next of kin and his discussion - Need medication reconciliation for further management of his rest of the comorbid conditions Plan: Plan for the day: Acute on chronic hypoxic and hypercapnic respiratory failure seems to be resolving. Most likely in setting of COPD exacerbation due to inadequate settings on Trelegy machine. Appreciate CT chest. Low concern for pneumonia. Follow-up blood culture and sputum culture. For now continue with IV vancomycin and Levaquin. Wean Solu-Medrol to 40 mg every 8 hourly. Continue with nebulization treatment. Appreciate echocardiogram. Start on oral Lasix 20 mg daily. Continue other chronic home medications. Trelegy machine settings and mask changed yesterday. Plan for use of trilogy machine during hospitalization today. Repeat ABG in AM. Transfer to [facility] floor. PDMP PDMP Reviewed: Not Reviewed Attestations 2 Medical Necessity Statement*: Requires further hospitalization for management of acute on chronic hypoxic and hypercapnic respiratory failure due to COPD, and advocate setting on trilogy machine Diagnoses Acute on chronic respiratory failure with hypoxia and hypercapnia J96.21; J96.22 Hypertension, unspecified type I10 Hypertension type: unspecified Medically noncompliant Z91.199 Encounter for screening involving social determinants of health (SDoH) Z13.9
[2025-07-05] VITALS (43 sets, daily range): BP systolic 109–164; BP diastolic 75–122; PULSE 71–91; RESP 13–25; TEMP 36.3; O2SAT 89–98
[2025-07-05 01:45] LABS: Hematocrit 31.5 % (37-53); Hemoglobin 9.10 g/dL (11.27-16.99); Mean Corpuscular HGB Conc 28.9 g/dL (30-55); Mean Corpuscular Hemoglobin 23.2 pg (27-33); Mean Corpuscular Volume 80.2 fl (82-101); Nucleated Red Blood Cells % 0 %; Platelet Count 351 10^3/cmm (157-399); Red Blood Count 3.93 10^6/uL (3.85-5.65); White Blood Count 18.94 10^3/uL (3.29-11.43)
[2025-07-05 02:11] LABS: Magnesium 2.3 mg/dL (1.7-2.3)
[2025-07-05 02:14] LABS: Alanine Aminotransferase 15 U/L (0-41); Albumin Level 3.6 g/dL (3.5-5.2); Alkaline Phosphatase 72 U/L (40-130); Anion Gap 13.0 (5-19); Aspartate Amino Transferase 13 U/L (0-40); Blood Urea Nitrogen 31 mg/dL (8-23); Calcium 8.6 mg/dL (8.5-10.5); Carbon Dioxide 36 mmol/L (22-29); Chloride 98 mmol/L (98-107); Creatinine Clr Calc Pharmacy 103.2816; Globulin 2.3 g/dL (1.3-4.6); Glucose 108 mg/dL (65-115); Osmolality Calculated 301 mOsm/kg (285-295); Potassium 5.0 mmol/L (3.5-5.1); Sodium 142 mmol/L (136-145); Total Protein 5.9 g/dL (6.6-8.7)
[2025-07-05 04:36] LABS: ABG PH Result 7.41 (7.35-7.45); Alveolar-Arterial Oxygen Gradi 11.7 mmHg (5-10); Arterial Blood Gas Hematocrit 30.4 % (42-52); Blood Gas Allen Test Pos; Blood Gas LPM 3.0 %; Blood Gas Operator Identificat BD; Blood Gas Sample Site Brachial, right; Blood Gas Sample Type Arterial; Blood Gas Tidal Volume 0.60; Carboxyhemoglobin 1.1 %THgb (0.4-20.1); Glucose Level-ABG 132.0 mg/dL (70-115); HCO3 ABG 40.0 mmol/L (22-26); Ionized Calcium Level - ABG 1.2 mmol/L (1.1-1.4); Methemoglobin 1.1 % (0.4-1.5); Oxygen Saturation ABG 93.8; PO2 ABG 63.9 mmHg (80.0-100.0); PO2 FiO2 Ratio Arterial Blood 199; Potassium Level - ABG 4.7 mmol/L (3.5-5.0); Sodium Level - ABG 140.0 mmol/L (131-143)
[2025-07-05 04:37] LABS: ABG PCO2 62.9 mmHg (35-45)
[2025-07-05] MEDS: methylPREDNISolone sod succ 40 mg/mL INJ IVP (04:54)
[2025-07-05] MEDS: pantoprazole 40 mg SDV IVP (04:57)
[2025-07-05] MEDS: heparin 5,000 unit/mL INJ 1 mL 5000 UNIT SUBCUT (04:58)
[2025-07-05] MEDS: levofloxacin-dextrose 5 % 750 MG/150 ML PREMIX 100 MG IV (04:59)
[2025-07-05] MEDS: dilTIAZem ER (24HR) 120 mg Capsule PO (08:34)
--- NOTE | 2025-07-05 12:05 | PM.DCS ---
Discharge Providers Date of Admission: 07/03/25 04:35 Date of Discharge: July 05, 2025 Attending Provider at Admission: Vicky Ward MD Attending Provider at Discharge: Yu Corley MD Consults: None Primary Care Provider: GLORY GARVEY APRN Diagnoses at Discharge Discharge Diagnosis 1. Acute on chronic respiratory failure with hypoxia and hypercapnia: Details from hospital stay: Secondary to COPD exacerbation and mild diastolic CHF exacerbation. Home Trelegy was not working. Trelegy changed and appears to be working Procalcitonin was normal making bacterial infection unlikely Discharged home on prednisone taper 2. Acute exacerbation of chronic obstructive pulmonary disease: Details from hospital stay: He has recurrent hospital admissions for acute hypoxic/hypercapnic respiratory failure He has rescheduled his pulmonology appointment 3. Acute on chronic diastolic (congestive) heart failure: Details from hospital stay: He is on Lasix. Echocardiogram gram showed preserved LVEF of 67%. She has grade I/IV diastolic dysfunction. 4. Hypertension, unspecified type: Details from hospital stay: Home antihypertensive meds restarted. Will need to monitor his blood pressure and adjust meds as needed. 5. Medically noncompliant: 6. Encounter for screening involving social determinants of health (SDoH): Details from hospital stay: Transferrin saturation of 6.0%. Will start him on oral iron supplementation. Will need further outpatient workup. 7. Leukocytosis: Details from hospital stay: Procalcitonin normal. Likely from steroid use 8. Hyperkalemia: Details from hospital stay: Serum potassium was elevated to 5.3 this admission but has normalized. 9. Iron deficiency anemia: Reason for Visit Reason for Visit: SOB Brief History: This is a 70-year-old male with chronic hypoxic and hypercapnic respiratory failure requiring NIV, COPD, hypertension and anxiety who presented with shortness of breath. He was found to have acute on chronic respiratory failure with hypoxia and hypercapnia. He uses a trilogy machine at home but this was not working. He has history of multiple hospital admissions for COPD and acute on chronic hypoxic respiratory failure. Hospital Course Hospital Course He is started on IV steroids and neb treatments. His trilogy settings were changed. He reported it is working well now. He missed his pulmonology appointment while he was here. He has rescheduled it. He was discharged home on a prednisone taper. Echocardiogram showed grade 1 diastolic CHF. This is likely from uncontrolled hypertension. Will monitor home BP and adjust meds as needed. He was found to have iron deficiency with transferrin saturation of 6%. Will start him on oral iron supplementation. He will need to have further workup of this as an outpatient. Physical Exam Const: COMMON NORMALS: no acute distress, patient oriented x3 and alert GENERAL APPEARANCE: cooperative ORIENTATION/CONSCIOUSNESS: Yes awake HENMT: COMMON NORMALS: normocephalic, atraumatic and oropharynx normal HEAD & SCALP: normocephalic and atraumatic Eye: COMMON NORMALS: Equal, round and reactive pupils present and EOMs intact bilaterally PUPIL: Yes Equal, round and reactive pupils present Neck/C-Spine: COMMON NORMALS: supple and no JVD Resp: COMMON NORMALS: normal respiratory effort and clear to auscultation bilaterally AUSCULTATION: clear to auscultation bilaterally Cardio: COMMON NORMALS: no JVD, regular rhythm, S1 normal heart sound present, S2 normal heart sound present and No murmurs present (Cardio) RHYTHM: regular rhythm HEART SOUNDS: S1 normal heart sound present and S2 normal heart sound present GI: COMMON NORMALS: Normal to inspection, nondistended, normoactive bowel sounds present, Soft to palpation and non-tender PALPATION: Yes Soft to palpation : COMMON NORMALS: Yes no CVA tenderness BLADDER/KIDNEY EXAM: Yes no CVA tenderness Back/Pelvis: COMMON NORMALS: no CVA tenderness Extremity: COMMON NORMALS: no joint enlargement and no pedal edema Neuro: COMMON NORMALS: patient oriented x3, moves all extremities and no focal motor deficits SENSORIUM/ORIENTATION: Yes alert Psych: COMMON NORMALS: Normal thought process present and denies hallucinations THOUGHT PROCESS: Normal thought process present Skin: COMMON NORMALS: no rashes or lesions noted GENERAL SKIN EXAM: no rashes or lesions noted Urinary Catheter Management: Jackson: Cath Placed During This Visit: yes Reason for Continuing Indwelling Catheter: Accurate Measurement of Urinary Output in Critically Ill Patients Urinary Catheter Date of Insertion: 07/03/25 Urinary Catheter Time of Insertion: 09:00 Discharge Data Studies Completed and Pending Completed Studies During Hospitalization Category Date Time Status CT chest wo con [id number] Urgent Cat Scan 07/03/25 05:14 Completed XR chest 1V portable [id number] Stat Exams 07/03/25 03:15 Completed CV. echo complete* [id number] Routine Ultrasound 07/03/25 08:34 Completed Pending at discharge Category Date Time Status Blood Culture Stat Lab 07/03/25 05:02 Results MAG [Magnesium] AM LABS Lab 07/06/25 04:00 Ordered Sputum Culture and Gram Stain Stat Lab 07/03/25 14:00 Results Radiology Impressions Chest X-Ray 07/03/25 03:15 IMPRESSION: No acute findings. Chest CT 07/03/25 05:14 IMPRESSION: Mildly increased subsegmental right lower lobe and left lower lobe atelectasis. Laboratory Results WBC 18.94 10^3/uL (3.29-11.43) H 07/05/25 01:22 RBC 3.93 10^6/uL (3.85-5.65) 07/05/25 01:22 Hgb 9.10 g/dL (11.27-16.99) L 07/05/25 01:22 Hct 31.5 % (37-53) L 07/05/25 01:22 MCV 80.2 fl (82-101) L 07/05/25 01:22 MCH 23.2 pg (27-33) L 07/05/25 01:22 MCHC 28.9 g/dL (30-55) L 07/05/25 01:22 RDW 18.9 % (12.1-15.1) H 07/05/25 01:22 Plt Count 351 10^3/cmm (157-399) 07/05/25 01:22 MPV 9.8 fL (7.4-10.4) 07/05/25 01:22 Neut % (Auto) 93.4 % 07/05/25 01:22 Lymph % (Auto) 2.6 % 07/05/25 01:22 Will % (Auto) 2.5 % 07/05/25 01:22 Eos % (Auto) 0.0 % 07/05/25 01:22 Baso % (Auto) 0.2 % 07/05/25 01:22 Neut # (Auto) 17.68 10^3/uL (1.8-7.7) H 07/05/25 01:22 Lymph # (Auto) 0.5 10^3/uL (0.8-4.8) L 07/05/25 01:22 Will # (Auto) 0.5 10^3/uL (0.2-0.9) 07/05/25 01:22 Eos # (Auto) 0.0 10^3/uL (0.0-0.8) 07/05/25 01:22 Baso # (Auto) 0.0 10^3/uL (0.0-0.1) 07/05/25 01:22 Nucleated RBC % (auto) 0 % 07/05/25 01: Nucleated RBCs # 0.0 /100WBC 07/05/25 01:22 Specimen Type Arterial 07/05/25 04:25 Sample Site Brachial, right 07/05/25 04:25 ABG pH 7.41 (7.35-7.45) 07/05/25 04:25 ABG pCO2 62.9 mmHg (35-45) H* 07/05/25 04:25 ABG pO2 63.9 mmHg (80.0-100.0) L 07/05/25 04:25 ABG PO2/FiO2 Ratio 199 07/05/25 04:25 ABG HCO3 40.0 mmol/L (22-26) H 07/05/25 04:25 ABG O2 Saturation 93.8 07/05/25 04:25 ABG Base Excess 13.4 mmol/L (-2.0-2.0) H 07/05/25 04:25 Juno Test Pos 07/05/25 04:25 A-a O2 Gradient 11.7 mmHg (5-10) H 07/05/25 04:25 Hematocrit 30.4 % (42-52) L 07/05/25 04:25 Hgb O2 Saturation 91.8 % (95-100) L 07/05/25 04:25 Carboxyhemoglobin 1.1 %THgb (0.4-20.1) 07/05/25 04:25 Methemoglobin 1.1 % (0.4-1.5) 07/05/25 04:25 Total Hemoglobin 9.9 g/dL (14-18) L 07/05/25 04:25 Sodium 140.0 mmol/L (131-143) 07/05/25 04:25 Potassium 4.7 mmol/L (3.5-5.0) 07/05/25 04:25 Glucose 132.0 mg/dL (70-115) H 07/05/25 04:25 Ionized Calcium 1.2 mmol/L (1.1-1.4) 07/05/25 04:25 O2 Delivery Device Bipap 07/05/25 04:25 O2 Liters/Min 3.0 % 07/05/25 04:25 FiO2 32.0 % 07/05/25 04:25 Tidal Volume 0.60 07/05/25 04:25 Manager Regional ID Bd 07/05/25 04:25 Sodium 142 mmol/L (136-145) 07/05/25 01:22 Potassium 5.0 mmol/L (3.5-5.1) 07/05/25 01:22 Chloride 98 mmol/L (98-107) 07/05/25 01:22 Carbon Dioxide 36 mmol/L (22-29) H 07/05/25 01:22 Anion Gap 13.0 (5-19) 07/05/25 01:22 BUN 31 mg/dL (8-23) H 07/05/25 01:22 Creatinine 0.8 mg/dL (0.7-1.2) 07/05/25 01:22 GFR Calculation 95.6 mL/min (90-130) 07/05/25 01:22 Glucose 108 mg/dL (65-115) 07/05/25 01:22 POC Glucose 164 mg/dL (70-110) H 07/05/25 11:22 Calculated Osmolality 301 mOsm/kg (285-295) H 07/05/25 01:22 Lactic Acid 1.1 mmol/L (0.5-2.2) 07/03/25 03:15 Calcium 8.6 mg/dL (8.5-10.5) 07/05/25 01:22 Magnesium 2.3 mg/dL (1.7-2.3) 07/05/25 01:22 Iron 24 ug/dL (59-158) L 07/03/25 03:15 TIBC 398 mcg/dl 07/03/25 03:15 % Saturation 6.0 % (20-50) L 07/03/25 03:15 Unsat Iron Binding 374 ug/dL (112-347) H 07/03/25 03:15 Total Bilirubin 0.2 mg/dL (0.15-1.2) 07/05/25 01:22 AST 13 U/L (0-40) 07/05/25 01:22 ALT 15 U/L (0-41) 07/05/25 01:22 Alkaline Phosphatase 72 U/L (40-130) 07/05/25 01:22 NT-Pro-B Natriuret Pep 155 pg/mL (0-125) H 07/03/25 03:15 Total Protein 5.9 g/dL (6.6-8.7) L 07/05/25 01:22 Albumin 3.6 g/dL (3.5-5.2) 07/05/25 01:22 Globulin 2.3 g/dL (1.3-4.6) 07/05/25 01:22 Triglycerides 57 mg/dL (0-150) 07/04/25 04:28 Cholesterol 170 mg/dL (0-200) 07/04/25 04:28 LDL Cholesterol, Calc 90 mg/dL (50-129) 07/04/25 04:28 Total VLDL Cholesterol 11 mg/dL (0-30) 07/04/25 04:28 HDL Cholesterol 69 mg/dL (60-100) 07/04/25 04:28 Cholesterol/HDL Ratio 2.46 mg/dL (1.0-5.00) 07/04/25 04:28 Vitamin B12 642 pg/mL (232-1245) 07/03/25 03:15 Folate 8.6 ng/mL (4.5-32.2) 07/04/25 04:28 Procalcitonin 0.09 ng/mL (0-0.5) 07/03/25 03:15 TSH 3.98 uIU/mL (0.27-4.20) 07/03/25 03:15 Urine Color Yellow (Yellow) 07/03/25 08:45 Urine Appearance Clear (CLEAR) 07/03/25 08:45 Urine pH 5 (5-7) 07/03/25 08:45 Ur Specific [place] 1.010 (1.005-1.030) 07/03/25 08:45 Urine Protein 1+ (Negative) H 07/03/25 08:45 Urine Glucose (UA) Norm (Normal) 07/03/25 08:45 Urine Ketones Negative (Negative) 07/03/25 08:45 Urine Blood Neg (Negative) 07/03/25 08:45 Urine Nitrate Negative (Negative) 07/03/25 08:45 Urine Bilirubin Neg (Negative) 07/03/25 08:45 Urine Urobilinogen Norm mg/dL (Negative) 07/03/25 08:45 Ur Leukocyte Esterase Negative (Negative) 07/03/25 08:45 Urine RBC 0-4 /hpf (0-2) H 10 08:45 Urine WBC 0-4 /hpf (0-5) H 07/03/25 08:45 Ur Squamous Epith Cells None /hpf (0-5) 07/03/25 08:45 Amorphous Sediment Not Reportable 07/03/25 08:45 Urine Bacteria None /hpf (NONE) 07/03/25 08:45 Hyaline Casts Rare /lpf 07/03/25 08:45 Nasal MRSA (PCR) Mrsa detected (Negative) A 07/03/25 08:45 Vancomycin Trough 27.5 ug/mL (10-15) H* 07/05/25 01:22 Urine Opiates Screen Positive ng/mL (Negative) H 07/03/25 08:45 Ur Barbiturates Screen Negative ng/mL (Negative) 07/03/25 08:45 Ur Phencyclidine Scrn Negative ng/mL (Negative) 07/03/25 08:45 Ur Amphetamines Screen Negative ng/mL (Negative) 07/03/25 08:45 U Benzodiazepines Scrn Positive ng/mL (Negative) H 07/03/25 08:45 Urine Cocaine Screen Negative ng/mL (Negative) 07/03/25 08:45 U Marijuana (THC) Screen Positive ng/mL (Negative) H 07/03/25 08:45 Adenovirus (PCR) Not detected (NOT DETECT) 07/03/25 08:45 C. pneumoniae DNA (PCR) Not detected (NOT DETECT) 07/03/25 08:45 Coronavirus 229E (PCR) Not detected (NOT DETECT) 07/03/25 08:45 Human Metapneumovir PCR Not detected (NOT DETECT) 07/03/25 08:45 Influenza A (H1) PCR Not detected (NOT DETECT) 07/03/25 08:45 Influenza A (PCR) Negative (Negative) 07/03/25 03:17 Influ A (H1/09) PCR Not detected (NOT DETECT) 07/03/25 08:45 Influenza A (H3) PCR Not detected (NOT DETECT) 07/03/25 08:45 Influenza Type A (PCR) Not detected (NOT DETECT) 07/03/25 08:45 Influenza Type B (PCR) Not detected (NOT DETECT) 07/03/25 08:45 M. pneumoniae (PCR) Not detected (NOT DETECT) 07/03/25 08:45 Parainfluenza 1 (PCR) Not detected (NOT DETECT) 07/03/25 08:45 Parainfluenza 2 (PCR) Not detected (NOT DETECT) 07/03/25 08:45 Parainfluenza 3 (PCR) Not detected (NOT DETECT) 07/03/25 08:45 Parainfluenza 4 (PCR) Not detected (NOT DETECT) 07/03/25 08:45 RSV (PCR) Negative (Negative) 07/03/25 03:17 RSV Type A (PCR) Not detected (NOT DETECT) 07/03/25 08:45 RSV Type B (PCR) Not detected (NOT DETECT) 07/03/25 08:45 Entero/Rhino (PCR) Not detected (NOT DETECT) 07/03/25 08:45 SARS-CoV-2 (PCR) Not detected (NOT DETECT) 07/03/25 08:45 Vitals Last Vital Signs Temp 97.3 F L 07/05/25 07:30 Pulse 87 07/05/25 10:30 Resp 25 H 07/05/25 10:30 BP 147/92 07/05/25 10:30 Pulse Ox 93 07/05/25 10:30 O2 Del Method BiPAP 07/05/25 10:30 O2 Flow Rate 2 07/05/25 07:30 FiO2 40 07/05/25 10:30 Discharge Plan Discharge Patient Disposition: Home Condition: Stable Prescriptions: New prednisone 10 mg tablets,dose pack See Rx Instructions .ROUTE .COMPLEX Qty: 48 0RF Rx Instructions: take 6 tabs x 2 days, then 5 tabs x 2 days, 4 tabs x 2 days, 3 tabs x 2 days, 2 tabs x 2 days, then 1 tab x 2 days ferrous sulfate 325 mg (65 mg iron) tablet,delayed release (DR/EC) 325 mg PO DAILY Qty: 30 0RF Continued nicotine 14 mg/24 hr Patch 24 Hour 1 patch transdermal DAILY Qty: 14 0RF ipratropium-albuterol 0.5 mg-3 mg(2.5 mg base)/3 mL Solution For Nebulization 3 ml inhalation Q6H PRN (Reason: Shortness Of Breath) Qty: 180 0RF docusate sodium 100 mg Capsule 100 mg PO BID Qty: 60 0RF nicotine 7 mg/24 hr patch 24 hour 1 patch transdermal DAILY Qty: 14 0RF losartan 50 mg Tablet 50 mg PO DAILY Qty: 30 0RF budesonide 0.5 mg/2 mL Suspension For Nebulization 0.5 mg inhalation BID.RESPIRATORY Qty: 60 0RF diltiazem HCl 120 mg Capsule,Extended Release 24hr 120 mg PO DAILY Qty: 30 0RF diazepam [Valium] 5 mg tablet 2.5 mg PO BID PRN (Reason: anxiety) Qty: 14 0RF furosemide 40 mg tablet 40 mg PO DAILY Qty: 30 0RF hydrocodone-acetaminophen 7.5-325 mg tablet 1 tab PO BID PRN (Reason: chronic pain) Qty: 20 0RF pantoprazole 40 mg tablet,delayed release (DR/EC) 40 mg PO DAILY Qty: 30 0RF polyethylene glycol 3350 17 gram/dose powder 17 g PO DAILY Qty: 30 0RF buspirone 15 mg tablet 15 mg PO TID Qty: 90 0RF duloxetine 60 mg capsule,delayed release(DR/EC) 60 mg PO DAILY Qty: 30 0RF albuterol sulfate [Ventolin HFA] 90 mcg/actuation HFA aerosol inhaler 2 inh inhalation Q6H PRN (Reason: shortness of breath or wheezing) Qty: 8.5 0RF Discontinued azithromycin 250 mg Tablet 250 mg PO DAILY Qty: 5 0RF prednisone 20 mg Tablet 40 mg PO DAILY 5 Days Qty: 5 0RF Discharge Order = DC NOW: Discharge Order (Routine); Ordered 07/05/25 Ordered By: Yu Corley Referrals: GLORY GARVEY APRN [Primary Care Provider] - 07/11/25 1:45 pm Referral Note: We have notified your physician's clinic of the need for a follow-up appointment to be scheduled. If you have not heard from them within the next 2 business days, please call them directly Discharge Diet: Usual diet Discharge Activity: Resume usual activity Patient Instructions: Prednisone (By mouth) (Prednisone Intensol, Prednicot, Deltasone, Naldo), MRSA (Methicillin-Resistant Staphylococcus Aureus) (DC), Hypoxia (GEN), Hypoxemia (DC), Chronic Respiratory Failure (DC), Opioid Safety, Patient Portal & Polly Instructions Discharge Attestations Time Spent in Discharge Care*: greater than 30 min Quality Metrics Clinical Quality Measures [ No reported AMI, CVA or VTE this stay] Coding Level of Care Code 04370 Diagnoses Acute on chronic respiratory failure with hypoxia and hypercapnia J96.21; J96.22 Acute exacerbation of chronic obstructive pulmonary disease J44.1 Acute on chronic diastolic (congestive) heart failure I50.33 Hypertension, unspecified type I10 Hypertension type: unspecified Medically noncompliant Z91.199 Encounter for screening involving social determinants of health (SDoH) Z13.9 Leukocytosis D72.829 Hyperkalemia E87.5 Iron deficiency anemia D50.9
--- NOTE | 2025-07-05 16:59 | PC.NURSE ---
Patient was given all discharge information along with meds to his bedside. Patient's ivs were discontinued. Patient was stable during discharge.
== END 2025-07-05 16:57 | disposition home or self-care (01) | DRG 189 ==
LOC: ER 04:44 → ICU 05:02
PROVIDERS: Student in an Organized Health Care Education/Training Program; Admitting Provider Student in an Organized Health Care Education/Training Program; Emergency Provider Emergency Medicine; PCP Nurse Practitioner; Visit Provider Student in an Organized Health Care Education/Training Program
DX: J96.22 Acute and chronic respiratory failure with hypercapnia (principal); I50.33 Acute on chronic diastolic (congestive) heart failure; J44.1 Chronic obstructive pulmonary disease with (acute) exacerbation; I11.0 Hypertensive heart disease with heart failure; D50.9 Iron deficiency anemia, unspecified; J96.21 Acute and chronic respiratory failure with hypoxia; F41.9 Anxiety disorder, unspecified; E87.5 Hyperkalemia; D72.829 Elevated white blood cell count, unspecified; Z99.81 Dependence on supplemental oxygen; Z79.899 Other long term (current) drug therapy; Z91.199 Patient's noncompliance with other medical treatment and regimen due to unspecified reason; Z87.891 Personal history of nicotine dependence; Z11.52 Encounter for screening for COVID-19
CPT/HCPCS: 36415; 36416; 36600; 51702; 71045; 71250; 80051; 80053; 80061; 80202; 80306; 81001; 82330; 82607; 82746; 82805; 82962; 83540; 83550; 83605; 83735; 83880; 84145; 84443; 85025; 86403; 87040; 87070; 87077; 87186; 87205; 87486; 87581; 87633; 87637; 93306; 94640; 94660; 96365; 96367; 96372; 99285; J1644; J1815; J1938; J1956; J2470; J2543; J2919; J3372; J3373; J7512; J7626; J9999

== ENCOUNTER → 2025-07-10 11:10 | Outpatient (BNVA) | payer MEDICARE, SELFPAY | PROVIDERS: Visit Provider Internal Medicine | DX: J44.89 Other specified chronic obstructive pulmonary disease (principal); J96.10 Chronic respiratory failure, unspecified whether with hypoxia or hypercapnia; Z71.6 Tobacco abuse counseling; F17.290 Nicotine dependence, other tobacco product, uncomplicated; J44.9 Chronic obstructive pulmonary disease, unspecified | CPT/HCPCS: 36415; 85025; 99214; 99406; Q3014 ==

== ENCOUNTER 2025-07-26 23:23 | Observation (INO) | payer MEDICARE, SELFPAY ==
[2025-07-26 23:23] VITALS: BP 182/104; PULSE 93; RESP 24; TEMP 36.6; O2SAT 91; BMI 30.7
[2025-07-26 23:32] VITALS: BP 183/102; PULSE 95; RESP 21; O2SAT 91
--- NOTE | 2025-07-26 23:32 | ECG_ITS ---
[facility] 2025-[facility]26 Pat Name: Pola Fajardo Department: Room: Gender: Male [employer] [place]: : [id number] Requested By: Noman Artis Order Number: [id number] Kohli MD: Dylan Ray M.D. Measurements Intervals Morton Rate: 95 P: 90 RI: 207 QRS: 45 QRSD: 99 T: 74 QT: 340 QTc: 429 Interpretive Statements SINUS RHYTHM TECHNICALLY POOR TRACING Compared to ECG 06/28/2025 22:20:33 NO SIGNIFICANT CHANGE Electronically Signed On 07-29-2025 20:33:34 CDT by Dylan Ray M.D. [email or web address]
--- NOTE | 2025-07-26 23:37 | XRR_ITS ---
PROCEDURE INFORMATION: Exam: XR Chest Exam date and time: 07/26/2025 11:40 PM Age: 70 years old Clinical indication: Shortness of breath; Prior surgery; Surgery date: 6+ months; Surgery type: Clavicle; Additional info: SOB TECHNIQUE: Imaging protocol: Radiologic exam of the chest. Views: 1 view. COMPARISON: CT chest tasia [id number] 07/03/2025 5:19 AM FINDINGS: Lungs: Bilateral, right more than left apical scarring. Bibasilar opacities are noted which could represent atelectasis. Background emphysematous changes are suspected. Mild peribronchial cuffing. Pleural spaces: Subtle blunting of the costophrenic angles which could represent scarring , superimposition of shadows, or trace pleural effusions. Heart/Mediastinum: Unremarkable. The cardiomediastinal silhouette is stable in appearance. Vasculature: The thoracic aorta is tortuous and atherosclerotic. Bones/joints: Advanced degenerative changes of the shoulder joints, with chronic deformity of the right humeral head. There are degenerative changes of the spine. XR/XR chest 1V portable [id number] IMPRESSION: 1. Mild inflammatory changes of the lungs as outlined above. 2. No pneumothorax. 3. No large pleural effusion. 4. Atherosclerosis. 5. Additional miscellaneous and pertinent findings as detailed above.
[2025-07-26 23:58] VITALS: PULSE 98; RESP 18; O2SAT 92
[2025-07-27] VITALS (23 sets, daily range): BP systolic 90–173; BP diastolic 50–97; PULSE 81–107; RESP 17–24; O2SAT 89–98
[2025-07-27 00:01] LABS: Hematocrit 37.5 % (37-53); Hemoglobin 10.60 g/dL (11.27-16.99); Mean Corpuscular HGB Conc 28.3 g/dL (30-55); Mean Corpuscular Hemoglobin 23.4 pg (27-33); Mean Corpuscular Volume 82.8 fl (82-101); Nucleated Red Blood Cells % 0 %; Platelet Count 336 10^3/cmm (157-399); Red Blood Count 4.53 10^6/uL (3.85-5.65); White Blood Count 6.66 10^3/uL (3.29-11.43)
[2025-07-27 00:10] LABS: Base Excess VBG 6.4 mmol/L (-3.0-3.0); Blood Gas Allen Test Pos; Blood Gas Operator Identificat gerca; Blood Gas Sample Type Venous; HCO3 VBG 35.3 mmol/L (24-28); PO2 VBG 62.5 mmHg (25-40); Venous Blood Gas Hematocrit 34.1 % (42-52); pH VBG 7.27 (7.32-7.42)
[2025-07-27 00:11] LABS: Blood Gas LPM 4.0 %
[2025-07-27 00:14] LABS: PCO2 VBG 76.4 mmHg (41-51)
[2025-07-27 00:20] LABS: Lactic Sepsis W/Reflex 0.6 mmol/L (0.5-2.2)
[2025-07-27 00:22] LABS: Troponin(5th) Baseline 26 ng/L (0-15)
[2025-07-27 00:31] LABS: Alanine Aminotransferase 15 U/L (0-41); Albumin Level 4.2 g/dL (3.5-5.2); Alkaline Phosphatase 122 U/L (40-130); Anion Gap 14.9 (5-19); Aspartate Amino Transferase 19 U/L (0-40); Blood Urea Nitrogen 9 mg/dL (8-23); Calcium 9.0 mg/dL (8.5-10.5); Carbon Dioxide 33 mmol/L (22-29); Chloride 99 mmol/L (98-107); Creatinine Clr Calc Pharmacy 100.4155; Globulin 2.6 g/dL (1.3-4.6); Glucose 125 mg/dL (65-115); Magnesium 2.2 mg/dL (1.7-2.3); NT Pro B Type Natriuretic Pept 471 pg/mL (0-125); Osmolality Calculated 294 mOsm/kg (285-295); Potassium 4.9 mmol/L (3.5-5.1); Sodium 142 mmol/L (136-145); Total Protein 6.8 g/dL (6.6-8.7)
[2025-07-27] MEDS: ondansetron 2 mg/ML SDV 2 mL 4 MG IVP (00:32)
[2025-07-27] MEDS: FUROsemide 10 mg/mL SDV 4mL 40 MG IVP ×2 (00:32→08:27)
--- NOTE | 2025-07-27 00:46 | CTR_ITS ---
PROCEDURE INFORMATION: Exam: CT Chest With Contrast; Diagnostic Exam date and time: 07/27/2025 1:04 AM Age: 70 years old Clinical indication: Abdominal tenderness; Shortness of breath; Additional info: Resolving pneumonia, abrupt SOB, nondiag XR TECHNIQUE: Imaging protocol: Diagnostic computed tomography of the chest with contrast. Radiation optimization: All CT scans at this facility use at least one of these dose optimization techniques: automated exposure control; mA and/or kV adjustment per patient size (includes targeted exams where dose is matched to clinical indication); or iterative reconstruction. Contrast material: OMNI 350; Contrast volume: 100 ml; Contrast route: INTRAVENOUS (IV); COMPARISON: CT chest wo con [id number] 07/03/2025 5:19 AM RADIATION DOSE METRICS: Total DLP (mGy-cm): 2344.58 FINDINGS: Lungs: Stable right posterior apical lung scarring without discrete nodularity. Continued improvement/near resolution of right lower lobe pneumonia. Mild persistent dependent atelectasis/ground-glass opacity is noted. Stable 8 mm right lung base nodule (series 7, image 30). Focal filling defect within the right bronchus intermedius (series 4, image 43). Pleural spaces: No pleural effusion. No pneumothorax is seen. Heart: Unremarkable. No cardiomegaly. No pericardial effusion. Coronary arteries: Mild coronary atherosclerosis is present. Lymph nodes: Unremarkable. No enlarged lymph nodes. Vasculature: Mild atherosclerotic changes of the thoracic aorta and its major branch vessels is noted. Bones/joints: Severe bilateral shoulder osteoarthritis is present. Postoperative changes from internal fixation of the left clavicle. No acute complication. Chronic left rib fracture deformities are present. Degenerative joint and disc disease is seen in the imaged spine. Soft tissues: Unremarkable. (Reference: Rossi) 3. Focal filling defect in the bronchus intermedius, which may represent secretions and/or aspiration. REFERENCES: Rossi Alford et al. Guidelines for Management of Incidental Pulmonary Nodules Detected on CT Images: From the Fleischner Society 2017. Radiology. 2017;284(1):228-243. PROCEDURE INFORMATION: Exam: CT Abdomen And Pelvis With Contrast Exam date and time: 07/27/2025 1:04 AM Age: 70 years old Clinical indication: Abdominal tenderness; Shortness of breath; Additional info: Resolving pneumonia, abrupt SOB, nondiag XR TECHNIQUE: Imaging protocol: Computed tomography of the abdomen and pelvis with contrast. Radiation optimization: All CT scans at this facility use at least one of these dose optimization techniques: automated exposure control; mA and/or kV adjustment per patient size (includes targeted exams where dose is matched to clinical indication); or iterative reconstruction. Contrast material: OMNI 350; Contrast volume: 100 ml; Contrast route: INTRAVENOUS (IV); COMPARISON: [facility] [id number] 07/03/2025 5:19 AM RADIATION DOSE METRICS: Total DLP (mGy-cm): 2344.58 FINDINGS: Liver: Achilles that is Fatty infiltration versus 3rd inflow artifact is noted at the anterior falciform ligament. The liver is otherwise within normal limits. Gallbladder and biliary ducts: Normal. No calcified stones. No ductal dilation. Pancreas: Normal. No ductal dilation. Spleen: Normal. No splenomegaly. A splenule is present. Adrenal glands: The bilateral adrenal glands are mildly thickened, which is nonspecific but can be seen in the setting of adenomatous hyperplasia. Kidneys and ureters: Several hyperattenuating cystic lesions are seen in the left kidney, measuring higher than simple fluid attenuation. No hydronephrosis is present. No hydroureter is present. Stomach and bowel: Unremarkable. No obstruction. No mucosal thickening. Appendix: The appendix is normal. Intraperitoneal space: Unremarkable. No free air. No significant fluid collection. Vasculature: Mild atherosclerosis of the aorta and its major branching vessels is noted. Mild atherosclerosis of the pelvic vasculature and its major branching vessels is noted. Lymph nodes: Unremarkable. No enlarged lymph nodes. Urinary bladder: A Jackson catheter is appropriately seated within the urinary bladder, which is decompressed and poorly characterized. Reproductive: Unremarkable as visualized. Bones/joints: A stable chronic L2 compression fracture deformity is present. Intervertebral disc height loss and degenerative changes are seen in the lumbar spine, most pronounced at L5-S1. Grade 1 retrolisthesis of L1-L2. Postoperative changes from left total hip arthroplasty are present. Surgical components are well aligned. No acute periprosthetic fracture. No acute complication. Degenerative changes of the sacroiliac joints is noted. Soft tissues: A fat containing umbilical hernia is present. CT/CT chest abdpel w/*[id number] IMPRESSION: 1. Near-complete resolution of right lower lobe pneumonia. Minimal persistent small airways disease versus dependent atelectasis. 2. Stable isolated pulmonary nodule as above. For both low risk and high risk patients, recommend CT chest at 3 months given likely infectious/inflammatory nature. Alternatively, PET/CT, or biopsy. IMPRESSION: 1. No acute abdominopelvic process to explain the patient's symptoms. 2. Hyperattenuating cystic left renal lesions, favored to represent proteinaceous/hemorrhagic cyst. Recommend nonemergent definitive characterization with renal sonogram or CT urography. 3. Degenerative joint disc disease, most notable at L5-S1. 4. Grade 1 retrolisthesis at L1-L2. COMMENTS: Consistent with the [employer]'s Incidental Findings Committee white paper (J Am Heidy Radiol 2018): Any incidental renal lesion less than 1 cm or classified as too small to characterize, or any incidental cystic renal lesion characterized as simple-appearing, is likely benign. No follow-up imaging is recommended for these lesions per consensus recommendations based on imaging criteria.
[2025-07-27 00:54] LABS: Glucose Urine UA Negative (Normal); Nitrate Urine Negative (Negative); Specific Gravity, Urine 1.017 (1.005-1.030)
[2025-07-27 00:59] LABS: Add Urine Microscopic? YES
[2025-07-27 01:18] LABS: UA Slide Review UA Slide Review Perf
[2025-07-27 01:26] LABS: CRP High Sensitivity Cardiac 0.810 mg/dL (0.0-0.3)
[2025-07-27 01:27] LABS: Respiratory Syncytial Virus Ce NEGATIVE (Negative); SARS-CoV-2 PCR NEGATIVE (Negative)
[2025-07-27] MEDS: iohexol 350 mg/mL 500 mL Btl (per mL) IV (01:30)
[2025-07-27 01:34] LABS: Procalcitonin 0.11 ng/mL (0-0.5)
--- NOTE | 2025-07-27 01:37 | ECG_ITS ---
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
[2025-07-27 02:21] LABS: Troponin 5 2HR 24.63 ng/L (0-15)
[2025-07-27 02:30] LABS: Troponin 5 2HR Delta -1.37 ABS# (0-10)
[2025-07-27 03:26] LABS: Base Excess VBG 12.7 mmol/L (-3.0-3.0); Blood Gas Sample Type Venous; HCO3 VBG 41.1 mmol/L (24-28); PO2 VBG 43.8 mmHg (25-40); Venous Blood Gas Hematocrit 32.0 % (42-52); pH VBG 7.34 (7.32-7.42)
[2025-07-27 03:27] LABS: PCO2 VBG 77.0 mmHg (41-51)
--- NOTE | 2025-07-27 05:25 | W.ED.SOB ---
HPI - SOB/Dyspnea General: Chief Complaint: Shortness of Breath/Dyspnea Stated Complaint: SOB Time Seen by Provider: 07/26/25 23:30 Related Data Home Medications ?Medication ?Instructions ?Recorded ?Confirmed Nebulizer 07/10/25 07/10/25 Trilegy Machine 07/10/25 07/10/25 Previous Rx's ?Medication ?Instructions ?Recorded docusate sodium 100 mg capsule 100 mg PO BID #60 caps 06/20/25 ipratropium 0.5 mg-albuterol 3 mg 3 ml inhalation Q6H PRN Shortness 06/20/25 (2.5 mg base)/3 mL nebulization Of Breath #180 mL soln nicotine 14 mg/24 hr daily 1 patch transdermal DAILY #14 ea 06/20/25 transdermal patch nicotine 7 mg/24 hr daily 1 patch transdermal DAILY #14 ea 06/20/25 transdermal patch albuterol sulfate 90 mcg/actuation 2 inh inhalation Q6H PRN shortness 06/21/25 aerosol inhaler (Ventolin HFA) of breath or wheezing #8.5 grams budesonide 0.5 mg/2 mL suspension 0.5 mg (2 mL) inhalation 06/21/25 for nebulization BID.RESPIRATORY #60 mL buspirone 15 mg tablet 15 mg PO TID #90 tabs 06/21/25 diazepam 5 mg tablet (Valium) 2.5 mg (1/2 x 5 mg) PO BID PRN 06/21/25 anxiety #14 tabs diltiazem HCl 120 mg 120 mg PO DAILY #30 caps 06/21/25 capsule,extended release 24 hr duloxetine 60 mg capsule,delayed 60 mg PO DAILY #30 caps 06/21/25 release furosemide 40 mg tablet 40 mg PO DAILY #30 tabs 06/21/25 hydrocodone 7.5 mg-acetaminophen 1 tab PO BID PRN chronic pain #20 06/21/25 325 mg tablet tabs losartan 50 mg tablet 50 mg PO DAILY #30 tabs 06/21/25 pantoprazole 40 mg tablet,delayed 40 mg PO DAILY #30 tabs 06/21/25 release polyethylene glycol 3350 17 17 g PO DAILY #30 grams 06/21/25 gram/dose oral powder prednisone 10 mg tablets in a dose See Rx Instructions PO .COMPLEX 07/05/25 pack #48 ea nicotine (polacrilex) 4 mg gum 4 mg buccal Q2H #40 ea 07/10/25 formoterol fumarate 20 mcg/2 mL 2 ml inhalation Q12H #120 mL 07/14/25 solution for nebulization tiotropium bromide 18 mcg capsule 1 cap inhalation DAILY #60 07/14/25 with inhalation device (Spiriva inhalations with HandiHaler) Allergies Allergy/AdvReac Type Severity Reaction Status Date / Time No Known Allergies Allergy Verified 07/10/25 11:29 [facility] ED PFSH: Medical History COPD with chronic bronchitis Hypertension, unspecified type Anxiety Medically noncompliant Acute on chronic respiratory failure with hypoxia and hypercapnia Social History Smoking and tobacco/nicotine status: current every day tobacco/nicotine user (1 ppd X 47 years on Cigarettes, Started Vapping Sep) Alcohol intake: unknown Substance/Drug Use: unknown Additional social history: Patient denies tobacco alcohol or illicit use currently. He reports he wants full code Course Vital Signs: Vital signs: Vital Signs Temperature 97.9 F 07/26/25 23:23 Pulse Rate 98 07/27/25 05:00 Respiratory Rate 17 07/27/25 03:54 Blood Pressure 155/97 07/27/25 05:00 Pulse Oximetry 94 07/27/25 05:00 Oxygen Delivery Me thod BiPAP 07/27/25 05:00 Oxygen Flow Rate 3 07/27/25 00:02 Fraction of Inspir ed Oxygen 40 07/27/25 03:40 MDM - SOB/Dyspnea Lab Data 07/26/25 23:53 07/26/25 23:53 Labs/Radiology: Radiology Impressions Chest X-Ray 07/26/25 23:37 IMPRESSION: 1. Mild inflammatory changes of the lungs as outlined above. 2. No pneumothorax. 3. No large pleural effusion. 4. Atherosclerosis. 5. Additional miscellaneous and pertinent findings as detailed above. ADDENDUM: 07/27/25 0006 Of note, there is partial visualization of open reduction and internal fixation of left clavicular fracture, with stable hardware. In addition partial visualization of the chronic inferior left lateral rib fractures. Chest/Abdomen/Pelvis CT 07/27/25 00:46 IMPRESSION: 1. Near-complete resolution of right lower lobe pneumonia. Minimal persistent small airways disease versus dependent atelectasis. 2. Stable isolated pulmonary nodule as above. For both low risk and high risk patients, recommend CT chest at 3 months given likely infectious/inflammatory nature. Alternatively, PET/CT, or biopsy. IMPRESSION: 1. No acute abdominopelvic process to explain the patient's symptoms. 2. Hyperattenuating cystic left renal lesions, favored to represent proteinaceous/hemorrhagic cyst. Recommend nonemergent definitive characterization with renal sonogram or CT urography. 3. Degenerative joint disc disease, most notable at L5-S1. 4. Grade 1 retrolisthesis at L1-L2. COMMENTS: Consistent with the [employer]'s Incidental Findings Committee white paper (J Am Heidy Radiol 2018): Any incidental renal lesion less than 1 cm or classified as too small to characterize, or any incidental cystic renal lesion characterized as simple-appearing, is likely benign. No follow-up imaging is recommended for these lesions per consensus recommendations based on imaging criteria. Laboratory Results WBC 6.66 10^3/uL (3.29-11.43) 07/26/25 23:53 RBC 4.53 10^6/uL (3.85-5.65) 07/26/25 23:53 Hgb 10.60 g/dL (11.27-16.99) L 07/26/25 23:53 Hct 37.5 % (37-53) 07/26/25 23:53 MCV 82.8 fl (82-101) 07/26/25 23:53 MCH 23.4 pg (27-33) L 07/26/25 23:53 MCHC 28.3 g/dL (30-55) L 07/26/25 23:53 RDW 19.8 % (12.1-15.1) H 07/26/25 23:53 Plt Count 336 10^3/cmm (157-399) 07/26/25 23:53 MPV 9.1 fL (7.4-10.4) 07/26/25 23:53 Neut % (Auto) 64.5 % 07/26/25 23:53 Lymph % (Auto) 18.6 % 07/26/25 23:53 Gaines % (Auto) 11.9 % 07/26/25 23:53 Eos % (Auto) 3.6 % 07/26/25 23:53 Baso % (Auto) 0.5 % 07/26/25 23:53 Neut # (Auto) 4.30 10^3/uL (1.8-7.7) 07/26/25 23:53 Lymph # (Auto) 1.2 10^3/uL (0.8-4.8) 07/26/25 23:53 Gaines # (Auto) 0.8 10^3/uL (0.2-0.9) 07/26/25 23:53 Eos # (Auto) 0.2 10^3/uL (0.0-0.8) 07/26/25 23:53 Baso # (Auto) 0.0 10^3/uL (0.0-0.1) 07/26/25 23:53 Nucleated RBC % (auto) 0 % 07/26/25 23:53 Nucleated RBCs # 0.0 /100WBC 07/26/25 23:53 ESR 59 mm/hr (0-10) H 07/26/25 23:53 Specimen Type Venous 07/27/25 03:18 Juno Test N/a 07/27/25 03:18 VBG pH 7.34 (7.32-7.42) 07/27/25 03:18 VBG pCO2 77.0 mmHg (41-51) H* 07/27/25 03:18 VBG pO2 43.8 mmHg (25-40) H 07/27/25 03:18 VBG HCO3 41.1 mmol/L (24-28) H 07/27/25 03:18 VBG Base Excess 12.7 mmol/L (-3.0-3.0) H 07/27/25 03:18 VBG Hematocrit 32.0 % (42-52) L 07/27/25 03:18 O2 Delivery Device Bipap 07/27/25 03:18 O2 Liters/Min 4.0 % 07/26/25 23:53 FiO2 40.0 % 07/27/25 03:18 Enamel Machine Operator ID [email or web address] 07/27/25 03:18 Sodium 142 mmol/L (136-145) 07/26/25 23:53 Potassium 4.9 mmol/L (3.5-5.1) 07/26/25 23:53 Chloride 99 mmol/L (98-107) 07/26/25 23:53 Carbon Dioxide 33 mmol/L (22-29) H 07/26/25 23:53 Anion Gap 14.9 (5-19) 07/26/25 23:53 BUN 9 mg/dL (8-23) 07/26/25 23:53 Creatinine 0.6 mg/dL (0.7-1.2) L 07/26/25 23:53 GFR Calculation 133.2 mL/min (90-130) H 07/26/25 23:53 Glucose 125 mg/dL (65-115) H 07/26/25 23:53 Calculated Osmolality 294 mOsm/kg (285-295) 07/26/25 23:53 Lactic Acid 0.6 mmol/L (0.5-2.2) 07/26/25 23:53 Calcium 9.0 mg/dL (8.5-10.5) 07/26/25 23:53 Magnesium 2.2 mg/dL (1.7-2.3) 07/26/25 23:53 Total Bilirubin 0.2 mg/dL (0.15-1.2) 07/26/25 23:53 AST 19 U/L (0-40) 07/26/25 23:53 ALT 15 U/L (0-41) 07/26/25 23:53 Alkaline Phosphatase 122 U/L (40-130) 07/26/25 23:53 Troponin T Baseline 26 ng/L (0-15) H 07/26/25 23:53 Troponin T 120 Minute 24.63 ng/L (0-15) H 07/27/25 01:57 Delta Troponin T -1.37 ABS# (0-10) L 07/27/25 01:57 C-React Prot High Sens 0.810 mg/dL (0.0-0.3) H 07/26/25 23:53 NT-Pro-B Natriuret Pep 471 pg/mL (0-125) H 07/26/25 23:53 Total Protein 6.8 g/dL (6.6-8.7) 07/26/25 23:53 Albumin 4.2 g/dL (3.5-5.2) 07/26/25 23:53 Globulin 2.6 g/dL (1.3-4.6) 07/26/25 23:53 Procalcitonin 0.11 ng/mL (0-0.5) 07/27/25 00:57 Urine Color Yellow (Yellow) 07/27/25 00:45 Urine Appearance Clear (CLEAR) 07/27/25 00:45 Urine pH 5.5 (5-7) 07/27/25 00:45 Ur Specific [place] 1.017 (1.005-1.030) 07/27/25 00:45 Urine Protein 2+ (Negative) A 07/27/25 00:45 Urine Glucose (UA) Negative (Normal) 07/27/25 00:45 Urine Ketones Negative (Negative) 07/27/25 00:45 Urine Blood 2+ (Negative) A 07/27/25 00:45 Urine Nitrate Negative (Negative) 07/27/25 00:45 Urine Bilirubin Negative (Negative) 07/27/25 00:45 Urine Urobilinogen 0.2 mg/dL (Negative) 07/27/25 00:45 Ur Leukocyte Esterase Negative (Negative) 07/27/25 00:45 Urine RBC 21-50 /hpf (0-2) H 07/27/25 00:45 Urine WBC 0-5 /hpf (0-5) 07/27/25 00:45 Ur Squamous Epith Cells 0-5 /hpf (0-5) 07/27/25 00:45 Amorphous Sediment Not Reportable 07/27/25 00:45 Urine Bacteria None seen /hpf (NONE) 07/27/25 00:45 Hyaline Casts 7.85 /lpf 07/27/25 00:45 Urine Mucus 2+ /hpf 07/27/25 00:45 Influenza A (PCR) Negative (Negative) 07/27/25 00:45 Influenza Type B (PCR) Negative (Negative) 07/27/25 00:45 RSV (PCR) Negative (Negative) 07/27/25 00:45 SARS-CoV-2 (PCR) Negative (Negative) 07/27/25 00:45 Discharge Plan Discharge Condition: Stable Prescriptions: No Action (DME) Nebulizer 0 .ROUTE .MEDSUPPLY (DME) Trilegy Machine 0 .Route .MEDSUPPLY nicotine (polacrilex) 4 mg gum 4 mg buccal Q2H Qty: 40 4RF tiotropium bromide [Spiriva with HandiHaler] 18 mcg capsule, w/inhalation device 1 cap inhalation DAILY Qty: 60 11RF Rx Instructions: puncture 1 cap using device; one dose = 2 inhalations formoterol fumarate 20 mcg/2 mL solution for nebulization 2 ml inhalation Q12H Qty: 120 6RF nicotine 14 mg/24 hr Patch 24 Hour 1 patch transdermal DAILY Qty: 14 0RF ipratropium-albuterol 0.5 mg-3 mg(2.5 mg base)/3 mL Solution For Nebulization 3 ml inhalation Q6H PRN (Reason: Shortness Of Breath) Qty: 180 0RF docusate sodium 100 mg Capsule 100 mg PO BID Qty: 60 0RF nicotine 7 mg/24 hr patch 24 hour 1 patch transdermal DAILY Qty: 14 0RF losartan 50 mg Tablet 50 mg PO DAILY Qty: 30 0RF budesonide 0.5 mg/2 mL Suspension For Nebulization 0.5 mg inhalation BID.RESPIRATORY Qty: 60 0RF diltiazem HCl 120 mg Capsule,Extended Release 24hr 120 mg PO DAILY Qty: 30 0RF diazepam [Valium] 5 mg tablet 2.5 mg PO BID PRN (Reason: anxiety) Qty: 14 0RF furosemide 40 mg tablet 40 mg PO DAILY Qty: 30 0RF hydrocodone-acetaminophen 7.5-325 mg tablet 1 tab PO BID PRN (Reason: chronic pain) Qty: 20 0RF pantoprazole 40 mg tablet,delayed release (DR/EC) 40 mg PO DAILY Qty: 30 0RF polyethylene glycol 3350 17 gram/dose powder 17 g PO DAILY Qty: 30 0RF buspirone 15 mg tablet 15 mg PO TID Qty: 90 0RF duloxetine 60 mg capsule,delayed release(DR/EC) 60 mg PO DAILY Qty: 30 0RF albuterol sulfate [Ventolin HFA] 90 mcg/actuation HFA aerosol inhaler 2 inh inhalation Q6H PRN (Reason: shortness of breath or wheezing) Qty: 8.5 0RF prednisone 10 mg tablets,dose pack See Rx Instructions .ROUTE .COMPLEX Qty: 48 0RF Rx Instructions: take 6 tabs x 2 days, then 5 tabs x 2 days, 4 tabs x 2 days, 3 tabs x 2 days, 2 tabs x 2 days, then 1 tab x 2 days Print Language: Icelandic Coding Level of Care Code 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
--- NOTE | 2025-07-27 06:52 | P.HP_ITS ---
Providers/Chief Complaint 2 Admitting Physician: Jackie García MD--- patient admitted at 6:58 AM Chief Complaint: SOB History of Present Illness Pola Fajardo is a 70 year old male with medical history significant for obstructive sleep apnea. Patient is on oxygen and CPAP at home. Patient is supposed to wear this all the time at bedtime.. Last night patient did not wear the CPAP did not put the oxygen not slept on room air and when patient suddenly woke up he got tachycardic and not feeling well saturation in the 80s on room air patient not on oxygen at 3 L at home. Upon arriving to the emergency room patient was evaluated BiPAP was placed with 3 L of oxygen and the saturation went up to the 90s. Once the BiPAP were taken off patient's saturation went down to the 80s for this time patient needed to come in as a full admit because aside from the obstructive sleep apnea with hypoxic hypercapnic respiratory failure, patient also is with volume overload. Patient received 40 mg of IV Lasix in the emergency room and that RediMed him better. Patient in June had pneumonia for which he was admitted and treated and today on further reimaging the pneumonia has resolved. Patient will need at least 2 midnights to further optimize care prior to going home. Patient is to admit to stepdown unit Review of Systems 2 Narrative: System review upon 10 organ review were significant for pulmonary respiratory disorder Medications/Allergies Home Medications ?Medication ?Instructions ?Recorded ?Confirmed ?Last Taken ?Type docusate sodium 100 mg capsule 100 mg PO BID #60 caps 06/20/25 07/10/25 Unknown Rx ipratropium 0.5 mg-albuterol 3 mg 3 ml inhalation Q6H PRN Shortness 06/20/25 07/10/25 Unknown Rx (2.5 mg base)/3 mL nebulization Of Breath #180 mL soln nicotine 14 mg/24 hr daily 1 patch transdermal DAILY # 14 ea 06/20/25 07/10/25 Unknown Rx transdermal patch nicotine 7 mg/24 hr daily 1 patch transdermal DAILY #1 4 ea 06/20/25 07/03/25 Unknown Rx transdermal patch albuterol sulfate 90 mcg/actuation 2 inh inhalation Q6 H PRN shortness 06/21/25 07/10/25 Unknown Rx aerosol inhaler (Ventolin HFA) of breath or wheezing # 8.5 grams budesonide 0.5 mg/2 mL suspension 0.5 mg (2 mL) inhala tion 06/21/25 07/10/25 07/01/25 Rx for nebulization BID.RESPIRATORY #60 mL buspirone 15 mg tablet 15 mg PO TID #90 tabs 07/10/25 07/01/25 Rx diazepam 5 mg tablet (Valium) 2.5 mg (1/2 x 5 mg) PO B ID PRN 06/21/25 07/10/25 07/02/25 Rx anxiety #14 tabs diltiazem HCl 120 mg 120 mg PO DAILY #30 caps 07/10/25 07/01/25 Rx capsule,extended release 24 hr duloxetine 60 mg capsule,delayed 60 mg PO DAILY #30 ca ps 06/21/25 07/10/25 07/01/25 Rx release furosemide 40 mg tablet 40 mg PO DAILY #30 tabs 05/3007/10/25 07/01/25 Rx hydrocodone 7.5 mg-acetaminophen 1 tab PO BID PRN cripple chaser luis pain #20 06/21/25 07/10/25 Unknown Rx 325 mg tablet tabs losartan 50 mg tablet 50 mg PO DAILY #30 tabs 05/3007/10/25 07/01/25 Rx pantoprazole 40 mg tablet,delayed 40 mg PO DAILY #30 t abs 06/21/25 07/10/25 07/01/25 Rx release polyethylene glycol 3350 17 17 g PO DAILY #30 grams 07/10/25 Unknown Rx gram/dose oral powder prednisone 10 mg tablets in a dose See Rx Instructions PO .COMPLEX 07/05/25 07/10/25 Unknown Rx pack #48 ea Nebulizer 07/10/25 07/10/25 Unknown H istory Trilegy Machine 07/10/25 07/10/25 Unknown H istory nicotine (polacrilex) 4 mg gum 4 mg buccal Q2H #40 ea 07/10/25 07/10/25 Unknown Rx formoterol fumarate 20 mcg/2 mL 2 ml inhalation Q12H # 120 mL 07/14/25 Unknown Rx solution for nebulization tiotropium bromide 18 mcg capsule 1 cap inhalation ANDRES LY #60 07/14/25 Unknown Rx with inhalation device (Spiriva inhalations with HandiHaler) Allergies Allergy/AdvReac Type Severity Reaction Status Date / Time No Known Allergies Allergy Verified 07/10/25 11:29 PFSH Acute 2 PFSH: Medical History COPD with chronic bronchitis Hypertension, unspecified type Anxiety Medically noncompliant Acute on chronic respiratory failure with hypoxia and hypercapnia Social History Smoking and tobacco/nicotine status: current every day tobacco/nicotine user (1 ppd X 47 years on Cigarettes, Started Vapping Sep) Alcohol intake: unknown Substance/Drug Use: unknown Additional social history: Patient denies tobacco alcohol or illicit use currently. He reports he wants full code Vitals/I&O/Wt Last Vital Signs Temp 97.9 F 07/26/25 23:23 Pulse 90 07/27/25 06:30 Resp 18 07/27/25 06:30 BP 116/68 07/27/25 06:30 Pulse Ox 91 07/27/25 06:30 O2 Del Method BiPAP 07/27/25 06:00 O2 Flow Rate 3 07/27/25 00:02 FiO2 40 07/27/25 03:40 07/26/25 07/26/25 07/27/25 14:59 22:59 06:59 Output Total 1300 / 1300 Balance -1300 / -1300 Weight last 48 hrs Weight 97.069 kg Physical Exam 2 Narrative: Patient seen and evaluated was in deep sleep on BiPAP and tolerating. Patient was easily arousable I talk to him he open his eyes and looked at me and noted to few questions while listening to the lungs. Patient knows he is in the hospital and knows he needs to go to a stepdown unit and possibly an overflow to ICU if need be. Patient also aware as to what happened and on on top of that volume overload had compounded patient status at this time. HEENT normocephalic/atraumatic neck neck is supple cardiovascular heart rate is regular lungs are pretty much clear abdomen soft nontender nondistended unremarkable extremities are intact no edema has good pulses neurology has no focality lab studies lab studies reviewed and noted. Data 07/26/25 23:53 07/26/25 23:53 Micro: Microbiology 07/27/25 01:57 Blood Culture - Preliminary Blood SPECIMEN COLLECTED 07/27/25 00:57 Blood Culture - Preliminary Blood SPECIMEN COLLECTED A&P Assessment and plan 1. Acute on chronic diastolic (congestive) heart failure: 2. Acute hypoxemic respiratory failure: 3. Acute hypercapnic respiratory failure: 4. COPD with chronic bronchitis: Plan: CHF exacerbation - Admit to stepdown unit for use of BiPAP especially for obstructive sleep apnea - Diuretics therapy initiated - Nebulizing treatment - Daily weight - Fluid restriction to 1500 daily - I and os - Continue to optimize and care - Follow-up with echocardiogram for any interval changes Obstructive sleep apnea with hypoxic hypercapnic respiratory failure off of home oxygen and CPAP while sleeping at home last night - Patient is on 3 L of oxygen at home - Admit to stepdown unit for use of BiPAP while being treated at this time - Nebulizing treatment - Patient does not have bronchospasm and there is no need for any steroid - Patient does not have any underlining pneumonia. Pneumonia in June have resolved completely and is not in the lung. Chronic medical disease such as hypertension/COPD/nicotine addiction - Continue home use of these PDMP PDMP Reviewed: Last Reviewed 07/27/25 07:41 by Jackie García MD Attestations 2 Medical Necessity Statement*: Patient is with CHF exacerbation compounded with much hypoxic hypercapnic respiratory failure because of also not wearing his CPAP and oxygen 3 L needed at home will need at least 2 midnights for further optimization of care regarding CHF. Coding Level of Care Code 00880 Diagnoses Acute on chronic diastolic (congestive) heart failure I50.33 Acute hypoxemic respiratory failure J96.01 Acute hypercapnic respiratory failure J96.02 COPD with chronic bronchitis J44.89 Time Spent (min) 60
[2025-07-27] MEDS: heparin 5,000 unit/mL INJ 1 mL 5000 UNIT SUBCUT (08:32)
[2025-07-27 12:31] LABS: Base Excess VBG 14.6 mmol/L (-3.0-3.0); Blood Gas LPM 4.0 %; Blood Gas Operator Identificat BROMA; Blood Gas Sample Site Not specified; Blood Gas Sample Type Venous; HCO3 VBG 42.8 mmol/L (24-28); PO2 VBG 56.4 mmHg (25-40); Venous Blood Gas Hematocrit 33.3 % (42-52); pH VBG 7.37 (7.32-7.42)
[2025-07-27 12:32] LABS: PCO2 VBG 74.4 mmHg (41-51)
--- NOTE | 2025-07-27 13:08 | PC.NURSE ---
I received a call from Dr. Ward and he states that he would like for patient's HR to be better controlled prior to d/c. He asked that we verify with patient/family that he takes Diltiazem [address] an order for a 1-time dose, then d/c in 1 hour. He is placing conditional d/c order as well.
--- NOTE | 2025-07-27 13:27 | PC.PHAR ---
Patients daughter states patient hasn't been taking his Buspirone like he should . Patient is suppose to take 3 tabs daily adn daughter states he takes 2 tabs daily ,and the last week he had only took one tab daily . Thursday07/26/25 patient did take 2 tabs for the day . Patient is also on 3 liters at home on his home machine, daughter states he does better on that dose.
[2025-07-27] MEDS: dilTIAZem ER (24HR) 120 mg Capsule PO (13:33)
--- NOTE | 2025-07-27 13:40 | PM.DCS ---
Discharge Providers Date of Admission: 07/27/25 05:54 Date of Discharge: July 27, 2025 Attending Provider at Admission: Jackie García MD Attending Provider at Discharge: Vicky Ward MD Diagnoses at Discharge Discharge Diagnosis 1. Acute on chronic diastolic (congestive) heart failure: 2. Acute hypoxemic respiratory failure: 3. Acute hypercapnic respiratory failure: 4. COPD with chronic bronchitis: Reason for Visit Reason for Visit: SOB Brief History: as per the previous notes and the patient: Pola Fajardo is a 70 year old male with past medical history of chronic respiratory failure uses 2 L of oxygen at home, severe end-stage COPD, multiple exacerbations, smoking/vaping, home BiPAP came with shortness of breath after the patient did not comply with his BiPAP machine at home and woke up with tachycardia and feeling of desaturation. The patient did not report any fever or chills, increasing leg swellings from baseline. There was no history of chest pain, chest pressure, abdominal pain, dizziness syncope or presyncope. The patient only mentioned about not wearing his BiPAP machine mask with oxygen that led to this episode. Hospital Course Hospital Course Patient labs unremarkable with hypercapnia with compensation by increased bicarb however his pH was 7.27 He was put on BiPAP machine and his VBG improved with a pH of 7.37. Considering his CO2 retention and compensation through bicarb it seems it is a chronic phenomena and the patient is alert and oriented without any features of an cephalopathy. Patient electrolytes including lactate calcium magnesium phosphorus were normal. Troponins were not raised. C-reactive protein and proBNP was also not concerning high or of clinical significance. Flu panel was negative and UA was also unremarkable. CT imaging studies were done and it showed resolving pneumonia which the patient had few weeks ago and was discharged accordingly. Patient blood cultures preliminary negative till now. And the patient EKG showed atrial fibrillation with a heart rate of 90s and was provided diltiazem in the ER to control his heart rate. Patient was educated about his BiPAP machine use with oxygen and further compliance. His hospital course was unremarkable The patient understands his treatment agreed with the plan of care without any language barrier. All the risk and benefits were discussed. Patient condition has been discussed at length with the patient/family, I have independently reviewed the chart labs imaging/diagnostics/EKG. the goals of care and code status with the patient/family/NOK/legal publications sales representative, and documented accordingly. The management has been done according to the current clinical condition with respect to patient goals of care and based on recommendations/guidelines. The patient/family has been informed about the current condition and further plan of care. Agreed with the plan of care and understood without any language barrier. Every effort was made to ensure accuracy of financial recruiter. Any obvious errors or omissions should be clarified with the author of the document. Physical Exam Narrative: General: Morbid obese looking gentleman, alert and oriented, lying comfortably without any distress, able to speak full sentences on BiPAP machine HEENT: Normocephalic, atraumatic, grossly unremarkable exam Cardio: Heart rate in the 90s irregularly irregular rhythm, normal S1-S2 without any murmurs, normal JVD Respiratory: Normal vascular breathing with mild wheezes however due to morbid obesity cannot comment further no crackles stridor appreciated, patient able to speak in full sentences without distress, no signs of CO2 narcosis. GI: Abdomen soft, nontender, nondistended, normoactive bowel sounds present all 4 quadrants, Neuro: Gross focal neurological examination unremarkable Behavior: Appropriate and cooperative Extremities: Adequate palpable pulses, mild trace pedal edema Discharge Data Studies Completed and Pending Completed Studies During Hospitalization Category Date Time Status CT chest abdpel w/*[id number] Stat Cat Scan 07/27/25 00:46 Completed XR chest 1V portable [id number] Stat Exams 07/26/25 23:37 Completed Pending at discharge Category Date Time Status Blood Culture Stat Lab 07/27/25 01:57 Results Complete Blood Count w/Auto AM LABS Lab 07/28/25 04:00 Ordered Comprehensive Metabolic Panel AM LABS Lab 07/28/25 04:00 Ordered Magnesium AM LABS Lab 07/28/25 04:00 Ordered Urine Culture Stat Lab 07/27/25 00:45 Received VBG [Venous Blood Gas] Stat Lab 07/27/25 03:18 Results Venous Blood Gas Stat Lab 07/26/25 23:53 Results CV. echo complete* [id number] Routine Ultrasound 07/27/25 07:20 Ordered Radiology Impressions Chest X-Ray 07/26/25 23:37 IMPRESSION: 1. Mild inflammatory changes of the lungs as outlined above. 2. No pneumothorax. 3. No large pleural effusion. 4. Atherosclerosis. 5. Additional miscellaneous and pertinent findings as detailed above. ADDENDUM: 07/27/25 0006 Of note, there is partial visualization of open reduction and internal fixation of left clavicular fracture, with stable hardware. In addition partial visualization of the chronic inferior left lateral rib fractures. Chest/Abdomen/Pelvis CT 07/27/25 00:46 IMPRESSION: 1. Near-complete resolution of right lower lobe pneumonia. Minimal persistent small airways disease versus dependent atelectasis. 2. Stable isolated pulmonary nodule as above. For both low risk and high risk patients, recommend CT chest at 3 months given likely infectious/inflammatory nature. Alternatively, PET/CT, or biopsy. IMPRESSION: 1. No acute abdominopelvic process to explain the patient's symptoms. 2. Hyperattenuating cystic left renal lesions, favored to represent proteinaceous/hemorrhagic cyst. Recommend nonemergent definitive characterization with renal sonogram or CT urography. 3. Degenerative joint disc disease, most notable at L5-S1. 4. Grade 1 retrolisthesis at L1-L2. COMMENTS: Consistent with the [employer]'s Incidental Findings Committee white paper (J Am Heidy Radiol 2018): Any incidental renal lesion less than 1 cm or classified as too small to characterize, or any incidental cystic renal lesion characterized as simple-appearing, is likely benign. No follow-up imaging is recommended for these lesions per consensus recommendations based on imaging criteria. Laboratory Results WBC 6.66 10^3/uL (3.29-11.43) 07/26/25 23:53 RBC 4.53 10^6/uL (3.85-5.65) 07/26/25 23:53 Hgb 10.60 g/dL (11.27-16.99) L 07/26/25 23:53 Hct 37.5 % (37-53) 07/26/25 23:53 MCV 82.8 fl (82-101) 07/26/25 23:53 MCH 23.4 pg (27-33) L 07/26/25 23:53 MCHC 28.3 g/dL (30-55) L 07/26/25 23:53 RDW 19.8 % (12.1-15.1) H 07/26/25 23:53 Plt Count 336 10^3/cmm (157-399) 07/26/25 23:53 MPV 9.1 fL (7.4-10.4) 07/26/25 23:53 Neut % (Auto) 64.5 % 07/26/25 23:53 Lymph % (Auto) 18.6 % 07/26/25 23:53 Cavalier % (Auto) 11.9 % 07/26/25 23:53 Eos % (Auto) 3.6 % 07/26/25 23:53 Baso % (Auto) 0.5 % 07/26/25 23:53 Neut # (Auto) 4.30 10^3/uL (1.8-7.7) 07/26/25 23:53 Lymph # (Auto) 1.2 10^3/uL (0.8-4.8) 07/26/25 23:53 Cavalier # (Auto) 0.8 10^3/uL (0.2-0.9) 07/26/25 23:53 Eos # (Auto) 0.2 10^3/uL (0.0-0.8) 07/26/25 23:53 Baso # (Auto) 0.0 10^3/uL (0.0-0.1) 07/26/25 23:53 Nucleated RBC % (auto) 0 % 07/26/25 23:53 Nucleated RBCs # 0.0 /100WBC 07/26/25 23:53 ESR 59 mm/hr (0-10) H 07/26/25 23:53 Specimen Type Venous 07/27/25 12:24 Sample Site Not specified 07/27/25 12:24 Juno Test N/a 07/27/25 12:24 VBG pH 7.37 (7.32-7.42) 07/27/25 12:24 VBG pCO2 74.4 mmHg (41-51) H* 07/27/25 12:24 VBG pO2 56.4 mmHg (25-40) H 07/27/25 12:24 VBG HCO3 42.8 mmol/L (24-28) H 07/27/25 12:24 VBG Base Excess 14.6 mmol/L (-3.0-3.0) H 07/27/25 12:24 VBG Hematocrit 33.3 % (42-52) L 07/27/25 12:24 O2 Delivery Device Nc 07/27/25 12:24 O2 Liters/Min 4.0 % 07/27/25 12:24 FiO2 40.0 % 07/27/25 03:18 Project Landscape Architect JUN Meade 07/27/25 12:24 Sodium 142 mmol/L (136-145) 07/26/25 23:53 Potassium 4.9 mmol/L (3.5-5.1) 07/26/25 23:53 Chloride 99 mmol/L (98-107) 07/26/25 23:53 Carbon Dioxide 33 mmol/L (22-29) H 07/26/25 23:53 Anion Gap 14.9 (5-19) 07/26/25 23:53 BUN 9 mg/dL (8-23) 07/26/25 23:53 Creatinine 0.6 mg/dL (0.7-1.2) L 07/26/25 23:53 GFR Calculation 133.2 mL/min (90-130) H 07/26/25 23:53 Glucose 125 mg/dL (65-115) H 07/26/25 23:53 Calculated Osmolality 294 mOsm/kg (285-295) 07/26/25 23:53 Lactic Acid 0.6 mmol/L (0.5-2.2) 07/26/25 23:53 Calcium 9.0 mg/dL (8.5-10.5) 07/26/25 23:53 Phosphorus 3.1 mg/dL (2.5-4.5) 07/27/25 00:57 Magnesium 2.2 mg/dL (1.7-2.3) 07/26/25 23:53 Total Bilirubin 0.2 mg/dL (0.15-1.2) 07/26/25 23:53 AST 19 U/L (0-40) 07/26/25 23:53 ALT 15 U/L (0-41) 07/26/25 23:53 Alkaline Phosphatase 122 U/L (40-130) 07/26/25 23:53 Troponin T Baseline 26 ng/L (0-15) H 07/26/25 23:53 Troponin T 120 Minute 24.63 ng/L (0-15) H 07/27/25 01:57 Delta Troponin T -1.37 ABS# (0-10) L 07/27/25 01:57 C-React Prot High Sens 0.810 mg/dL (0.0-0.3) H 07/26/25 23:53 NT-Pro-B Natriuret Pep 471 pg/mL (0-125) H 07/26/25 23:53 Total Protein 6.8 g/dL (6.6-8.7) 07/26/25 23:53 Albumin 4.2 g/dL (3.5-5.2) 07/26/25 23:53 Globulin 2.6 g/dL (1.3-4.6) 07/26/25 23:53 Procalcitonin 0.11 ng/mL (0-0.5) 07/27/25 00:57 Urine Color Yellow (Yellow) 07/27/25 00:45 Urine Appearance Clear (CLEAR) 07/27/25 00:45 Urine pH 5.5 (5-7) 07/27/25 00:45 Ur Specific Chauvin 1.017 (1.005-1.030) 07/27/25 00:45 Urine Protein 2+ (Negative) A 07/27/25 00:45 Urine Glucose (UA) Negative (Normal) 07/27/25 00:45 Urine Ketones Negative (Negative) 07/27/25 00:45 Urine Blood 2+ (Negative) A 07/27/25 00:45 Urine Nitrate Negative (Negative) 07/27/25 00:45 Urine Bilirubin Negative (Negative) 07/27/25 00:45 Urine Urobilinogen 0.2 mg/dL (Negative) 07/27/25 00:45 Ur Leukocyte Esterase Negative (Negative) 07/27/25 00:45 Urine RBC 21-50 /hpf (0-2) H 07/27/25 00:45 Urine WBC 0-5 /hpf (0-5) 07/27/25 00:45 Ur Squamous Epith Cells 0-5 /hpf (0-5) 07/27/25 00:45 Amorphous Sediment Not Reportable 07/27/25 00:45 Urine Bacteria None seen /hpf (NONE) 07/27/25 00:45 Hyaline Casts 7.85 /lpf 07/27/25 00:45 Urine Mucus 2+ /hpf 07/27/25 00:45 Influenza A (PCR) Negative (Negative) 07/27/25 00:45 Influenza Type B (PCR) Negative (Negative) 07/27/25 00:45 RSV (PCR) Negative (Negative) 07/27/25 00:45 SARS-CoV-2 (PCR) Negative (Negative) 07/27/25 00:45 Vitals Last Vital Signs Temp 97.9 F 07/26/25 23:23 Pulse 107 H 07/27/25 11:48 Resp 20 H 07/27/25 11:48 BP 116/68 07/27/25 06:30 Pulse Ox 95 07/27/25 11:48 O2 Del Method Nasal Cannula 07/27/25 11:48 O2 Flow Rate 4 07/27/25 11:48 FiO2 40 07/27/25 09:39 Discharge Plan Discharge Patient Disposition: Home Condition: Stable Prescriptions: Continued tiotropium bromide [Spiriva with HandiHaler] 18 mcg capsule, w/inhalation device 1 cap inhalation DAILY Qty: 60 11RF Rx Instructions: puncture 1 cap using device; one dose = 2 inhalations formoterol fumarate 20 mcg/2 mL solution for nebulization 2 ml inhalation Q12H Qty: 120 6RF ipratropium-albuterol 0.5 mg-3 mg(2.5 mg base)/3 mL Solution For Nebulization 3 ml inhalation Q6H PRN (Reason: Shortness Of Breath) Qty: 180 0RF docusate sodium 100 mg Capsule 100 mg PO BID Qty: 60 0RF losartan 50 mg Tablet 50 mg PO DAILY Qty: 30 0RF budesonide 0.5 mg/2 mL Suspension For Nebulization 0.5 mg inhalation BID.RESPIRATORY Qty: 60 0RF diltiazem HCl 120 mg Capsule,Extended Release 24hr 120 mg PO DAILY Qty: 30 0RF furosemide 40 mg tablet 40 mg PO DAILY Qty: 30 0RF pantoprazole 40 mg tablet,delayed release (DR/EC) 40 mg PO DAILY Qty: 30 0RF polyethylene glycol 3350 17 gram/dose powder 17 g PO DAILY Qty: 30 0RF buspirone 15 mg tablet 15 mg PO TID Qty: 90 0RF duloxetine 60 mg capsule,delayed release(DR/EC) 60 mg PO DAILY Qty: 30 0RF albuterol sulfate [Ventolin HFA] 90 mcg/actuation HFA aerosol inhaler 2 inh inhalation Q6H PRN (Reason: shortness of breath or wheezing) Qty: 8.5 0RF hydrocodone-acetaminophen 7.5-325 mg tablet 1 tab PO BID diazepam 5 mg tablet 5 mg PO BID No Action (DME) Nebulizer 0 .ROUTE .MEDSUPPLY (DME) Trilegy Machine 0 .Route .MEDSUPPLY Discharge Diet: Advance as tolerated and Usual diet Discharge Activity: Resume usual activity Patient Instructions: Opioid Safety, Patient Portal & Polly Instructions Discharge Attestations Time Spent in Discharge Care*: greater than 30 min Specific Discharge Activities: educating patient, educating and/or supporting family/caregiver, discussing with pcp/other providers, discussing with porter sample case/social workers/dc planners, documenting/other paperwork and evaluating patient/reviewing data Status at Discharge: Cognitive status at discharge: cognitively intact, Behavioral status at discharge: cooperative, Functional status at discharge: independent ambulation, Overall status at discharge: patient is progressing back to baseline Quality Metrics Clinical Quality Measures [ No reported AMI, CVA or VTE this stay] Coding Level of Care Code Acute Code for Chg Fwd Diagnoses Acute on chronic diastolic (congestive) heart failure I50.33 Acute hypoxemic respiratory failure J96.01 Acute hypercapnic respiratory failure J96.02 COPD with chronic bronchitis J44.89
--- NOTE | 2025-07-27 14:50 | PC.NURSE ---
Dr. Ward requested that we verify that patient's home CPAP is working correctly. I called and spoke with patient's daughter and inquired about his CPAP, to which she states that she believes it's working properly, but will call their gr[employer] service and ask that they check it out when patient returns home. She states that she wasn't aware patient was discharging today and will try to get a ride for him as he isn't able to get into her truck safely. She states she will figure that out and call back when she has a plan.
--- OUTSIDE RECORDS SUMMARY | 2025-07-28 09:52 | XMS_ITS | Encounter Summary ---
Author Organization [facility] Address [address] [place] [address] Care Team Providers Care Storage Specialist Name Role Phone Unavailable Primary Care Provider Unavailabl e Encounter Details Date Type Department Care Team (Late st Contact Info) Description 08/02/2007 Emergency [facility] Emergency Department [address] [place] [id number] Julius Anderson MD [address] [place] [address] Obstructive Chronic Bronchitis with Exacerbation (CMS/HCC) (Primary Dx) Social History Tobacco Use Types Packs/Day Years Used Date Smoking Tobacco: Never Assessed Sex and Gender Information Value Date Recorded Sex Assigned at Not on file Legal Sex Male 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 Gender Identity Not on file Sexual Orientation Not on file documented as of this encounter Plan of Treatment Not on file documented as of this encounter Procedures Procedure Name Priority Date/Time Associated Diagnosis Comments POC BLOOD GAS, LYTES AND H+H Routine 08/02/2007 7:54 PM COIN MACHINE SERVICER REPAIRER PT AND APTT Routine 08/02/2007 7:54 PM COIN MACHINE SERVICER REPAIRER CARDIAC ENZYMES Routine 08/02/2007 7:54 PM COIN MACHINE SERVICER REPAIRER CBC WITH DIFFERENTIAL Routine 08/02/2007 7:54 PM COIN MACHINE SERVICER REPAIRER BRAIN NATRIURETIC PEPTIDE, BNP OR PROBNP Routine 08/02/2007 7:54 PM COIN MACHINE SERVICER REPAIRER BASIC METABOLIC PANEL Routine 08/02/2007 7:54 PM COIN MACHINE SERVICER REPAIRER CTA CHEST W WO CONTRAST Routine 08/02/2007 7:27 PM COIN MACHINE SERVICER REPAIRER XR CHEST PA OR AP 1 VW Routine 08/02/2007 7:27 PM COIN MACHINE SERVICER REPAIRER documented in this encounter Results * (ABNORMAL) POC ISTAT EG 7+ (08/02/2007 7:54 PM COIN MACHINE SERVICER REPAIRER) SPECIMEN TYPE Arterial INTERF BETHANY SYSTEM Comment: Test Performed By [id number] Pulse OX: 99 Hemoglobin calculated from Hematocrit [...] 1.32 mmol/l INTERFACE SYSTEM 08/02/2007 7:54 PM COIN MACHINE SERVICER REPAIRER us Physician Sj Ed POINT OF CARE TESTING COM Edited INTERFACE SYSTEM Refer to clinic/hospital department * BRAIN NATRIURETIC PEPTIDE, BNP OR PROBNP (08/02/2007 7:54 PM COIN MACHINE SERVICER REPAIRER) BRAIN NATRIURETIC PEPTIDE 44 0 - 125 pg/mL INTERFACE SYSTEM 08/02/2007 7:54 PM COIN MACHINE SERVICER REPAIRER Julius Anderson MD CHEMISTRY ORDERABLES Edited Performing Organization Address [facility] de Phone Number INTERFACE SYSTEM Refer to clinic/hospital department * PT AND APTT (08/02/2007 7:54 PM COIN MACHINE SERVICER REPAIRER) PROTIME 13.7 13.0 - 15.7 Secs INTERFACE SYSTEM Comment: As of 06 note change in normal range. INR 0.9 INTERFACE SYSTEM Comment: Expected Values for INR: DVT/PE Goal INR 2.5; range 2.0 - 3.0 Valve Replacement Tissue Goal INR 2.5; range 2.0 - 3.0 Mechanical Goal INR 3.0; range 2.5 - 3.5 POST-DC Goal INR 2.5; range 2.0 - 3.0 [...] in APTT Normal Range. 08/02/2007 7:54 PM COIN MACHINE SERVICER REPAIRER Julius Anderson MD HEMATOLOGY ORDERABLES Edited Performing Organization Address [facility] de Phone Number INTERFACE SYSTEM Refer to clinic/hospital department * CARDIAC ENZYMES (08/02/2007 7:54 PM COIN MACHINE SERVICER REPAIRER) TROPONIN I <0.1 0.0 - 1.3 ng/mL INTERFACE SYSTEM Comment: As of 07 the Troponin Reference Range has changed from 0.0-1.5 ng/ml to 0.0- 1.3 ng/ml due to a change in testing methodology. CKMB 3.4 0.0 - 5.0 ng/mL INTERFACE SYSTEM 08/02/2007 7:54 PM COIN MACHINE SERVICER REPAIRER us Julius Anderson MD CHEMISTRY ORDERABLES Edited Performing Organization Address [facility] Phone Number INTERFACE SYSTEM Refer to clinic/hospital department * (ABNORMAL) BASIC METABOLIC PANEL (08/02/2007 7:54 PM COIN MACHINE SERVICER REPAIRER) GLUCOSE 106 70 - 110 mg/dL INTERFACE [...] 295 mOsm/Kg INTERFACE SYSTEM 08/02/2007 7:54 PM COIN MACHINE SERVICER REPAIRER us Julius Anderson MD CHEMISTRY ORDERABLES Edited Performing Organization Address [facility] Phone Number INTERFACE SYSTEM Refer to clinic/hospital department * (ABNORMAL) CBC WITH DIFFERENTIAL (08/02/2007 7:54 PM COIN MACHINE SERVICER REPAIRER) WBC 12.0(H) 4.8 - 10.8 K/ul INTERFACE [...] Automated Diff INTERFACE SYSTEM 08/02/2007 7:54 PM COIN MACHINE SERVICER REPAIRER us Julius Anderson MD HEMATOLOGY ORDERABLES Edited INTERFACE SYSTEM Refer to clinic/hospital department * XR CHEST PA OR AP (08/02/2007 7:27 PM COIN MACHINE SERVICER REPAIRER) Anatomical Region Laterality Modality Chest Other 08/02/2007 7:27 PM COIN MACHINE SERVICER REPAIRER Narrative 08/02/2007 7:27 PM COIN MACHINE SERVICER REPAIRER Portable AP upright chest 08/02/2007. 1945 hours. [...] a possible small nodule overlying the posterior [id number] rib is probably due tothe patchy infiltrate [...] CHEST W WO CONTRAST (08/02/2007 7:27 PM COIN MACHINE SERVICER REPAIRER) Anatomical Region Laterality Modality Chest Other 08/02/2007 7:27 PM COIN MACHINE SERVICER REPAIRER Narrative 08/02/2007 7:27 PM COIN MACHINE SERVICER REPAIRER CTA Chest 08/02/2007History: Difficulty breathing. Procedure: A [...] changes in the spine. - Dictated By: eLatha Mcgee M.D. Electronically Signed By: Leatha Mcgee M.D. Date Signed: 08/02/[address] ORDERABLES Final Result documented in this encounter Visit Diagnoses Diagnosis Obstructive chronic bronchitis with exacerbation (CMS/HCC)- Primary Obstructive chronic bronchitis with exacerbation documented in this encounter
--- OUTSIDE RECORDS SUMMARY | 2025-07-28 09:52 | XMS_ITS | Encounter Summary ---
Author Organization [facility] Address [address] [place] [address] Care Team Providers Care Sound Effects Manager Name Role Phone Unavailable Primary Care Provider Unavailabl e Encounter Details Date Type Department Care Team (Late st Contact Info) Description 05/09/2005 Emergency [facility] Emergency Department [address] 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
--- OUTSIDE RECORDS SUMMARY | 2025-07-28 09:52 | XMS_ITS | Encounter Summary ---
Author Organization [facility] Address [address] [place] [address] Care Team Providers Care Stabber Name Role Phone Unavailable Primary Care Provider Unavailabl e Encounter Details Date Type Department Care Team (Latest Contact Info) Description 05/09/2005 Outpatient Historical [facility] [address] [place] [address] AMBULANCE, [facility] OTHER INJURY OF ABDOMEN (Primary Dx) Social History Tobacco Use Types Packs/Day Years Used Date Smoking Tobacco: Never Assessed Sex and Gender Information Value Date Recorded Sex Assigned at Not on file 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
--- OUTSIDE RECORDS SUMMARY | 2025-07-28 09:52 | XMS_ITS | Encounter Summary ---
Author Organization [facility] Address [address] [place] [address] Care Team Providers Care Systems Eng Name Role Phone Unavailable Primary Care Provider Unavailabl e Encounter Details Date Type Department Care Team (Late st Contact Info) Description 08/03/2007 Emergency [facility] Emergency Department [address] 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
--- OUTSIDE RECORDS SUMMARY | 2025-07-28 09:52 | XMS_ITS | Clinical Summary ---
Author Organization [facility] Address [address] [place] [address] Phone Care Team Providers Care Biometrics Technician Name Role Phone Unavailable Primary Care Provider [...] - 1-dose 75+ series) 2030 Insurance MEDICARE [place] [id number] [place] [id number]
--- OUTSIDE RECORDS SUMMARY | 2025-07-28 09:52 | XMS_ITS | Clinical Summary ---
Author Organization [facility] Address [address] 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
--- OUTSIDE RECORDS SUMMARY | 2025-07-28 09:52 | XMS_ITS | Encounter Summary ---
Author Organization [facility] Address [address] 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
--- OUTSIDE RECORDS SUMMARY | 2025-07-28 09:52 | XMS_ITS | Encounter Summary ---
Author Organization [facility] Address [address] [place] [address] Care Team Providers Care Transport Manager Name Role Phone Unavailable Primary Care Provider Unavailabl e Encounter Details Date Type Department Care Team (Latest Contact Info) Description 06/03/2007 Outpatient Historical 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
== END 2025-07-27 15:00 | disposition home health service (06) ==
LOC: ER 07-27 05:25 → ER IP 07-27 07:29
PROVIDERS: Admitting Provider Internal Medicine; Emergency Provider Student in an Organized Health Care Education/Training Program; Visit Provider Student in an Organized Health Care Education/Training Program
DX: I50.33 Acute on chronic diastolic (congestive) heart failure (principal); J96.01 Acute respiratory failure with hypoxia; J96.02 Acute respiratory failure with hypercapnia; J44.89 Other specified chronic obstructive pulmonary disease; K21.9 Gastro-esophageal reflux disease without esophagitis; Z79.891 Long term (current) use of opiate analgesic; Z99.81 Dependence on supplemental oxygen; G47.33 Obstructive sleep apnea (adult) (pediatric); Z99.89 Dependence on other enabling machines and devices; F41.9 Anxiety disorder, unspecified; F17.290 Nicotine dependence, other tobacco product, uncomplicated; I11.0 Hypertensive heart disease with heart failure
CPT/HCPCS: 36415; 71045; 71260; 74177; 80053; 81001; 82803; 83605; 83735; 83880; 84100; 84145; 84484; 85025; 85651; 86141; 87040; 87086; 87637; 93005; 94640; 94660; 96372; 96374; 96375; 96376; 99291; G0378; J1644; J1938; J2405; J9999

== ENCOUNTER 2025-08-13 16:12 | Inpatient (IN) | payer MEDICARE, SELFPAY ==
--- OUTSIDE RECORDS SUMMARY | 2021-10-01 09:25 | XMS_ITS | Continuity of Care Document ---
Author Organization [facility] Address [address] [place] [address] Phone Care Team Providers Care Life Skills Consultant Name Role Phone Jeremy Garcia MD Unavailable Unavailable Allergies, Adverse Reactions, Alerts Substance Reaction Status Criticality No Known Allergies Active No Inform ation No Known Allergies Active No Inform ation Medications Medication Instructions Dosage Effective Dates (start - stop) Status Comments prednisolone acetate 1 % eye drops,suspension instill 1 drop by ophthalmic route 4 times every day into the right eye for 5 days then stop - Active metformin 500 mg tablet take 1 tablet by oral route 2 times every day with morning and evening meals 500 MG - Active metoprolol succinate ER 25 mg tablet,extended release 24 hr take 1 tablet by oral route every day 25 MG - Active lisinopril 2.5 mg tablet take 1 tablet by oral route every day 2.5 MG - Active Oxygen Inhalation GAS - Active ADVAIR DISKUS (unknown strength) Not Available - Active ALBUTEROL SULFATE HFA (unknown strength) Not Available - Active COMBIVENT (unknown strength) Not Available - Active lisinopril 2.5 mg Tab take 1 tablet (2.5MG) by oral route every day 2.5 MG - Active metoprolol-hydrochlo rothiazide 100 mg-25 mg Tab take 1 tablet by oral route every day 1.00 tablet - Active Procedures Procedure Date AFTER CATARACT LASER SURGERY AFTER CATARACT LASER SURGERY All / No Fall, Burn, Wrong Site, Etc Sep Pt WITHOUT IV Antibiotic Sx Site Infecti on CATARACT SURG W/IOL, 1 STAGE Omidria All / No Fall, Burn, Wrong Site, Etc Sep Pt WITHOUT IV Antibiotic Sx Site Infecti on CATARACT SURG W/IOL, 1 STAGE OPHTHALMIC BIOMETRY OPHTHALMIC DX IMAGING - OPTIC NERVE OFFICE/OUTPATIENT VISIT, NEW Comprehensive Eye Exam, Est Pt 15 Cataract Sg With I[facility] I[facility] Master Comprehensive eye exam, new patient Advance Directives Directive Yes / No Effective Date File Name No Information Encounters Encounter Description Practice Location Reason(s) For Visit Diagnoses Date Provider Providers Copied on Encounter [facility], [facility] [address] [place] [address], [facility] [place], tel: [phone] [facility] No Information 2 Radha Luna. [facility] [address], [id number], . tel:[phone] [facility] [address] [place] [address], [facility] [place], tel: [phone] [facility] No Information 2 Radha Luna. [facility] [address], [id number], . tel:[phone] Referring Provider: Jeremy Ortega, [facility] [address], [address] . tel:[phone] [facility], [facility] [address], [address], [facility] No Information 2 No Information Referring Provider: Jeremy Ortega, [facility] [address], [address] . tel:[phone] [facility], [facility] [address], [address], [facility] No Information 2 No Information Referring Provider: Jeremy Ortega, [facility] [address], [address] . tel:[phone] [facility], [address] [place] [address], [address], [place] tel: [phone] [facility] No Information 2 Radha Luna. [address] [place] [address], [id number], [place]. tel:[phone] Referring Provider: Nirmal Fonseca, [address] [place], [address]. tel:[phone] OFFICE/OUTPA TIENT VISIT, [facility], [address] [place] [address], [id number], [place] tel: [phone] [facility] Cataract Evaluation (chief complaint) Age-related nuclear cataract, left eyeOpen angle w/ borderline finding of eye, low riskOther secondary cataract, right eye 1 Radha Luna. [address], [id number], [place]. tel:[phone] Referring Provider: Jeremy Ortega, [address] [place] [address], [address] . tel:[phone] [facility] [place] [facility], , [address] [place] [address], [id number] , [place] tel:[phone] [facility] Cataract, Nuclear ScleroticSeconda ry Membrane Apr- 0 5 Drew Carmen. [address] [place], [place], [id number]. tel:[phone] [facility] [place] [facility], , [address] [place] [address], [id number] , [place] tel:[phone] [facility] No Information Oct-2 3-201 2 Drew Kermit. [address] [place], [place], [id number]. tel:[phone] [facility] [place] [facility], , [address] [place] [address], [id number] , [place] tel:[phone] [facility] No Information Oct-2 3-201 2 Center [facility]. [address], [place], [place], [id number], . tel:[phone] [facility] [place] [facility], , [address], [place], [id number] , tel:[phone] [facility] No Information Oct-0 2 Drew Carmen. [address], [id number]. tel:[phone] [facility] [place] [facility], , [address] [place] [address], [id number] , [place] tel:[phone] [facility] Cataract, Nuclear Sclerotic Aug-3 0 2 Drew Kermit. [address], [id number]. tel:[phone] [facility] [place] [facility], , [facility], [place], [id number] , tel:[phone] [facility] No Information Apr-3 2 Drew Carmen. [address] [facility], [place], [id number]. tel:[phone] Family History Family Member Type Diagnosis Age At Onset Problem (finding) No family history of Ca taracts Father Problem (finding) Diabetes mellitus Problem (finding) No family history of Gl aucoma Problem (finding) No family hist ory of Macular degeneration Payers Payer name Insurance type Covered alliance party ID Authoriza tion(s) [place] [id number] Social History Type Description Quantity Date Captured Comments Sex Male Smoking Status No Information Chief Complaint And Reason For Visit No Information Reason For Referral Reason For Referral No Information History Of Present Illness Encounter Date Complaint History Of Prese nt Illness Cataract Evaluation The 66 year old male presents for evaluation of Cataract Evaluation OS. Pt states that vision is cloudy OS>OD. Pt states he no longer does any driving, but when he is in the passenger seat he struggles reading road signs. Pt admits to glare OU when around bright lights. Pt states he has a pair of glasses but states he does not wear them because they do not improve his vision. Pt states he uses a magnifying glass to read fine print. Pt admits to occasional light flashes OU, and states he has floaters OU. Pt c/o constant FB sensation OD, admits to eye rubbing. Pt states he has quit using AT's Pt states he is a Type 2 diabetic states his blood sugar level runs between 120-150. Pt's last A1c is unknown. 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 Discussed all risks, benefits, procedures and recovery. Patient understands changing glasses will not improve vision. Patient desires to have surgery, recommend phacoemulsification with intraocular lens. Related to Cataract, Nuclear Sclerotic Impression/Plan - Di scussed diagnosis in detail with patient. No treatment is required at this time. Will continue to observe condition and or symptoms. Related to Secondary Membrane 366.16 Cataract, Nuc lear Sclerosis, OU - established, worsening 366.16 Cataract, Nuc lear Sclerosis, OU - established, worsening - Discussed cataract diagnosis with the patient. Risks and benefits of surgical treatment were discussed and understood. Patient elects surgical treatment. Related to Cataract, Nuclear Sclerosis Assessments Type Assessment Date No Information Patient Care Teams Name Effective Dates (start - stop) Status Members No Information
[2025-08-13] VITALS (37 sets, daily range): BP systolic 101–168; BP diastolic 71–111; PULSE 89–110; RESP 12–28; TEMP 36.5–36.8; O2SAT 78–99; BMI 31.5
--- NOTE | 2025-08-13 16:10 | ECG_ITS ---
[facility]: 2025-08-13 Pat Name: Pola Fajardo Department: Room: Gender: Male Cupola Operator: : 1955 Requested By: Dagoberto Car Order Number: [id number] Kohli MD: Dylan Ray M.D. Measurements Intervals [place] Rate: 92 P: 34 VT: 175 QRS: 52 QRSD: 101 T: 101 QT: 331 QTc: 411 Interpretive Statements TECHNICALLY POOR TRACING SINUS RHYTHM Compared to ECG 07/27/2025 03:18:41 TRACING ARTIFACT IS NEW Electronically Signed On 08-13-2025 16:25:24 RADIATOR CLEANER by Dylan Ray M.D. [email or web address]
--- NOTE | 2025-08-13 16:10 | XRR_ITS ---
PROCEDURE INFORMATION: Exam: XR Chest Exam date and time: 08/13/2025 4:23 PM Age: 70 years old Clinical indication: Shortness of breath; Additional info: SOB TECHNIQUE: Imaging protocol: Radiologic exam of the chest. Views: 1 view. COMPARISON: CT chest abdpel w/*[id number] 07/27/2025 1:04 AM FINDINGS: Lungs: Small focus of atelectasis in the right perihilar region. Pleural spaces: Unremarkable. No pleural effusion. No pneumothorax. Heart/Mediastinum: Unremarkable. No cardiomegaly. Bones/joints: No acute findings. Bilateral dysplastic shoulders. A metallic plate is anchored to the left clavicle. XR/XR chest 1V portable [id number] IMPRESSION: Small focus of atelectasis in the right perihilar region. Otherwise unremarkable chest x-ray.
--- OUTSIDE RECORDS SUMMARY | 2025-08-13 16:15 | XMS_ITS | Encounter Summary ---
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
--- OUTSIDE RECORDS SUMMARY | 2025-08-13 16:16 | XMS_ITS | Clinical Summary ---
Author Organization [facility] Address [address] 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
--- OUTSIDE RECORDS SUMMARY | 2025-08-13 16:16 | XMS_ITS | Encounter Summary ---
Author Organization [employer] [facility] Address [address] [place] [address] Care Team Providers Care Manager Technical Support Name Role Phone Unavailable Primary Care Provider Unavailabl e Encounter Details Date Type Department Care Team (Latest Contact Info) Description 05/09/2005 Outpatient Historical [facility] [address] [place] [address] AM[address]ANCE, [facility] OTHER INJURY OF ABDOMEN (Primary Dx) Social History Tobacco Use Types Packs/Day Years Used Date Smoking Tobacco: Never Assessed Sex and Gender Information Value Date Recorded Sex Assigned at Not on file Legal 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
--- OUTSIDE RECORDS SUMMARY | 2025-08-13 16:16 | XMS_ITS | Encounter Summary ---
Author Organization [employer] [facility] Address [address] [place] [address] Care Team Providers Care Reporting Analyst Name Role Phone Unavailable Primary Care Provider Unavailabl e Encounter Details Date Type Department Care Team (Latest Contact Info) Description 06/03/2007 Outpatient Historical 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
--- OUTSIDE RECORDS SUMMARY | 2025-08-13 16:16 | XMS_ITS | Encounter Summary ---
Author Organization [facility] Address [address] [place] [address] Care Team Providers Care Marketing Summer Intern Name Role Phone Unavailable Primary Care Provider Unavailabl e Encounter Details Date Type Department Care Team (Late st Contact Info) Description 05/09/2005 Emergency [facility] Emergency Department [address] 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
--- OUTSIDE RECORDS SUMMARY | 2025-08-13 16:17 | XMS_ITS | Encounter Summary ---
Author Organization [facility] Address [address] [place] [address] Care Team Providers Care Asset Card Clerk Name Role Phone Unavailable Primary Care Provider Unavailabl e Encounter Details Date Type Department Care Team (Late st Contact Info) Description 08/02/2007 Emergency [facility] Emergency Department [address] [place] [phone] Julius Anderson MD [address] [place] [address] Obstructive Chronic Bronchitis with Exacerbation (CMS/HCC) (Primary Dx) Social History Tobacco Use Types Packs/Day Years Used Date Smoking Tobacco: Never Assessed Sex and Gender Information Value Date Recorded Sex Assigned at Not on file Legal Sex Male 5:35 AM CSR RETAIL Gender Identity Not on file Sexual Orientation Not on file documented as of this encounter Plan of Treatment Not on file documented as of this encounter Procedures Procedure Name Priority Date/Time Associated Diagnosis Comments POC BLOOD GAS, LYTES AND H+H Routine 08/02/2007 7:54 PM CSR RETAIL PT AND APTT Routine 08/02/2007 7:54 PM CSR RETAIL CARDIAC ENZYMES Routine 08/02/2007 7:54 PM CSR RETAIL CBC WITH DIFFERENTIAL Routine 08/02/2007 7:54 PM CSR RETAIL BRAIN NATRIURETIC PEPTIDE, BNP OR PROBNP Routine 08/02/2007 7:54 PM CSR RETAIL BASIC METABOLIC PANEL Routine 08/02/2007 7:54 PM CSR RETAIL CTA CHEST W WO CONTRAST Routine 08/02/2007 7:27 PM CSR RETAIL XR CHEST PA OR AP 1 VW Routine 08/02/2007 7:27 PM CSR RETAIL documented in this encounter Results * (ABNORMAL) POC ISTAT EG 7+ (08/02/2007 7:54 PM CSR RETAIL) SPECIMEN TYPE Arterial INTERF BETHANY SYSTEM Comment: Test Performed By [id number] Pulse OX: 99 Hemoglobin calculated from Hematocrit [...] 1.32 mmol/l INTERFACE SYSTEM 08/02/2007 7:54 PM CSR RETAIL us Physician Sj Ed POINT OF CARE TESTING COM Edited INTERFACE SYSTEM Refer to clinic/hospital department * BRAIN NATRIURETIC PEPTIDE, BNP OR PROBNP (08/02/2007 7:54 PM CSR RETAIL) BRAIN NATRIURETIC PEPTIDE 44 0 - 125 pg/mL INTERFACE SYSTEM 08/02/2007 7:54 PM CSR RETAIL Julius Anderson MD CHEMISTRY ORDERABLES Edited Performing Organization Address [facility] de Phone Number INTERFACE SYSTEM Refer to clinic/hospital department * PT AND APTT (08/02/2007 7:54 PM CSR RETAIL) PROTIME 13.7 13.0 - 15.7 Secs INTERFACE SYSTEM Comment: As of 06 note change in normal range. INR 0.9 INTERFACE SYSTEM Comment: Expected Values for INR: DVT/PE Goal INR 2.5; range 2.0 - 3.0 Valve Replacement Tissue Goal INR 2.5; range 2.0 - 3.0 Mechanical Goal INR 3.0; range 2.5 - 3.5 POST-CA Goal INR 2.5; range 2.0 - 3.0 [...] in APTT Normal Range. 08/02/2007 7:54 PM CSR RETAIL Julius Anderson MD HEMATOLOGY ORDERABLES Edited Performing Organization Address [facility] de Phone Number INTERFACE SYSTEM Refer to clinic/hospital department * CARDIAC ENZYMES (08/02/2007 7:54 PM CSR RETAIL) TROPONIN I <0.1 0.0 - 1.3 ng/mL INTERFACE SYSTEM Comment: As of 07 the Troponin Reference Range has changed from 0.0-1.5 ng/ml to 0.0- 1.3 ng/ml due to a change in testing methodology. CKMB 3.4 0.0 - 5.0 ng/mL INTERFACE SYSTEM 08/02/2007 7:54 PM CSR RETAIL Julius Anderson MD CHEMISTRY ORDERABLES Edited Performing Organization Address [facility] Phone Number INTERFACE SYSTEM Refer to clinic/hospital department * (ABNORMAL) BASIC METABOLIC PANEL (08/02/2007 7:54 PM CSR RETAIL) GLUCOSE 106 70 - 110 mg/dL INTERFACE [...] 295 mOsm/Kg INTERFACE SYSTEM 08/02/2007 7:54 PM CSR RETAIL us Julius Anderson MD CHEMISTRY ORDERABLES Edited Performing Organization Address [facility] Phone Number INTERFACE SYSTEM Refer to clinic/hospital department * (ABNORMAL) CBC WITH DIFFERENTIAL (08/02/2007 7:54 PM CSR RETAIL) WBC 12.0(H) 4.8 - 10.8 K/ul INTERFACE [...] Automated Diff INTERFACE SYSTEM 08/02/2007 7:54 PM CSR RETAIL us Julius Anderson MD HEMATOLOGY ORDERABLES Edited INTERFACE SYSTEM Refer to clinic/hospital department * XR CHEST PA OR AP (08/02/2007 7:27 PM CSR RETAIL) Anatomical Region Laterality Modality Chest Other 08/02/2007 7:27 PM CSR RETAIL Narrative 08/02/2007 7:27 PM CSR RETAIL Portable AP upright chest 08/02/2007. 1945 hours. [...] a possible small nodule overlying the posterior [id number] rib is probably due tothe patchy infiltrate [...] CHEST W WO CONTRAST (08/02/2007 7:27 PM CSR RETAIL) Anatomical Region Laterality Modality Chest Other 08/02/2007 7:27 PM CSR RETAIL Narrative 08/02/2007 7:27 PM CSR RETAIL CTA Chest 08/02/2007History: Difficulty breathing. Procedure: A [...] Diagnoses Diagnosis Obstructive chronic bronchitis with exacerbation (CMS/[facility])- Primary Obstructive chronic bronchitis with exacerbation documented in this encounter
--- OUTSIDE RECORDS SUMMARY | 2025-08-13 16:17 | XMS_ITS | Encounter Summary ---
Author Organization [facility] Address [address] [place] [address] Care Team Providers Care Nurse Sexual Assault Name Role Phone Unavailable Primary Care Provider Unavailabl e Encounter Details Date Type Department Care Team (Late st Contact Info) Description 08/03/2007 Emergency [facility] Emergency Department [address] 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
[2025-08-13 16:28] LABS: ABG PCO2 > 102.0 mmHg (35-45); ABG PH Result 7.15 (7.35-7.45); Arterial Blood Gas Hematocrit 37.2 % (42-52); Blood Gas Allen Test Pos; Blood Gas LPM 15.0 %; Blood Gas Operator Identificat WALCI; Blood Gas Sample Site Radial, right; Blood Gas Sample Type Arterial; Carboxyhemoglobin 1.3 %THgb (0.4-20.1); HCO3 ABG 37.2 mmol/L (22-26); Methemoglobin 1.2 % (0.4-1.5); PO2 ABG 87.4 mmHg (80.0-100.0)
[2025-08-13] MEDS: methylPREDNISolone sod succ 125 mg/2 mL INJ IVP (16:30)
[2025-08-13] MEDS: LORazepam 2 mg/mL INJ 1 mL 0.5 MG IVP (16:30)
--- NOTE | 2025-08-13 16:35 | W.ED.SOB ---
HPI - SOB/Dyspnea General: Chief Complaint: Shortness of Breath/Dyspnea Stated Complaint: ams Source: patient and EMS Mode of arrival: EMS History of Present Illness: HPI Narrative: 70-year-old male who has a history of COPD he has been seen here in the past for hypercapnic respiratory failure. Per EMS they were called as he is becoming increasingly short of breath and altered. Patient was on CPAP with EMS. They did give him a breathing treatment. Patient is able to follow commands able to tell me his name at this time. Denies any cough or fever or chest pain. Related Data Home Medications ?Medication ?Instructions ?Recorded ?Confirmed Nebulizer 07/10/25 08/13/25 Trilegy Machine 07/10/25 08/13/25 diazepam 5 mg tablet 5 mg PO BID 07/27/25 08/13/25 hydrocodone 7.5 mg-acetaminophen 1 tab PO BID 07/27/25 08/13/25 325 mg tablet Previous Rx's ?Medication ?Instructions ?Recorded docusate sodium 100 mg capsule 100 mg PO BID #60 caps 06/20/25 ipratropium 0.5 mg-albuterol 3 mg 3 ml inhalation Q6H PRN Shortness 06/20/25 (2.5 mg base)/3 mL nebulization Of Breath #180 mL soln albuterol sulfate 90 mcg/actuation 2 inh inhalation Q6H PRN shortness 06/21/25 aerosol inhaler (Ventolin HFA) of breath or wheezing #8.5 grams budesonide 0.5 mg/2 mL suspension 0.5 mg (2 mL) inhalation 06/21/25 for nebulization BID.RESPIRATORY #60 mL buspirone 15 mg tablet 15 mg PO TID #90 tabs 06/21/25 diltiazem HCl 120 mg 120 mg PO DAILY #30 caps 06/21/25 capsule,extended release 24 hr duloxetine 60 mg capsule,delayed 60 mg PO DAILY #30 caps 06/21/25 release furosemide 40 mg tablet 40 mg PO DAILY #30 tabs 06/21/25 losartan 50 mg tablet 50 mg PO DAILY #30 tabs 06/21/25 pantoprazole 40 mg tablet,delayed 40 mg PO DAILY #30 tabs 06/21/25 release polyethylene glycol 3350 17 17 g PO DAILY #30 grams 06/21/25 gram/dose oral powder formoterol fumarate 20 mcg/2 mL 2 ml inhalation Q12H #120 mL 07/14/25 solution for nebulization tiotropium bromide 18 mcg capsule 1 cap inhalation DAILY #60 07/14/25 with inhalation device (Spiriva inhalations with HandiHaler) Allergies Allergy/AdvReac Type Severity Reaction Status Date / Time No Known Allergies Allergy Verified 07/10/25 11:29 Review of Systems Resp: Reports: dyspnea PFSH ED PFSH: Medical History COPD with chronic bronchitis Hypertension, unspecified type Anxiety Medically noncompliant Acute on chronic respiratory failure with hypoxia and hypercapnia Social History Smoking and tobacco/nicotine status: current every day tobacco/nicotine user (1 ppd X 47 years on Cigarettes, Started Vapping Sep) Alcohol intake: unknown Substance/Drug Use: unknown Additional social history: Patient denies tobacco alcohol or illicit use currently. He reports he wants full code Physical Exam Const: COMMON NORMALS: patient oriented x3 GENERAL APPEARANCE: in distress HENMT: COMMON NORMALS: normocephalic and atraumatic HEAD & SCALP: normocephalic and atraumatic Eye: COMMON NORMALS: Equal, round and reactive pupils present and EOMs intact bilaterally PUPIL: Yes Equal, round and reactive pupils present Neck/C-Spine: COMMON NORMALS: full ROM and supple Chest: COMMONS NORMALS: normal inspection of the chest and normal palpation of entire chest wall Resp: EFFORT & INSPECTION: Yes tachypneic and Yes respiratory distress AUSCULTATION: wheezes and diminished lung sounds Cardio: COMMON NORMALS: regular rate, regular rhythm and No murmurs present (Cardio) RATE: regular rate RHYTHM: regular rhythm GI: COMMON NORMALS: Normal to inspection, nondistended, normoactive bowel sounds present, Soft to palpation, non-tender and no masses PALPATION: Yes Soft to palpation Extremity: COMMON NORMALS: normal to inspection and full ROM Neuro: COMMON NORMALS: patient oriented x3, moves all extremities and no focal motor deficits Psych: COMMON NORMALS: mental status grossly normal, Normal thought process present and cooperative THOUGHT PROCESS: Normal thought process present Skin: COMMON NORMALS: no rashes or lesions noted and no wounds GENERAL SKIN EXAM: no rashes or lesions noted Course Vital Signs: Vital signs: Vital Signs Temperature 97.7 F 08/13/25 16:14 Pulse Rate 102 H 08/13/25 17:20 Respiratory Rate 15 08/13/25 16:42 Blood Pressure 139/111 08/13/25 17:20 Pulse Oximetry 94 08/13/25 17:20 Oxygen Delivery Me thod BiPAP 08/13/25 17:20 Oxygen Flow Rate 15 08/13/25 16:14 Fraction of Inspir ed Oxygen 40 08/13/25 16:42 MDM - SOB/Dyspnea Medical Decision Making 70-year-old male presents here with respiratory distress along with some slight confusion. Patient has extensive history of COPD is been seen multiple times in the past for hypercapnia. Patient's ABG here shows hypercapnia pH is 7.15 CO2 greater than 102. Patient is placed on BiPAP here and is improving on BiPAP. Did review his chest x-ray showed no signs of pneumonia. Does have an elevated white count likely stress reaction from his respiratory distress no signs of sepsis. EKG here is interpreted by me shows normal sinus rhythm heart rate [address] elevation QRS 101 QTc 381. Patient was placed on BiPAP was given Solu-Medrol and with a breathing treatment. I spoke to hospitalist Dr. Dewey and will admit to the ICU for COPD exacerbation along with respiratory failure with hypercapnia critical care time 35 minutes The high probability of a clinically significant, sudden or life threatening deterioration of the patient's respsystem(s) required my full and direct attention, intervention and personal management. The critical care time is as shown. This time is in addition to time spent performing any reported procedures but includes the following: [x] Data and vital sign review and interpretation [x] Patient assessment, examination and intervention [x] Documentation [x] Medication orders and management Medical Records I reviewed the patient's medical records. Lab Data I reviewed the patient's lab results. 08/13/25 16:25 08/13/25 16:25 Labs/Radiology: Laboratory Results WBC 22.56 10^3/uL (3.29-11.43) H 08/13/25 16:25 RBC 5.13 10^6/uL (3.85-5.65) 08/13/25 16:25 Hgb 12.10 g/dL (11.27-16.99) 08/13/25: Hct 45.5 % (37-53) 08/13/25: MCV 88.7 fl (82-101) 08/13/25: MCH 23.6 pg (27-33) L 08/13/25: MCHC 26.6 g/dL (30-55) L 08/13/25: RDW 19.9 % (12.1-15.1) H 08/13/25: Plt Count 308 10^3/cmm (157-399) 08/13/25: MPV 9.8 fL (7.4-10.4) 08/13/25: Neut % (Auto) 79.3 % 08/13/25: Lymph % (Auto) 7.9 % 08/13/25: [place] % (Auto) 11.3 % 08/13/25: Eos % (Auto) 0.3 % 08/13/25 Baso % (Auto) 0.4 % 08/13/25: Neut # (Auto) 17.87 10^3/uL (1.8-7.7) H 08/13/25: Lymph # (Auto) 1.8 10^3/uL (0.8-4.8) 08/13/25: [place] # (Auto) 2.6 10^3/uL (0.2-0.9) H 08/13/25: Eos # (Auto) 0.1 10^3/uL (0.0-0.8) 08/13/25 Baso # (Auto) 0.1 10^3/uL (0.0-0.1) 08/13/25: Nucleated RBC % (auto) 0 % 08/13/25 Nucleated RBCs # 0.0 /100WBC 08/13/25 Specimen Type Arterial 08/13/25 16:16 Sample Site Radial, right 08/13/25 16:16 ABG pH 7.15 (7.35-7.45) L* 08/13/25: ABG pCO2 > 102.0 mmHg (35-45) H* 08/13/25 16:16 ABG pO2 87.4 mmHg (80.0-100.0) 08/13/25 16:16 ABG HCO3 37.2 mmol/L (22-26) H 08/13/25 16:16 ABG Base Excess 5.1 mmol/L (-2.0-2.0) H 08/13/25 16:16 Juno Test Pos 08/13/25 16:16 Hematocrit 37.2 % (42-52) L 08/13/25 16:16 Hgb O2 Saturation 93.9 % (95-100) L 08/13/25 16:16 Carboxyhemoglobin 1.3 %THgb (0.4-20.1) 08/13/25 16:16 Methemoglobin 1.2 % (0.4-1.5) 08/13/25 16:16 Total Hemoglobin 12.1 g/dL (14-18) L 08/13/25 16:16 O2 Delivery Device Nrb 08/13/25 16:16 O2 Liters/Min 15.0 % 08/13/25 16:16 Valving Machine Operator ID [place] 08/13/25 16:16 Sodium 139 mmol/L (136-145) 08/13/25 16:25 Potassium 5.2 mmol/L (3.5-5.1) H 08/13/25 16:25 Chloride 97 mmol/L (98-107) L 08/13/25 16:25 Carbon Dioxide 42 mmol/L (22-29) H* 08/13/25 16:25 Anion Gap 5.2 (5-19) 08/13/25 16:25 BUN 12 mg/dL (8-23) 08/13/25 16:25 Creatinine 1.1 mg/dL (0.7-1.2) 08/13/25 16:25 GFR Calculation 66.2 mL/min (90-130) L 08/13/25 16:25 Glucose 121 mg/dL (65-115) H 08/13/25 16:25 Calculated Osmolality 289 mOsm/kg (285-295) 08/13/25 16:25 Calcium 9.1 mg/dL (8.5-10.5) 08/13/25 16:25 Total Bilirubin 0.3 mg/dL (0.15-1.2) 08/13/25 16:25 AST 26 U/L (0-40) 08/13/25 16:25 ALT 20 U/L (0-41) 08/13/25 16:25 Alkaline Phosphatase 139 U/L (40-130) H 08/13/25 16:25 NT-Pro-B Natriuret Pep 272 pg/mL (0-125) H 08/13/25 16:25 Total Protein 8.1 g/dL (6.6-8.7) 08/13/25 16:25 Albumin 4.2 g/dL (3.5-5.2) 08/13/25 16:25 Globulin 3.9 g/dL (1.3-4.6) 08/13/25 16:25 All radiology interpretation(s) finalized by discharge EKG Data EKG 1: I personally reviewed and interpreted this EKG as follows: EKG Interpretation Date: 08/13/25 EKG interpretation time: 16:23 Interpretation: nsr hr [address] elevation qrs 101 qtc 381 Critical Care Time Critical Care Time: Critical Care Time: Yes Total Critical Care Time: 35 Attestation: The high probability of a clinically significant, sudden or life threatening deterioration of the patient's respsystem(s) required my full and direct attention, intervention and personal management. The critical care time is as shown. This time is in addition to time spent performing any reported procedures but includes the following: [x] Data and vital sign review and interpretation [x] Patient assessment, examination and intervention [x] Documentation [x] Medication orders and management Discharge Plan Discharge Patient Disposition: Admitted As Inpatient Clinical Impression: Acute and chronic respiratory failure with hypercapnia, Acute exacerbation of chronic obstructive airways disease Condition: Stable Coding Level of Care Code ED Electrical Project Engineer for Alida Guerra
[2025-08-13 16:37] LABS: Hematocrit 45.5 % (37-53); Hemoglobin 12.10 g/dL (11.27-16.99); Mean Corpuscular HGB Conc 26.6 g/dL (30-55); Mean Corpuscular Hemoglobin 23.6 pg (27-33); Mean Corpuscular Volume 88.7 fl (82-101); Nucleated Red Blood Cells % 0 %; Platelet Count 308 10^3/cmm (157-399); Red Blood Count 5.13 10^6/uL (3.85-5.65); White Blood Count 22.56 10^3/uL (3.29-11.43)
--- NOTE | 2025-08-13 16:40 | PC.PHAR ---
last med rec completed 07/27/25. No new medications found. Unable to ask pt if he took any medications this morning. I heard pt is a new client for [facility] but have not confirmed yet. Message out for a med list if, in fact he is their client. 08/13/25
--- NOTE | 2025-08-13 17:06 | PC.NURSE ---
FARIBA GREEN, PATIENT'S POA, CALLED REQUESTING UPDATE. POA WAS ASKED ABOUT PT CODE STATUS. POA STATED THAT THE LAST TIME SHE SPOKE WITH PATIENT HE WANTED TO BE A FULL CODE. POA WAS ALSO ASKED IF THAT INCLUDED INTUBATION. POA STATED FAR SHE KNEW HE WANTED EVERYTHING DONE INCLUDING INTUBATION. CHARGE NURSE, ADOLFO WINTERS, WITNESSED CONVERSATION.
[2025-08-13 17:09] LABS: Alanine Aminotransferase 20 U/L (0-41); Albumin Level 4.2 g/dL (3.5-5.2); Alkaline Phosphatase 139 U/L (40-130); Anion Gap 5.2 (5-19); Aspartate Amino Transferase 26 U/L (0-40); Blood Urea Nitrogen 12 mg/dL (8-23); Calcium 9.1 mg/dL (8.5-10.5); Chloride 97 mmol/L (98-107); Globulin 3.9 g/dL (1.3-4.6); Glucose 121 mg/dL (65-115); NT Pro B Type Natriuretic Pept 272 pg/mL (0-125); Osmolality Calculated 289 mOsm/kg (285-295); Potassium 5.2 mmol/L (3.5-5.1); Sodium 139 mmol/L (136-145); Total Protein 8.1 g/dL (6.6-8.7)
[2025-08-13 17:15] LABS: Carbon Dioxide 42 mmol/L (22-29)
--- NOTE | 2025-08-13 17:25 | PC.NURSE ---
DELAY IN ANTIBIOTIC ADMINISTRATION DUE TO BLOOD CULTURES NOT OBTAINED YET.
[2025-08-13 17:27] LABS: ABG PCO2 91.7 mmHg (35-45); ABG PH Result 7.21 (7.35-7.45); Alveolar-Arterial Oxygen Gradi 10.4 mmHg (5-10); Arterial Blood Gas Hematocrit 37.7 % (42-52); Blood Gas Allen Test Pos; Blood Gas Operator Identificat WALCI; Blood Gas Sample Site Radial, right; Blood Gas Sample Type Arterial; Carboxyhemoglobin 1.2 %THgb (0.4-20.1); Glucose Level-ABG 119.0 mg/dL (70-115); HCO3 ABG 36.8 mmol/L (22-26); Ionized Calcium Level - ABG 1.2 mmol/L (1.1-1.4); Methemoglobin 1.2 % (0.4-1.5); Oxygen Saturation ABG 91.8; PO2 ABG 60.8 mmHg (80.0-100.0); PO2 FiO2 Ratio Arterial Blood 173; Potassium Level - ABG 4.9 mmol/L (3.5-5.0); Sodium Level - ABG 145.0 mmol/L (131-143)
--- NOTE | 2025-08-13 17:58 | PM.HP ---
Providers/Chief Complaint Admitting Physician: Lit Simpson MD Chief Complaint: ams History of Present Illness Pola Fajardo is a 70 year old male with a past medical history of chronic hypercarbic respiratory failure secondary to COPD,History of severe end-stage COPD, history of smoking/vaping, who presents [facility] due to shortness of breath. Currently patient is alert to person, not place, not to time, he can follow some commands but easily falls back asleep, he is on BiPAP history received Ativan in the emergency room, his GCS score is 10, according to ER provider EMS was called out to his home because he was increasingly short of breath, was placed on CPAP, in the emergency room is placed on BiPAP, no family members at bedside on arrival his pH was 7.15, pCO2 102, most recent ABG shows pH improved to 7.21, pCO2 down to 91.7, PaO2 60.8, Review of Systems General: Reports: ROS unobtainable due to medical condition Medications/Allergies Home Medications ?Medication ?Instructions ?Recorded ?Confirmed ?Last Taken ?Type docusate sodium 100 mg capsule 100 mg PO BID #60 caps 06/20/25 08/13/25 07/26/25 Rx ipratropium 0.5 mg-albuterol 3 mg 3 ml inhalation Q6H PRN Shortness 06/20/25 08/13/25 07/26/25 Rx (2.5 mg base)/3 mL nebulization Of Breath #180 mL soln albuterol sulfate 90 mcg/actuation 2 inh inhalation Q6H PRN shortness 06/21/25 08/13/25 07/26/25 Rx aerosol inhaler (Ventolin HFA) of breath or wheezing #8.5 grams budesonide 0.5 mg/2 mL suspension 0.5 mg (2 mL) inhalation 06/21/25 08/13/25 07/01/25 Rx for nebulization BID.RESPIRATORY #60 mL buspirone 15 mg tablet 15 mg PO TID #90 tabs 06/21/25 08/13/25 07/26/25 Rx diltiazem HCl 120 mg 120 mg PO DAILY #30 caps 06/21/25 08/13/25 07/26/25 Rx capsule,extended release 24 hr duloxetine 60 mg capsule,delayed 60 mg PO DAILY #30 caps 06/21/25 08/13/25 07/26/25 Rx release furosemide 40 mg tablet 40 mg PO DAILY #30 tabs 06/21/25 08/13/25 07/26/25 Rx losartan 50 mg tablet 50 mg PO DAILY #30 tabs 06/21/25 08/13/25 07/01/25 Rx pantoprazole 40 mg tablet,delayed 40 mg PO DAILY #30 tabs 06/21/25 08/13/25 07/26/25 Rx release polyethylene glycol 3350 17 17 g PO DAILY #30 grams 06/21/25 08/13/25 07/26/25 Rx gram/dose oral powder Nebulizer 07/10/25 08/13/25 Unknown History Trilegy Machine 07/10/25 08/13/25 Unknown History formoterol fumarate 20 mcg/2 mL 2 ml inhalation Q12H #120 mL 07/14/25 08/13/25 Unknown Rx solution for nebulization tiotropium bromide 18 mcg capsule 1 cap inhalation DAILY #60 07/14/25 08/13/25 07/26/25 Rx with inhalation device (Spiriva inhalations with HandiHaler) diazepam 5 mg tablet 5 mg PO BID 07/27/25 08/13/25 07/26/25 History hydrocodone 7.5 mg-acetaminophen 1 tab PO BID 07/27/25 08/13/25 Unknown History 325 mg tablet Allergies Allergy/AdvReac Type Severity Reaction Status Date / Time No Known Allergies Allergy Verified 07/10/25 11:29 PFSH Acute PFSH: Medical History COPD with chronic bronchitis Hypertension, unspecified type Anxiety Medically noncompliant Acute on chronic respiratory failure with hypoxia and hypercapnia Social History Smoking and tobacco/nicotine status: current every day tobacco/nicotine user (1 ppd X 47 years on Cigarettes, Started Vapping Sep) Alcohol intake: unknown Substance/Drug Use: unknown Additional social history: Patient denies tobacco alcohol or illicit use currently. He reports he wants full code Vitals/I&O/Wt Last Vital Signs Temp 97.7 F 08/13/25 16:14 Pulse 100 08/13/25 17:52 Resp 15 08/13/25 16:42 BP 121/97 08/13/25 17:52 Pulse Ox 94 08/13/25 17:52 O2 Del Method BiPAP 08/13/25 17:20 O2 Flow Rate 15 08/13/25 16:14 FiO2 35 08/13/25 17:29 Weight last 48 hrs Weight 99.79 kg Physical Exam Const: COMMON NORMALS: no acute distress EXAM LIMITATIONS: altered mental status ORIENTATION/CONSCIOUSNESS: Yes awake, Yes oriented to person and Yes confused; not oriented to place and not oriented to time Eye: OTHER: Pupils are dilated, reactive to light Resp: COMMON NORMALS: normal respiratory effort, No retractions, No use of accessory muscles and clear to auscultation bilaterally AUSCULTATION: wheezes Cardio: COMMON NORMALS: no JVD, regular rate, regular rhythm, S1 normal heart sound present and S2 normal heart sound present RATE: regular rate RHYTHM: regular rhythm HEART SOUNDS: S1 normal heart sound present and S2 normal heart sound present GI: COMMON NORMALS: Normal to inspection, nondistended, normoactive bowel sounds present, Soft to palpation and non-tender Extremity: NARRATIVE EXTREMITY EXAM: 2+ edema, DP PT pulses palpable, cap refill less than 3 seconds Quick SOFA Score: Respiratory Rate: 15 Blood Pressure: 121/97 [place] Coma Scale: 15 qSOFA Score: 0 If qSOFA score 2 or greater, continue: PaO2/FiO2 Ratio (mmHg): 173 Blood Pressure Mean: 120 Bilirubin (mg/dl): 0.3 Platelets (x10?/ml): 308 Creatinine (mg/dl): 1.1 SOFA Score: 3 Evaluation: Current stage of sepsis: sepsis Sepsis stage criteria used: [facility] Sep-1 and Sepsis-3 Blood cultures ordered: Yes Possible source: pulmonary Focused Exam: Vital signs: Temp Pulse Resp BP Pulse Ox O2 Del Method O2 Flow Rate 08/13/25 17:52 100 121/97 94 08/13/25 17:29 99 93 08/13/25 17:20 102 H 139/111 94 BiPAP 08/13/25 16:42 89 15 99 BiPAP 08/13/25 16:36 96 95 08/13/25 16:35 101 H 13 95 BiPAP 08/13/25 16:14 97.7 F 101 H 28 H 168/107 78 L Non-Rebreather 15 FiO2 08/13/25 17:52 08/13/25 17:29 35 08/13/25 17:20 08/13/25 16:42 40 08/13/25 16:36 45 08/13/25 16:35 45 08/13/25 16:14 Respiratory exam: positive wheezes Cardiovascular exam: regular rate, regular rhythm, S1 normal heart sound and S2 normal heart sound Capillary refill: < 3 Seconds Peripheral pulse strength: 3+ Normal Peripheral pulse location: Radial and Pedal Skin exam: turgor normal Date exam was performed: 08/13/25 Time exam was performed: 18:03 Sepsis Screen No Definite Risk Today, 17:20 Respiratory Rate, (12 - 18) 15 breaths/min Today, 16:42 Blood Pressure 121/97 mmHg Today, 17:52 [place] Coma Scale Score 15 Today, 16:14 Quick SOFA Score 0 Today, 17:20 SOFA Score: ABG PO2/FiO2 Ratio 173 Today, 17:16 [place] Coma Scale Score 15 Today, 16:14 Blood Pressure Mean 120 mmHg Today, 17:20 Total Bilirubin, (0.15-1.2) 0.3 mg/dL Today, 16:25 Platelet Count, (157-399) 308 10^3/cmm Today, 16:25 Creatinine, (0.7-1.2) 1.1 mg/dL Today, 16:25 Data 08/13/25 16:25 08/13/25 16:25 A&P Assessment and plan 1. Acute on chronic respiratory failure with hypoxia and hypercapnia: Plan: Acute encephalopathy - Multifactorial - Hypercarbia - sepsis Sepsis - Secondary to pneumonia - MAP is greater than 65 - Will avoid fluid therapy given evidence of fluid overload Acute hypoxic hypercarbic respiratory failure - Secondary to COPD - Secondary to diastolic CHF with evidence of fluid overload - Secondary to pneumonia Plan - Monitor mentation closely - Continue BiPAP - Repeat ABG at 8 PM - Low threshold for intubation - Solu-Medrol - Rocephin - As Romycin - DuoNeb - Budesonide - Full code - Lovenox for DVT prophylaxis Diastolic CHF exacerbation, with evidence of fluid overload, 2+ pitting edema, 1 dose IV Lasix End-stage COPD - Monitor Hyperkalemia is receiving Lasix PDMP PDMP Reviewed: Not Reviewed Attestations Medical Necessity Statement*: patient requires hospitalization for acute hypoxic respiratory failure, acute encephalopathy, inpatient, greater than 2 midnights Diagnoses Acute on chronic respiratory failure with hypoxia and hypercapnia J96.21; J96.22
--- NOTE | 2025-08-13 18:02 | ECG_ITS ---
[facility] Date: 2025-08-13 Pat Name: Pola Fajardo Department: Room: [facility]05 Gender: Male Telecommunications Cable Jointer: : 1955 Requested By: Lit Simpson Order Number: [id number] Kohli MD: Dylan Rya M.D. Measurements Intervals [place] Rate: 104 P: 63 [place]: 188 QRS: 38 QRSD: 95 T: 69 QT: 321 QTc: 424 Interpretive Statements SINUS TACHYCARDIA ABNORMAL RHYTHM ECG Compared to ECG 08/13/2025 16:23:08 NO SIGNIFICANT CHANGE Electronically Signed On 08-13-2025 18:07:25 DIE DEVELOPER by Dylan Ray M.D. [email or web address]
[2025-08-13 18:14] LABS: Glucose Urine UA Negative (Normal); Nitrate Urine Negative (Negative); Specific Gravity, Urine 1.011 (1.005-1.030)
[2025-08-13 18:19] LABS: Add Urine Microscopic? YES; Universal Test for UA Present (0)
[2025-08-13] MEDS: cefTRIAXone 1,000 mg SDV 1000 MG IVP (18:24)
[2025-08-13] MEDS: FUROsemide 10 mg/mL SDV 4mL 40 MG IVP (18:28)
[2025-08-13] MEDS: pantoprazole 40 mg SDV IVP (18:28)
[2025-08-13 18:37] LABS: Troponin(5th) Baseline 23 ng/L (0-15)
[2025-08-13 18:49] LABS: Lactic Sepsis W/Reflex 1.8 mmol/L (0.5-2.2)
[2025-08-13 18:49] LABS: Respiratory Syncytial Virus Ce NEGATIVE (Negative); SARS-CoV-2 PCR NEGATIVE (Negative)
[2025-08-13 18:52] LABS: Troponin 5 2HR 30.34 ng/L (0-15); Troponin 5 2HR Delta 7.34 ABS# (0-10)
[2025-08-13 19:01] LABS: Procalcitonin 0.16 ng/mL (0-0.5); Thyroid Stimulating Hormone 2.63 uIU/mL (0.27-4.20)
--- NOTE | 2025-08-13 19:07 | PC.NURSE ---
Spoke with maintenance technician 3rd shift about NIH score and ABG results. Doctor will review chart and place orders.
--- NOTE | 2025-08-13 19:56 | ECG_ITS ---
[employer] Test Date: 2025-08-13 Pat Name: Pola Fajardo Department: Room: [facility]05 Gender: Male Telesales Advisor: : 1955 Requested By: Lit Simpson Order Number: [id number] Seun MD: Gerri Griffith M.D. Measurements Intervals [place] Rate: 102 P: 50 [place]: 168 QRS: 17 QRSD: 98 T: 73 QT: 337 QTc: 439 Interpretive Statements SINUS TACHYCARDIA WITH OCCASIONAL VENTRICULAR PREMATURE COMPLEXES ABNORMAL RHYTHM ECG Compared to ECG 08/13/2025 18:02:17 Ventricular premature complex(es) now present Electronically Signed On 08-17-2025 00:27:42 ELECTRICAL WIRER by Gerri Griffith M.D. [email or web address] [id number]
[2025-08-13 21:50] LABS: ABG PH Result 7.29 (7.35-7.45); Alveolar-Arterial Oxygen Gradi 11.5 mmHg (5-10); Arterial Blood Gas Hematocrit 35.2 % (42-52); Blood Gas Allen Test Pos; Blood Gas Operator Identificat SAM; Blood Gas Sample Site Radial, left; Blood Gas Sample Type Arterial; Carboxyhemoglobin 1.7 %THgb (0.4-20.1); Glucose Level-ABG 135.0 mg/dL (70-115); HCO3 ABG 38.7 mmol/L (22-26); Ionized Calcium Level - ABG 1.2 mmol/L (1.1-1.4); Methemoglobin 0.3 % (0.4-1.5); Oxygen Saturation ABG 94.2; PO2 ABG 65.1 mmHg (80.0-100.0); PO2 FiO2 Ratio Arterial Blood 186; Potassium Level - ABG 4.9 mmol/L (3.5-5.0); Sodium Level - ABG 145.0 mmol/L (131-143)
[2025-08-13 22:49] LABS: Troponin 5 6HR 21.41 ng/L (0-15)
[2025-08-13 23:02] LABS: Troponin 5 6HR Delta -1.59 ng/L (0-12)
--- NOTE | 2025-08-13 23:56 | ECG_ITS ---
[facility] Test Date: 2025-08-14 Pat Name: Pola Fajardo Department: Room: [facility]05 Gender: Male Oil Well Fishing Tool Technician: : 1955 Requested By: Lit Simpson Order Number: [id number] Seun MD: Gerri Griffith M.D. Measurements Intervals [place] Rate: 97 P: 64 [place]: 158 QRS: 51 QRSD: 104 T: 78 QT: 338 QTc: 431 Interpretive Statements SINUS RHYTHM Compared to ECG 08/13/2025 22:07:38 Sinus tachycardia no longer present Ventricular premature complex(es) no longer present Electronically Signed On 08-17-2025 00:27:29 HIGH SCHOOL AUTO REPAIR TEACHER by Gerri Griffith M.D. [email or web address] [id number]
[2025-08-14] VITALS (85 sets, daily range): BP systolic 82–153; BP diastolic 42–98; PULSE 74–103; RESP 11–31; TEMP 36.2–36.6; O2SAT 84–99
[2025-08-14] MEDS: methylPREDNISolone sod succ 40 mg/mL INJ IVP ×3 (04:46→20:30)
[2025-08-14 05:14] LABS: ABG PH Result 7.40 (7.35-7.45); Arterial Blood Gas Hematocrit 33.0 % (42-52); Blood Gas Allen Test Pos; Blood Gas Operator Identificat SAM; Blood Gas Sample Site Radial, right; Blood Gas Sample Type Arterial; HCO3 ABG 38.5 mmol/L (22-26); PO2 ABG 72.6 mmHg (80.0-100.0); PO2 FiO2 Ratio Arterial Blood 207
[2025-08-14 05:14] LABS: Hematocrit 39.4 % (37-53); Hemoglobin 10.60 g/dL (11.27-16.99); Mean Corpuscular HGB Conc 26.9 g/dL (30-55); Mean Corpuscular Hemoglobin 23.1 pg (27-33); Mean Corpuscular Volume 85.8 fl (82-101); Nucleated Red Blood Cells % 0 %; Platelet Count 310 10^3/cmm (157-399); Red Blood Count 4.59 10^6/uL (3.85-5.65); White Blood Count 12.50 10^3/uL (3.29-11.43)
[2025-08-14 05:17] LABS: ABG PCO2 62.5 mmHg (35-45)
[2025-08-14 06:30] LABS: Alanine Aminotransferase 15 U/L (0-41); Albumin Level 3.6 g/dL (3.5-5.2); Alkaline Phosphatase 111 U/L (40-130); Anion Gap 12.2 (5-19); Aspartate Amino Transferase 19 U/L (0-40); Blood Urea Nitrogen 17 mg/dL (8-23); Calcium 8.8 mg/dL (8.5-10.5); Carbon Dioxide 38 mmol/L (22-29); Chloride 95 mmol/L (98-107); Globulin 3.2 g/dL (1.3-4.6); Glucose 132 mg/dL (65-115); Magnesium 2.2 mg/dL (1.7-2.3); NT Pro B Type Natriuretic Pept 370 pg/mL (0-125); Osmolality Calculated 293 mOsm/kg (285-295); Potassium 5.2 mmol/L (3.5-5.1); Sodium 140 mmol/L (136-145); Total Protein 6.8 g/dL (6.6-8.7)
[2025-08-14] MEDS: LORazepam 2 mg/mL INJ 1 mL 0.5 MG IVP (10:54)
[2025-08-14] MEDS: FUROsemide 10 mg/mL SDV 4mL 40 MG IVP ×2 (12:11→17:10)
--- NOTE | 2025-08-14 13:56 | P.PN_ITS ---
Subjective 2 Subjective: Patient was seen this morning, currently alert oriented x 1, can follow some commands, complains of feeling thirsty, does report diffuse musculoskeletal pain, he tells me he wants to sit up, he wants to take off the BiPAP, he is easily distracted, is restless in bed Vitals/I&O/Wt Last Vital Signs Temp 97.8 F 08/14/25 04:00 Pulse 94 08/14/25 13:51 Resp 14 08/14/25 12:00 BP 109/63 08/14/25 12:15 Pulse Ox 94 08/14/25 13:51 O2 Del Method Nasal Cannula 08/14/25 11:56 O2 Flow Rate 4 08/14/25 11:56 FiO2 35 08/14/25 13:51 08/13/25 08/14/25 08/14/25 22:59 06:59 14:59 Intake Total 250 / 250 Output Total 600 / 600 850 / 1450 Balance -350 / -350 -850 / -1200 Weight last 48 hrs Weight 99.79 kg Weight 99.79 kg Weight 99.79 kg Physical Exam 2 Const: COMMON NORMALS: no acute distress EXAM LIMITATIONS: altered mental status ORIENTATION/CONSCIOUSNESS: Yes awake, Yes oriented to person and Yes confused; not oriented to place and not oriented to time Eye: COMMON NORMALS: Equal, round and reactive pupils present PUPIL: Yes Equal, round and reactive pupils present Resp: COMMON NORMALS: normal respiratory effort, No retractions and No use of accessory muscles Cardio: COMMON NORMALS: regular rate, regular rhythm, S1 normal heart sound present and S2 normal heart sound present RATE: regular rate RHYTHM: r egular rhythm HEART SOUNDS: S1 normal heart sound present and S2 normal heart sound present GI: COMMON NORMALS: Normal to inspection, nondistended, normoactive bowel sounds present and non-tender : COMMON NORMALS: Yes no CVA tenderness BLADDER/KIDNEY EXAM: Yes no CVA tenderness Back/Pelvis: COMMON NORMALS: no CVA tenderness Neuro: SENSORIUM/ORIENTATION: Yes oriented to person, No oriented to place and No oriented to time Urinary Catheter Management: Jackson: Cath Placed During This Visit: yes Reason for Continuing Indwelling Catheter: Accurate Measurement of Urinary Output in Critically Ill Patients Urinary Catheter Date of Insertion: 08/13/25 Urinary Catheter Time of Insertion: 18:54 Data 08/14/25 04:46 08/14/25 05:53 Micro: Microbiology 08/13/25 18:23 Blood Culture - Preliminary Blood SPECIMEN COLLECTED 08/13/25 16:35 Blood Culture - Preliminary Blood SPECIMEN COLLECTED A&P Assessment and plan 1. Acute on chronic respiratory failure with hypoxia and hypercapnia: Plan: Acute encephalopathy - Multifactorial - Hypercarbia - sepsis Sepsis - Secondary to pneumonia - MAP is greater than 65 - Will avoid fluid therapy given evidence of fluid overload Acute hypoxic hypercarbic respiratory failure - Secondary to COPD - Secondary to diastolic CHF with evidence of fluid overload - Secondary to pneumonia Plan - Monitor mentation closely - Continue BiPAP - Low threshold for intubation - Solu-Medrol - Rocephin - As Romycin - DuoNeb - Budesonide -Continue IV Lasix - Full code - Lovenox for DVT prophylaxis Diastolic CHF exacerbation, with evidence of fluid overload, 2+ pitting edema, IV Lasix End-stage COPD - Monitor Hyperkalemia is receiving Lasix Patient on hospice? - Will confirm through nursing staff PDMP PDMP Reviewed: Last Reviewed 08/14/25 09:39 by Lit Simpson MD Attestations 2 Medical Necessity Statement*: Patient requires hospitalization for respiratory failure secondary to COPD, pneumonia, fluid overload Diagnoses Acute on chronic respiratory failure with hypoxia and hypercapnia J96.21; J96.22
[2025-08-14] MEDS: dexmedeTOMIDine 0.9 % NaCL 400 MCG/100 ML PREMIX IV (14:31)
[2025-08-14] MEDS: morphine 4 mg/mL SDV 1 mL 2 MG IVP ×2 (16:13→20:30)
[2025-08-14] MEDS: pantoprazole 40 mg SDV IVP (17:10)
[2025-08-14] MEDS: cefTRIAXone 1,000 mg SDV 1000 MG IVP (17:11)
[2025-08-14 18:38] LABS: ABG PCO2 80.7 mmHg (35-45)
[2025-08-15] VITALS (40 sets, daily range): BP systolic 104–143; BP diastolic 64–94; PULSE 78–94; RESP 14–23; TEMP 36.2–37.2; O2SAT 88–96
[2025-08-15] MEDS: morphine 4 mg/mL SDV 1 mL 2 MG IVP (01:21)
[2025-08-15 03:36] LABS: Hematocrit 29.9 % (37-53); Hemoglobin 8.90 g/dL (11.27-16.99); Mean Corpuscular HGB Conc 29.8 g/dL (30-55); Mean Corpuscular Hemoglobin 23.9 pg (27-33); Mean Corpuscular Volume 80.2 fl (82-101); Nucleated Red Blood Cells % 0 %; Platelet Count 236 10^3/cmm (157-399); Red Blood Count 3.73 10^6/uL (3.85-5.65); White Blood Count 12.19 10^3/uL (3.29-11.43)
[2025-08-15 04:03] LABS: Alanine Aminotransferase 12 U/L (0-41); Albumin Level 3.6 g/dL (3.5-5.2); Alkaline Phosphatase 89 U/L (40-130); Anion Gap 18.1 (5-19); Aspartate Amino Transferase 15 U/L (0-40); Blood Urea Nitrogen 30 mg/dL (8-23); Calcium 8.7 mg/dL (8.5-10.5); Carbon Dioxide 32 mmol/L (22-29); Chloride 94 mmol/L (98-107); Globulin 2.9 g/dL (1.3-4.6); Glucose 187 mg/dL (65-115); Magnesium 2.2 mg/dL (1.7-2.3); Osmolality Calculated 301 mOsm/kg (285-295); Potassium 4.1 mmol/L (3.5-5.1); Sodium 140 mmol/L (136-145); Total Protein 6.5 g/dL (6.6-8.7)
[2025-08-15 04:26] LABS: NT Pro B Type Natriuretic Pept 260 pg/mL (0-125)
[2025-08-15] MEDS: methylPREDNISolone sod succ 40 mg/mL INJ IVP ×2 (04:31→15:21)
[2025-08-15] MEDS: FUROsemide 10 mg/mL SDV 4mL 40 MG IVP (06:03)
--- NOTE | 2025-08-15 15:09 | PC.NURSE ---
1330 Started a new #18 gu IV in upper left arm per ultrasound by Kyler. To CT via bed with 3l nc o2 on. When CT injected rapid contrast infusion, left upper arm iv infiltrated. Stopped, Jonas started another IV in upper right arm via ultrasound #20 gu. Was able to complete CT and infusion. 1500 Back to room, patient arjun well.Placed back on bipap, RT there to start treatment.
--- NOTE | 2025-08-15 16:39 | P.DS_ITS ---
Discharge Providers Date of Admission: 08/13/25 17:25 Date of Discharge: August 15, 2025 Attending Provider at Admission: Lit Simpson MD Attending Provider at Discharge: Lit Simpson MD Diagnoses at Discharge Discharge Diagnosis 1. Acute on chronic respiratory failure with hypoxia and hypercapnia: Reason for Visit Reason for Visit: [facility] Hospital Course Hospital Course Pola Fajardo is a 70 year old male with a past medical history of chronic hypercarbic respiratory failure secondary to COPD,History of severe end-stage COPD, history of smoking/vaping, who presents [facility] due to shortness of breath. Currently patient is alert to person, not place, not to time, he can follow some commands but easily falls back asleep, he is on BiPAP history received Ativan in the emergency room, his GCS score is 10, according to ER provider EMS was called out to his home because he was increasingly short of breath, was placed on CPAP, in the emergency room is placed on BiPAP, no family members at bedside on arrival his pH was 7.15, pCO2 102, most recent ABG shows pH improved to 7.21, pCO2 down to 91.7, PaO2 60.8, Patient was admitted to [facility] for acute encephalopathy secondary to sepsis, acute hypoxic respiratory failure secondary to COPD exacerbation, pneumonia, diastolic CHF, with end-stage COPD chronically on BiPAP. Patient was admitted to the ICU and received broad-spectrum antibiotic therapy, BiPAP therapy, IV steroid therapy, and overall clinically monitored. Patient's clinical condition improved, mentation improved, he reports that he fell asleep before his hospitalization without the BiPAP on and he thinks that is why he became hypercarbic. Discussed compliance with BiPAP therapy, and morbidity and mortality associated due to noncompliance. Patient does confirm that on 08/12 he was transitioned to hospice care through his primary care provider, and wants to be on hospice care, discussed risk and benefits, discussed all options, he voiced understanding, all questions answered, shared decision making, agreed to proceed with hospice at home. Patient was seen on morning of 08/15/2025, he wants to be discharged home on hospice, does not want to be in the hospital any longer, discussed risk and benefits, morbidity and mortality associated, leaving the hospital prematurely as I would recommend another day of inpatient monitoring, however he adamantly refuses and wants to go home, he voiced understanding, all questions answered, shared decision making. He wants to be d ischarged home on hospice, patient was discharged home on hospice, on a prednisone burst, oral antibiotics and compliance with his BiPAP therapy. Physical Exam Const: COMMON NORMALS: no acute distress and patient oriented x3 Resp: COMMON NORMALS: normal respiratory effort, No retractions, No use of accessory muscles and clear to auscultation bilaterally AUSCULTATION: clear to auscultation bilaterally Cardio: COMMON NORMALS: regular rate, regular rhythm, S1 normal heart sound present and S2 normal heart sound present RATE: regular rate RHYTHM: regular rhythm HEART SOUNDS: S1 normal heart sound present and S2 normal heart sound present GI: COMMON NORMALS: Normal to inspection, nondistended, normoactive bowel sounds present and non-tender Extremity: COMMON NORMALS: no pedal edema Neuro: COMMON NORMALS: patient oriented x3 Psych: COMMON NORMALS: mental status grossly normal Urinary Catheter Management: Jackson: Cath Placed During This Visit: yes, but has since been removed by the nurse Reason for Continuing Indwelling Catheter: Accurate Measurement of Urinary Output in Critically Ill Patients Urinary Catheter Date of Insertion: 08/13/25 Urinary Catheter Time of Insertion: 18:54 Date Urinary Catheter Removed: 08/15/25 Time Urinary Catheter Discontinued: 16:00 Discharge Data Studies Completed and Pending Completed Studies During Hospitalization Category Date Time Status XR chest 1V portable [id number] Stat Exams 08/13/25 16:10 Completed Pending at discharge Category Date Time Status Blood Culture Stat Lab 08/13/25 18:23 Results C Reactive Protein AM LABS Lab 08/16/25 04:00 Ordered Complete Blood Count w/Auto AM LABS Lab 08/16/25 04:00 Ordered Comprehensive Metabolic Panel AM LABS Lab 08/16/25 04:00 Ordered Magnesium AM LABS Lab 08/16/25 04:00 Ordered NT Pro B Type Natriuretic Pept QAM Lab 08/16/25 06:00 Ordered Sputum Culture and Gram Stain Stat Lab 08/13/25 17:54 Uncollected Radiology Impressions Chest X-Ray 08/13/25 16:10 IMPRESSION: Small focus of atelectasis in the right perihilar region. Otherwise unremarkable chest x-ray. Laboratory Results WBC 12.19 10^3/uL (3.29-11.43) H 08/15/25 03:09 RBC 3.73 10^6/uL (3.85-5.65) L 08/15/25 03:09 Hgb 8.90 g/dL (11.27-16.99) L 08/15/25 03:09 Hct 29.9 % (37-53) L 08/15/25 03:09 MCV 80.2 fl (82-101) L D 08/15/25 03:09 MCH 23.9 pg (27-33) L 08/15/25 03:09 MCHC 29.8 g/dL (30-55) L D 08/15/25 03:09 RDW 18.9 % (12.1-15.1) H 08/15/25 03:09 Plt Count 236 10^3/cmm (157-399) 08/15/25 03:09 MPV 11.9 fL (7.4-10.4) H 08/15/25 03:09 Neut % (Auto) 87.3 % 08/15/25 03:09 Lymph % (Auto) 6.1 % 08/15/25 03:09 Carlisle % (Auto) 6.0 % 08/15/25 03:09 Eos % (Auto) 0.0 % 08/15/25 03:09 Baso % (Auto) 0.1 % 08/15/25 03:09 Neut # (Auto) 10.65 10^3/uL (1.8-7.7) H 08/15/25 03:09 Lymph # (Auto) 0.7 10^3/uL (0.8-4.8) L 08/15/25 03:09 Carlisle # (Auto) 0.7 10^3/uL (0.2-0.9) 08/15/25 03:09 Eos # (Auto) 0.0 10^3/uL (0.0-0.8) 08/15/25 03:09 Baso # (Auto) 0.0 10^3/uL (0.0-0.1) 08/15/25 03:09 Nucleated RBC % (auto) 0 % 08/15/25 03:09 Nucleated RBCs # 0.0 /100WBC 08/15/25 03:09 Specimen Type Arterial 08/14/25 05:03 Sample Site Radial, right 08/14/25 05:03 ABG pH 7.40 (7.35-7.45) 08/14/25 05:03 ABG pCO2 62.5 mmHg (35-45) H* 08/14/25 05:03 ABG pO2 72.6 mmHg (80.0-100.0) L 08/14/25 05:03 ABG PO2/FiO2 Ratio 207 08/14/25 05:03 ABG HCO3 38.5 mmol/L (22-26) H 08/14/25 05:03 ABG O2 Saturation 94.2 08/13/25 21:39 ABG Base Excess 11.6 mmol/L (-2.0-2.0) H 08/14/25 05:03 Juno Test Pos 08/14/25 05:03 A-a O2 Gradient 11.5 mmHg (5-10) H 08/13/25 21:39 Hematocrit 33.0 % (42-52) L 08/14/25 05:03 Hgb O2 Saturation 92.3 % (95-100) L 08/13/25 21:39 Carboxyhemoglobin 1.7 %THgb (0.4-20.1) 08/13/25 21:39 Methemoglobin 0.3 % (0.4-1.5) L 08/13/25 21:39 Total Hemoglobin 11.5 g/dL (14-18) L 08/13/25 21:39 Sodium 145.0 mmol/L (131-143) H 08/13/25 21:39 Potassium 4.9 mmol/L (3.5-5.0) 08/13/25 21:39 Glucose 135.0 mg/dL (70-115) H 08/13/25 21:39 Ionized Calcium 1.2 mmol/L (1.1-1.4) 08/13/25 21:39 O2 Delivery Device Bipap 08/14/25 05:03 O2 Liters/Min 15.0 % 08/13/25 16:16 FiO2 35.0 % 08/14/25 05:03 Seed Mill Superintendent ID Griffin 08/14/25 05:03 Sodium 140 mmol/L (136-145) 08/15/25 03:09 Potassium 4.1 mmol/L (3.5-5.1) 08/15/25 03:09 Chloride 94 mmol/L (98-107) L 08/15/25 03:09 Carbon Dioxide 32 mmol/L (22-29) H 08/15/25 03:09 Anion Gap 18.1 (5-19) 08/15/25 03:09 BUN 30 mg/dL (8-23) H 08/15/25 03:09 Creatinine 1.1 mg/dL (0.7-1.2) 08/15/25 03:09 GFR Calculation 66.2 mL/min (90-130) L 08/15/25 03:09 Glucose 187 mg/dL (65-115) H 08/15/25 03:09 POC Glucose 150 mg/dL (70-110) H 08/15/25 11:23 Calculated Osmolality 301 mOsm/kg (285-295) H 08/15/25 03:09 Lactic Acid 1.8 mmol/L (0.5-2.2) 08/13/25 18:23 Calcium 8.7 mg/dL (8.5-10.5) 08/15/25 03:09 Magnesium 2.2 mg/dL (1.7-2.3) 08/15/25 03:09 Total Bilirubin 0.2 mg/dL (0.15-1.2) 08/15/25 03:09 AST 15 U/L (0-40) 08/15/25 03:09 ALT 12 U/L (0-41) 08/15/25 03:09 Alkaline Phosphatase 89 U/L (40-130) 08/15/25 03:09 Troponin T Baseline 23 ng/L (0-15) H 08/13/25: Troponin T 120 Minute 30.34 ng/L (0-15) H 08/13/25 18:23 Delta Troponin T 7.34 ABS# (0-10) 08/13/25 18:23 Troponin T Hi Sens 6Hr 21.41 ng/L (0-15) H 08/13/25 22:21 Troponin T Hi Sens 6Hr Delta -1.59 ng/L (0-12) L 08/13/25 22:21 C-Reactive Protein 22.7 mg/L (0.0-4.9) H 08/15/25 03:09 NT-Pro-B Natriuret Pep 260 pg/mL (0-125) H 08/15/25 03:09 Total Protein 6.5 g/dL (6.6-8.7) L 08/15/25 03:09 Albumin 3.6 g/dL (3.5-5.2) 08/15/25 03:09 Globulin 2.9 g/dL (1.3-4.6) 08/15/25 03:09 Procalcitonin 0.16 ng/mL (0-0.5) 08/13/25 18:23 TSH 2.63 uIU/mL (0.27-4.20) 08/13/25 18:23 Urine Color Yellow (Yellow) 08/13/25 17:59 Urine Appearance Clear (CLEAR) 08/13/25 17:59 Urine pH 5.0 (5-7) 08/13/25 17:59 Ur Specific Constable 1.011 (1.005-1.030) 08/13/25 17:59 Urine Protein 1+ (Negative) A 08/13/25 17:59 Urine Glucose (UA) Negative (Normal) 08/13/25 17:59 Urine Ketones Negative (Negative) 08/13/25 17:59 Urine Blood Non-haemolysed trace (Negative) 08/13/25 17:59 Urine Nitrate Negative (Negative) 08/13/25 17:59 Urine Bilirubin Negative (Negative) 08/13/25 17:59 Urine Urobilinogen 0.2 mg/dL (Negative) 08/13/25 17:59 Ur Leukocyte Esterase Negative (Negative) 08/13/25 17:59 Urine RBC 3-5 /hpf (0-2) 08/13/25 17:59 Urine WBC 0-5 /hpf (0-5) 08/13/25 17:59 Ur Squamous Epith Cells 0-5 /hpf (0-5) 08/13/25 17:59 Amorphous Sediment Not Reportable 08/13/25 17:59 Urine Bacteria None seen /hpf (NONE) 08/13/25 17:59 Hyaline Casts 7.85 /lpf 08/13/25 17:59 Influenza A (PCR) Negative (Negative) 08/13/25 17:59 Influenza Type B (PCR) Negative (Negative) 08/13/25 17:59 RSV (PCR) Negative (Negative) 08/13/25 17:59 SARS-CoV-2 (PCR) Negative (Negative) 08/13/25 17:59 Vitals Last Vital Signs Temp 97.2 F L 08/15/25 16:11 Pulse 78 08/15/25 16:11 Resp 18 08/15/25 16:11 BP 122/90 08/15/25 16:11 Pulse Ox 93 08/15/25 16:11 O2 Del Method BiPAP 08/15/25 15:10 O2 Flow Rate 3 08/15/25 16:00 FiO2 35 08/15/25 15:13 Discharge Plan Discharge Patient Disposition: Hospice - Home Condition: Stable Prescriptions: New prednisone 20 mg tablet 20 mg PO BID 5 Days Qty: 10 0RF levofloxacin 750 mg tablet 750 mg PO DAILY 5 Days Qty: 5 0RF Continued tiotropium bromide [Spiriva with HandiHaler] 18 mcg capsule, w/inhalation device 1 cap inhalation DAILY Qty: 60 11RF Rx Instructions: puncture 1 cap using device; one dose = 2 inhalations formoterol fumarate 20 mcg/2 mL solution for nebulization 2 ml inhalation Q12H Qty: 120 6RF ipratropium-albuterol 0.5 mg-3 mg(2.5 mg base)/3 mL Solution For Nebulization 3 ml inhalation Q6H PRN (Reason: Shortness Of Breath) Qty: 180 0RF docusate sodium 100 mg Capsule 100 mg PO BID Qty: 60 0RF losartan 50 mg Tablet 50 mg PO DAILY Qty: 30 0RF budesonide 0.5 mg/2 mL Suspension For Nebulization 0.5 mg inhalation BID.RESPIRATORY Qty: 60 0RF diltiazem HCl 120 mg Capsule,Extended Release 24hr 120 mg PO DAILY Qty: 30 0RF furosemide 40 mg tablet 40 mg PO DAILY Qty: 30 0RF pantoprazole 40 mg tablet,delayed release (DR/EC) 40 mg PO DAILY Qty: 30 0RF polyethylene glycol 3350 17 gram/dose powder 17 g PO DAILY Qty: 30 0RF buspirone 15 mg tablet 15 mg PO TID Qty: 90 0RF duloxetine 60 mg capsule,delayed release(DR/EC) 60 mg PO DAILY Qty: 30 0RF albuterol sulfate [Ventolin HFA] 90 mcg/actuation HFA aerosol inhaler 2 inh inhalation Q6H PRN (Reason: shortness of breath or wheezing) Qty: 8.5 0RF Discontinued hydrocodone-acetaminophen 7.5-325 mg tablet 1 tab PO BID diazepam 5 mg tablet 5 mg PO BID No Action (DME) Nebulizer 0 .ROUTE .MEDSUPPLY (DME) Trilegy Machine 0 .Route .MEDSUPPLY Discharge Order = DC NOW: Discharge Order (Routine); Ordered 08/15/25 Ordered By: Lit Simpson Discharge Diet: Cardiac Discharge Activity: Resume usual activity Patient Instructions: Anemia, Prednisone (By mouth), Levofloxacin (By mouth), COPD - Emphysema, Heart Healthy Diet (DC), Opioid Safety, Patient Portal & Polly Instructions Discharge Attestations Time Spent in Discharge Care*: greater than 30 min Status at Discharge: Cognitive status at discharge: cognitively intact , Be havioral status at discharge: cooperative , Quality Metrics Clinical Quality Measures [ No reported AMI, CVA or VTE this stay] Coding Level of Care Code 18556 Total time (in minutes) for Discharge: 45 Diagnoses Acute on chronic respiratory failure with hypoxia and hypercapnia J96.21; J96.22
--- NOTE | 2025-08-15 16:48 | PC.NURSE ---
2039 Daughter here with o2 and took patient to go home. I took out to pickup via wheelchair and all belongings, phone, glasses, clothes. No c/o's.
== END 2025-08-15 16:45 | disposition hospice, home (50) | DRG 871 ==
LOC: ER 17:28 → ICU 17:32
PROVIDERS: Internal Medicine; Admitting Provider Family Medicine; Emergency Provider Emergency Medicine; Visit Provider Family Medicine
DX: A41.9 Sepsis, unspecified organism (principal); G93.41 Metabolic encephalopathy; J18.9 Pneumonia, unspecified organism; J96.21 Acute and chronic respiratory failure with hypoxia; J96.22 Acute and chronic respiratory failure with hypercapnia; I50.31 Acute diastolic (congestive) heart failure; J44.1 Chronic obstructive pulmonary disease with (acute) exacerbation; J44.0 Chronic obstructive pulmonary disease with (acute) lower respiratory infection; R65.20 Severe sepsis without septic shock; I11.0 Hypertensive heart disease with heart failure; F41.9 Anxiety disorder, unspecified; F17.210 Nicotine dependence, cigarettes, uncomplicated; F17.290 Nicotine dependence, other tobacco product, uncomplicated; Z99.89 Dependence on other enabling machines and devices
CPT/HCPCS: 36415; 36416; 36600; 51702; 71045; 80051; 80053; 81001; 82330; 82803; 82805; 82962; 83605; 83735; 83880; 84145; 84443; 84484; 85025; 86140; 87040; 87637; 92507; 92523; 92526; 92610; 93005; 94640; 94660; 94664; 96365; 96372; 96375; 97116; 97163; 99291; J0456; J0696; J1650; J1938; J2060; J2270; J2470; J2919; J7050; J7626; J9999

== ENCOUNTER 2025-09-12 01:00 | Emergency (ER) | payer MEDICARE, SELFPAY ==
--- OUTSIDE RECORDS SUMMARY | 2025-09-09 23:59 | XMS_ITS | Continuity of Care Document ---
Author Organization [facility] Address [address] [place] [address], [place] [address]- Care Team Providers Care Hand Scraper Name Role Phone ZSystem, Cleanup Primary Care Physician Unavaila ble Encounter [facility] Financial Number [id number] Date(s): 09/09/25 - 09/09/[address] [place] [address]- [place] Discharge Disposition: Home:Self-Care Attending Physician: Camilo Sweeney MD Admitting Physician: Camilo Sweeney MD Encounter Type: Ambulance Social History Social History Type Response Sex Male Sex Representation Male (finding) Patient Care team information Care Team Personnel Name: ZSystem , Cleanup Position: P4 Physician Member Role: Primary Care Physician Insurance Providers Guarantor name: [place] Health Plan Information #: 1 Payer: MEDICARE [facility] [place] Payer Identifier: NA Member Number: [id number] Group Number: [id number] Subscriber Identifier: [place] Relationship to Subscriber: self Coverage Type: PRIVATE HEALTH INSURANCE Coverage Verification Date: [place] Telecom: [place] Address: NA
[2025-09-12] VITALS (14 sets, daily range): BP systolic 121–199; BP diastolic 77–103; PULSE 81–107; RESP 16–24; TEMP 36.6; O2SAT 94–98; BMI 31.6
--- NOTE | 2025-09-12 01:11 | XRR_ITS ---
PROCEDURE INFORMATION: Exam: XR Chest Exam date and time: 09/12/2025 1:19 AM Age: 70 years old Clinical indication: Shortness of breath; Additional info: SOB TECHNIQUE: Imaging protocol: Radiologic exam of the chest. Views: 1 view. COMPARISON: CR (CHEST, ) 08/13/2025 4:23 PM FINDINGS: Lungs: Haziness of the bilateral lungs, likely related to body habitus though can not totally exclude mild edema or infiltrates, clinical correlation. Few scattered nonspecific strands of the lung bases, questionable clinical significance. Pleural spaces: Unremarkable. No pleural effusion. No pneumothorax. Heart/Mediastinum: Unremarkable. No cardiomegaly. Bones/joints: Postsurgical changes of the left clavicle. Degenerative changes of the right glenohumeral joint. Degenerative changes of the left glenohumeral joint. XR/XR chest 1V portable [id number] IMPRESSION: Improvement in previously noted right perihilar atelectasis. No definite acute infiltrate or effusion.
--- NOTE | 2025-09-12 01:18 | ECG_ITS ---
[employer] Test Date: 2025-09-12 Pat Name: Pola Fajardo Department: Room: Gender: Male Remarketing Manager: : 1955 Requested By: Noman Artis Order Number: [id number] Kohli MD: Gerri Griffith M.D. Measurements Intervals [place] Rate: 85 P: 0 KS: 0 QRS: 39 QRSD: 90 T: 107 QT: 357 QTc: 427 Interpretive Statements supraventricular rhythm Heavy baseline artifacts; Need to repeat the study. MINIMAL ST DEPRESSION [0.025+ mV ST DEPRESSION] ABNORMAL QRS-T ANGLE [QRS-T AXIS DIFFERENCE > 60] Compared to ECG 08/14/2025 01:05:16 ST (T wave) deviation now present Sinus rhythm no longer present Electronically Signed On 09-12-2025 21:26:30 ASSOCIATE ACCOUNT EXECUTIVE by Gerri Griffith M.D. [email or web address]
--- OUTSIDE RECORDS SUMMARY | 2025-09-12 01:28 | XMS_ITS | Encounter Summary ---
Author Organization [facility] Address [address] [place] [address] Care Team Providers Care Coagulator Name Role Phone Unavailable Primary Care Provider Unavailabl e Encounter Details Date Type Department Care Team (Late st Contact Info) Description 08/02/2007 Emergency [facility] Emergency Department [address] [place] [id number] Julius Anderson MD [address] [place] [address] Obstructive Chronic Bronchitis with Exacerbation (CMS/HCC) (Primary Dx) Social History Tobacco Use Types Packs/Day Years Used Date Smoking Tobacco: Never Assessed Sex and Gender Information Value Date Recorded Sex Assigned at Not on file Legal Sex Male 5:35 AM CERTIFIED TEACHER ASSISTANT Gender Identity Not on file Sexual Orientation Not on file documented as of this encounter Plan of Treatment Not on file documented as of this encounter Procedures Procedure Name Priority Date/Time Associated Diagnosis Comments POC BLOOD GAS, LYTES AND H+H Routine 08/02/2007 7:54 PM CERTIFIED TEACHER ASSISTANT PT AND APTT Routine 08/02/2007 7:54 PM CERTIFIED TEACHER ASSISTANT CARDIAC ENZYMES Routine 08/02/2007 7:54 PM CERTIFIED TEACHER ASSISTANT CBC WITH DIFFERENTIAL Routine 08/02/2007 7:54 PM CERTIFIED TEACHER ASSISTANT BRAIN NATRIURETIC PEPTIDE, BNP OR PROBNP Routine 08/02/2007 7:54 PM CERTIFIED TEACHER ASSISTANT BASIC METABOLIC PANEL Routine 08/02/2007 7:54 PM CERTIFIED TEACHER ASSISTANT CTA CHEST W WO CONTRAST Routine 08/02/2007 7:27 PM CERTIFIED TEACHER ASSISTANT XR CHEST PA OR AP 1 VW Routine 08/02/2007 7:27 PM CERTIFIED TEACHER ASSISTANT documented in this encounter Results * (ABNORMAL) POC ISTAT EG 7+ (08/02/2007 7:54 PM CERTIFIED TEACHER ASSISTANT) SPECIMEN TYPE Arterial INTERF BETHANY SYSTEM Comment: Test Performed By [id number] Pulse OX: 99 Hemoglobin calculated from Hematocrit [...] 1.32 mmol/l INTERFACE SYSTEM 08/02/2007 7:54 PM CERTIFIED TEACHER ASSISTANT us Physician Sj Ed POINT OF CARE TESTING COM Edited INTERFACE SYSTEM Refer to clinic/hospital department * BRAIN NATRIURETIC PEPTIDE, BNP OR PROBNP (08/02/2007 7:54 PM CERTIFIED TEACHER ASSISTANT) BRAIN NATRIURETIC PEPTIDE 44 0 - 125 pg/mL INTERFACE SYSTEM 08/02/2007 7:54 PM CERTIFIED TEACHER ASSISTANT Julius Anderson MD CHEMISTRY ORDERABLES Edited Performing Organization Address [facility] de Phone Number INTERFACE SYSTEM Refer to clinic/hospital department * PT AND APTT (08/02/2007 7:54 PM CERTIFIED TEACHER ASSISTANT) PROTIME 13.7 13.0 - 15.7 Secs INTERFACE SYSTEM Comment: As of 06 note change in normal range. INR 0.9 INTERFACE SYSTEM Comment: Expected Values for INR: DVT/PE Goal INR 2.5; range 2.0 - 3.0 Valve Replacement Tissue Goal INR 2.5; range 2.0 - 3.0 Mechanical Goal INR 3.0; range 2.5 - 3.5 POST-ME Goal INR 2.5; range 2.0 - 3.0 [...] in APTT Normal Range. 08/02/2007 7:54 PM CERTIFIED TEACHER ASSISTANT Julius Anderson MD HEMATOLOGY ORDERABLES Edited Performing Organization Address [facility] de Phone Number INTERFACE SYSTEM Refer to clinic/hospital department * CARDIAC ENZYMES (08/02/2007 7:54 PM CERTIFIED TEACHER ASSISTANT) TROPONIN I <0.1 0.0 - 1.3 ng/mL INTERFACE SYSTEM Comment: As of 07 the Troponin Reference Range has changed from 0.0-1.5 ng/ml to 0.0- 1.3 ng/ml due to a change in testing methodology. CKMB 3.4 0.0 - 5.0 ng/mL INTERFACE SYSTEM 08/02/2007 7:54 PM CERTIFIED TEACHER ASSISTANT Julius Anderson MD CHEMISTRY ORDERABLES Edited Performing Organization Address [facility] Phone Number INTERFACE SYSTEM Refer to clinic/hospital department * (ABNORMAL) BASIC METABOLIC PANEL (08/02/2007 7:54 PM CERTIFIED TEACHER ASSISTANT) GLUCOSE 106 70 - 110 mg/dL INTERFACE [...] 295 mOsm/Kg INTERFACE SYSTEM 08/02/2007 7:54 PM CERTIFIED TEACHER ASSISTANT us Julius Anderson MD CHEMISTRY ORDERABLES Edited Performing Organization Address [facility] Phone Number INTERFACE SYSTEM Refer to clinic/hospital department * (ABNORMAL) CBC WITH DIFFERENTIAL (08/02/2007 7:54 PM CERTIFIED TEACHER ASSISTANT) WBC 12.0(H) 4.8 - 10.8 K/ul INTERFACE [...] Automated Diff INTERFACE SYSTEM 08/02/2007 7:54 PM CERTIFIED TEACHER ASSISTANT us Julius Anderson MD HEMATOLOGY ORDERABLES Edited INTERFACE SYSTEM Refer to clinic/hospital department * XR CHEST PA OR AP (08/02/2007 7:27 PM CERTIFIED TEACHER ASSISTANT) Anatomical Region Laterality Modality Chest Other 08/02/2007 7:27 PM CERTIFIED TEACHER ASSISTANT Narrative 08/02/2007 7:27 PM CERTIFIED TEACHER ASSISTANT Portable AP upright chest 08/02/2007. 1945 hours. [...] a possible small nodule overlying the posterior [id number] rib is probably due tothe patchy infiltrate [...] CHEST W WO CONTRAST (08/02/2007 7:27 PM CERTIFIED TEACHER ASSISTANT) Anatomical Region Laterality Modality Chest Other 08/02/2007 7:27 PM CERTIFIED TEACHER ASSISTANT Narrative 08/02/2007 7:27 PM CERTIFIED TEACHER ASSISTANT CTA Chest 08/02/2007History: Difficulty breathing. Procedure: A [...] Diagnoses Diagnosis Obstructive chronic bronchitis with exacerbation (CMS/[facility])- Primary Obstructive chronic bronchitis with exacerbation documented in this encounter
--- OUTSIDE RECORDS SUMMARY | 2025-09-12 01:28 | XMS_ITS | Continuity of Care Document ---
Author Organization [facility], [facility] Address [address] [facility] [address] [place] [address] Care Team Providers Care Food Order Expediter Name Role Phone [facility] OTHER [phone] Assessment No assessment recorded. Plan of Treatment Reminders Order Date Submit Date Provider Last Modified By Organization Details Last Modified Time Details Appointments None recorded. Lab CMP, serum or plasma 2024 [place] [facility] - [facility], [address], [place], [address], 05:35:11 iron + total iron-bindin g capacity (TIBC), serum 2024 [place] [facility], [address], [address], [place], [address], 05:35:12 ferritin, serum or plasma 2024 [place] [facility], [address], [address], [place], [address], 05:35:12 CBC w/ auto diff 2024 [place] [facility], [address], [place], [address], 06:35:21 Referral None recorded. Procedures None recorded. Surgeries None recorded. Imaging None recorded. Medication Orders hydrocodone 7.5 mg-acetamin ophen 325 mg tablet 2024 JAS [facility], [address] [place] [address], [address], 05:01:15 Narcan 4 mg/actuatio n nasal spray 2024 [facility], [address] [place] [address], [address], 15:39:22 diazepam 5 mg tablet 2024 [facility], [address] [place] [address], [address], 15:39:23 Patient TargetsNo targets recorded. Patient Instructions Encounter Date Encounter Id Patient Instructions Last Modified By Organization Details Last Modified Time 07/11/2025 [id number] Will check labs today PDMP was reviewed for patient and no inappropriate scheduled drug use was identified Pt was told to not drive or operate machinery while taking narcotics because it could make patient drowsy. Will refill valium PRN Cont current medications F/U in 2 months Patient discharged to patient and caregiver to home in good condition. Follow up instructions given. [email or web address] Not available 07/22/2025 22:41:33 Reason for Referral None Reported. Results Created Date Observation Date Name Description Value Unit Range Abnormal Flag Note LastModifiedBy Organization Detail LastModifiedTime 07/11/2007/12/2025 COMP METAB OLIC PANEL sodium 142 mEq/L 135-14 6 Not Available [facility] ([facility] [address] [place], [address], 07/12/2025 05:35:11 07/11/2007/12/2025 COMP METAB OLIC PANEL potassium 5.2 mEq/L 3.5-5. 4 Not Available [facility] ([facility] [address] [place], [address], 07/12/2025 05:35:11 07/11/2022 0707/12/2025 COMP METAB OLIC PANEL chloride 94 mEq/L 95-107 low Not Available [facility] [address] [place], [address], 07/12/2025 05:35:11 07/11/20 25 07/12/2025 COMP METAB OLIC PANEL carbon dioxide 35 mEq/L 19-31 high Not Available [facility] [address] [place], [place], [address], 07/12/2025 05:35:11 07/11/2007/12/2025 COMP METAB OLIC PANEL anion gap 13 mEq/L 7-23 Not Available [facility] ([facility] [address] [place], [address], 07/12/2025 05:35:11 07/11/2007/12/2025 COMP METAB OLIC PANEL glucose non-fasting 108 mg/dL 70-139 Not Available [facility] [address] [place], [address], 07/12/2025 05:35:11 07/11/20 25 07/12/2025 COMP METAB OLIC PANEL urea nitrogen (BUN) 19 mg/dL 8-23 Not Available [facility] [address] [place], [place], [address], 07/12/2025 05:35:11 07/11/2007/12/2025 COMP METAB OLIC PANEL creatinine 0.78 mg/dL 0.80-1 .40 low Not Available [facility] [address] [place], [address], 07/12/2025 05:35:11 07/11/20 25 07/12/2025 COMP METAB OLIC PANEL 2020 CKD-epi eGFR-cr 96 mL/mi n/1.7 3m'2 >59 Not Available [facility] ([facility] [address] [place], [address], 07/12/2025 05:35:11 07/11/20 25 07/12/2025 COMP METAB OLIC PANEL BUN/creatini ne ratio 24 ratio Not Available [facility] ([facility]) [address] [place], [address], 07/12/2025 05:35:11 07/11/20 25 07/12/2025 COMP METAB OLIC PANEL calcium total 8.8 mg/dL 8.5-10 .5 Not Available [facility] [address] [place], [address], 07/12/2025 05:35:11 07/11/20 25 07/12/2025 COMP METAB OLIC PANEL protein total 6.8 g/dL 6.1-8. 3 Not Available [facility] [address] [place], [address], 07/12/2025 05:35:11 07/11/20 25 07/12/2025 COMP METAB OLIC PANEL albumin 4.3 g/dL 3.5-5. 2 Not Available [facility] [address] [place], [address], 07/12/2025 05:35:11 07/11/20 25 07/12/2025 COMP METAB OLIC PANEL globulin 2.5 g/dL 1.7-4. 3 Not Available [facility] ([facility] [address] [place], [address], 07/12/2025 05:35:11 07/11/20 25 07/12/2025 COMP METAB OLIC PANEL A/G ratio 1.7 ratio 0.9-2. 8 Not Available [facility] ([facility] [address] [place], [address], 07/12/2025 05:35:11 07/11/2007/12/2025 COMP METAB OLIC PANEL bilirubin total 0.3 mg/dL 0.0-1. 2 Not Available [facility] ([facility] [address] [place], [place], [address], 07/12/2025 05:35:11 07/11/2007/12/2025 COMP METAB OLIC PANEL alkaline phosphatase 94 U/L 40-125 Not Available [facility] [address] [place], [address], 07/12/2025 05:35:11 07/11/2007/12/2025 COMP METAB OLIC PANEL AST (SGOT) 27 U/L 9-50 Not Available [facility] [address] [place], [address], 07/12/2025 05:35:11 07/11/2007/12/2025 COMP METAB OLIC PANEL ALT (SGPT) 34 U/L 5-50 Comme nt for COMP METAB OLIC PANEL Fasti ng statu s not provi ded. If the patie nt faste d the appro priat e gluco se refer ence range is 70-99 mg/dL . Not Available [facility] ([facility] [address] [place], [address], 07/12/2025 05:35:11 07/11/2007/12/2025 IRON AND TIBC iron 78 ug/dL 59-158 Not Available [facility] ([facility] [address] [place], [address], 07/12/2025 05:35:12 07/11/2007/12/2025 IRON AND TIBC total iron binding 434 ug/dL 250-40 0 high Not Available [facility] ([facility] [address] [place], [address], 07/12/2025 05:35:12 07/11/2007/12/2025 IRON AND TIBC % saturation 18 % 20-50 low Not Available [facility] [address] [place], [place], [address], 07/12/2025 05:35:12 07/11/20 25 07/12/2025 PATRICA TIN ferritin 71 NG/mL 30-400 Not Available [facility] ([facility] [address] [place], [address], 07/12/2025 05:35:12 07/11/2007/12/2025 CBC WITH DIFFE RENTI AL WBC 18.8 K/uL 4.0-11 .0 high Not Available [facility] ([facility] [address] [place], [address], 07/12/2025 06:35:21 07/11/2007/12/2025 CBC WITH DIFFE RENTI AL RBC 4.72 M/uL 4.30-5 .70 Not Available [facility] [address] [place], [address], 07/12/2025 06:35:21 07/11/20 25 07/12/2025 CBC WITH DIFFE RENTI AL hemoglobin 11.0 g/dL 13.0-1 7.5 low Not Available [facility] [address] [place], [address], 07/12/2025 06:35:21 07/11/2007/12/2025 CBC WITH DIFFE RENTI AL hematocrit 36.9 % 39.0-5 5.0 low Not Available [facility] ([facility] [address] [place], [address], 07/12/2025 06:35:21 07/11/20 25 07/12/2025 CBC WITH DIFFE RENTI AL MCV 78.2 fL 78.0-1 02.0 Not Available [facility] ([facility] [address] [place], [address], 07/12/2025 06:35:21 07/11/2007/12/2025 CBC WITH DIFFE RENTI AL MCH 23.3 pg 25.0-3 5.0 low Not Available [facility] ([facility] [address] [place], [place], [address], 07/12/2025 06:35:21 07/11/2007/12/2025 CBC WITH DIFFE RENTI AL MCHC 29.8 g/dL 30.0-3 8.0 low Not Available [facility] ([facility] [address] [place], [address], 07/12/2025 06:35:21 07/11/20 25 07/12/2025 CBC WITH DIFFE RENTI AL RDW 17.6 % 11.5-1 6.0 high Not Available [facility] ([facility] [address] [place], [address], 07/12/2025 06:35:21 07/11/20 25 07/12/2025 CBC WITH DIFFE RENTI AL platelet count 201 K/uL 150-45 0 Not Available [facility] ([facility] [address] [place], [address], 07/12/2025 06:35:21 07/11/20 25 07/12/2025 CBC WITH DIFFE RENTI AL abs neutrophils 17.2 K/uL 1.8-7. 0 high Not Available [facility] ([facility] [address] [place], [address], 07/12/2025 06:35:21 07/11/20 25 07/12/2025 CBC WITH DIFFE RENTI AL abs lymphocytes 0.8 K/uL 1.0-4. 0 low Not Available [facility] ([facility] [address] [place], [address], 07/12/2025 06:35:21 07/11/2007/12/2025 CBC WITH DIFFE RENTI AL abs monocytes 0.6 K/uL 0.1-1. 1 Not Available [facility] ([facility] [address] [place], [address], 07/12/2025 06:35:21 07/11/2007/12/2025 CBC WITH DIFFE RENTI AL abs eosinophils 0.0 K/uL 0.0-0. 5 Not Available [facility] ([facility] [address] [place], [address], 07/12/2025 06:35:21 07/11/2007/12/2025 CBC WITH DIFFE RENTI AL abs basophils 0.0 K/uL 0.0-0. 3 Not Available [facility] ([facility] [address] [place], [address], 07/12/2025 06:35:21 07/11/2007/12/2025 CBC WITH DIFFE RENTI AL abs bands 0.2 K/uL <0.1 high Not Available [facility] ([facility] [address] [place], [address], 07/12/2025 06:35:21 07/11/2007/12/2025 CBC WITH DIFFE RENTI AL neutrophils 91.5 % Not Available [facility] [address] [place], [address], 07/12/2025 06:35:21 07/11/2007/12/2025 CBC WITH DIFFE RENTI AL lymphocytes 4.1 % Not Available [facility] [address] [place], [address], 07/12/2025 06:35:21 07/11/20 25 07/12/2025 CBC WITH DIFFE RENTI AL monocytes 3.1 % Not Available [facility] ([facility] [address] [place], [address], 07/12/2025 06:35:21 07/11/20 25 07/12/2025 CBC WITH DIFFE RENTI AL eosinophils 0.0 % Not Available [facility] ([facility] [address] [place], [address], 07/12/2025 06:35:21 07/11/20 25 07/12/2025 CBC WITH DIFFE RENTI AL basophils 0.2 % Not Available [facility] ([facility] [address] [place], [address], 07/12/2025 06:35:21 07/11/2007/12/2025 CBC WITH DIFFE RENTI AL bands 1.1 % Not Available [facility] ([facility] [address] [place], [address], 07/12/2025 06:35:21 07/11/2007/12/2025 BLOOD FILM FOR PAMELA Rhoades blood film for review See Note Comme nts on Lab Id:[id number] RBC Morph ology : Aniso cytos is +, Macro cytes +, Polyc hroma tic cells +, Large Plate lets +, Plate let Clump s + Plate lets Imani l Not Available [facility] ([facility] [address] [place], [address], 07/12/2025 06:35:22 Result Notes None recorded. 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 6484063328585 7 Active 2024 GLORY GARVEY, [employer] [address], [place], [address] , [place] [facility] 23:19:47 Chronic pain syndrome 346025965 Active 2024 GLORY GARVEY APRN [address], [place], [address] , [place] [facility] 23:20:02 Generalize d osteoarthr itis 563661386 Active 2024 GLORY GARVEY APRN [address], [place], [address] , [place] [facility] 23:20:02 Muscle weakness 02652944 Active 2024 GLORY GARVEY APRN [address], [place], [address] , [place] [facility] 23:20:19 Essential hypertensi on 25786196 Active 2024 GLORY GARVEY APRN [address], [place], [address] , [place] [facility] 23:23:57 Severe chronic obstructiv e pulmonary disease 831364121 Active 2024 GLORY GARVEY APRN [address], [place], [address] , [place] [facility] 23:23:59 Chronic pulmonary edema 10806152 Active 2024 TANYA FLETCHER APRN [address], [place], [address] , [place] [facility] 13:49:05 Anxiety disorder 241828820 Active 2024 TANYA FLETCHER APRN [address], [place], [address] , [place] [facility] 19:05:24 Problem Notes None recorded. Medical Equipment None Reported. Allergies No known drug allergies Medications Name Sig Start Date Stop Date Status Note LastModified by Organization Details LastModified Time losartan 50 mg tablet TAKE 1 TABLET BY MOUTH EVERY DAY active Not Available Not Available No t Available furosemide 40 mg tablet Take 1 tablet every day by oral route for 30 days. 2024 active Not Available Not Available Not Avai lable prednisone 10 mg tablet TAKE SIX TABLETS BY MOUTH DAILY FOR 2 DAYS, FIVE TABLETS DAILY FOR 2 DAYS, FOUR TABLETS DAILY FOR 2 DAYS, THREE TABLETS DAILY FOR 2 DAYS, TWO TABLETS DAILY FOR 2 DAYS, ONE TABLET DAILY FOR 2 DAYS active Not Available Not Available No t Available nicotine 14 mg/24 hr daily transdermal patch USE ONE PATCH TRANSDERM ALLY DAILY active Not Available Not Available No t Available ipratropium 0.5 mg-albutero l 3 mg (2.5 mg base)/3 mL nebulizatio n soln INHALE ONE vial EVERY 6 HOURS NEEDED for SHORTNESS OF BREATH 2024 active Not Available Not Available Not Avai lable azithromyci n 250 mg tablet TAKE ONE TABLET BY MOUTH DAILY 07/11 completed Not Available Not Available Not Available hydrocodone 5 mg-acetamin ophen 325 mg tablet Take 1 tablet every day by oral route, for Ekit Replaceme nt. 07/11 completed Not Available Not Available Not Available prednisone 20 mg tablet take 2 tablets BY MOUTH DAILY FOR 5 DAYS 07/11 completed Not Available Not Available Not Available metoprolol succinate ER 100 mg tablet,exte nded release 24 hr TAKE 1 TABLET BY MOUTH EVERY DAY 07/11 completed Not Available Not Available Not Available hydrocodone 10 mg-acetamin ophen 325 mg tablet Take 1 tablet every day by oral route, for EKIT REPLACEME NT. 06/07 completed Not Available Not Available Not Available hydrocodone 7.5 mg-acetamin ophen 325 mg tablet Take 1 tablet twice a day by oral route as needed for 7 days, for Chronic pain. 07/25 completed Not Available Not Available Not Available pantoprazol e 40 mg tablet,salty yed release Take 1 tablet every day by oral route for 30 days. 2024 active Not Available Not Available Not Avai lable dexamethaso ne 4 mg tablet TAKE ONE TABLET BY MOUTH TWICE DAILY for TWO DAYS; THEN ONE TABLET DAILY for TWO DAYS; THEN TAKE 1/2 TABLET BY MOUTH DAILY for TWO DAYS THEN STOP 07/11 completed Not Available Not Available Not Available docusate sodium 100 mg capsule TAKE ONE CAPSULE BY MOUTH TWICE DAILY active Not Available Not Available No t Available budesonide 0.5 mg/2 mL suspension for nebulizatio n INHALE ONE vial TWICE DAILY. For respirato ry USE ONLY active Not Available Not Available No t Available diltiazem CD 120 mg capsule,ext ended release 24 hr Take 1 capsule every day by oral route for 30 days. 2024 active Not Available Not Available Not Avai lable polyethylen e glycol 3350 17 gram/dose oral powder DISSOLVE 17grams in liquid AND drink EVERY DAY active Not Available Not Available No t Available albuterol sulfate HFA 90 mcg/actuati on aerosol inhaler INHALE TWO puffs EVERY 6 HOURS NEEDED FOR SHORTNESS OF BREATH or wheezing active Not Available Not Available No t Available diazepam 5 mg tablet TAKE 1 TABLET BY MOUTH TWICE DAILY NEEDED active Not Available Not Available No t Available nicotine 7 mg/24 hr daily transdermal patch USE ONE PATCH TRANSDERM ALLY DAILY active Not Available Not Available No t Available buspirone 15 mg tablet TAKE ONE TABLET BY MOUTH THREE TIMES DAILY active Not Available Not Available No t Available Spiriva with HandiHaler 18 mcg and inhalation capsules INHALE THE CONTENTS OF 1 CAPSULE VIA HANDIHALE R EVERY DAY active Not Available Not Available No t Available duloxetine 60 mg capsule,del ayed release Take 1 capsule every day by oral route for 30 days. 2024 active Not Available Not Available Not Avai lable Narcan 4 mg/actuatio n nasal spray use as directed 2024 active Not Available Not Available Not Avai lable Airsupra 90 mcg-80 mcg/actuati on HFA aerosol inhaler INHALE TWO PUFFS BY MOUTH NEEDED active Not Available Not Available No t Available buspirone 15 mg capsule Take 1 capsule twice a day by oral route. active Not Available Not Available No t Available Vitals Date Recorded Systolic And Diastolic Provider Name and Address Organization Details Last Updated DateTime 07/11/2025 139/84 mm[Hg] GLORY GARVEY, [employer] ATTENDANT [address], [place], [address], [place] - [facility] 07/11/2025 15:14:33 Date Recorded Body height Body mass index (BMI) Body weight Body temperature Heart rate Respiratory rate Oxygen saturation Provider Name and Address Organization Details Last Updated DateTime 182.88 cm 29.2 kg/m2 22360.4 1 g 97.3 [degF] 97 /min 17 /min 90 % Adalgisa [facility] 14:57:15 Social History Question Answer Notes LastModified by Organizat ion Details LastModified Time Tobacco Smoking Status Current Some Day Smoker GLORY GARVEYDK [address], [place], [address], [facility] 05/16/2025 23:21:16 What Was The Date Of [...] ICD10 Code Diagnosis IMO Codes Diagnosis Note [id number] GLORY GARVEY [employer] ATTENDANT [facility] [address] [place] [address] 07/11/2025 14:44:52 07/23/2025 23:13:39 Acute on chronic hypoxemic and hypercapnic respiratory failure 0071674899 5107 J96.21 J96.22 60737458 Severe chr onic obstructive pulmonary disease 734484532 J44.9 805938 Essential hypertension 37101459 I10 82976 Bilateral lower limb edema 249282559 R60.0 6128993 Iron defic iency anemia 74997065 D50.9 94296898 Chronic pain syndrome 37 1747293 G89.4 Anxiety 35361115 F41.9 03171 Cont buspirone and valium prn Mixed urin sammi incontinence 432699666 N39.46 868480 Health Concerns Section Related Observation LastModified by Organization Detai ls LastModified Time None Recorded Concern Status LastModified by Organization Details LastModified Time None Recorded Payers Encounter Date Sequence Insurance Name Policy Number Policy Mcclure Covered Member ID Mcclure Member ID Guarantor Name 07/11/2025 1 [facility] (MEDICARE REPLACEMENT/A DVANTAGE - PPO) Pola Fajardo [id number] Pola Fajardo Notes Date Note Type Note Provider Name and Address Organization Details Recorded Time 07/11/2025 text/html Pt presents today due to hospital follow up from [facility] [facility] for elevated CO2 levels x 3 different occasions. Daughter reports they adjusted trilogy machine settings and pt has been doing much better. GLORY GARVEY, [employer] ATTENDANT [address], [place], [address], [place] - [facility] 07/22/2025 22:41:53
--- OUTSIDE RECORDS SUMMARY | 2025-09-12 01:28 | XMS_ITS | Data Portability ---
Author Organization [facility], autoContract Address [address] [facility] [address] [place] [address] Care Team Providers Care Director Of Strategic Partnerships Name Role Phone [facility] RETIREMENT OTHER [phone] Assessment No assessment recorded. Plan of Treatment Reminders Order Date Submit Date Provider Last Modified By Organization Details Last Modified Time Details Appointments None recorded. Lab CMP, serum or plasma 2024 [facility] ([facility]) - [facility], [address], [place], [address], 5 05:35:11 iron + total iron-bindin g capacity (TIBC), serum 2024 025 [facility] ([facility]) - [facility], [address], [address], [place], [address], 5 05:35:12 ferritin, serum or plasma 2024 025 [facility] ([facility]) - [facility], [address], [address], [place], [address], 5 05:35:12 CBC w/ auto diff 2024 025 [facility] ([facility]) - [facility], [address], [address], [place], [address], 5 06:35:21 CBC w/ auto diff 2024 025 [facility], [address], [address], [place], [address], 05:18:50 CMP, serum or plasma 2024 [facility] - [facility], [address], [address], [place], [address], 06:09:00 Referral home health referral 2024 [facility], [address], [place], [address], 08:21:53 Procedures None recorded. Surgeries None recorded. Imaging None recorded. Medication Orders hydrocodone 7.5 mg-acetamin ophen 325 mg tablet 2024 [facility], [address] [place] [address] [place], [address], 05:01:15 Narcan 4 mg/actuatio n nasal spray 2024 [facility], [address] [place] [address] [place], [address], 15:39:22 diazepam 5 mg tablet 2024 [facility], [address] [place] [address] [place], [address], 15:39:23 Miralax 17 gram/dose oral powder 2024 [facility], [address] [place] [address], [place], [address], 17:48:46 buspirone 15 mg tablet 2024 [facility], [address] [place] [address], [place], [address], 17:48:45 metoprolol succinate ER 100 mg tablet,exte nded release 24 hr 2024 025 [facility], [address] [place] [address], [address], 15:52:17 Patient TargetsNo targets recorded. Patient Instructions Encounter Date Encounter Id Patient Instructions Last Modified By Organization Details Last Modified Time 05/15/2025 [id number] Patient to continue medications and plan of care as currently ordered. Will follow up with patient on routine rounds or sooner if needed. [email or web address] Not available 05/15/2025 18:37:38 05/17/2025 [id number] Patient to continue medications and plan of care as currently ordered. Will follow up with patient on routine rounds or sooner if needed. Not available 05/21/2025 18:33:34 05/26/2025 [id number] Patient to continue medications and plan of care as currently ordered. Follow up with PCP and Telemedicine Visit on 06/05/2025. Hydrocodone 5/325mg every 6 hours PRN Continue supplemental oxygen Continue current medications Not available 05/29/2025 19:11:41 06/07/2025 [id number] learning about anxiety disorders [email or web address] Not available 06/07/2025 12:13:18 hyperkalemia: ca re instructions [email or web address] Not available 06/07/2025 12:02:38 high blood pressure: care instructions [email or web address] Not available 06/07/2025 12:02:38 learning about high blood pressure [email or web address] Not available 06/07/2025 12:02:38 Will check labs today Will order new oxygen concentrator Refer to HH F/U in 4 weeks Patient discharged to patient and caregiver to home in stable condition. Follow up instructions given. [email or web address] Not available 06/08/2025 12:53:25 07/11/2025 [id number] Will check labs today PDMP was reviewed for patient and no inappropriate scheduled drug use was identified Pt was told to not drive or operate machinery while taking narcotics because it could make patient drowsy. Will refill valium PRN Cont current medications F/U in 2 months Patient discharged to patient and caregiver to home in good condition. Follow up instructions given. michael Not available 07/22/2025 22:41:33 Reason for Referral Home Health Referral for Mus jaci weakness Referring Physician: Glory Renae, Family Medicine, Encounter Date: 06/07/2025 Results Created Date Observation Date Name Description Value Unit Range Abnormal Flag Note LastModifiedBy Organization Detail LastModifiedTime 05/02/20 25 05/02/2025 CHEMI STRY STUDI ES glucose [mass/volume ] in serum or plasma 110 mg/dL 74-106 high Not Available [email or web address] [address], [place], [address], 05/02/2025 21:13:32 05/02/20 25 05/02/2025 CHEMI STRY STUDI ES urea nitrogen [mass/volume ] in serum or plasma 22 mg/dL 9-20 high Not Available [facility] [address], [place], [address], 05/02/2025 21:13:32 05/02/20 25 05/02/2025 CHEMI STRY STUDI ES creatinine [mass/volume ] in serum or plasma 0.9 mg/dL 0.8-1. 5 Not Available [facility] [address], [place], [address], 05/02/2025 21:13:32 05/02/20 25 05/02/2025 CHEMI STRY STUDI ES sodium [moles/volum e] in serum or plasma 139 mmol/ L 137-14 5 Not Available [facility] [address], [place], [address], 05/02/2025 21:13:32 05/02/20 25 05/02/2025 CHEMI STRY STUDI ES potassium [moles/volum e] in serum or plasma 5.8 mmol/ L 3.5-5. 1 high Not Available [facility] [address], [place], [address], 05/02/2025 21:13:32 05/02/20 25 05/02/2025 CHEMI STRY STUDI ES chloride [moles/volum e] in serum or plasma 98 mmol/ L 98-107 Not Available [facility] [address], [place], [address], 05/02/2025 21:13:32 05/02/20 25 05/02/2025 CHEMI STRY STUDI ES carbon dioxide, total [moles/volum e] in serum or plasma 37 mmol/ L 22-30 high Not Available [facility] [address], [place], [address], 05/02/2025 21:13:32 05/02/20 25 05/02/2025 CHEMI STRY STUDI ES calcium [mass/volume ] in blood 8.8 mg/dL 8.4-10 .2 Not Available [facility] [address], [place], [address], 05/02/2025 21:13:32 05/02/20 25 05/02/2025 CHEMI STRY STUDI ES anion gap in serum or plasma by calculation 4 mEq/L 4-12 Not Available [facility] [address], [place], [address], 05/02/2025 21:13:32 05/02/20 25 05/02/2025 CHEMI STRY STUDI ES urea nitrogen/cre atinine [mass ratio] in blood 24.4 % 12.0-2 0.0 high Not Available [facility] [address], [place], [address], 05/02/2025 21:13:32 05/02/20 25 05/02/2025 CHEMI STRY STUDI ES osmolality of serum or plasma by calculated by sum of electrolytes 282 mOsm/ kg 261-28 0 high Not Available [facility] [address], [place], [address], 05/02/2025 21:13:32 05/02/2005/02/2025 CHEMI STRY STUDI ES [...] <15 Kidne y Failu re Not Available [facility] [address], [place], [address], 05/02/2025 21:13:32 05/02/2005/02/2025 CHEMI STRY STUDI ES [...] used for stagi ng CKD. Not Available [facility] [address], [place], [address], 05/02/2025 21:13:32 05/02/2005/02/2025 CHEMI STRY STUDI ES phosphate [mass/volume ] in serum or plasma 4.1 mg/dL 2.5-4. 5 Not Available [facility] [address], [place], [address], 05/02/2025 21:13:32 05/02/2005/02/2025 CHEMI STRY STUDI ES magnesium [mass/volume ] in serum or plasma 2.3 mg/dL 1.6-2. 3 Not Available [facility] [address], [place], [address], 05/02/2025 21:13:32 05/02/20 25 05/02/2025 CHEMI STRY STUDI ES albumin [mass/volume ] in serum or plasma 4.2 g/dL 3.5-5. 0 Not Available [facility] [address], [place], [address], 05/02/2025 21:13:32 05/02/20 25 05/02/2025 D-LAC POE [MOLE S/VOL UME] IN SERUM OR PLASM A D-lactate [moles/volum e] in serum or plasma 0.8 mmol/ L 0.7-2. 0 Not Available [facility] [address], [place], [address], 05/02/2025 21:22:11 05/02/20 25 05/02/2025 GAS PANEL - ARTER IAL BLOOD pH of arterial blood 7.26 nmol/ L 7.35-7 .45 critical low Not Available [facility] [address], [place], [address], 05/02/2025 23:07:26 05/02/20 25 05/02/2025 GAS PANEL - ARTER IAL BLOOD carbon dioxide [partial pressure] in arterial blood 86 mm[hg ] 35-45 critical high Not Available [facility] [address], [place], [address], 05/02/2025 23:07:26 05/02/20 25 05/02/2025 GAS PANEL - ARTER IAL BLOOD oxygen [partial pressure] in arterial blood 230 mm[hg ] 80-100 critical high Not Available [facility] [address], [place], [address], 05/02/2025 23:07:26 05/02/20 25 05/02/2025 GAS PANEL - ARTER IAL BLOOD bicarbonate [moles/volum e] in arterial blood 38.6 mmol/ L 22-26 high Not Available [place] [facility] [address], [place], [address], 05/02/2025 23:07:26 05/02/20 25 05/02/2025 GAS PANEL - ARTER IAL BLOOD base excess in arterial blood by calculation 8.5 mmol/ L -2.2-2 .2 high Not Available [place] [facility] [address], [place], [address], 05/02/2025 23:07:26 05/02/20 25 05/02/2025 GAS PANEL - ARTER IAL BLOOD oxygen saturation in arterial blood 100 % 95-98 high Not Available [facility] [address], [place], [address], 05/02/2025 23:07:26 05/02/20 25 05/02/2025 GAS PANEL - ARTER IAL BLOOD blood gas studies Lt. Rad. Not Available [place] [facility] [address], [place], [address], 05/02/2025 23:07:26 05/02/20 25 05/02/2025 GAS PANEL - ARTER IAL BLOOD gas panel - blood , 09/01, 80% BiPAP Not Available [facility] [address], [place], [address], 05/02/2025 23:07:26 05/02/20 25 05/02/2025 GAS PANEL - ARTER IAL BLOOD arterial patency wrist artery --pre arterial puncture YES + Not Available [facility] [address], [place], [address], 05/02/2025 23:07:26 05/02/20 25 05/02/2025 GAS PANEL - ARTER IAL BLOOD gas panel - blood YES Not Available [facility] [address], [place], [address], 05/02/2025 23:07:26 05/02/20 25 05/02/2025 GAS PANEL - ARTER IAL BLOOD blood gas studies Alphonseeugene mccain LPN Docum ent Resul t Deliv missy: Not Available [facility] [address], [place], [address], 05/02/2025 23:07:26 05/02/20 25 05/02/2025 RESP VIRUS PNL XXX PCR virus identified in specimen Not detect ed Not Available [facility] [address], [place], [address], 05/02/2025 23:49:08 05/02/20 25 05/02/2025 RESP VIRUS [...] nt manag ement decis ions. Not Available [facility] [address], [place], [address], 05/02/2025 23:49:08 05/02/20 25 05/02/2025 RESP VIRUS PNL XXX PCR human metapneumovi deanne RNA [presence] in specimen by MONI with probe detection Not detect ed Not Available [facility] [address], [place], [address], 05/02/2025 23:49:08 05/02/20 25 05/02/2025 RESP VIRUS PNL XXX PCR rhinovirus RNA [identifier] in specimen by MONI with probe detection Not detect ed Not Available [facility] [address], [place], [address], 05/02/2025 23:49:08 05/02/20 25 05/02/2025 RESP VIRUS PNL XXX PCR influenza virus A RNA [presence] in specimen by MONI with probe detection Not Detect ed Not Available [facility] [address], [place], [address], 05/02/2025 23:49:08 05/02/20 25 05/02/2025 RESP VIRUS PNL XXX PCR influenza virus A H1 RNA [presence] in specimen by MONI with probe detection Not detect ed Not Available [facility] [address], [place], [address], 05/02/2025 23:49:08 05/02/20 25 05/02/2025 RESP VIRUS PNL XXX PCR influenza virus A H1 2009 pandemic RNA [presence] in specimen by MONI with probe detection Not detect ed Not Available [facility] [address], [place], [address], 05/02/2025 23:49:08 05/02/20 25 05/02/2025 RESP VIRUS PNL XXX PCR influenza virus A H3 RNA [presence] in specimen by MONI with probe detection Not detect ed Not Available [facility] [address], [place], [address], 05/02/2025 23:49:08 05/02/20 25 05/02/2025 RESP VIRUS PNL XXX PCR influenza virus B RNA [presence] in specimen by MONI with probe detection Not Detect ed Not Available [facility] [address], [place], [address], 05/02/2025 23:49:08 05/02/20 25 05/02/2025 RESP VIRUS PNL XXX PCR parainfluenz a virus 1 RNA [presence] in specimen by MONI with probe detection Not detect ed Not Available [facility] [address], [place], [address], 05/02/2025 23:49:08 05/02/20 25 05/02/2025 RESP VIRUS PNL XXX PCR parainfluenz a virus 2 RNA [presence] in specimen by MONI with probe detection Not detect ed Not Available [facility] [address], [place], [address], 05/02/2025 23:49:08 05/02/20 25 05/02/2025 RESP VIRUS PNL XXX PCR parainfluenz a virus 3 RNA [presence] in specimen by MONI with probe detection Not detect ed Not Available [facility] [address], [place], [address], 05/02/2025 23:49:08 05/02/20 25 05/02/2025 RESP VIRUS PNL XXX PCR parainfluenz a virus 4 RNA [presence] in specimen by MONI with probe detection Not detect ed Not Available [facility] [address], [place], [address], 05/02/2025 23:49:08 05/02/20 25 05/02/2025 RESP VIRUS PNL XXX PCR respiratory syncytial virus A RNA [presence] in specimen by MONI with probe detection Not detect ed Not Available [facility] [address], [place], [address], 05/02/2025 23:49:08 05/02/20 25 05/02/2025 RESP VIRUS PNL XXX PCR respiratory syncytial virus B RNA [presence] in specimen by MONI with probe detection Not detect ed Not Available [facility] [address], [place], [address], 05/02/2025 23:49:08 05/02/20 25 05/02/2025 RESP VIRUS PNL XXX PCR chlamydophil a pneumoniae DNA [presence] in sputum or bronchial by probe with amplificatio n Not detect ed Not Available [facility] [address], [place], [address], 05/02/2025 23:49:08 05/02/20 25 05/02/2025 RESP VIRUS [...] lecte d and retes jarvis. Not Available [facility] [address], [place], [address], 05/02/2025 23:49:08 05/02/20 25 05/02/2025 METHI CILLI N RESIS TANT STAPH YLOCO CCUS AUREU S (MRSA ) DNA [PRES ENCE] IN SPECI MEN BY MONI WITH PROBE DETEC TION microorganis m identified in specimen by culture MRSA DNA DETECT ED abnormal Not Available [facility] [address], [place], [address], 05/04/2025 20:44:08 05/03/20 25 05/03/2025 GAS PANEL - ARTER IAL BLOOD pH of arterial blood 7.29 nmol/ L 7.35-7 .45 critical low Not Available [facility] [address], [place], [address], 05/03/2025 04:33:27 05/03/20 25 05/03/2025 GAS PANEL - ARTER IAL BLOOD carbon dioxide [partial pressure] in arterial blood 80 mm[hg ] 35-45 critical high Not Available [facility] [address], [place], [address], 05/03/2025 04:33:27 05/03/20 25 05/03/2025 GAS PANEL - ARTER IAL BLOOD oxygen [partial pressure] in arterial blood 63 mm[hg ] 80-100 low Not Available [facility] [address], [place], [address], 05/03/2025 04:33:27 05/03/20 25 05/03/2025 GAS PANEL - ARTER IAL BLOOD bicarbonate [moles/volum e] in arterial blood 38.5 mmol/ L 22-26 high Not Available [facility] [address], [place], [address], 05/03/2025 04:33:27 05/03/20 25 05/03/2025 GAS PANEL - ARTER IAL BLOOD base excess in arterial blood by calculation 9.0 mmol/ L -2.2-2 .2 high Not Available [facility] [address], [place], [address], 05/03/2025 04:33:27 08/06/20 25 05/03/2025 GAS PANEL - ARTER IAL BLOOD oxygen saturation in arterial blood 89 % 95-98 low Not Available [facility] [address], [place], [address], 05/03/2025 04:33:27 05/03/20 25 05/03/2025 GAS PANEL - ARTER IAL BLOOD blood gas studies Lt. Rad. Not Available [facility] [address], [place], [address], 05/03/2025 04:33:27 05/03/2005/03/2025 GAS PANEL - ARTER IAL BLOOD gas panel - blood 2 lpm Nasal Cannu la Not Available [facility] [address], [place], [address], 05/03/2025 04:33:27 05/03/2005/03/2025 GAS PANEL - ARTER IAL BLOOD arterial patency wrist artery --pre arterial puncture YES + Not Available [facility] [address], [place], [address], 05/03/2025 04:33:27 05/03/20 25 05/03/2025 GAS PANEL - ARTER IAL BLOOD gas panel - blood YES Not Available [facility] [address], [place], [address], 05/03/2025 04:33:27 05/03/2005/03/2025 GAS PANEL - ARTER IAL BLOOD blood gas studies Timmot hy, FUEL RETROFITTING TECHNICIAN Docum ent Resul t [place] missy: Not Available [facility] [address], [place], [address], 05/03/2025 04:33:27 05/03/20 25 05/03/2025 CBC W AUTO DIFFE RENTI AL PANEL - BLOOD leukocytes [#/volume] in blood by automated count 12.0 10*3/ uL 4.5-11 .0 high 0347, 05/03 Not Available [facility] [address], [place], [address], 05/03/2025 04:51:46 05/03/20 25 05/03/2025 CBC W AUTO DIFFE RENTI AL PANEL - BLOOD erythrocytes [#/volume] in blood by automated count 4.71 10*6/ uL 4.5-6. 00 Not Available [facility] [address], [place], [address], 05/03/2025 04:51:46 05/03/2005/03/2025 CBC W AUTO DIFFE RENTI AL PANEL - BLOOD hemoglobin [mass/volume ] in blood 11.1 g/dL 13.5-1 8.0 low Not Available [facility] [address], [place], [address], 05/03/2025 04:51:46 05/03/20 25 05/03/2025 CBC W AUTO DIFFE RENTI AL PANEL - BLOOD hematocrit [volume fraction] of blood by automated count 39.8 % 42.0-5 4.0 low Not Available [facility] [address], [place], [address], 05/03/2025 04:51:46 05/03/2005/03/2025 CBC W AUTO DIFFE RENTI AL PANEL - BLOOD MCV [entitic mean volume] in red blood cells by automated count 84.5 fL 80-100 Not Available [facility] [address], [place], [address], 05/03/2025 04:51:46 05/03/20 25 05/03/2025 CBC W AUTO DIFFE RENTI AL PANEL - BLOOD MCH [entitic mass] by automated count 23.6 pg 27-32 low Not Available [facility] [address], [place], [address], 05/03/2025 04:51:46 05/03/20 25 05/03/2025 CBC W AUTO DIFFE RENTI AL PANEL - BLOOD MCHC [entitic mass/volume] in red blood cells by automated count 27.9 g/dL 31.0-3 7.0 low Not Available [facility] [address], [place], [address], 05/03/2025 04:51:46 05/03/20 25 05/03/2025 CBC W AUTO DIFFE RENTI AL PANEL - BLOOD erythrocyte [distwidth] in red blood cells by automated count 20.0 % 12-14. 5 high Not Available [facility] [address], [place], [address], 05/03/2025 04:51:46 05/03/20 25 05/03/2025 CBC W AUTO DIFFE RENTI AL PANEL - BLOOD platelets [#/volume] in blood 481 10*3/ uL 150-45 0 high 0347, 05/03 Not Available [facility] [address], [place], [address], 05/03/2025 04:51:46 05/03/20 25 05/03/2025 CBC W AUTO DIFFE RENTI AL PANEL - BLOOD platelet [entitic mean volume] in blood by automated count 11.0 fL 9.1-13 .2 Not Available [facility] [address], [place], [address], 05/03/2025 04:51:46 05/03/20 25 05/03/2025 CBC W AUTO DIFFE RENTI AL PANEL - BLOOD segmented neutrophils/ leukocytes in blood by automated count 92.4 % 40-70 high Not Available [facility] [address], [place], [address], 05/03/2025 04:51:46 05/03/20 25 05/03/2025 CBC W AUTO DIFFE RENTI AL PANEL - BLOOD lymphocytes/ leukocytes in blood by flow cytometry (fc) 5.1 % 20-44 low Not Available [facility] [address], [place], [address], 05/03/2025 04:51:46 05/03/20 25 05/03/2025 CBC W AUTO DIFFE RENTI AL PANEL - BLOOD monocytes/le ukocytes in blood by automated count 1.1 % 2-9 low Not Available [facility] [address], [place], [address], 05/03/2025 04:51:46 05/03/20 25 05/03/2025 CBC W AUTO DIFFE RENTI AL PANEL - BLOOD eosinophils/ leukocytes in blood by automated count 0.0 % 0-4 Not Available [facility] [address], [place], [address], 05/03/2025 04:51:46 05/03/20 25 05/03/2025 CBC W AUTO DIFFE RENTI AL PANEL - BLOOD basophils/le ukocytes in blood by automated count 0.3 % 0-1 Not Available [facility] [address], [place], [address], 05/03/2025 04:51:46 05/03/20 25 05/03/2025 CBC W AUTO DIFFE RENTI AL PANEL - BLOOD neutrophils [#/volume] in blood by automated count 11.13 10*3/ uL 1.8-7. 7 high Not Available [place] [facility] [address], [place], [address], 05/03/2025 04:51:46 05/03/20 25 05/03/2025 CBC W AUTO DIFFE RENTI AL PANEL - BLOOD lymphocytes [#/volume] in blood by automated count 0.61 10*3/ uL 0.9-4. 8 low Not Available [place] [facility] [address], [place], [address], 05/03/2025 04:51:46 05/03/20 25 05/03/2025 CBC W AUTO DIFFE RENTI AL PANEL - BLOOD monocytes [#/volume] in blood by automated count 0.1 10*3/ uL 0-0.8 Not Available [facility] [address], [place], [address], 05/03/2025 04:51:46 05/03/20 25 05/03/2025 CBC W AUTO DIFFE RENTI AL PANEL - BLOOD eosinophils [#/volume] in blood by automated count 0.00 10*3/ uL 0-0.7 Not Available [facility] [address], [place], [address], 05/03/2025 04:51:46 05/03/20 25 05/03/2025 CBC W AUTO DIFFE RENTI AL PANEL - BLOOD basophils [#/volume] in blood by automated count 0.04 10*3/ uL 0-0.2 Not Available [facility] [address], [place], [address], 05/03/2025 04:51:46 05/03/20 25 05/03/2025 CBC W AUTO DIFFE RENTI AL PANEL - BLOOD immature granulocytes [presence] in blood by automated count 1.1 % 0-0.7 high Not Available [facility] [address], [place], [address], 05/03/2025 04:51:46 05/03/20 25 05/03/2025 CBC W AUTO DIFFE RENTI AL PANEL - BLOOD immature granulocytes [#/volume] in blood 0.13 10*3/ uL 0.00-0 .06 high Not Available [facility] [address], [place], [address], 05/03/2025 04:51:46 05/03/20 25 05/03/2025 CBC W AUTO DIFFE RENTI AL PANEL - BLOOD nucleated erythrocytes /leukocytes [ratio] in blood by automated count 0.2 % 0-0 high Not Available [facility] [address], [place], [address], 05/03/2025 04:51:46 05/03/20 25 05/03/2025 CHEMI STRY STUDI ES glucose [mass/volume ] in serum or plasma 139 mg/dL 74-106 high Not Available [facility] [address], [place], [address], 05/03/2025 05:26:51 05/03/20 25 05/03/2025 CHEMI STRY STUDI ES urea nitrogen [mass/volume ] in serum or plasma 28 mg/dL 9-20 high Not Available [facility] [address], [place], [address], 05/03/2025 05:26:51 05/03/20 25 05/03/2025 CHEMI STRY STUDI ES creatinine [mass/volume ] in serum or plasma 1.0 mg/dL 0.8-1. 5 Not Available [place] [facility] [address], [place], [address], 05/03/2025 05:26:51 05/03/20 25 05/03/2025 CHEMI STRY STUDI ES sodium [moles/volum e] in serum or plasma 138 mmol/ L 137-14 5 Not Available [place] [facility] [address], [place], [address], 05/03/2025 05:26:51 05/03/20 25 05/03/2025 CHEMI STRY STUDI ES potassium [moles/volum e] in serum or plasma 6.2 mmol/ L 3.5-5. 1 critical high RESUL TS HILL D TO CAROLYN BY Ángel jones at 0425, 05/03. Not Available [place] [facility] [address], [place], [address], 05/03/2025 05:26:51 05/03/20 25 05/03/2025 CHEMI STRY STUDI ES chloride [moles/volum e] in serum or plasma 97 mmol/ L 98-107 low Not Available [place] [facility] [address], [place], [address], 05/03/2025 05:26:51 05/03/20 25 05/03/2025 CHEMI STRY STUDI ES carbon dioxide, total [moles/volum e] in serum or plasma 35 mmol/ L 22-30 high Not Available [place] [facility] [address], [place], [address], 05/03/2025 05:26:51 05/03/20 25 05/03/2025 CHEMI STRY STUDI ES calcium [mass/volume ] in blood 8.9 mg/dL 8.4-10 .2 Not Available [place] [facility] [address], [place], [address], 05/03/2025 05:26:51 05/03/2005/03/2025 CHEMI STRY STUDI ES anion gap in serum or plasma by calculation 6 mEq/L 4-12 Not Available [facility] [address], [place], [address], 05/03/2025 05:26:51 05/03/20 25 05/03/2025 CHEMI STRY STUDI ES urea nitrogen/cre atinine [mass ratio] in blood 28.0 % 12.0-2 0.0 high Not Available [place] [facility] [address], [place], [address], 05/03/2025 05:26:51 05/03/20 25 05/03/2025 CHEMI STRY STUDI ES osmolality of serum or plasma by calculated by sum of electrolytes 284 mOsm/ kg 261-28 0 high Not Available [facility] [address], [place], [address], 05/03/2025 05:26:51 05/03/2005/03/2025 CHEMI STRY STUDI ES [...] <15 Kidne y Failu re Not Available [facility] [address], [place], [address], 05/03/2025 05:26:51 05/03/2005/03/2025 CHEMI STRY STUDI ES [...] used for stagi ng CKD. Not Available [facility] [address], [place], [address], 05/03/2025 05:26:51 05/03/2005/03/2025 CHEMI STRY STUDI ES phosphate [mass/volume ] in serum or plasma 4.8 mg/dL 2.5-4. 5 high Not Available [place] [facility] [address], [place], [address], 05/03/2025 05:26:51 05/03/20 25 05/03/2025 CHEMI STRY STUDI ES magnesium [mass/volume ] in serum or plasma 2.3 mg/dL 1.6-2. 3 Not Available [facility] [address], [place], [address], 05/03/2025 05:26:51 05/03/20 25 05/03/2025 CHEMI STRY STUDI ES albumin [mass/volume ] in serum or plasma 4.3 g/dL 3.5-5. 0 Not Available [facility] [address], [place], [address], 05/03/2025 05:26:51 05/03/20 25 05/03/2025 D-LAC POE [MOLE S/VOL UME] IN SERUM OR PLASM A D-lactate [moles/volum e] in serum or plasma 1.5 mmol/ L 0.7-2. 0 Not Available [facility] [address], [place], [address], 05/03/2025 05:54:16 05/03/20 25 05/03/2025 TROPO LIZETTE I.CAR DIAC [MASS /VOLU ME] IN SERUM OR PLASM A troponin I.cardiac [mass/volume ] in serum or plasma <0.012 NG/mL 0-0.03 4 Not Available [facility] [address], [place], [address], 05/03/2025 06:01:24 05/03/2005/03/2025 CHEMI STRY STUDI ES glucose [mass/volume ] in serum or plasma 139 mg/dL 74-106 high Not Available [facility] [address], [place], [address], 05/03/2025 06:01:24 05/03/20 25 05/03/2025 CHEMI STRY STUDI ES urea nitrogen [mass/volume ] in serum or plasma 28 mg/dL 9-20 high Not Available [facility] [address], [place], [address], 05/03/2025 06:01:24 05/03/20 25 05/03/2025 CHEMI STRY STUDI ES creatinine [mass/volume ] in serum or plasma 1.0 mg/dL 0.8-1. 5 Not Available [facility] [address], [place], [address], 05/03/2025 06:01:24 05/03/20 25 05/03/2025 CHEMI STRY STUDI ES sodium [moles/volum e] in serum or plasma 138 mmol/ L 137-14 5 Not Available [facility] [address], [place], [address], 05/03/2025 06:01:24 05/03/20 25 05/03/2025 CHEMI STRY STUDI ES potassium [moles/volum e] in serum or plasma 6.2 mmol/ L 3.5-5. 1 critical high RESUL TS LIZ Fonseca TO CAROLYN BY Ángel jones at 0425, 05/03. Not Available [facility] [address], [place], [address], 05/03/2025 06:01:24 05/03/20 25 05/03/2025 CHEMI STRY STUDI ES chloride [moles/volum e] in serum or plasma 97 mmol/ L 98-107 low Not Available [facility] [address], [place], [address], 05/03/2025 06:01:24 05/03/20 25 05/03/2025 CHEMI STRY STUDI ES carbon dioxide, total [moles/volum e] in serum or plasma 35 mmol/ L 22-30 high Not Available [facility] [address], [place], [address], 05/03/2025 06:01:24 05/03/20 25 05/03/2025 CHEMI STRY STUDI ES calcium [mass/volume ] in blood 8.9 mg/dL 8.4-10 .2 Not Available [facility] [address], [place], [address], 05/03/2025 06:01:24 05/03/20 25 05/03/2025 CHEMI STRY STUDI ES anion gap in serum or plasma by calculation 6 mEq/L 4-12 Not Available [facility] [address], [place], [address], 05/03/2025 06:01:24 05/03/20 25 05/03/2025 CHEMI STRY STUDI ES urea nitrogen/cre atinine [mass ratio] in blood 28.0 % 12.0-2 0.0 high Not Available [facility] [address], [place], [address], 05/03/2025 06:01:24 05/03/20 25 05/03/2025 CHEMI STRY STUDI ES osmolality of serum or plasma by calculated by sum of electrolytes 284 mOsm/ kg 261-28 0 high Not Available [facility] [address], [place], [address], 05/03/2025 06:01:24 05/03/20 25 05/03/2025 CHEMI STRY [...] <15 Kidne y Failu re Not Available [facility] [address], [place], [address], 05/03/2025 06:01:24 05/03/20 25 05/03/2025 CHEMI STRY [...] used for stagi ng CKD. Not Available [facility] [address], [place], [address], 05/03/2025 06:01:24 05/03/20 25 05/03/2025 CHEMI STRY STUDI ES phosphate [mass/volume ] in serum or plasma 4.8 mg/dL 2.5-4. 5 high Not Available [facility] [address], [place], [address], 05/03/2025 06:01:24 05/03/20 25 05/03/2025 CHEMI STRY STUDI ES magnesium [mass/volume ] in serum or plasma 2.3 mg/dL 1.6-2. 3 Not Available [facility] [address], [place], [address], 05/03/2025 06:01:24 05/03/20 25 05/03/2025 CHEMI STRY STUDI ES albumin [mass/volume ] in serum or plasma 4.3 g/dL 3.5-5. 0 Not Available [facility] [address], [place], [address], 05/03/2025 06:01:24 05/03/20 25 05/03/2025 POTAS SIUM [MOLE S/VOL UME] IN SERUM OR PLASM A potassium [moles/volum e] in serum or plasma 5.0 mmol/ L 3.5-5. 1 Not Available [facility] [address], [place], [address], 05/03/2025 08:13:39 05/03/20 25 05/03/2025 EXTRA YELLO W HOLD TUBE extra yellow hold tube HOLD FOR FUTURE TEST Not Available [facility] [address], [place], [address], 05/03/2025 09:14:29 05/03/20 25 05/03/2025 CORTI MAJOR [MASS /VOLU ME] IN SERUM OR PLASM A --AM PEAK SPECI MEN cortisol [mass/volume ] in serum or plasma --AM peak specimen 4.3 ug/dL 4.46-2 2.7 low Not Available [facility] [address], [place], [address], 05/03/2025 09:58:50 05/03/20 25 05/03/2025 GAS PANEL - ARTER IAL BLOOD pH of arterial blood 7.35 nmol/ L 7.35-7 .45 Not Available [facility] [address], [place], [address], 05/03/2025 10:55:18 05/03/20 25 05/03/2025 GAS PANEL - ARTER IAL BLOOD carbon dioxide [partial pressure] in arterial blood 68 mm[hg ] 35-45 critical high Not Available [facility] [address], [place], [address], 05/03/2025 10:55:18 05/03/20 25 05/03/2025 GAS PANEL - ARTER IAL BLOOD oxygen [partial pressure] in arterial blood 100 mm[hg ] 80-100 Not Available [facility] [address], [place], [address], 05/03/2025 10:55:18 05/03/20 25 05/03/2025 GAS PANEL - ARTER IAL BLOOD bicarbonate [moles/volum e] in arterial blood 37.5 mmol/ L 22-26 high Not Available [facility] [address], [place], [address], 05/03/2025 10:55:18 05/03/20 25 05/03/2025 GAS PANEL - ARTER IAL BLOOD base excess in arterial blood by calculation 9.4 mmol/ L -2.2-2 .2 high Not Available [facility] [address], [place], [address], 05/03/2025 10:55:18 05/03/20 25 05/03/2025 GAS PANEL - ARTER IAL BLOOD oxygen saturation in arterial blood 97 % 95-98 Not Available [facility] [address], [place], [address], 05/03/2025 10:55:18 05/03/20 25 05/03/2025 GAS PANEL - ARTER IAL BLOOD blood gas studies r rad Not Available [facility] [address], [place], [address], 05/03/2025 10:55:18 05/03/20 25 05/03/2025 GAS PANEL - ARTER IAL BLOOD gas panel - blood 45% BiPAP Not Available [facility] [address], [place], [address], 05/03/2025 10:55:18 05/03/20 25 05/03/2025 GAS PANEL - ARTER IAL BLOOD arterial patency wrist artery --pre arterial puncture yes pos Not Available [facility] [address], [place], [address], 05/03/2025 10:55:18 05/03/20 25 05/03/2025 GAS PANEL - ARTER IAL BLOOD gas panel - blood yes AVAPS Vt 500, Min P:14, Max P:30. Not Available [facility] [address], [place], [address], 05/03/2025 10:55:18 05/03/20 25 05/03/2025 GAS PANEL - ARTER IAL BLOOD blood gas studies DOCUME NT IN COMMEN TS Docum ent Resul t Dellouis beltrany: Not Available [facility] [address], [place], [address], 05/03/2025 10:55:18 05/03/20 25 05/03/2025 NATRI URETI C PEPTI DE.B PROHO RMONE N-TER FRANCISCO [MASS /VOLU ME] IN SERUM OR PLASM A natriuretic peptide.B prohormone N-terminal [mass/volume ] in serum or plasma 147.00 pg/mL 0.00-1 25.00 high Not Available [facility] [address], [place], [address], 05/03/2025 11:18:26 05/03/20 25 05/03/2025 POTAS SIUM [MOLE S/VOL UME] IN SERUM OR PLASM A potassium [moles/volum e] in serum or plasma 5.2 mmol/ L 3.5-5. 1 high Not Available [facility] [address], [place], [address], 05/03/2025 13:53:34 05/03/20 25 05/03/2025 POTAS SIUM [MOLE S/VOL UME] IN SERUM OR PLASM A potassium [moles/volum e] in serum or plasma 5.7 mmol/ L 3.5-5. 1 high Not Available [facility] [address], [place], [address], 05/03/2025 23:47:40 05/04/20 25 05/04/2025 GLUCO SE [MASS /VOLU ME] IN CAPIL BRITTNEY BLOOD BY GLUCO METER glucose [mass/volume ] in capillary blood by glucometer 107 mg/dL 65-110 Not Available [facility] [address], [place], [address], 05/04/2025 02:14:37 05/04/20 25 05/04/2025 CHEMI STRY STUDI ES glucose [mass/volume ] in serum or plasma 160 mg/dL 74-106 high Not Available [facility] [address], [place], [address], 05/04/2025 05:59:29 05/04/20 25 05/04/2025 CHEMI STRY STUDI ES urea nitrogen [mass/volume ] in serum or plasma 39 mg/dL 9-20 high Not Available [facility] [address], [place], [address], 05/04/2025 05:59:29 05/04/20 25 05/04/2025 CHEMI STRY STUDI ES creatinine [mass/volume ] in serum or plasma 1.0 mg/dL 0.8-1. 5 Not Available [place] [facility] [address], [place], [address], 05/04/2025 05:59:29 05/04/20 25 05/04/2025 CHEMI STRY STUDI ES sodium [moles/volum e] in serum or plasma 136 mmol/ L 137-14 5 low Not Available [place] [facility] [address], [place], [address], 05/04/2025 05:59:29 05/04/20 25 05/04/2025 CHEMI STRY STUDI ES potassium [moles/volum e] in serum or plasma 5.4 mmol/ L 3.5-5. 1 high Not Available [place] [facility] [address], [place], [address], 05/04/2025 05:59:29 05/04/20 25 05/04/2025 CHEMI STRY STUDI ES chloride [moles/volum e] in serum or plasma 99 mmol/ L 98-107 Not Available [place] [facility] [address], [place], [address], 05/04/2025 05:59:29 05/04/20 25 05/04/2025 CHEMI STRY STUDI ES carbon dioxide, total [moles/volum e] in serum or plasma 35 mmol/ L 22-30 high Not Available [place] [facility] [address], [place], [address], 05/04/2025 05:59:29 05/04/20 25 05/04/2025 CHEMI STRY STUDI ES calcium [mass/volume ] in blood 8.5 mg/dL 8.4-10 .2 Not Available [place] [facility] [address], [place], [address], 05/04/2025 05:59:29 05/04/20 25 05/04/2025 CHEMI STRY STUDI ES anion gap in serum or plasma by calculation 2 mEq/L 4-12 low Not Available [facility] [address], [place], [address], 05/04/2025 05:59:29 05/04/20 25 05/04/2025 CHEMI STRY STUDI ES urea nitrogen/cre atinine [mass ratio] in blood 39.0 % 12.0-2 0.0 high Not Available [place] [facility] [address], [place], [address], 05/04/2025 05:59:29 05/04/20 25 05/04/2025 CHEMI STRY STUDI ES osmolality of serum or plasma by calculated by sum of electrolytes 285 mOsm/ kg 261-28 0 high Not Available [place] [facility] [address], [place], [address], 05/04/2025 05:59:29 05/04/20 25 05/04/2025 CHEMI STRY [...] <15 Kidne y Failu re Not Available [facility] [address], [place], [address], 05/04/2025 05:59:29 05/04/2005/04/2025 CHEMI STRY STUDI ES creatinine renal clearance/1. [...] used for stagi ng CKD. Not Available [facility] [address], [place], [address], 05/04/2025 05:59:29 05/04/20 25 05/04/2025 CHEMI STRY STUDI ES phosphate [mass/volume ] in serum or plasma 2.7 mg/dL 2.5-4. 5 Not Available [facility] [address], [place], [address], 05/04/2025 05:59:29 05/04/20 25 05/04/2025 CHEMI STRY STUDI ES magnesium [mass/volume ] in serum or plasma 2.4 mg/dL 1.6-2. 3 high Not Available [facility] [address], [place], [address], 05/04/2025 05:59:29 05/04/20 25 05/04/2025 CHEMI STRY STUDI ES albumin [mass/volume ] in serum or plasma 3.8 g/dL 3.5-5. 0 Not Available [facility] [address], [place], [address], 05/04/2025 05:59:29 05/04/2005/04/2025 CBC W AUTO DIFFE RENTI AL PANEL - BLOOD leukocytes [#/volume] in blood by automated count 13.1 10*3/ uL 4.5-11 .0 high 0435, 05/04 Not Available [facility] [address], [place], [address], 05/04/2025 06:01:55 05/04/20 25 05/04/2025 CBC W AUTO DIFFE RENTI AL PANEL - BLOOD erythrocytes [#/volume] in blood by automated count 4.19 10*6/ uL 4.5-6. 00 low Not Available [facility] [address], [place], [address], 05/04/2025 06:01:55 05/04/20 25 05/04/2025 CBC W AUTO DIFFE RENTI AL PANEL - BLOOD hemoglobin [mass/volume ] in blood 9.5 g/dL 13.5-1 8.0 low Not Available [facility] [address], [place], [address], 05/04/2025 06:01:55 05/04/20 25 05/04/2025 CBC W AUTO DIFFE RENTI AL PANEL - BLOOD hematocrit [volume fraction] of blood by automated count 34.0 % 42.0-5 4.0 low Not Available [facility] [address], [place], [address], 05/04/2025 06:01:55 05/04/20 25 05/04/2025 CBC W AUTO DIFFE RENTI AL PANEL - BLOOD MCV [entitic mean volume] in red blood cells by automated count 81.1 fL 80-100 delta Not Available [facility] [address], [place], [address], 05/04/2025 06:01:55 05/04/20 25 05/04/2025 CBC W AUTO DIFFE RENTI AL PANEL - BLOOD MCH [entitic mass] by automated count 22.7 pg 27-32 low Not Available [facility] [address], [place], [address], 05/04/2025 06:01:55 05/04/20 25 05/04/2025 CBC W AUTO DIFFE RENTI AL PANEL - BLOOD MCHC [entitic mass/volume] in red blood cells by automated count 27.9 g/dL 31.0-3 7.0 low Not Available [facility] [address], [place], [address], 05/04/2025 06:01:55 05/04/20 25 05/04/2025 CBC W AUTO DIFFE RENTI AL PANEL - BLOOD erythrocyte [distwidth] in red blood cells by automated count 19.9 % 12-14. 5 high Not Available [facility] [address], [place], [address], 05/04/2025 06:01:55 05/04/20 25 05/04/2025 CBC W AUTO DIFFE RENTI AL PANEL - BLOOD platelets [#/volume] in blood 437 10*3/ uL 150-45 0 0435, 05/04 Not Available [facility] [address], [place], [address], 05/04/2025 06:01:55 05/04/20 25 05/04/2025 CBC W AUTO DIFFE RENTI AL PANEL - BLOOD platelet [entitic mean volume] in blood by automated count 10.4 fL 9.1-13 .2 Not Available [facility] [address], [place], [address], 05/04/2025 06:01:55 05/04/20 25 05/04/2025 CBC W AUTO DIFFE RENTI AL PANEL - BLOOD segmented neutrophils/ leukocytes in blood by automated count 88.8 % 40-70 high Not Available [facility] [address], [place], [address], 05/04/2025 06:01:55 05/04/20 25 05/04/2025 CBC W AUTO DIFFE RENTI AL PANEL - BLOOD lymphocytes/ leukocytes in blood by flow cytometry (fc) 6.5 % 20-44 low Not Available [facility] [address], [place], [address], 05/04/2025 06:01:55 05/04/2005/04/2025 CBC W AUTO DIFFE RENTI AL PANEL - BLOOD monocytes/le ukocytes in blood by automated count 3.7 % 2-9 Not Available [facility] [address], [place], [address], 05/04/2025 06:01:55 05/04/20 25 05/04/2025 CBC W AUTO DIFFE RENTI AL PANEL - BLOOD eosinophils/ leukocytes in blood by automated count 0.0 % 0-4 Not Available [facility] [address], [place], [address], 05/04/2025 06:01:55 05/04/2005/04/2025 CBC W AUTO DIFFE RENTI AL PANEL - BLOOD basophils/le ukocytes in blood by automated count 0.2 % 0-1 Not Available [facility] [address], [place], [address], 05/04/2025 06:01:55 05/04/2005/04/2025 CBC W AUTO DIFFE RENTI AL PANEL - BLOOD neutrophils [#/volume] in blood by automated count 11.66 10*3/ uL 1.8-7. 7 high Not Available [place] [facility] [address], [place], [address], 05/04/2025 06:01:55 05/04/2005/04/2025 CBC W AUTO DIFFE RENTI AL PANEL - BLOOD lymphocytes [#/volume] in blood by automated count 0.85 10*3/ uL 0.9-4. 8 low Not Available [facility] [address], [place], [address], 05/04/2025 06:01:55 05/04/2005/04/2025 CBC W AUTO DIFFE RENTI AL PANEL - BLOOD monocytes [#/volume] in blood by automated count 0.5 10*3/ uL 0-0.8 Not Available [facility] [address], [place], [address], 05/04/2025 06:01:55 05/04/2005/04/2025 CBC W AUTO DIFFE RENTI AL PANEL - BLOOD eosinophils [#/volume] in blood by automated count 0.00 10*3/ uL 0-0.7 Not Available [facility] [address], [place], [address], 05/04/2025 06:01:55 05/04/2005/04/2025 CBC W AUTO DIFFE RENTI AL PANEL - BLOOD basophils [#/volume] in blood by automated count 0.03 10*3/ uL 0-0.2 Not Available [facility] [address], [place], [address], 05/04/2025 06:01:55 05/04/2005/04/2025 CBC W AUTO DIFFE RENTI AL PANEL - BLOOD immature granulocytes [presence] in blood by automated count 0.8 % 0-0.7 high Not Available [facility] [address], [place], [address], 05/04/2025 06:01:55 05/04/20 25 05/04/2025 CBC W AUTO DIFFE RENTI AL PANEL - BLOOD immature granulocytes [#/volume] in blood 0.10 10*3/ uL 0.00-0 .06 high Not Available [place] [facility] [address], [place], [address], 05/04/2025 06:01:55 05/04/20 25 05/04/2025 CBC W AUTO DIFFE RENTI AL PANEL - BLOOD nucleated erythrocytes /leukocytes [ratio] in blood by automated count 0.2 % 0-0 high Not Available [facility] [address], [place], [address], 05/04/2025 06:01:55 05/04/2005/04/2025 POTAS SIUM [MOLE S/VOL UME] IN SERUM OR PLASM A potassium [moles/volum e] in serum or plasma 5.4 mmol/ L 3.5-5. 1 high Not Available [place] [facility] [address], [place], [address], 05/04/2025 14:48:16 05/05/20 25 05/05/2025 CBC W AUTO DIFFE RENTI AL PANEL - BLOOD leukocytes [#/volume] in blood by automated count 13.0 10*3/ uL 4.5-11 .0 high 0412, 05/05 Not Available [place] [facility] [address] [address], [place], [address], 05/05/2025 12:07:46 05/05/20 25 05/05/2025 CBC W AUTO DIFFE RENTI AL PANEL - BLOOD erythrocytes [#/volume] in blood by automated count 4.06 10*6/ uL 4.5-6. 00 low Not Available [facility] [address], [place], [address], 05/05/2025 12:07:46 05/05/20 25 05/05/2025 CBC W AUTO DIFFE RENTI AL PANEL - BLOOD hemoglobin [mass/volume ] in blood 9.4 g/dL 13.5-1 8.0 low Not Available [facility] [address], [place], [address], 05/05/2025 12:07:46 05/05/20 25 05/05/2025 CBC W AUTO DIFFE RENTI AL PANEL - BLOOD hematocrit [volume fraction] of blood by automated count 32.7 % 42.0-5 4.0 low Not Available [facility] [address], [place], [address], 05/05/2025 12:07:46 05/05/20 25 05/05/2025 CBC W AUTO DIFFE RENTI AL PANEL - BLOOD MCV [entitic mean volume] in red blood cells by automated count 80.5 fL 80-100 Not Available [facility] [address], [place], [address], 05/05/2025 12:07:46 05/05/20 25 05/05/2025 CBC W AUTO DIFFE RENTI AL PANEL - BLOOD MCH [entitic mass] by automated count 23.2 pg 27-32 low Not Available [facility] [address], [place], [address], 05/05/2025 12:07:46 05/05/20 25 05/05/2025 CBC W AUTO DIFFE RENTI AL PANEL - BLOOD MCHC [entitic mass/volume] in red blood cells by automated count 28.7 g/dL 31.0-3 7.0 low Not Available [facility] [address], [place], [address], 05/05/2025 12:07:46 05/05/20 25 05/05/2025 CBC W AUTO DIFFE RENTI AL PANEL - BLOOD erythrocyte [distwidth] in red blood cells by automated count 19.2 % 12-14. 5 high Not Available [facility] [address], [place], [address], 05/05/2025 12:07:46 05/05/20 25 05/05/2025 CBC W AUTO DIFFE RENTI AL PANEL - BLOOD platelets [#/volume] in blood 433 10*3/ uL 150-45 0 0412, 05/05 Not Available [place] [facility] [address], [place], [address], 05/05/2025 12:07:46 05/05/20 25 05/05/2025 CBC W AUTO DIFFE RENTI AL PANEL - BLOOD platelet [entitic mean volume] in blood by automated count 11.5 fL 9.1-13 .2 Not Available [place] [facility] [address], [place], [address], 05/05/2025 12:07:46 05/05/20 25 05/05/2025 CBC W AUTO DIFFE RENTI AL PANEL - BLOOD segmented neutrophils/ leukocytes in blood by automated count 87.9 % 40-70 high Not Available [facility] [address], [place], [address], 05/05/2025 12:07:46 05/05/20 25 05/05/2025 CBC W AUTO DIFFE RENTI AL PANEL - BLOOD lymphocytes/ leukocytes in blood by flow cytometry (fc) 4.7 % 20-44 low Not Available [facility] [address], [place], [address], 05/05/2025 12:07:46 05/05/20 25 05/05/2025 CBC W AUTO DIFFE RENTI AL PANEL - BLOOD monocytes/le ukocytes in blood by automated count 6.4 % 2-9 Not Available [facility] [address], [place], [address], 05/05/2025 12:07:46 05/05/20 25 05/05/2025 CBC W AUTO DIFFE RENTI AL PANEL - BLOOD eosinophils/ leukocytes in blood by automated count 0.0 % 0-4 Not Available [facility] [address], [place], [address], 05/05/2025 12:07:46 05/05/20 25 05/05/2025 CBC W AUTO DIFFE RENTI AL PANEL - BLOOD basophils/le ukocytes in blood by automated count 0.1 % 0-1 Not Available [facility] [address], [place], [address], 05/05/2025 12:07:46 05/05/20 25 05/05/2025 CBC W AUTO DIFFE RENTI AL PANEL - BLOOD neutrophils [#/volume] in blood by automated count 11.40 10*3/ uL 1.8-7. 7 high Not Available [facility] [address], [place], [address], 05/05/2025 12:07:46 05/05/20 25 05/05/2025 CBC W AUTO DIFFE RENTI AL PANEL - BLOOD lymphocytes [#/volume] in blood by automated count 0.61 10*3/ uL 0.9-4. 8 low Not Available [facility] [address], [place], [address], 05/05/2025 12:07:46 05/05/20 25 05/05/2025 CBC W AUTO DIFFE RENTI AL PANEL - BLOOD monocytes [#/volume] in blood by automated count 0.8 10*3/ uL 0-0.8 Not Available [facility] [address], [place], [address], 05/05/2025 12:07:46 05/05/20 25 05/05/2025 CBC W AUTO DIFFE RENTI AL PANEL - BLOOD eosinophils [#/volume] in blood by automated count 0.00 10*3/ uL 0-0.7 Not Available [facility] [address], [place], [address], 05/05/2025 12:07:46 05/05/20 25 05/05/2025 CBC W AUTO DIFFE RENTI AL PANEL - BLOOD basophils [#/volume] in blood by automated count 0.01 10*3/ uL 0-0.2 Not Available [place] [facility] [address], [place], [address], 05/05/2025 12:07:46 05/05/20 25 05/05/2025 CBC W AUTO DIFFE RENTI AL PANEL - BLOOD immature granulocytes [presence] in blood by automated count 0.9 % 0-0.7 high Not Available [facility] [address], [place], [address], 05/05/2025 12:07:46 05/05/20 25 05/05/2025 CBC W AUTO DIFFE RENTI AL PANEL - BLOOD immature granulocytes [#/volume] in blood 0.12 10*3/ uL 0.00-0 .06 high Not Available [place] [facility] [address], [place], [address], 05/05/2025 12:07:46 05/05/20 25 05/05/2025 CBC W AUTO DIFFE RENTI AL PANEL - BLOOD nucleated erythrocytes /leukocytes [ratio] in blood by automated count 0.2 % 0-0 high Not Available [facility] [address], [place], [address], 05/05/2025 12:07:46 05/05/20 25 05/05/2025 CHEMI STRY STUDI ES glucose [mass/volume ] in serum or plasma 105 mg/dL 74-106 Not Available [facility] [address], [place], [address], 05/05/2025 12:16:57 05/05/20 25 05/05/2025 CHEMI STRY STUDI ES urea nitrogen [mass/volume ] in serum or plasma 30 mg/dL 9-20 high Not Available [facility] [address], [place], [address], 05/05/2025 12:16:57 05/05/20 25 05/05/2025 CHEMI STRY STUDI ES creatinine [mass/volume ] in serum or plasma 1.0 mg/dL 0.8-1. 5 Not Available [facility] [address], [place], [address], 05/05/2025 12:16:57 05/05/20 25 05/05/2025 CHEMI STRY STUDI ES sodium [moles/volum e] in serum or plasma 138 mmol/ L 137-14 5 Not Available [facility] [address], [place], [address], 05/05/2025 12:16:57 05/05/20 25 05/05/2025 CHEMI STRY STUDI ES potassium [moles/volum e] in serum or plasma 5.3 mmol/ L 3.5-5. 1 high Not Available [facility] [address], [place], [address], 05/05/2025 12:16:57 05/05/20 25 05/05/2025 CHEMI STRY STUDI ES chloride [moles/volum e] in serum or plasma 99 mmol/ L 98-107 Not Available [facility] [address], [place], [address], 05/05/2025 12:16:57 05/05/20 25 05/05/2025 CHEMI STRY STUDI ES carbon dioxide, total [moles/volum e] in serum or plasma 34 mmol/ L 22-30 high Not Available [facility] [address], [place], [address], 05/05/2025 12:16:57 05/05/20 25 05/05/2025 CHEMI STRY STUDI ES calcium [mass/volume ] in blood 8.8 mg/dL 8.4-10 .2 Not Available [facility] [address], [place], [address], 05/05/2025 12:16:57 05/05/20 25 05/05/2025 CHEMI STRY STUDI ES anion gap in serum or plasma by calculation 5 mEq/L 4-12 Not Available [facility] [address], [place], [address], 05/05/2025 12:16:57 05/05/20 25 05/05/2025 CHEMI STRY STUDI ES urea nitrogen/cre atinine [mass ratio] in blood 30.0 % 12.0-2 0.0 high Not Available [facility] [address], [place], [address], 05/05/2025 12:16:57 05/05/20 25 05/05/2025 CHEMI STRY STUDI ES osmolality of serum or plasma by calculated by sum of electrolytes 282 mOsm/ kg 261-28 0 high Not Available [facility] [address], [place], [address], 05/05/2025 12:16:57 05/05/20 25 05/05/2025 CHEMI STRY [...] <15 Kidne y Failu re Not Available [facility] [address], [place], [address], 05/05/2025 12:16:57 05/05/20 25 05/05/2025 CHEMI STRY [...] used for stagi ng CKD. Not Available [facility] [address], [place], [address], 05/05/2025 12:16:57 05/05/20 25 05/05/2025 CHEMI STRY STUDI ES phosphate [mass/volume ] in serum or plasma 3.2 mg/dL 2.5-4. 5 Not Available [facility] [address], [place], [address], 05/05/2025 12:16:57 05/05/20 25 05/05/2025 CHEMI STRY STUDI ES magnesium [mass/volume ] in serum or plasma 2.6 mg/dL 1.6-2. 3 high Not Available [facility] [address], [place], [address], 05/05/2025 12:16:57 05/05/20 25 05/05/2025 CHEMI STRY STUDI ES albumin [mass/volume ] in serum or plasma 3.9 g/dL 3.5-5. 0 Not Available [facility] [address], [place], [address], 05/05/2025 12:16:57 05/05/20 25 05/05/2025 POTAS SIUM [MOLE S/VOL UME] IN SERUM OR PLASM A potassium [moles/volum e] in serum or plasma 5.0 mmol/ L 3.5-5. 1 Not Available [facility] [address], [place], [address], 05/05/2025 14:13:51 05/05/2005/05/2025 POTAS SIUM [MOLE S/VOL UME] IN SERUM OR PLASM A potassium [moles/volum e] in serum or plasma 5.6 mmol/ L 3.5-5. 1 high Not Available [facility] [address], [place], [address], 05/05/2025 15:13:03 05/06/2005/06/2025 CBC W AUTO DIFFE RENTI AL PANEL - BLOOD leukocytes [#/volume] in blood by automated count 11.9 10*3/ uL 4.5-11 .0 high 0857, 05/06 Not Available [facility] [address], [place], [address], 05/06/2025 09:57:33 05/06/2005/06/2025 CBC W AUTO DIFFE RENTI AL PANEL - BLOOD erythrocytes [#/volume] in blood by automated count 4.42 10*6/ uL 4.5-6. 00 low Not Available [facility] [address], [place], [address], 05/06/2025 09:57:33 05/06/2005/06/2025 CBC W AUTO DIFFE RENTI AL PANEL - BLOOD hemoglobin [mass/volume ] in blood 10.4 g/dL 13.5-1 8.0 low Not Available [facility] [address], [place], [address], 05/06/2025 09:57:33 05/06/20 25 05/06/2025 CBC W AUTO DIFFE RENTI AL PANEL - BLOOD hematocrit [volume fraction] of blood by automated count 36.1 % 42.0-5 4.0 low Not Available [facility] [address], [place], [address], 05/06/2025 09:57:33 05/06/2005/06/2025 CBC W AUTO DIFFE RENTI AL PANEL - BLOOD MCV [entitic mean volume] in red blood cells by automated count 81.7 fL 80-100 Not Available [facility] [address], [place], [address], 05/06/2025 09:57:33 05/06/20 25 05/06/2025 CBC W AUTO DIFFE RENTI AL PANEL - BLOOD MCH [entitic mass] by automated count 23.5 pg 27-32 low Not Available [facility] [address], [place], [address], 05/06/2025 09:57:33 05/06/2005/06/2025 CBC W AUTO DIFFE RENTI AL PANEL - BLOOD MCHC [entitic mass/volume] in red blood cells by automated count 28.8 g/dL 31.0-3 7.0 low Not Available [facility] [address], [place], [address], 05/06/2025 09:57:33 05/06/20 25 05/06/2025 CBC W AUTO DIFFE RENTI AL PANEL - BLOOD erythrocyte [distwidth] in red blood cells by automated count 19.2 % 12-14. 5 high Not Available [facility] [address], [place], [address], 05/06/2025 09:57:33 05/06/20 25 05/06/2025 CBC W AUTO DIFFE RENTI AL PANEL - BLOOD platelets [#/volume] in blood 519 10*3/ uL 150-45 0 high 0857, 05/06 Not Available [facility] [address], [place], [address], 05/06/2025 09:57:33 05/06/20 25 05/06/2025 CBC W AUTO DIFFE RENTI AL PANEL - BLOOD platelet [entitic mean volume] in blood by automated count 9.6 fL 9.1-13 .2 Not Available [place] [facility] [address], [place], [address], 05/06/2025 09:57:33 05/06/20 25 05/06/2025 CBC W AUTO DIFFE RENTI AL PANEL - BLOOD segmented neutrophils/ leukocytes in blood by automated count 67.3 % 40-70 Not Available [facility] [address], [place], [address], 05/06/2025 09:57:33 05/06/20 25 05/06/2025 CBC W AUTO DIFFE RENTI AL PANEL - BLOOD lymphocytes/ leukocytes in blood by flow cytometry (fc) 18.2 % 20-44 low Not Available [facility] [address], [place], [address], 05/06/2025 09:57:33 05/06/20 25 05/06/2025 CBC W AUTO DIFFE RENTI AL PANEL - BLOOD monocytes/le ukocytes in blood by automated count 12.5 % 2-9 high Not Available [facility] [address], [place], [address], 05/06/2025 09:57:33 05/06/20 25 05/06/2025 CBC W AUTO DIFFE RENTI AL PANEL - BLOOD eosinophils/ leukocytes in blood by automated count 0.9 % 0-4 Not Available [facility] [address], [place], [address], 05/06/2025 09:57:33 05/06/20 25 05/06/2025 CBC W AUTO DIFFE RENTI AL PANEL - BLOOD basophils/le ukocytes in blood by automated count 0.3 % 0-1 Not Available [facility] [address], [place], [address], 05/06/2025 09:57:33 05/06/20 25 05/06/2025 CBC W AUTO DIFFE RENTI AL PANEL - BLOOD neutrophils [#/volume] in blood by automated count 8.01 10*3/ uL 1.8-7. 7 high Not Available [facility] [address], [place], [address], 05/06/2025 09:57:33 05/06/20 25 05/06/2025 CBC W AUTO DIFFE RENTI AL PANEL - BLOOD lymphocytes [#/volume] in blood by automated count 2.17 10*3/ uL 0.9-4. 8 Not Available [facility] [address], [place], [address], 05/06/2025 09:57:33 05/06/2005/06/2025 CBC W AUTO DIFFE RENTI AL PANEL - BLOOD monocytes [#/volume] in blood by automated count 1.5 10*3/ uL 0-0.8 high Not Available [facility] [address], [place], [address], 05/06/2025 09:57:33 05/06/20 25 05/06/2025 CBC W AUTO DIFFE RENTI AL PANEL - BLOOD eosinophils [#/volume] in blood by automated count 0.11 10*3/ uL 0-0.7 Not Available [facility] [address], [place], [address], 05/06/2025 09:57:33 05/06/2005/06/2025 CBC W AUTO DIFFE RENTI AL PANEL - BLOOD basophils [#/volume] in blood by automated count 0.03 10*3/ uL 0-0.2 Not Available [facility] [address], [place], [address], 05/06/2025 09:57:33 05/06/20 25 05/06/2025 CBC W AUTO DIFFE RENTI AL PANEL - BLOOD immature granulocytes [presence] in blood by automated count 0.8 % 0-0.7 high Not Available [facility] [address], [place], [address], 05/06/2025 09:57:33 05/06/2005/06/2025 CBC W AUTO DIFFE RENTI AL PANEL - BLOOD immature granulocytes [#/volume] in blood 0.09 10*3/ uL 0.00-0 .06 high Not Available [place] [facility] [address], [place], [address], 05/06/2025 09:57:33 05/06/20 25 05/06/2025 CBC W AUTO DIFFE RENTI AL PANEL - BLOOD nucleated erythrocytes /leukocytes [ratio] in blood by automated count 0.0 % 0-0 Not Available [facility] [address], [place], [address], 05/06/2025 09:57:33 05/06/2005/06/2025 CHEMI STRY STUDI ES glucose [mass/volume ] in serum or plasma 137 mg/dL 74-106 high Not Available [facility] [address], [place], [address], 05/06/2025 10:15:21 05/06/20 25 05/06/2025 CHEMI STRY STUDI ES urea nitrogen [mass/volume ] in serum or plasma 28 mg/dL 9-20 high Not Available [facility] [address], [place], [address], 05/06/2025 10:15:21 05/06/20 25 05/06/2025 CHEMI STRY STUDI ES creatinine [mass/volume ] in serum or plasma 1.0 mg/dL 0.8-1. 5 Not Available [place] [facility] [address], [place], [address], 05/06/2025 10:15:21 05/06/20 25 05/06/2025 CHEMI STRY STUDI ES sodium [moles/volum e] in serum or plasma 137 mmol/ L 137-14 5 Not Available [facility] [address], [place], [address], 05/06/2025 10:15:21 05/06/20 25 05/06/2025 CHEMI STRY STUDI ES potassium [moles/volum e] in serum or plasma 4.5 mmol/ L 3.5-5. 1 Not Available [facility] [address], [place], [address], 05/06/2025 10:15:21 05/06/20 25 05/06/2025 CHEMI STRY STUDI ES chloride [moles/volum e] in serum or plasma 97 mmol/ L 98-107 low Not Available [facility] [address], [place], [address], 05/06/2025 10:15:21 05/06/20 25 05/06/2025 CHEMI STRY STUDI ES carbon dioxide, total [moles/volum e] in serum or plasma 33 mmol/ L 22-30 high Not Available [facility] [address], [place], [address], 05/06/2025 10:15:21 05/06/20 25 05/06/2025 CHEMI STRY STUDI ES calcium [mass/volume ] in blood 8.5 mg/dL 8.4-10 .2 Not Available [facility] [address], [place], [address], 05/06/2025 10:15:21 05/06/20 25 05/06/2025 CHEMI STRY STUDI ES anion gap in serum or plasma by calculation 7 mEq/L 4-12 Not Available [facility] [address], [place], [address], 05/06/2025 10:15:21 05/06/20 25 05/06/2025 CHEMI STRY STUDI ES urea nitrogen/cre atinine [mass ratio] in blood 28.0 % 12.0-2 0.0 high Not Available [facility] [address], [place], [address], 05/06/2025 10:15:21 05/06/20 25 05/06/2025 CHEMI STRY STUDI ES osmolality of serum or plasma by calculated by sum of electrolytes 282 mOsm/ kg 261-28 0 high Not Available [facility] [address], [place], [address], 05/06/2025 10:15:21 05/06/2005/06/2025 CHEMI STRY STUDI ES [...] <15 Kidne y Failu re Not Available [facility] [address], [place], [address], 05/06/2025 10:15:21 05/06/20 25 05/06/2025 CHEMI STRY STUDI ES creatinine renal clearance/1. [...] used for stagi ng CKD. Not Available [facility] [address], [place], [address], 05/06/2025 10:15:21 05/06/2005/06/2025 CHEMI STRY STUDI ES phosphate [mass/volume ] in serum or plasma 2.9 mg/dL 2.5-4. 5 Not Available [facility] [address], [place], [address], 05/06/2025 10:15:21 05/06/20 25 05/06/2025 CHEMI STRY STUDI ES magnesium [mass/volume ] in serum or plasma 2.1 mg/dL 1.6-2. 3 Not Available [facility] [address], [place], [address], 05/06/2025 10:15:21 05/06/20 25 05/06/2025 CHEMI STRY STUDI ES albumin [mass/volume ] in serum or plasma 4.0 g/dL 3.5-5. 0 Not Available [facility] [address], [place], [address], 05/06/2025 10:15:21 05/07/20 25 05/07/2025 CBC PANEL - BLOOD BY AUTOM ATED COUNT leukocytes [#/volume] in blood by automated count 11.6 10*3/ uL 4.5-11 .0 high 0726, 05/07 Not Available [facility] [address], [place], [address], 05/07/2025 08:27:32 05/07/20 25 05/07/2025 CBC PANEL - BLOOD BY AUTOM ATED COUNT erythrocytes [#/volume] in blood by automated count 4.02 10*6/ uL 4.5-6. 00 low Not Available [facility] [address], [place], [address], 05/07/2025 08:27:32 05/07/20 25 05/07/2025 CBC PANEL - BLOOD BY AUTOM ATED COUNT hemoglobin [mass/volume ] in blood 9.2 g/dL 13.5-1 8.0 low Not Available [place] [facility] [address], [place], [address], 05/07/2025 08:27:32 05/07/20 25 05/07/2025 CBC PANEL - BLOOD BY AUTOM ATED COUNT hematocrit [volume fraction] of blood by automated count 32.2 % 42.0-5 4.0 low Not Available [facility] [address], [place], [address], 05/07/2025 08:27:32 05/07/20 25 05/07/2025 CBC PANEL - BLOOD BY AUTOM ATED COUNT MCV [entitic mean volume] in red blood cells by automated count 80.1 fL 80-100 Not Available [facility] [address], [place], [address], 05/07/2025 08:27:32 05/07/20 25 05/07/2025 CBC PANEL - BLOOD BY AUTOM ATED COUNT MCH [entitic mass] by automated count 22.9 pg 27-32 low Not Available [facility] [address], [place], [address], 05/07/2025 08:27:32 05/07/20 25 05/07/2025 CBC PANEL - BLOOD BY AUTOM ATED COUNT MCHC [entitic mass/volume] in red blood cells by automated count 28.6 g/dL 31.0-3 7.0 low Not Available [facility] [address], [place], [address], 05/07/2025 08:27:32 05/07/20 25 05/07/2025 CBC PANEL - BLOOD BY AUTOM ATED COUNT erythrocyte [distwidth] in red blood cells by automated count 19.0 % 12-14. 5 high Not Available [facility] [address], [place], [address], 05/07/2025 08:27:32 05/07/20 25 05/07/2025 CBC PANEL - BLOOD BY AUTOM ATED COUNT platelets [#/volume] in blood 442 10*3/ uL 150-45 0 0726, 05/07 Not Available [facility] [address], [place], [address], 05/07/2025 08:27:32 05/07/20 25 05/07/2025 CBC PANEL - BLOOD BY AUTOM ATED COUNT platelet [entitic mean volume] in blood by automated count 10.4 fL 9.1-13 .2 Not Available [facility] [address], [place], [address], 05/07/2025 08:27:32 05/07/20 25 05/07/2025 CHEMI STRY STUDI ES glucose [mass/volume ] in serum or plasma 105 mg/dL 74-106 Not Available [facility] [address], [place], [address], 05/07/2025 08:56:24 05/07/20 25 05/07/2025 CHEMI STRY STUDI ES urea nitrogen [mass/volume ] in serum or plasma 27 mg/dL 9-20 high Not Available [facility] [address], [place], [address], 05/07/2025 08:56:24 05/07/20 25 05/07/2025 CHEMI STRY STUDI ES creatinine [mass/volume ] in serum or plasma 0.9 mg/dL 0.8-1. 5 Not Available [facility] [address], [place], [address], 05/07/2025 08:56:24 05/07/20 25 05/07/2025 CHEMI STRY STUDI ES sodium [moles/volum e] in serum or plasma 137 mmol/ L 137-14 5 Not Available [facility] [address], [place], [address], 05/07/2025 08:56:24 05/07/20 25 05/07/2025 CHEMI STRY STUDI ES potassium [moles/volum e] in serum or plasma 4.2 mmol/ L 3.5-5. 1 Not Available [place] [facility] [address], [place], [address], 05/07/2025 08:56:24 05/07/20 25 05/07/2025 CHEMI STRY STUDI ES chloride [moles/volum e] in serum or plasma 97 mmol/ L 98-107 low Not Available [facility] [address], [place], [address], 05/07/2025 08:56:24 05/07/20 25 05/07/2025 CHEMI STRY STUDI ES carbon dioxide, total [moles/volum e] in serum or plasma 35 mmol/ L 22-30 high Not Available [facility] [address], [place], [address], 05/07/2025 08:56:24 05/07/20 25 05/07/2025 CHEMI STRY STUDI ES calcium [mass/volume ] in blood 8.2 mg/dL 8.4-10 .2 low Not Available [facility] [address], [place], [address], 05/07/2025 08:56:24 05/07/20 25 05/07/2025 CHEMI STRY STUDI ES anion gap in serum or plasma by calculation 5 mEq/L 4-12 Not Available [facility] [address], [place], [address], 05/07/2025 08:56:24 05/07/20 25 05/07/2025 CHEMI STRY STUDI ES urea nitrogen/cre atinine [mass ratio] in blood 30.0 % 12.0-2 0.0 high Not Available [facility] [address], [place], [address], 05/07/2025 08:56:24 05/07/2005/07/2025 CHEMI STRY STUDI ES osmolality of serum or plasma by calculated by sum of electrolytes 279 mOsm/ kg 261-28 0 Not Available [facility] [address], [place], [address], 05/07/2025 08:56:24 05/07/2005/07/2025 CHEMI STRY STUDI ES glomerular filtration rate [volume rate/area] in serum, plasma or blood by creatinine-b ased formula (CKD-epi)/1. 73 sq M 92 mL 90-120 >=90 Imani l 60-89 Mildl y Decre ased 45-59 Mildl y to Moder ately Decre ased 30-44 Moder ately to Sever jelly Decre ased 15-29 Sever jelly Decre ased <15 Kidne y Failu re Not Available [facility] [address], [place], [address], 05/07/2025 08:56:24 05/07/2005/07/2025 CHEMI STRY STUDI ES creatinine renal clearance/1. [...] used for stagi ng CKD. Not Available [facility] [address], [place], [address], 05/07/2025 08:56:24 05/07/20 25 05/07/2025 CHEMI STRY STUDI ES phosphate [mass/volume ] in serum or plasma 3.2 mg/dL 2.5-4. 5 Not Available [facility] [address], [place], [address], 05/07/2025 08:56:24 05/07/2005/07/2025 CHEMI STRY STUDI ES magnesium [mass/volume ] in serum or plasma 2.2 mg/dL 1.6-2. 3 Not Available [facility] [address], [place], [address], 05/07/2025 08:56:24 05/07/20 25 05/07/2025 CHEMI STRY STUDI ES albumin [mass/volume ] in serum or plasma 3.4 g/dL 3.5-5. 0 low Not Available [facility] [address], [place], [address], 05/07/2025 08:56:24 05/08/20 25 05/08/2025 CBC W AUTO DIFFE RENTI AL PANEL - BLOOD leukocytes [#/volume] in blood by automated count 11.4 10*3/ uL 4.5-11 .0 high 0728, 05/08 Not Available [facility] [address], [place], [address], 05/08/2025 08:29:02 05/08/20 25 05/08/2025 CBC W AUTO DIFFE RENTI AL PANEL - BLOOD erythrocytes [#/volume] in blood by automated count 3.98 10*6/ uL 4.5-6. 00 low Not Available [facility] [address], [place], [address], 05/08/2025 08:29:02 05/08/20 25 05/08/2025 CBC W AUTO DIFFE RENTI AL PANEL - BLOOD hemoglobin [mass/volume ] in blood 9.2 g/dL 13.5-1 8.0 low Not Available [facility] [address], [place], [address], 05/08/2025 08:29:02 05/08/20 25 05/08/2025 CBC W AUTO DIFFE RENTI AL PANEL - BLOOD hematocrit [volume fraction] of blood by automated count 31.7 % 42.0-5 4.0 low Not Available [place] [facility] [address], [place], [address], 05/08/2025 08:29:02 05/08/20 25 05/08/2025 CBC W AUTO DIFFE RENTI AL PANEL - BLOOD MCV [entitic mean volume] in red blood cells by automated count 79.6 fL 80-100 low Not Available [facility] [address], [place], [address], 05/08/2025 08:29:02 05/08/20 25 05/08/2025 CBC W AUTO DIFFE RENTI AL PANEL - BLOOD MCH [entitic mass] by automated count 23.1 pg 27-32 low Not Available [facility] [address], [place], [address], 05/08/2025 08:29:02 05/08/20 25 05/08/2025 CBC W AUTO DIFFE RENTI AL PANEL - BLOOD MCHC [entitic mass/volume] in red blood cells by automated count 29.0 g/dL 31.0-3 7.0 low Not Available [place] [facility] [address], [place], [address], 05/08/2025 08:29:02 05/08/20 25 05/08/2025 CBC W AUTO DIFFE RENTI AL PANEL - BLOOD erythrocyte [distwidth] in red blood cells by automated count 19.1 % 12-14. 5 high Not Available [place] [facility] [address], [place], [address], 05/08/2025 08:29:02 05/08/20 25 05/08/2025 CBC W AUTO DIFFE RENTI AL PANEL - BLOOD platelets [#/volume] in blood 407 10*3/ uL 150-45 0 0728, 05/08 Not Available [place] [facility] [address], [place], [address], 05/08/2025 08:29:02 05/08/20 25 05/08/2025 CBC W AUTO DIFFE RENTI AL PANEL - BLOOD platelet [entitic mean volume] in blood by automated count 9.5 fL 9.1-13 .2 Not Available [facility] [address], [place], [address], 05/08/2025 08:29:02 05/08/20 25 05/08/2025 CBC W AUTO DIFFE RENTI AL PANEL - BLOOD segmented neutrophils/ leukocytes in blood by automated count 63.8 % 40-70 Not Available [facility] [address], [place], [address], 05/08/2025 08:29:02 05/08/20 25 05/08/2025 CBC W AUTO DIFFE RENTI AL PANEL - BLOOD lymphocytes/ leukocytes in blood by flow cytometry (fc) 20.3 % 20-44 Not Available [facility] [address], [place], [address], 05/08/2025 08:29:02 05/08/20 25 05/08/2025 CBC W AUTO DIFFE RENTI AL PANEL - BLOOD monocytes/le ukocytes in blood by automated count 12.5 % 2-9 high Not Available [facility] [address], [place], [address], 05/08/2025 08:29:02 05/08/20 25 05/08/2025 CBC W AUTO DIFFE RENTI AL PANEL - BLOOD eosinophils/ leukocytes in blood by automated count 2.2 % 0-4 Not Available [facility] [address], [place], [address], 05/08/2025 08:29:02 05/08/20 25 05/08/2025 CBC W AUTO DIFFE RENTI AL PANEL - BLOOD basophils/le ukocytes in blood by automated count 0.3 % 0-1 Not Available [facility] [address], [place], [address], 05/08/2025 08:29:02 05/08/20 25 05/08/2025 CBC W AUTO DIFFE RENTI AL PANEL - BLOOD neutrophils [#/volume] in blood by automated count 7.31 10*3/ uL 1.8-7. 7 Not Available [facility] [address], [place], [address], 05/08/2025 08:29:02 05/08/20 25 05/08/2025 CBC W AUTO DIFFE RENTI AL PANEL - BLOOD lymphocytes [#/volume] in blood by automated count 2.32 10*3/ uL 0.9-4. 8 Not Available [facility] [address], [place], [address], 05/08/2025 08:29:02 05/08/20 25 05/08/2025 CBC W AUTO DIFFE RENTI AL PANEL - BLOOD monocytes [#/volume] in blood by automated count 1.4 10*3/ uL 0-0.8 high Not Available [facility] [address], [place], [address], 05/08/2025 08:29:02 05/08/20 25 05/08/2025 CBC W AUTO DIFFE RENTI AL PANEL - BLOOD eosinophils [#/volume] in blood by automated count 0.25 10*3/ uL 0-0.7 Not Available [facility] [address], [place], [address], 05/08/2025 08:29:02 05/08/20 25 05/08/2025 CBC W AUTO DIFFE RENTI AL PANEL - BLOOD basophils [#/volume] in blood by automated count 0.03 10*3/ uL 0-0.2 Not Available [facility] [address], [place], [address], 05/08/2025 08:29:02 05/08/20 25 05/08/2025 CBC W AUTO DIFFE RENTI AL PANEL - BLOOD immature granulocytes [presence] in blood by automated count 0.9 % 0-0.7 high Not Available [facility] [address], [place], [address], 05/08/2025 08:29:02 05/08/20 25 05/08/2025 CBC W AUTO DIFFE RENTI AL PANEL - BLOOD immature granulocytes [#/volume] in blood 0.10 10*3/ uL 0.00-0 .06 high Not Available [facility] [address], [place], [address], 05/08/2025 08:29:02 05/08/20 25 05/08/2025 CBC W AUTO DIFFE RENTI AL PANEL - BLOOD nucleated erythrocytes /leukocytes [ratio] in blood by automated count 0.0 % 0-0 Not Available [facility] [address], [place], [address], 05/08/2025 08:29:02 05/08/20 25 05/08/2025 CHEMI STRY STUDI ES glucose [mass/volume ] in serum or plasma 89 mg/dL 74-106 Not Available [facility] [address], [place], [address], 05/08/2025 08:54:06 05/08/20 25 05/08/2025 CHEMI STRY STUDI ES urea nitrogen [mass/volume ] in serum or plasma 32 mg/dL 9-20 high Not Available [facility] [address], [place], [address], 05/08/2025 08:54:06 05/08/20 25 05/08/2025 CHEMI STRY STUDI ES creatinine [mass/volume ] in serum or plasma 0.9 mg/dL 0.8-1. 5 Not Available [place] [facility] [address], [place], [address], 05/08/2025 08:54:06 05/08/20 25 05/08/2025 CHEMI STRY STUDI ES sodium [moles/volum e] in serum or plasma 135 mmol/ L 137-14 5 low Not Available [place] [facility] [address], [place], [address], 05/08/2025 08:54:06 05/08/20 25 05/08/2025 CHEMI STRY STUDI ES potassium [moles/volum e] in serum or plasma 4.3 mmol/ L 3.5-5. 1 Not Available [facility] [address], [place], [address], 05/08/2025 08:54:06 05/08/20 25 05/08/2025 CHEMI STRY STUDI ES chloride [moles/volum e] in serum or plasma 97 mmol/ L 98-107 low Not Available [facility] [address], [place], [address], 05/08/2025 08:54:06 05/08/20 25 05/08/2025 CHEMI STRY STUDI ES carbon dioxide, total [moles/volum e] in serum or plasma 35 mmol/ L 22-30 high Not Available [facility] [address], [place], [address], 05/08/2025 08:54:06 05/08/20 25 05/08/2025 CHEMI STRY STUDI ES calcium [mass/volume ] in blood 7.9 mg/dL 8.4-10 .2 low Not Available [facility] [address], [place], [address], 05/08/2025 08:54:06 05/08/20 25 05/08/2025 CHEMI STRY STUDI ES anion gap in serum or plasma by calculation 3 mEq/L 4-12 low Not Available [facility] [address], [place], [address], 05/08/2025 08:54:06 05/08/20 25 05/08/2025 CHEMI STRY STUDI ES urea nitrogen/cre atinine [mass ratio] in blood 35.5 % 12.0-2 0.0 high Not Available [facility] [address], [place], [address], 05/08/2025 08:54:06 05/08/20 25 05/08/2025 CHEMI STRY STUDI ES osmolality of serum or plasma by calculated by sum of electrolytes 277 mOsm/ kg 261-28 0 Not Available [facility] [address], [place], [address], 05/08/2025 08:54:06 05/08/20 25 05/08/2025 CHEMI STRY [...] <15 Kidne y Failu re Not Available [facility] [address], [place], [address], 05/08/2025 08:54:06 05/08/20 25 05/08/2025 CHEMI STRY [...] used for stagi ng CKD. Not Available [facility] [address], [place], [address], 05/08/2025 08:54:06 05/08/20 25 05/08/2025 CHEMI STRY STUDI ES phosphate [mass/volume ] in serum or plasma 3.3 mg/dL 2.5-4. 5 Not Available [facility] [address], [place], [address], 05/08/2025 08:54:06 05/08/20 25 05/08/2025 CHEMI STRY STUDI ES magnesium [mass/volume ] in serum or plasma 2.2 mg/dL 1.6-2. 3 Not Available [facility] [address], [place], [address], 05/08/2025 08:54:06 05/08/20 25 05/08/2025 CHEMI STRY STUDI ES albumin [mass/volume ] in serum or plasma 3.4 g/dL 3.5-5. 0 low Not Available [facility] [address], [place], [address], 05/08/2025 08:54:06 05/08/20 25 05/08/2025 URINA LYSIS COMPL ETE PANEL - URINE color of urine by auto YELLOW Not Available [facility] [address], [place], [address], 05/08/2025 12:38:37 05/08/20 25 05/08/2025 URINA LYSIS COMPL ETE PANEL - URINE clarity in urine by refractometr y automated Clear Not Available [facility] [address], [place], [address], 05/08/2025 12:38:37 05/08/20 25 05/08/2025 URINA LYSIS COMPL ETE PANEL - URINE glucose [presence] in urine Negati ve negati ve Not Available [facility] [address], [place], [address], 05/08/2025 12:38:37 05/08/20 25 05/08/2025 URINA LYSIS COMPL ETE PANEL - URINE bilirubin.to jonas [presence] in urine Negati ve negati ve Not Available [facility] [address], [place], [address], 05/08/2025 12:38:37 05/08/20 25 05/08/2025 URINA LYSIS COMPL ETE PANEL - URINE ketones [presence] in urine by automated test strip Negati ve negati ve Not Available [facility] [address], [place], [address], 05/08/2025 12:38:37 05/08/20 25 05/08/2025 URINA LYSIS COMPL ETE PANEL - URINE specific gravity of urine by automated test strip 1.010 1.001- 1.030 Not Available [facility] [address], [place], [address], 05/08/2025 12:38:37 05/08/20 25 05/08/2025 URINA LYSIS COMPL ETE PANEL - URINE erythrocytes [presence] in urine by automated Negati ve negati ve Not Available [facility] [address], [place], [address], 05/08/2025 12:38:37 05/08/20 25 05/08/2025 URINA LYSIS COMPL ETE PANEL - URINE pH of urine by automated test strip 6.5 5.0-8. 5 Not Available [facility] [address], [place], [address], 05/08/2025 12:38:37 05/08/20 25 05/08/2025 URINA LYSIS COMPL ETE PANEL - URINE protein [presence] in urine Negati ve negati ve Not Available [facility] [address], [place], [address], 05/08/2025 12:38:37 05/08/20 25 05/08/2025 URINA LYSIS COMPL ETE PANEL - URINE urobilinogen [mass/volume ] in urine by automated test strip 0.2 0.2-2 mg/dL Not Available [facility] [address], [place], [address], 05/08/2025 12:38:37 05/08/20 25 05/08/2025 URINA LYSIS COMPL ETE PANEL - URINE nitrite [presence] in urine Negati ve negati ve Not Available [facility] [address], [place], [address], 05/08/2025 12:38:37 05/08/20 25 05/08/2025 URINA LYSIS COMPL ETE PANEL - URINE leukocyte esterase [presence] in urine by automated test strip Negati ve negati ve Not Available [facility] [address], [place], [address], 05/08/2025 12:38:37 05/08/20 25 05/08/2025 URINA LYSIS COMPL ETE PANEL - URINE leukocytes [presence] in urine =0-2 [hpf] 0-3 Not Available [facility] [address], [place], [address], 05/08/2025 12:38:37 05/08/20 25 05/08/2025 URINA LYSIS COMPL ETE PANEL - URINE erythrocytes [#/volume] in urine by automated test strip =0-2 [hpf] 0-2 Not Available [facility] [address], [place], [address], 05/08/2025 12:38:37 05/08/20 25 05/08/2025 URINA LYSIS COMPL ETE PANEL - URINE epithelial cells.squ[place] us [presence] in urine by automated =0-2 [hpf] Not Available [facility] [address] [facility] [address], [place], [address], 05/08/2025 12:38:37 06/07/2006/08/2025 CBC WITH DIFFE RENTI AL WBC 11.3 K/uL 4.0-11 .0 high Not Available [facility] [address] [place], [address], 06/08/2025 05:18:50 06/07/20 25 06/08/2025 CBC WITH DIFFE RENTI AL RBC 4.75 M/uL 4.30-5 .70 Not Available [facility] [address] [place], [address], 06/08/2025 05:18:50 06/07/20 25 06/08/2025 CBC WITH DIFFE RENTI AL hemoglobin 11.0 g/dL 13.0-1 7.5 low Not Available [facility] [address] [facility] [place], [address], 06/08/2025 05:18:50 06/07/20 25 06/08/2025 CBC WITH DIFFE RENTI AL hematocrit 36.9 % 39.0-5 5.0 low Not Available [facility] [address] [place], [address], 06/08/2025 05:18:50 06/07/20 25 06/08/2025 CBC WITH DIFFE RENTI AL MCV 77.7 fL 78.0-1 02.0 low Not Available [facility] [address] [place], [place], [address], 06/08/2025 05:18:50 06/07/20 25 06/08/2025 CBC WITH DIFFE RENTI AL MCH 23.2 pg 25.0-3 5.0 low Not Available [facility] [address] [place], [place], [address], 06/08/2025 05:18:50 06/07/20 25 06/08/2025 CBC WITH DIFFE RENTI AL MCHC 29.8 g/dL 30.0-3 8.0 low Not Available [facility] [address] [place], [place], [address], 06/08/2025 05:18:50 06/07/20 25 06/08/2025 CBC WITH DIFFE RENTI AL RDW 18.1 % 11.5-1 6.0 high Not Available [facility] [address] [place], [place], [address], 06/08/2025 05:18:50 06/07/20 25 06/08/2025 CBC WITH DIFFE RENTI AL platelet count 281 K/uL 150-45 0 Not Available [facility] [address] [place], [address], 06/08/2025 05:18:50 06/07/20 25 06/08/2025 CBC WITH DIFFE RENTI AL abs neutrophils 7.8 K/uL 1.8-7. 0 high Not Available [facility] [address] [place], [address], 06/08/2025 05:18:50 06/07/20 25 06/08/2025 CBC WITH DIFFE RENTI AL abs lymphocytes 1.9 K/uL 1.0-4. 0 Not Available [facility] [address] [place], [address], 06/08/2025 05:18:50 06/07/20 25 06/08/2025 CBC WITH DIFFE RENTI AL abs monocytes 1.3 K/uL 0.1-1. 1 high Not Available [facility] [address] [place], [place], [address], 06/08/2025 05:18:50 06/07/20 25 06/08/2025 CBC WITH DIFFE RENTI AL abs eosinophils 0.2 K/uL 0.0-0. 5 Not Available [facility] [address] [place], [place], [address], 06/08/2025 05:18:50 06/07/20 25 06/08/2025 CBC WITH DIFFE RENTI AL abs basophils 0.1 K/uL 0.0-0. 3 Not Available [facility] [address] [place], [place], [address], 06/08/2025 05:18:50 06/07/20 25 06/08/2025 CBC WITH DIFFE RENTI AL abs immature grans 0.1 K/uL 0.0-0. 1 Not Available [facility] [address] [place], [place], [address], 06/08/2025 05:18:50 06/07/20 25 06/08/2025 CBC WITH DIFFE RENTI AL neutrophils 69.1 % Not Available [facility] [address] [place], [address], 06/08/2025 05:18:50 06/07/20 25 06/08/2025 CBC WITH DIFFE RENTI AL lymphocytes 16.6 % Not Available [facility] [address] [place], [address], 06/08/2025 05:18:50 06/07/20 25 06/08/2025 CBC WITH DIFFE RENTI AL monocytes 11.4 % Not Available [facility] [address] [place], [address], 06/08/2025 05:18:50 06/07/20 25 06/08/2025 CBC WITH DIFFE RENTI AL eosinophils 1.6 % Not Available [facility] [address] [place], [address], 06/08/2025 05:18:50 06/07/20 25 06/08/2025 CBC WITH DIFFE RENTI AL basophils 0.8 % Not Available [facility] [address] [place], [address], 06/08/2025 05:18:50 06/07/20 25 06/08/2025 CBC WITH DIFFE RENTI AL immature grans 0.5 % Not Available [facility] [address] [place], [address], 06/08/2025 05:18:50 06/07/20 25 06/08/2025 CBC WITH DIFFE RENTI AL nucleated RBCs <1.0 /100_ WBCs <1 Not Available [facility] [address] [place], [address], 06/08/2025 05:18:50 06/07/20 25 06/08/2025 COMP METAB OLIC PANEL sodium 142 mEq/L 135-14 6 Not Available [facility] [address] [place], [address], 06/08/2025 06:09:00 06/07/20 25 06/08/2025 COMP METAB OLIC PANEL potassium 5.0 mEq/L 3.5-5. 4 Not Available [facility] [address] [place], [address], 06/08/2025 06:09:00 06/07/20 25 06/08/2025 COMP METAB OLIC PANEL chloride 99 mEq/L 95-107 Not Available [facility] [address] [place], [place], [address], 06/08/2025 06:09:00 06/07/2006/08/2025 COMP METAB OLIC PANEL carbon dioxide 29 mEq/L 19-31 Not Available [facility] [address] [place], [place], [address], 06/08/2025 06:09:00 06/07/2006/08/2025 COMP METAB OLIC PANEL anion gap 14 mEq/L 7-23 Not Available [facility] [address] [place], [place], [address], 06/08/2025 06:09:00 06/07/2006/08/2025 COMP METAB OLIC PANEL glucose non-fasting 126 mg/dL 70-139 Not Available [facility] [address] [place], [address], 06/08/2025 06:09:00 06/07/2006/08/2025 COMP METAB OLIC PANEL urea nitrogen (BUN) 16 mg/dL 8-23 Not Available [facility] [address] [place], [address], 06/08/2025 06:09:00 06/07/2006/08/2025 COMP METAB OLIC PANEL creatinine 0.82 mg/dL 0.80-1 .40 Not Available [facility] [address] [place], [address], 06/08/2025 06:09:00 06/07/2006/08/2025 COMP METAB OLIC PANEL 2020 CKD-epi eGFR-cr 95 mL/mi n/1.7 3m'2 >59 Not Available [facility] [address] [place], [address], 06/08/2025 06:09:00 06/07/20 25 06/08/2025 COMP METAB OLIC PANEL BUN/creatini ne ratio 20 ratio Not Available [facility] [address] [place], [place], [address], 06/08/2025 06:09:00 06/07/2006/08/2025 COMP METAB OLIC PANEL calcium total 9.1 mg/dL 8.5-10 .5 Not Available [facility] [address] [place], [address], 06/08/2025 06:09:00 06/07/2006/08/2025 COMP METAB OLIC PANEL protein total 7.2 g/dL 6.1-8. 3 Not Available [facility] [address] [place], [address], 06/08/2025 06:09:00 06/07/2006/08/2025 COMP METAB OLIC PANEL albumin 4.3 g/dL 3.5-5. 2 Not Available [facility] [address] [place], [address], 06/08/2025 06:09:00 06/07/20 25 06/08/2025 COMP METAB OLIC PANEL globulin 2.9 g/dL 1.7-4. 3 Not Available [facility] [address] [place], [address], 06/08/2025 06:09:00 06/07/2006/08/2025 COMP METAB OLIC PANEL A/G ratio 1.5 ratio 0.9-2. 8 Not Available [facility] [address] [place], [address], 06/08/2025 06:09:00 06/07/20 25 06/08/2025 COMP METAB OLIC PANEL bilirubin total 0.3 mg/dL 0.0-1. 2 Not Available [facility] [address] [place], [address], 06/08/2025 06:09:00 06/07/2006/08/2025 COMP METAB OLIC PANEL alkaline phosphatase 108 U/L 40-125 Not Available [facility] [address] [place], [address], 06/08/2025 06:09:00 06/07/2006/08/2025 COMP METAB OLIC PANEL AST (SGOT) 26 U/L 9-50 Not Available [facility] [address] [place], [address], 06/08/2025 06:09:00 06/07/2006/08/2025 COMP METAB OLIC PANEL ALT (SGPT) 21 U/L 5-50 Comme nt for COMP METAB OLIC PANEL Fasti ng statu s not provi ded. If the patie nt faste d the appro priat e gluco se refer ence range is 70-99 mg/dL . Not Available [facility] [address] [place], [address], 06/08/2025 06:09:00 06/09/2006/10/2025 IRON AND TIBC iron 58 ug/dL 59-158 low Not Available [facility] ([facility] [address] [facility] [place], [address], 06/10/2025 12:45:59 06/09/2006/10/2025 IRON AND TIBC total iron binding 438 ug/dL 250-40 0 high Not Available [facility] [address] [facility] [place], [address], 06/10/2025 12:45:59 06/09/2006/10/2025 IRON AND TIBC % saturation 13 % 20-50 low Not Available [facility] ([facility] [address] [place], [address], 06/10/2025 12:45:59 06/09/2006/10/2025 PATRICA TIN ferritin 22 NG/mL 30-400 low Not Available [facility] [address] [place], [address], 06/10/2025 12:46:00 07/11/2007/12/2025 COMP METAB OLIC PANEL sodium 142 mEq/L 135-14 6 Not Available [facility] [address] [place], [address], 07/12/2025 05:35:11 07/11/2007/12/2025 COMP METAB OLIC PANEL potassium 5.2 mEq/L 3.5-5. 4 Not Available [facility] [address] [place], [address], 07/12/2025 05:35:11 07/11/2007/12/2025 COMP METAB OLIC PANEL chloride 94 mEq/L 95-107 low Not Available [facility] [address] [place], [address], 07/12/2025 05:35:11 07/11/2007/12/2025 COMP METAB OLIC PANEL carbon dioxide 35 mEq/L 19-31 high Not Available [facility] ([facility]) [address] [place], [address], 07/12/2025 05:35:11 07/11/2007/12/2025 COMP METAB OLIC PANEL anion gap 13 mEq/L 7-23 Not Available [facility] [address] [place], [address], 07/12/2025 05:35:11 07/11/20 25 07/12/2025 COMP METAB OLIC PANEL glucose non-fasting 108 mg/dL 70-139 Not Available [facility] [address] [place], [address], 07/12/2025 05:35:11 07/11/20 25 07/12/2025 COMP METAB OLIC PANEL urea nitrogen (BUN) 19 mg/dL 8-23 Not Available [facility] [address] [place], [place], [address], 07/12/2025 05:35:11 07/11/20 25 07/12/2025 COMP METAB OLIC PANEL creatinine 0.78 mg/dL 0.80-1 .40 low Not Available [facility] [address] [place], [address], 07/12/2025 05:35:11 07/11/20 25 07/12/2025 COMP METAB OLIC PANEL 2020 CKD-epi eGFR-cr 96 mL/mi n/1.7 3m'2 >59 Not Available [facility] [address] [place], [address], 07/12/2025 05:35:11 07/11/20 25 07/12/2025 COMP METAB OLIC PANEL BUN/creatini ne ratio 24 ratio Not Available [facility] [address] [place], [address], 07/12/2025 05:35:11 07/11/20 25 07/12/2025 COMP METAB OLIC PANEL calcium total 8.8 mg/dL 8.5-10 .5 Not Available [facility] [address] [place], [address], 07/12/2025 05:35:11 07/11/20 25 07/12/2025 COMP METAB OLIC PANEL protein total 6.8 g/dL 6.1-8. 3 Not Available [facility] [address] [place], [address], 07/12/2025 05:35:11 07/11/20 25 07/12/2025 COMP METAB OLIC PANEL albumin 4.3 g/dL 3.5-5. 2 Not Available [facility] [address] [place], [address], 07/12/2025 05:35:11 07/11/20 25 07/12/2025 COMP METAB OLIC PANEL globulin 2.5 g/dL 1.7-4. 3 Not Available [facility] [address] [place], [address], 07/12/2025 05:35:11 07/11/20 25 07/12/2025 COMP METAB OLIC PANEL A/G ratio 1.7 ratio 0.9-2. 8 Not Available [facility] [address] [place], [address], 07/12/2025 05:35:11 07/11/20 25 07/12/2025 COMP METAB OLIC PANEL bilirubin total 0.3 mg/dL 0.0-1. 2 Not Available [facility] [address] [place], [address], 07/12/2025 05:35:11 07/11/20 25 07/12/2025 COMP METAB OLIC PANEL alkaline phosphatase 94 U/L 40-125 Not Available [facility] [address] [place], [address], 07/12/2025 05:35:11 07/11/20 25 07/12/2025 COMP METAB OLIC PANEL AST (SGOT) 27 U/L 9-50 Not Available [facility] ([facility] [address] [place], [address], 07/12/2025 05:35:11 07/11/2007/12/2025 COMP METAB OLIC PANEL ALT (SGPT) 34 U/L 5-50 Comme nt for COMP METAB OLIC PANEL Fasti ng statu s not provi ded. If the patie nt faste d the appro priat e gluco se refer ence range is 70-99 mg/dL . Not Available [facility] [address] [place], [address], 07/12/2025 05:35:11 07/11/2007/12/2025 IRON AND TIBC iron 78 ug/dL 59-158 Not Available [facility] [address] [place], [place], [address], 07/12/2025 05:35:12 07/11/2007/12/2025 IRON AND TIBC total iron binding 434 ug/dL 250-40 0 high Not Available [facility] [address] [place], [address], 07/12/2025 05:35:12 07/11/2007/12/2025 IRON AND TIBC % saturation 18 % 20-50 low Not Available [facility] [address] [place], [address], 07/12/2025 05:35:12 07/11/2007/12/2025 PATRICA TIN ferritin 71 NG/mL 30-400 Not Available [facility] [address] [place], [place], [address], 07/12/2025 05:35:12 07/11/2007/12/2025 CBC WITH DIFFE RENTI AL WBC 18.8 K/uL 4.0-11 .0 high Not Available [facility] [address] [place], [address], 07/12/2025 06:35:21 07/11/20 25 07/12/2025 CBC WITH DIFFE RENTI AL RBC 4.72 M/uL 4.30-5 .70 Not Available [facility] [address] [place], [place], [address], 07/12/2025 06:35:21 07/11/2007/12/2025 CBC WITH DIFFE RENTI AL hemoglobin 11.0 g/dL 13.0-1 7.5 low Not Available [facility] [address] [place], [address], 07/12/2025 06:35:21 07/11/2007/12/2025 CBC WITH DIFFE RENTI AL hematocrit 36.9 % 39.0-5 5.0 low Not Available [facility] [address] [place], [address], 07/12/2025 06:35:21 07/11/2007/12/2025 CBC WITH DIFFE RENTI AL MCV 78.2 fL 78.0-1 02.0 Not Available [facility] [address] [place], [address], 07/12/2025 06:35:21 07/11/2007/12/2025 CBC WITH DIFFE RENTI AL MCH 23.3 pg 25.0-3 5.0 low Not Available [facility] [address] [place], [address], 07/12/2025 06:35:21 07/11/2007/12/2025 CBC WITH DIFFE RENTI AL MCHC 29.8 g/dL 30.0-3 8.0 low Not Available [facility] [address] [place], [place], [address], 07/12/2025 06:35:21 07/11/2007/12/2025 CBC WITH DIFFE RENTI AL RDW 17.6 % 11.5-1 6.0 high Not Available [facility] [address] [place], [address], 07/12/2025 06:35:21 07/11/20 25 07/12/2025 CBC WITH DIFFE RENTI AL platelet count 201 K/uL 150-45 0 Not Available [facility] [address] [place], [address], 07/12/2025 06:35:21 07/11/2007/12/2025 CBC WITH DIFFE RENTI AL abs neutrophils 17.2 K/uL 1.8-7. 0 high Not Available [facility] [address] [place], [address], 07/12/2025 06:35:21 07/11/2007/12/2025 CBC WITH DIFFE RENTI AL abs lymphocytes 0.8 K/uL 1.0-4. 0 low Not Available [facility] [address] [place], [address], 07/12/2025 06:35:21 07/11/20 25 07/12/2025 CBC WITH DIFFE RENTI AL abs monocytes 0.6 K/uL 0.1-1. 1 Not Available [facility] [address] [place], [address], 07/12/2025 06:35:21 07/11/2007/12/2025 CBC WITH DIFFE RENTI AL abs eosinophils 0.0 K/uL 0.0-0. 5 Not Available [facility] [address] [place], [address], 07/12/2025 06:35:21 07/11/20 25 07/12/2025 CBC WITH DIFFE RENTI AL abs basophils 0.0 K/uL 0.0-0. 3 Not Available [facility] [address] [place], [address], 07/12/2025 06:35:21 07/11/2007/12/2025 CBC WITH DIFFE RENTI AL abs bands 0.2 K/uL <0.1 high Not Available [facility] [address] [place], [address], 07/12/2025 06:35:21 07/11/2007/12/2025 CBC WITH DIFFE RENTI AL neutrophils 91.5 % Not Available [facility] [address] [place], [address], 07/12/2025 06:35:21 07/11/2007/12/2025 CBC WITH DIFFE RENTI AL lymphocytes 4.1 % Not Available [facility] [address] [place], [address], 07/12/2025 06:35:21 07/11/2007/12/2025 CBC WITH DIFFE RENTI AL monocytes 3.1 % Not Available [facility] [address] [place], [address], 07/12/2025 06:35:21 07/11/2007/12/2025 CBC WITH DIFFE RENTI AL eosinophils 0.0 % Not Available [facility] [address] [place], [address], 07/12/2025 06:35:21 07/11/2007/12/2025 CBC WITH DIFFE RENTI AL basophils 0.2 % Not Available [facility] [address] [place], [address], 07/12/2025 06:35:21 07/11/2022 0707/12/2025 CBC WITH DIFFE RENTI AL bands 1.1 % Not Available [facility] [address] [place], [address], 07/12/2025 06:35:21 07/11/20 25 07/12/2025 BLOOD FILM FOR PAMELA Rhoades blood film for review See Note Comme nts on Lab Id:[id number] RBC Morph ology : Aniso cytos is +, Macro cytes +, Polyc hroma tic cells +, Large Plate lets +, Plate let Clump s + Plate lets Imani l Not Available [facility] [address] [place], [address], 07/12/2025 06:35:22 05/02/20 25 05/02/2025 XR, chest No observ ation record ed. [address] [place], [place], [address], 05/03/2025 08:55:42 05/05/20 25 05/04/2025 US, echo ardio gram No observ ation record ed. [facility] [address] [place], [address], 05/07/2025 21:49:40 05/09/20 25 05/09/2025 XR, suresh ble No observ ation record ed. [facility] [address] [place], [address], 05/10/2025 08:46:58 Result Notes None recorded. 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 3616863437697 7 Active 2024 GLORY GURU, [employer]ACH[employer] [address], [place], [address] , [place] Jose [facility] 23:19:47 Chronic pain syndrome 858790982 Active 2024 GLORY RENAE, [employer] [address], [place], [address] , [place] FA[facility]AD [facility] 23:20:02 Generalize d osteoarthr itis 664612383 Active 2024 GLORY RENAE, [employer] [address], [place], [address] , [place] FA[facility] 5 23:20:02 Muscle weakness 98008757 Active 2024 GLORY RENAE, [employer] [address], [place], [address] , [place] [facility] 23:20:19 Essential hypertensi on 85394154 Active 2024 GLORY RENAE [employer] [address], [place], [address] , [place] [facility] 23:23:57 Severe chronic obstructiv e pulmonary disease 557544615 Active 2024 GLORY RENAE, [employer] [address], [place], [address] , [place] [facility] 23:23:59 Chronic pulmonary edema 86247704 Active 2024 TANYA FLETCHER APRN [address], [place], [address] , [place] [facility] 13:49:05 Anxiety disorder 294489310 Active 2024 TANYA FLETCHER APRN [address], [place], [address] , [place] [facility] 19:05:24 Problem Notes None recorded. Medical Equipment [...] temperature Heart rate Respiratory rate Oxygen saturation Systolic And Diastolic Provider Name and Address Organization Details Last Updated DateTime 5 182.88 cm 98 [degF] 66 /min 20 /min 95 % 144/92 mm[Hg] TANYA FLETCHER, [employer] [address], [place], [address], [place] - Jose F [facility] 5 15:56:44 Date Recorded Body height Body mass index (BMI) Body weight Provider Name and Address Organization Details Last Updated DateTime 05/17/2025 182.88 cm 29.1 kg/m2 12612.92 g TANYA FLETCHER APRN [address], [place], [address], [facility] 05/29/2025 17:37:36 Date Recorded Body height Body mass index (BMI) Body weight Body temperature Heart rate Respiratory rate Oxygen saturation Inhaled oxygen flow rate Systolic And Diastolic Provider Name and Address Organization Details Last Updated DateTime 5 182.88 cm 29.9 kg/m2 85256.4 g 97.9 [degF] 79 /min 20 /min 95 % 2 L/min 164/80 mm[Hg] TANYA FLETCHER APRN [address], [place], [address], [facility] 19:02:17 Date Recorded Systolic And Diastolic Provider Name and Address Organization Details Last Updated DateTime 06/07/2025 164/90 mm[Hg] GLORYJERZY RENAE APRN [address], [place], [address], [facility] 06/07/2025 12:13:26 Date Recorded Body height Body mass index (BMI) Body weight Body temperature Heart rate Respiratory rate Oxygen saturation Inhaled oxygen flow rate Oxygen saturation Inhaled oxygen flow rate Systolic And Diastolic Provider Name and Address Organization Details Last Updated DateTime 182.88 cm 29.2 kg/m2 22454.4 6 g 97.4 [degF] 79 /min 19 /min 88 % 2 L/min 97 % 3 L/min 200/120 mm[Hg] Bettina Christiano [facility] 11:30:11 Date Recorded Systolic And Diastolic Provider Name and Address Organization Details Last Updated DateTime 07/11/2025 139/84 mm[Hg] GLORYJERZY RENAE APRN [address], [place], [address], [facility] 07/11/2025 15:14:33 Date Recorded Body height Body mass index (BMI) Body weight Body temperature Heart rate Respiratory rate Oxygen saturation Provider Name and Address Organization Details Last Updated DateTime 5 182.88 cm 29.2 kg/m2 46386.4 1 g 97.3 [degF] 97 /min 17 /min 90 % Adalgisa [facility] 14:57:15 Social History Question Answer Notes LastModified by Organizat ion Details LastModified Time Tobacco Smoking Status Current Some Day Smoker GLORY RENAE APRN [address], [place], [address], [facility] 05/16/2025 23:21:16 What Was The Date [...] ICD10 Code Diagnosis IMO Codes Diagnosis Note [id number] DK [place] [address] [place] [address] 05/11/2025 23:46:35 05/25/2025 10:30:45 Generalized osteoarthritis 343250613 M15.9 1453 Muscle weakness 72357038 M62.81 74427 Severe chr onic obstructive pulmonary disease 855614344 J44.9 092266 Advance care planning 71 1481410 Z71.89 225274 Pt wants to discuss DNR with daughters prior to signing any forms. Currently wishes to remain full code until he can discuss with family [id number] DK JAV[place] [address] [place] [address] 05/11/2025 23:47:51 05/17/2025 12:35:05 Acute on chronic hypoxemic and hypercapnic respiratory failure 0918289914 5107 J96.21 J96.22 69088146 Chronic pain syndrome 37 3179996 G89.4 49757 Generalize d osteoarthritis 330024139 M15.9 1453 Muscle weakness 30313430 M62.81 40252 Severe chr onic obstructive pulmonary disease 474384003 J44.9 700815 Essential hypertension 61876782 I10 90540 793722 DK [place] [address] [place] [address] 05/15/2025 15:52:06 05/30/2025 16:17:47 Severe chronic obstructive pulmonary disease 216709166 J44.9 590548 Continue Oxygen 3.5 L NCSymbicor t Inhalation Aerosol 160-4.5 MCG/ACT BIDAlbuter ol Sulfate HFA Inhalation Aerosol Solution 108 (90 Base) MCG/ACT 2 puff Q6H PRNIpratro pium-Albut laney Inhalation Solution 0.5-2.5 (3) MG/3ML, TIDContinu e Albuterol inhaler Essential hypertension 71818312 I10 12086 Metoprolol Succinate Oral Capsule ER 24 Hour Sprinkle 100 MG QDay Chronic pu lmonary edema 80534291 J81.1 3162 Furosemide Oral Tablet 20 MG (Furosemid e) PO QDay Chronic pain syndrome 37 8731374 G89.4 40114 HYDROcodon e-Acetamin ophen Oral Tablet 7.5-325 MG (Hydrocodo ne-Acetami nophen) 1 tab Q8H [id number] DK OLIVERA [place] [address] [place] [address] 05/18/2025 09:39:43 05/30/2025 16:19:08 Severe chronic obstructive pulmonary disease 703301090 J44.9 592133 Continue Oxygen 2 L NCSymbicor t Inhalation Aerosol 160-4.5 MCG/ACT BIDAlbuter ol Sulfate HFA Inhalation Aerosol Solution 108 (90 Base) MCG/ACT 2 puff Q6H PRNIpratro pium-Albut laney Inhalation Solution 0.5-2.5 (3) MG/3ML, TIDContinu e Albuterol inhaler Essential hypertension 38196384 I10 01083 Metoprolol Succinate Oral Capsule ER 24 Hour Sprinkle 100 MG QDay Chronic pain syndrome 37 4518358 G89.4 28628 HYDROcodon e-Acetamin ophen Oral Tablet 7.5-325 MG (Hydrocodo ne-Acetami nophen) 1 tab Q8H Muscle weakness 78042139 M62.81 22102 Continue PT/OT [id number] DK [place]reet [place] [address] [place] [address] 05/26/2025 17:14:12 06/06/2025 11:59:27 Essential hypertension 23185713 I10 92647 Metoprolol Succinate Oral Capsule ER 24 Hour Sprinkle 100 MG QDay Generalize d osteoarthritis 902510236 M15.9 1453 No current medication . Chronic pain syndrome 37 8233692 G89.4 85843 HYDROcodon e-Acetamin ophen Oral Tablet 7.5-325 MG (Hydrocodo ne-Acetami nophen) 1 tab Q8H Acute on c hronic hypoxemic and hypercapnic respiratory failure 2077424698 5107 J96.21 J96.22 86225801 No current medication Severe chr onic obstructive pulmonary disease 768697633 J44.9 089509 Continue Oxygen 2 L NCAlbutero l Sulfate HFA Inhalation Aerosol Solution 108 (90 Base) MCG/ACT 2 puff Q6H PRNIpratro pium-Albut laney Inhalation Solution 0.5-2.5 (3) MG/3ML,Sym bicort Inhalation Aerosol 160-4.5 MCG/ACT (Budesonid e-Formoter ol Fumarate Dihydrate) 2 inhalation BID Chronic pu lmonary edema 15140368 J81.1 3162 Furosemide Oral Tablet 20 MG (Furosemid e) PO QDay Anxiety disorder 1083314 06 F41.9 39690978 BusPIRone HCl Oral Tablet 15 MG 1 tab PO QDay [id number] GLORY RENAE APRN [facility] [address] [place] [address] 06/07/2025 11:12:16 2025 12:10:36 Acute on chronic hypoxemic and hypercapnic respiratory failure 9122949828 5107 J96.21 J96.22 53992744 Severe chr onic obstructive pulmonary disease 197364044 J44.9 643295 Essential hypertension 31236347 I10 23881 Muscle weakness 19350490 M62.81 48581 Chronic constipation 236 514786 K59.09 261066 start miralax Hyperkalemia 26223360 E8 7.5 9805 Chronic pu lmonary edema 22568170 J81.1 3162 Anxiety disorder 8781396 06 F41.9 27445093 Increase buspirone 880209 GLORY RENAE, [employer]ACH[employer] HAND [facility] [address] [place] [address] 07/11/2025 14:44:52 07/23/2025 23:13:39 Acute on chronic hypoxemic and hypercapnic respiratory failure 0579052482 5107 J96.21 J96.22 97286008 Severe chr onic obstructive pulmonary disease 505104214 J44.9 765972 Essential hypertension 51475752 I10 91941 Bilateral lower limb edema 671302089 R60.0 2861909 Iron defic iency anemia 11035978 D50.9 97300236 Chronic pain syndrome 37 5949803 G89.4 Anxiety 26003400 F41.9 80110 Cont buspirone and valium prn Mixed urin sammi incontinence 092621579 N39.46 490694 Health Concerns Section Related Observation LastModified by Organization Detai ls LastModified Time None Recorded Concern Status LastModified by Organization Details LastModified Time None Recorded Advance Directives Directive None Recorded Payers Insurance Date Sequence Insurance Name Policy Number Policy Mcclure Covered Member ID Mcclure Member ID Guarantor Name 07/17/2025 1 [facility] (MEDICARE REPLACEMENT/A DVANTAGE - PPO) Pola Fajardo [id number] Pola Fajardo Notes Date Note Type Note Provider Name and Address Organization Details Recorded Time 05/15/2025 text/html Today's visit is medically necessary for a assisted visit to review current acute and chronic comorbidities, perform medication reconciliation, review imaging and lab results, and ensure coordination of care is maintained. Mr. Fajardo is a 69 year old male with [...] completing ACP. QUYNH RECINOS [address], [place], [address], [facility] 05/30/2025 14:09:27 05/17/2025 text/html Today's visit is medically necessary for a assisted visit to review current acute and chronic comorbidities, perform medication reconciliation, review imaging and lab results, and ensure coordination of care is maintained. Mr. Fajardo is a 69 year old male with endstage COPD currently on 2L NC with acute hypercapnic respiratory failure requiring BiPap. Today he reports increased pain, denies taking prn pain medication as prescribed. Continue working with resident on appropriate medication use. QUYNH RECINOS [address], [place], [address], [facility] 05/30/2025 14:06:57 05/26/2025 text/html ROS as noted in the HPI Mr. Fajardo has progressed well in therapy. Anticipated date [...] concerns, contact PCP's office or call the group home for assistance. Discussed fall proofing home. Advised [...] <30 min. Time spent meeting with patient [id number], completing discharge paperwork. reviewing and renewing prescriptions, ensuring coordination of follow-up appointments and home health services , and providing discharge instructions to patient <30 min. QUYNH RECINOS [address], [place], [address], [place] [facility] 05/31/2025 16:12:57 06/07/2025 text/html Patient is here today for a hernia and constipation and would like an order of oxygen. His tank is almost out. Patient daughter will call later with medications. Daughter concerned with patient getting bedsores. GLORY RENAE APRN [address], [place], [address], [facility] 06/08/2025 12:53:55 07/11/2025 text/html Pt presents today due to hospital follow up from [facility] for elevated CO2 levels x 3 different occasions. Daughter reports they adjusted trilogy machine settings and pt has been doing much better. GLORY RENAE APRN [address], [place], [address], [place] [facility] 07/22/2025 22:41:53
--- OUTSIDE RECORDS SUMMARY | 2025-09-12 01:28 | XMS_ITS | Clinical Summary ---
[facility] Organization [facility] Address [address] Rodriguezn: [place] [address] Care Team Providers Care Communications Clerk Name Role Phone Unavailable Primary Care Provider Unavailabl e Social History Tobacco Use Types Packs/Day Years Used Date Smoking Tobacco: Never Assessed Sex and Gender Information Value Date Recorded Sex Assigned at Not on file Legal Sex Male 5:35 AM E [employer] Gender Identity Not on file Sexual Orientation [...]
--- OUTSIDE RECORDS SUMMARY | 2025-09-12 01:28 | XMS_ITS | Encounter Summary ---
Author Organization [facility] Address [address] [place] [address] Care Team Providers Care Financial Advocate Name Role Phone Unavailable Primary Care Provider Unavailabl e Encounter Details Date Type Department Care Team (Latest Contact Info) Description 06/03/2007 Outpatient Historical 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
--- OUTSIDE RECORDS SUMMARY | 2025-09-12 01:28 | XMS_ITS | Encounter Summary ---
Author Organization [facility] Address [address] [place] [address] Care Team Providers Care Location And Measurement Technician Name Role Phone Unavailable Primary Care Provider Unavailabl e Encounter Details Date Type Department Care Team (Latest Contact Info) Description 05/09/2005 Outpatient Historical [facility] [address] [place] [address] AMBULANCE, [facility] OTHER INJURY OF ABDOMEN (Primary Dx) Social History Tobacco Use Types Packs/Day Years Used Date Smoking Tobacco: Never Assessed Sex and Gender Information Value Date Recorded Sex Assigned at Not on file 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
--- OUTSIDE RECORDS SUMMARY | 2025-09-12 01:28 | XMS_ITS | Encounter Summary ---
Author Organization [facility] Address [address] [place] [address] Care Team Providers Care Customer Associate Name Role Phone Unavailable Primary Care Provider Unavailabl e Encounter Details Date Type Department Care Team (Late st Contact Info) Description 08/03/[address] [facility] Emergency Department [address] 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
--- OUTSIDE RECORDS SUMMARY | 2025-09-12 01:28 | XMS_ITS | Encounter Summary ---
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
--- OUTSIDE RECORDS SUMMARY | 2025-09-12 01:28 | XMS_ITS | Encounter Summary ---
Author Organization [facility] Address [address] [place] [address] Care Team Providers Care Catechist Name Role Phone Unavailable Primary Care Provider Unavailabl e Encounter Details Date Type Department Care Team (Late st Contact Info) Description 05/09/2005 Emergency [facility] Emergency Department [address] 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
[2025-09-12 01:50] LABS: Base Excess VBG 18.9 mmol/L (-3.0-3.0); Blood Gas Sample Type Venous; HCO3 VBG 48.4 mmol/L (24-28); Hematocrit 37.3 % (37-53); Hemoglobin 10.40 g/dL (11.27-16.99); Mean Corpuscular HGB Conc 27.9 g/dL (30-55); Mean Corpuscular Hemoglobin 23.6 pg (27-33); Mean Corpuscular Volume 84.6 fl (82-101); Nucleated Red Blood Cells % 0 %; PO2 VBG 32.5 mmHg (25-40); Platelet Count 313 10^3/cmm (157-399); Red Blood Count 4.41 10^6/uL (3.85-5.65); Venous Blood Gas Hematocrit 33.8 % (42-52); White Blood Count 11.15 10^3/uL (3.29-11.43); pH VBG 7.35 (7.32-7.42)
[2025-09-12 01:51] LABS: PCO2 VBG 88.0 mmHg (41-51)
[2025-09-12 02:07] LABS: Respiratory Syncytial Virus Ce NEGATIVE (Negative); SARS-CoV-2 PCR NEGATIVE (Negative)
[2025-09-12 02:09] LABS: Troponin(5th) Baseline 30 ng/L (0-15)
--- NOTE | 2025-09-12 02:09 | ED_ITS ---
Documented by User: Noman Artis, 09/12/25 23:06 HPI - Altered Mental Status 2 General: Chief Complaint: Altered Mental Status Stated Complaint: AMS History of Present Illness: Patient is a 70-year-old male with past medical history of A-fib, GERD, hypertension, CHF, COPD on home 3 L oxygen and in hospice who presents to the ED with AMS. Patient was apparently acting funny and calling his daughter the wrong names which made her concerned and so EMS was called, they state that he had been given morphine and Ativan shortly before because of palliative therapy. He reports feeling at his baseline now, does not feel groggy or confused, no severe headache, does not endorse any recent fevers, chills, diaphoresis, worsening of his shortness of breath, has a slightly decreased p.o. intake but no vomiting or diarrhea recently, last bowel movement was yesterday. Related Data Home Medications ?Medication ?Instructions ?Recorded ?Confirmed Nebulizer 07/10/25 08/13/25 Trilegy Machine 07/10/25 08/13/25 Previous Rx's ?Medication ?Instructions ?Recorded docusate sodium 100 mg capsule 100 mg PO BID #60 caps 06/20/25 ipratropium 0.5 mg-albuterol 3 mg 3 ml inhalation Q6H PRN Shortness 06/20/25 (2.5 mg base)/3 mL nebulization Of Breath #180 mL soln albuterol sulfate 90 mcg/actuation 2 inh inhalation Q6 H PRN shortness 06/21/25 aerosol inhaler (Ventolin HFA) of breath or wheezing # 8.5 grams budesonide 0.5 mg/2 mL suspension 0.5 mg (2 mL) inhala tion 06/21/25 for nebulization BID.RESPIRATORY #60 mL buspirone 15 mg tablet 15 mg PO TID #90 tabs diltiazem HCl 120 mg 120 mg PO DAILY #30 caps capsule,extended release 24 hr duloxetine 60 mg capsule,delayed 60 mg PO DAILY #30 ca ps 06/21/25 release furosemide 40 mg tablet 40 mg PO DAILY #30 tabs 05/30 01/20 losartan 50 mg tablet 50 mg PO DAILY #30 tabs 05/30 01/20 pantoprazole 40 mg tablet,delayed 40 mg PO DAILY #30 t abs 06/21/25 release polyethylene glycol 3350 17 17 g PO DAILY #30 grams gram/dose oral powder formoterol fumarate 20 mcg/2 mL 2 ml inhalation Q12H # 120 mL 07/14/25 solution for nebulization tiotropium bromide 18 mcg capsule 1 cap inhalation ANDRES LY #60 07/14/25 with inhalation device (Spiriva inhalations with HandiHaler) Allergies Allergy/AdvReac Type Severity Reaction Status Date / Time No Known Allergies Allergy Verified 07/10/25 11:29 Review of Systems 2 General: Reports: 10 or more systems reviewed and unremarkable except in HPI and below Resp: Reports: non-productive cough Neuro: Reports: confusion PFSH ED 2 PFSH: Medical History (Updated 09/12/25 @ 23:06 by Noman Artis DO) COPD with chronic bronchitis Hypertension, unspecified type Anxiety Medically noncompliant Acute on chronic respiratory failure with hypoxia and hypercapnia Social History Smoking and tobacco/nicotine status: current every day tobacco/nicotine user (1 ppd X 47 years on Cigarettes, Started Vapping Sep) Alcohol intake: unknown Substance/Drug Use: unknown Additional social history: Patient denies tobacco alcohol or illicit use currently. He reports he wants full code Physical Exam 2 Narrative: Obese, chronically ill-appearing, afebrile, saturating in low 90s on home 3 L of oxygen, no acute distress. Breath sounds very diminished and mild end expiratory wheezing bilaterally but speaking in full sentences without getting markedly short of breath, no increased work of breathing, not in acute respiratory distress. Mild bilateral nonpitting edema, findings of chronic venous stasis dermatitis, normal sinus rhythm. Abdomen protuberant but soft, nontender, no CVA tenderness, bowel sounds intact. GCS 15, able to answer questions and follow commands appropriately, pupils equal round reactive, no nystagmus Course 2 Vital Signs: Vital signs: Vital Signs Temperature 97.8 F 09/12/25 01:01 Pulse Rate 90 09/12/25 13:04 Respiratory Rate 22 H 09/12/25 01:30 Blood Pressure 154/103 09/12/25 13:04 Pulse Oximetry 95 09/12/25 13:04 Oxygen Delivery Me thod Nasal Cannula 09/12/25 07:00 Oxygen Flow Rate 3 09/12/25 07:00 Fraction of Inspir ed Oxygen 35 09/12/25 04:26 MDM - Altered Mental Status Medical Decision Making -ddx: Medication side effect, hypercarbia, UTI, URI, pneumonia ingestion, withdrawal, dehydration, trauma. - Patient with seeming transient episode of confusion after he was given Ativan and morphine which can be expected, on this for his palliative treatment for his COPD, no change in his respiratory condition, on 3 L baseline. No recent signs or symptoms of infectious etiology. Does not feel confused and feels at baseline, has good insight into his condition. He denies any falls or recent trauma. - Blood gas with normal pH even with CO2 over 80, no leukocytosis, baseline anemia, no severe electrolyte abnormality, no VELIA, patient observed for period of time and remained at the same mentation with no signs of rebound. - Patient with high degree of hypercarbia at 88 but seemingly compensated for with normal pH at 7.35, no overwhelming signs or symptoms of infectio, had overall reassuring labs with no severe electrolyte abnormality, normal kidney function. His chest x-ray was not concerning for any infiltrate, pneumothorax, overload at this time. - Had discussion with patient, daughter, because he had been at his baseline the whole time while here, any obvious concerning reversible causes were addressed and so decision was made to discharge patient home because of his wishes, but are planning on getting him into a rehab facility/assisted in 2 days because he lives by himself and he cannot care for him at this time but patient believed to be safe discharge especially in setting of this being patient's rash, was discharged when I left shift and remained on BiPAP because he is on this at night and was to do so until family was able to come pick him up and that could be removed without checking blood gases or other labs, patient in stable condition at this time. Patient originally plan was to be discharged back at home I did speak to her daughter and they are wanting him placed in a assisted on hospice as they are able to handle him did have case management get him placed at [facility] and will discharge him to there Lab Data 09/12/25 01:42 09/12/25 01:42 Radiology Impressions Chest X-Ray 09/12/25 01:11 IMPRESSION: Improvement in previously noted right perihilar atelectasis. No definite acute infiltrate or effusion. Laboratory Results WBC 11.15 10^3/uL (3.29-11.43) 09/12/25 01:42 RBC 4.41 10^6/uL (3.85-5.65) 09/12/25 01:42 Hgb 10.40 g/dL (11.27-16.99) L 09/12/25 01:42 Hct 37.3 % (37-53) 09/12/25 01:42 MCV 84.6 fl (82-101) 09/12/25 01:42 MCH 23.6 pg (27-33) L 09/12/25 01:42 MCHC 27.9 g/dL (30-55) L 09/12/25 01:42 RDW 18.3 % (12.1-15.1) H 09/12/25 01:42 Plt Count 313 10^3/cmm (157-399) 09/12/25 01:42 MPV 10.2 fL (7.4-10.4) 09/12/25 01:42 Neut % (Auto) 61.9 % 09/12/25 01:42 Lymph % (Auto) 20.6 % 09/12/25 01:42 [place] % (Auto) 12.3 % 09/12/25 01:42 Eos % (Auto) 3.6 % 09/12/25 01:42 Baso % (Auto) 0.5 % 09/12/25 01:42 Neut # (Auto) 6.90 10^3/uL (1.8-7.7) 09/12/25 01:42 Lymph # (Auto) 2.3 10^3/uL (0.8-4.8) 09/12/25 01:42 [place] # (Auto) 1.4 10^3/uL (0.2-0.9) H 09/12/25 01:42 Eos # (Auto) 0.4 10^3/uL (0.0-0.8) 09/12/25 01:42 Baso # (Auto) 0.1 10^3/uL (0.0-0.1) 09/12/25 01:42 Nucleated RBC % (auto) 0 % 09/12/25 01:42 Nucleated RBCs # 0.0 /100WBC 09/12/25 01:42 Specimen Type Venous 09/12/25 01:42 Sample Site Not Reportable 09/12/25 01:42 Juno Test N/a 09/12/25 01:42 VBG pH 7.35 (7.32-7.42) 09/12/25 01:42 VBG pCO2 88.0 mmHg (41-51) H* 09/12/25 01:42 VBG pO2 32.5 mmHg (25-40) 09/12/25 01:42 VBG HCO3 48.4 mmol/L (24-28) H 09/12/25 01:42 VBG Base Excess 18.9 mmol/L (-3.0-3.0) H 09/12/25 01:42 VBG Hematocrit 33.8 % (42-52) L 09/12/25 01:42 O2 Delivery Device Not Reportable 09/12/25 01:42 Rock Climbing Instructor ID [email or web address] 09/12/25 01:42 Sodium 143 mmol/L (136-145) 09/12/25 01:42 Potassium 3.7 mmol/L (3.5-5.1) 09/12/25 01:42 Chloride 90 mmol/L (98-107) L 09/12/25 01:42 Carbon Dioxide 45 mmol/L (22-29) H* 09/12/25 01:42 Anion Gap 11.7 (5-19) 09/12/25 01:42 BUN 20 mg/dL (8-23) 09/12/25 01:42 Creatinine 1.1 mg/dL (0.7-1.2) 09/12/25 01:42 GFR Calculation 66.2 mL/min (90-130) L 09/12/25 01:42 Glucose 104 mg/dL (65-115) 09/12/25 01:42 Calculated Osmolality 299 mOsm/kg (285-295) H 09/12/25 01:42 Calcium 8.7 mg/dL (8.5-10.5) 09/12/25 01:42 Troponin T Baseline 30 ng/L (0-15) H 09/12/25 01:42 C-React Prot High Sens 0.680 mg/dL (0.0-0.3) H 09/12/25 01:42 Urine Color Yellow (Yellow) 09/12/25 01:20 Urine Appearance Clear (CLEAR) 09/12/25 01:20 Urine pH 6.5 (5-7) 09/12/25 01:20 Ur Specific [place] 1.007 (1.005-1.030) 09/12/25 01:20 Urine Protein Trace (Negative) A 09/12/25 01:20 Urine Glucose (UA) Negative (Normal) 09/12/25 01:20 Urine Ketones Negative (Negative) 09/12/25 01:20 Urine Blood 3+ (Negative) A 09/12/25 01:20 Urine Nitrate Negative (Negative) 09/12/25 01:20 Urine Bilirubin Negative (Negative) 09/12/25 01:20 Urine Urobilinogen 1.0 mg/dL (Negative) 09/12/25 01:20 Ur Leukocyte Esterase Negative (Negative) 09/12/25 01:20 Urine RBC 21-50 /hpf (0-2) H 09/12/25 01:20 Urine WBC 0-5 /hpf (0-5) 09/12/25 01:20 Ur Squamous Epith Cells 0-5 /hpf (0-5) 09/12/25 01:20 Amorphous Sediment Not Reportable 09/12/25 01:20 Urine Bacteria None seen /hpf (NONE) 09/12/25 01:20 Hyaline Casts 0-4 /lpf H 09/12/25 01:20 Influenza A (PCR) Negative (Negative) 09/12/25 01:20 Influenza Type B (PCR) Negative (Negative) 09/12/25 01:20 RSV (PCR) Negative (Negative) 09/12/25 01:20 SARS-CoV-2 (PCR) Negative (Negative) 09/12/25 01:20 All radiology interpretation(s) finalized by discharge Discharge Plan Discharge Patient Disposition: Home Clinical Impression: Chronic respiratory failure, Acute confusion Condition: Stable Prescriptions: No Action (DME) Nebulizer 0 .ROUTE .MEDSUPPLY (DME) Trilegy Machine 0 .Route .MEDSUPPLY tiotropium bromide [Spiriva with HandiHaler] 18 mcg capsule, w/inhalation device 1 cap inhalation DAILY Qty: 60 11RF Rx Instructions: puncture 1 cap using device; one dose = 2 inhalations formoterol fumarate 20 mcg/2 mL solution for nebulization 2 ml inhalation Q12H Qty: 120 6RF ipratropium-albuterol 0.5 mg-3 mg(2.5 mg base)/3 mL Solution For Nebulization 3 ml inhalation Q6H PRN (Reason: Shortness Of Breath) Qty: 180 0RF docusate sodium 100 mg Capsule 100 mg PO BID Qty: 60 0RF losartan 50 mg Tablet 50 mg PO DAILY Qty: 30 0RF budesonide 0.5 mg/2 mL Suspension For Nebulization 0.5 mg inhalation BID.RESPIRATORY Qty: 60 0RF diltiazem HCl 120 mg Capsule,Extended Release 24hr 120 mg PO DAILY Qty: 30 0RF furosemide 40 mg tablet 40 mg PO DAILY Qty: 30 0RF pantoprazole 40 mg tablet,delayed release (DR/EC) 40 mg PO DAILY Qty: 30 0RF polyethylene glycol 3350 17 gram/dose powder 17 g PO DAILY Qty: 30 0RF buspirone 15 mg tablet 15 mg PO TID Qty: 90 0RF duloxetine 60 mg capsule,delayed release(DR/EC) 60 mg PO DAILY Qty: 30 0RF albuterol sulfate [Ventolin HFA] 90 mcg/actuation HFA aerosol inhaler 2 inh inhalation Q6H PRN (Reason: shortness of breath or wheezing) Qty: 8.5 0RF Discharge Orders: Discharge ED (Routine); Ordered 09/12/25 Ordered By: Noman Artis Discharge Diet: Usual diet Discharge Activity: Resume usual activity Patient Instructions: Altered Mental Status (ED), Opioid Safety, Pain Management, Patient Portal & Polly Instructions Activity Restrictions/Additional Instructions: You were seen for your episode of confusion, you were evaluated with x-ray, EKG and labs that were ultimately reassuring, you improved with breathing treatment, were able to eat drink and were deemed stable to be discharged home. Continue to take your medications as previously prescribed, make sure you space apart the morphine and Ativan so you avoid future episodes like this. Return to the ED with severe worsening confusion, breathing difficulties, fevers, inability to eat or drink, any other emergent concerns. Print Language: Vietnamese Coding Level of Care Code ED Natural Remedy Consultant for [facility] [place] Documented by User: Dagoberto Car MD 09/12/25 12:48 HPI - Altered Mental Status 2 General: Chief Complaint: Altered Mental Status Stated Complaint: AMS Related Data Home Medications ?Medication ?Instructions ?Recorded ?Confirmed Nebulizer 07/10/25 08/13/25 Trilegy Machine 07/10/25 08/13/25 Previous Rx's ?Medication ?Instructions ?Recorded docusate sodium 100 mg capsule 100 mg PO BID #60 caps 06/20/25 ipratropium 0.5 mg-albuterol 3 mg 3 ml inhalation Q6H PRN Shortness 06/20/25 (2.5 mg base)/3 mL nebulization Of Breath #180 mL soln albuterol sulfate 90 mcg/actuation 2 inh inhalation Q6 H PRN shortness 06/21/25 aerosol inhaler (Ventolin HFA) of breath or wheezing # 8.5 grams budesonide 0.5 mg/2 mL suspension 0.5 mg (2 mL) inhala tion 06/21/25 for nebulization BID.RESPIRATORY #60 mL buspirone 15 mg tablet 15 mg PO TID #90 tabs diltiazem HCl 120 mg 120 mg PO DAILY #30 caps capsule,extended release 24 hr duloxetine 60 mg capsule,delayed 60 mg PO DAILY #30 ca ps 06/21/25 release furosemide 40 mg tablet 40 mg PO DAILY #30 tabs 05/30 01/20 losartan 50 mg tablet 50 mg PO DAILY #30 tabs 05/30 01/20 pantoprazole 40 mg tablet,delayed 40 mg PO DAILY #30 t abs 06/21/25 release polyethylene glycol 3350 17 17 g PO DAILY #30 grams gram/dose oral powder formoterol fumarate 20 mcg/2 mL 2 ml inhalation Q12H # 120 mL 07/14/25 solution for nebulization tiotropium bromide 18 mcg capsule 1 cap inhalation ANDRES LY #60 07/14/25 with inhalation device (Spiriva inhalations with HandiHaler) Allergies Allergy/AdvReac Type Severity Reaction Status Date / Time No Known Allergies Allergy Verified 07/10/25 11:29 PFSH ED 2 PFSH: Medical History (Updated 09/12/25 @ 23:06 by Noman Artis DO) COPD with chronic bronchitis Hypertension, unspecified type Anxiety Medically noncompliant Acute on chronic respiratory failure with hypoxia and hypercapnia Social History Smoking and tobacco/nicotine status: current every day tobacco/nicotine user (1 ppd X 47 years on Cigarettes, Started Vapping Sep) Alcohol intake: unknown Substance/Drug Use: unknown Additional social history: Patient denies tobacco alcohol or illicit use currently. He reports he wants full code Course 2 Vital Signs: Vital signs: Vital Signs Temperature 97.8 F 09/12/25 01:01 Pulse Rate 90 09/12/25 13:04 Respiratory Rate 22 H 09/12/25 01:30 Blood Pressure 154/103 09/12/25 13:04 Pulse Oximetry 95 09/12/25 13:04 Oxygen Delivery Me thod Nasal Cannula 09/12/25 07:00 Oxygen Flow Rate 3 09/12/25 07:00 Fraction of Inspir ed Oxygen 35 09/12/25 04:26 MDM - Altered Mental Status Medical Decision Making -ddx: Medication side effect, hypercarbia, UTI, URI, pneumonia ingestion, withdrawal, dehydration, trauma. - Patient with seeming transient episode of confusion after he was given Ativan and morphine which can be expected, on this for his palliative treatment for his COPD, no change in his respiratory condition, on 3 L baseline. No recent signs or symptoms of infectious etiology. Does not feel confused and feels at baseline, has good insight into his condition. He denies any falls or recent trauma. - Blood gas with normal pH even with CO2 over 80, no leukocytosis, baseline anemia, no severe electrolyte abnormality, no VELIA, patient observed for period of time and remained at the same mentation with no signs of rebound. Patient originally plan was to be discharged back at home I did speak to her daughter and they are wanting him placed in a assisted on hospice as they are able to handle him did have case management get him placed at [facility] and will discharge him to there Lab Data 09/12/25 01:42 09/12/25 01:42 Radiology Impressions Chest X-Ray 09/12/25 01:11 IMPRESSION: Improvement in previously noted right perihilar atelectasis. No definite acute infiltrate or effusion. Laboratory Results WBC 11.15 10^3/uL (3.29-11.43) 09/12/25 01:42 RBC 4.41 10^6/uL (3.85-5.65) 09/12/25 01:42 Hgb 10.40 g/dL (11.27-16.99) L 09/12/25 01:42 Hct 37.3 % (37-53) 09/12/25 01:42 MCV 84.6 fl (82-101) 09/12/25 01:42 MCH 23.6 pg (27-33) L 09/12/25 01:42 MCHC 27.9 g/dL (30-55) L 09/12/25 01:42 RDW 18.3 % (12.1-15.1) H 09/12/25 01:42 Plt Count 313 10^3/cmm (157-399) 09/12/25 01:42 MPV 10.2 fL (7.4-10.4) 09/12/25 01:42 Neut % (Auto) 61.9 % 09/12/25 01:42 Lymph % (Auto) 20.6 % 09/12/25 01:42 [place] % (Auto) 12.3 % 09/12/25 01:42 Eos % (Auto) 3.6 % 09/12/25 01:42 Baso % (Auto) 0.5 % 09/12/25 01:42 Neut # (Auto) 6.90 10^3/uL (1.8-7.7) 09/12/25 01:42 Lymph # (Auto) 2.3 10^3/uL (0.8-4.8) 09/12/25 01:42 [place] # (Auto) 1.4 10^3/uL (0.2-0.9) H 09/12/25 01:42 Eos # (Auto) 0.4 10^3/uL (0.0-0.8) 09/12/25 01:42 Baso # (Auto) 0.1 10^3/uL (0.0-0.1) 09/12/25 01:42 Nucleated RBC % (auto) 0 % 09/12/25 01:42 Nucleated RBCs # 0.0 /100WBC 09/12/25 01:42 Specimen Type Venous 09/12/25 01:42 Sample Site Not Reportable 09/12/25 01:42 Juno Test N/a 09/12/25 01:42 VBG pH 7.35 (7.32-7.42) 09/12/25 01:42 VBG pCO2 88.0 mmHg (41-51) H* 09/12/25 01:42 VBG pO2 32.5 mmHg (25-40) 09/12/25 01:42 VBG HCO3 48.4 mmol/L (24-28) H 09/12/25 01:42 VBG Base Excess 18.9 mmol/L (-3.0-3.0) H 09/12/25 01:42 VBG Hematocrit 33.8 % (42-52) L 09/12/25 01:42 O2 Delivery Device Not Reportable 09/12/25 01:42 Rock Climbing Instructor ID [email or web address] 09/12/25 01:42 Sodium 143 mmol/L (136-145) 09/12/25 01:42 Potassium 3.7 mmol/L (3.5-5.1) 09/12/25 01:42 Chloride 90 mmol/L (98-107) L 09/12/25 01:42 Carbon Dioxide 45 mmol/L (22-29) H* 09/12/25 01:42 Anion Gap 11.7 (5-19) 09/12/25 01:42 BUN 20 mg/dL (8-23) 09/12/25 01:42 Creatinine 1.1 mg/dL (0.7-1.2) 09/12/25 01:42 GFR Calculation 66.2 mL/min (90-130) L 09/12/25 01:42 Glucose 104 mg/dL (65-115) 09/12/25 01:42 Calculated Osmolality 299 mOsm/kg (285-295) H 09/12/25 01:42 Calcium 8.7 mg/dL (8.5-10.5) 09/12/25 01:42 Troponin T Baseline 30 ng/L (0-15) H 09/12/25 01:42 C-React Prot High Sens 0.680 mg/dL (0.0-0.3) H 09/12/25 01:42 Urine Color Yellow (Yellow) 09/12/25 01:20 Urine Appearance Clear (CLEAR) 09/12/25 01:20 Urine pH 6.5 (5-7) 09/12/25 01:20 Ur Specific [place] 1.007 (1.005-1.030) 09/12/25 01:20 Urine Protein Trace (Negative) A 09/12/25 01:20 Urine Glucose (UA) Negative (Normal) 09/12/25 01:20 Urine Ketones Negative (Negative) 09/12/25 01:20 Urine Blood 3+ (Negative) A 09/12/25 01:20 Urine Nitrate Negative (Negative) 09/12/25 01:20 Urine Bilirubin Negative (Negative) 09/12/25 01:20 Urine Urobilinogen 1.0 mg/dL (Negative) 09/12/25 01:20 Ur Leukocyte Esterase Negative (Negative) 09/12/25 01:20 Urine RBC 21-50 /hpf (0-2) H 09/12/25 01:20 Urine WBC 0-5 /hpf (0-5) 09/12/25 01:20 Ur Squamous Epith Cells 0-5 /hpf (0-5) 09/12/25 01:20 Amorphous Sediment Not Reportable 09/12/25 01:20 Urine Bacteria None seen /hpf (NONE) 09/12/25 01:20 Hyaline Casts 0-4 /lpf H 09/12/25 01:20 Influenza A (PCR) Negative (Negative) 09/12/25 01:20 Influenza Type B (PCR) Negative (Negative) 09/12/25 01:20 RSV (PCR) Negative (Negative) 09/12/25 01:20 SARS-CoV-2 (PCR) Negative (Negative) 09/12/25 01:20 No radiology studies performed this visit Discharge Plan Discharge Patient Disposition: Home Clinical Impression: Chronic respiratory failure, Acute confusion Condition: Stable Prescriptions: No Action (DME) Nebulizer 0 .ROUTE .MEDSUPPLY (DME) Trilegy Machine 0 .Route .MEDSUPPLY tiotropium bromide [Spiriva with HandiHaler] 18 mcg capsule, w/inhalation device 1 cap inhalation DAILY Qty: 60 11RF Rx Instructions: puncture 1 cap using device; one dose = 2 inhalations formoterol fumarate 20 mcg/2 mL solution for nebulization 2 ml inhalation Q12H Qty: 120 6RF ipratropium-albuterol 0.5 mg-3 mg(2.5 mg base)/3 mL Solution For Nebulization 3 ml inhalation Q6H PRN (Reason: Shortness Of Breath) Qty: 180 0RF docusate sodium 100 mg Capsule 100 mg PO BID Qty: 60 0RF losartan 50 mg Tablet 50 mg PO DAILY Qty: 30 0RF budesonide 0.5 mg/2 mL Suspension For Nebulization 0.5 mg inhalation BID.RESPIRATORY Qty: 60 0RF diltiazem HCl 120 mg Capsule,Extended Release 24hr 120 mg PO DAILY Qty: 30 0RF furosemide 40 mg tablet 40 mg PO DAILY Qty: 30 0RF pantoprazole 40 mg tablet,delayed release (DR/EC) 40 mg PO DAILY Qty: 30 0RF polyethylene glycol 3350 17 gram/dose powder 17 g PO DAILY Qty: 30 0RF buspirone 15 mg tablet 15 mg PO TID Qty: 90 0RF duloxetine 60 mg capsule,delayed release(DR/EC) 60 mg PO DAILY Qty: 30 0RF albuterol sulfate [Ventolin HFA] 90 mcg/actuation HFA aerosol inhaler 2 inh inhalation Q6H PRN (Reason: shortness of breath or wheezing) Qty: 8.5 0RF Discharge Orders: Discharge ED (Routine); Ordered 09/12/25 Ordered By: Noman Artis Discharge Diet: Usual diet Discharge Activity: Resume usual activity Patient Instructions: Altered Mental Status (ED), Opioid Safety, Pain Management, Patient Portal & Polly Instructions Activity Restrictions/Additional Instructions: You were seen for your episode of confusion, you were evaluated with x-ray, EKG and labs that were ultimately reassuring, you improved with breathing treatment, were able to eat drink and were deemed stable to be discharged home. Continue to take your medications as previously prescribed, make sure you space apart the morphine and Ativan so you avoid future episodes like this. Return to the ED with severe worsening confusion, breathing difficulties, fevers, inability to eat or drink, any other emergent concerns. Print Language: Vietnamese Coding Level of Care Code ED Natural Remedy Consultant for Alida Guerra
[2025-09-12 02:12] LABS: Blood Urea Nitrogen 20 mg/dL (8-23); CRP High Sensitivity Cardiac 0.680 mg/dL (0.0-0.3); Calcium 8.7 mg/dL (8.5-10.5); Chloride 90 mmol/L (98-107); Creatinine Clr Calc Pharmacy 74.0515; Glucose 104 mg/dL (65-115); Osmolality Calculated 299 mOsm/kg (285-295); Sodium 143 mmol/L (136-145)
[2025-09-12 02:14] LABS: Glucose Urine UA Negative (Normal); Nitrate Urine Negative (Negative); Specific Gravity, Urine 1.007 (1.005-1.030)
[2025-09-12 02:18] LABS: Add Urine Microscopic? YES
[2025-09-12 02:28] LABS: Anion Gap 11.7 (5-19); Carbon Dioxide 45 mmol/L (22-29); Potassium 3.7 mmol/L (3.5-5.1)
--- NOTE | 2025-09-12 06:19 | PC.NURSE ---
This nurse has provided updates to IVETH (grand-daughter) twice through the night. She expressed concerns that she did not feel that her grandpa was able to go home. MD Driver spoke with her and explained test ran and results. She stated she would come pick him up later this morning and take him to the correction. This nurse attempted to contact DPOA again due to pt requesting to go home and his discharge status. This nurse was unable to reach her by phone.
[2025-09-12] MEDS: HYDROmorphone 0.5 MG/0.5 ML INJ IVP (06:26)
[2025-09-12] MEDS: LORazepam 2 mg/mL INJ 1 mL 1 MG IVP (06:56)
--- NOTE | 2025-09-12 07:11 | PC.NURSE ---
this RN attempted to call patients granddaughter to discuss d/c status of patient and phone went straight to voicemail. no other contacts listed in chart to contact.
--- NOTE | 2025-09-12 08:03 | PC.NURSE ---
another attempt was made to contact POA, no answer.
--- NOTE | 2025-09-12 12:42 | PC.NURSE ---
patient resting in bed, awaiting transport to residential in [place], [place]. pt has bipap on and is resting with even respirations.
== END 2025-09-12 13:05 | disposition home or self-care (01) ==
PROVIDERS: Emergency Provider Student in an Organized Health Care Education/Training Program
DX: J96.10 Chronic respiratory failure, unspecified whether with hypoxia or hypercapnia (principal); R41.0 Disorientation, unspecified; J44.9 Chronic obstructive pulmonary disease, unspecified; I10 Essential (primary) hypertension; F17.290 Nicotine dependence, other tobacco product, uncomplicated; Z11.52 Encounter for screening for COVID-19
CPT/HCPCS: 71045; 80048; 81001; 82803; 84484; 85025; 86141; 87086; 87637; 93005; 94640; 94660; 96374; 96375; 99285; J1171; J2060; J9999